=== PATIENT | female | born 1965 | race Hispanic/Latino ===

== ENCOUNTER 2019-04-15 14:32 | Emergency (ER) | payer MEDICARE ==
[~2019-04-15] VITALS: Ht 154.9 cm; Wt 59.4 kg
[2019-04-15] MEDS ORDERED: HYDROCODONE/APAP 10MG-325MG TAB PO NR (15:15)
--- NOTE | 2019-04-15 16:19 | Diagnostic Imaging Report ---
History: Headache Comparison studies: None Technique: Axial images were obtained from the skull base to the vertex. Coronal and sagittal reconstructions obtained from the axial data. Dose modulation, iterative reconstruction, and/or weight based adjustment of the mA/kV was utilized to reduce the radiation dose to as low as reasonably achievable. Intravenous contrast: None Findings: Scalp/skull: No abnormalities. No fractures, blastic or lytic lesions. Extra-axial spaces: No masses. No fluid collections. Brain sulci: Appropriate for age. Ventricles: Normal in size and configuration. No hydrocephalus. Parenchyma: No abnormal densities. No masses, hemorrhage, acute or chronic cortical vascular insults. Sellar/suprasellar region: No abnormalities Craniocervical junction: Patent foramen magnum. No Chiari one malformation. Incidental findings: None. IMPRESSION: No abnormalities. Signed by: Dr. Boy Meeks M.D. on 04/15/2019 4:16 PM
[2019-04-15 16:33] VITALS: BP 150/96
== END 2019-04-15 16:00 | disposition home or self-care (01) ==
LOC: ER 14:32
DX: I10 Essential (primary) hypertension (principal); R51 Headache; B19.20 Unspecified viral hepatitis C without hepatic coma; K74.60 Unspecified cirrhosis of liver; K21.9 Gastro-esophageal reflux disease without esophagitis; F41.9 Anxiety disorder, unspecified; E03.9 Hypothyroidism, unspecified
CPT/HCPCS: 70450; 99284

== ENCOUNTER 2019-09-22 16:00 | Inpatient (IN) | payer MEDICARE ==
[~2019-09-22] VITALS: Ht 154.9 cm; Wt 62.6 kg
--- OUTSIDE RECORDS SUMMARY | 2019-09-22 16:04 | XMS REPORT | Summary of Care ---
Author Author TOM N.PKayla, JAMILA Organization Unknown Address Unknown Phone Unavailable Care Team Providers Care Conveyor Installer Name Role Phone GERARDO D.Dion, BLAKE Unavailable Unavailable TOM N.P., JAMILA Unavailable Unavailable YEH DO UT, BLAKE Unavailable Unavailable MIKAYLA TODD, JIMMY Diamond Unavailable Unavailable [facility] UT, JAMILA N Unavailable Unavailable Unavailable Unavailable Functional Status Name Dates Details Functional status health issues are not documented Status: Name Dates Details Cognitive status health issues are not documented Status: Problems Name Dates Details 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 Quantity: 270 YEH D.O., ANDRIA-LLOYD * Start : 31-Oct-2018 Active Venlafaxine HCl ER 150 MG Oral Capsule Extended Release 24 Hour TAKE 1 CAPSULE ONCE DAILY WITH FOOD. * Refills: 0 * Start : 31-Oct-2018 Active Invega 6 MG Oral Tablet Extended Release 24 Hour TAKE 1 TABLET DAILY. * Refills: 0 * Start : 31-Oct-2018 Active traMADol HCl - 50 MG Oral Tablet TAKE 1 TABLET EVERY 8 HOURS NEEDED. * Quantity: 90 Refills: 0 YEH D.O., ANDRIA-LLOYD * Start : 31-Oct-2018 Active traZODone HCl - 50 MG Oral Tablet TAKE 1 TABLET AT BEDTIME. * Quantity: 30 Refills: 0 * Start : 31-Oct-2018 Active Levothyroxine Sodium 50 MCG Oral Tablet TAKE 1 TABLET DAILY. * Quantity: 90 Refills: 1 YEH D.O., BLAKE * Start : 31-Oct-2018 Active Propranolol HCl - 20 MG Oral Tablet TAKE 1 TABLET DAILY * Quantity: 90 Refills: 1 YEH D.O., BLAKE * Start : 31-Oct-2018 Active Vitamin A 56940 UNIT Oral Tablet TAKE 1 TABLET DAILY. * Refills: 0 * Start : 31-Oct-2018 Active raNITIdine HCl - 300 MG Oral Tablet TAKE 1 TABLET DAILY DIRECTED. * Quantity: 90 Refills: 1 * Start : 31-Oct-2018 Active Paliperidone ER 6 MG Oral Tablet Extended Release 24 Hour TAKE 1 TABLET DAILY. * Refills: 0 * Start : 31-Oct-2018 Active Myrbetriq 25 MG Oral Tablet Extended Release 24 Hour TAKE 1 TABLET DAILY * Quantity: 30 Refills: 5 YEH D.O., ANDRIA-LLOYD * Start : 31-Oct-2018 Active Amitriptyline HCl - 25 MG Oral Tablet TAKE 1 TABLET AT BEDTIME. * Quantity: 30 Refills: 5 YEH D.O., BLAKE * Start : 29-Jan-2019 Active H-E-B inControl BP Monitor MEASURE BLOOD PRESSURE DAILY DIRECTED. * Quantity: 1 Refills: 0 TOM Boss.JAMILA Schultz * Start : 17-Apr-2019 Active Allergies and Adverse Reactions Name Dates Details No Known Drug Allergies (Allergy) Status: Active Past Medical History Name Dates Details History of anxiety disorder (V11.8, Z86.59) Status: Resolved History of cirrhosis (V12.79, Z87.19) Status: Resolved History of depression (V11.8, Z86.59) Status: Resolved History of post traumatic stress disorder (V11.8, Z86.59) Status: Resolved History of thyroid disorder (V12.29, Z86.39) Status: Resolved Procedures Procedure Dates Details ECG-12 Lead Date: 17-Apr-2019 [[facility]] CBC (INCLUDES DIFF/PLT) Date: 17-Apr-2019 [[facility]] CMP W/EGFR Date: 17-Apr-2019 [[facility]] HEMOGLOBIN A1c Date: 17-Apr-2019 [[facility]] LIPID PANEL Date: 17-Apr-2019 [[facility]] TSH, 3RD GENERATION W/REFLEX TO FT4 Date: 17-Apr-2019 [[facility]] URINALYSIS, COMPLETE W/REFLEX TO CULTURE Date: 17-Apr-2019 [[facility]] HEPATITIS C ANTIBODY Date: 17-Apr-2019 History of Hysterectomy Completed History of Bladder surgery Completed History of Abdominoplasty Completed History of Mastopexy Completed Immunization Name Dates Details Fluzone Quadrivalent 0.5 ML Intramuscular Suspension Prefilled Syringe Lot #: [id number] on: 31-Oct-2018 Family History Name Dates Details Family history of depression (V17.0, Z81.8) Status: Active Name Dates Details Family history of malignant neoplasm (V16.9, Z80.9) Status: Active Name Dates Details Family history of diabetes mellitus (V18.0, Z83.3) Status: Active Family history of hypertension (V17.49, Z82.49) Status: Active Family history of chronic obstructive pulmonary disease (V17.6, Z82.5) Status: Active Family history of asthma (V17.5, Z82.5) Status: Active Name Dates Details Family history of hypertension (V17.49, Z82.49) Status: Active Family history of stroke (V17.1, Z82.3) Status: Active Family history of chronic obstructive pulmonary disease (V17.6, Z82.5) Status: Active Social History Name Dates Details - Status: Name Dates Details Current every day smoker Vital Signs Date Test Result Details :22 BP Systolic 142 mm[Hg] Status: Comments: Location: LUE; Position: Sitting BP Diastolic 95 mm[Hg] Status: Comments: Location: LUE; Position: Sitting :20 BP Systolic 154 mm[Hg] Status: Comments: Location: LUE; Position: Sitting BP Diastolic 97 mm[Hg] Status: Comments: Location: LUE; Position: Sitting :57 BP Systolic 130 mm[Hg] Status: Comments: Location: LUE; Position: Sitting BP Diastolic 85 mm[Hg] Status: Comments: Location: LUE; Position: Sitting :38 BP Systolic 152 mm[Hg] Status: Comments: Location: LUE; Position: Sitting BP Diastolic 89 mm[Hg] Status: Comments: Location: LUE; Position: Sitting Physical Findings 1 Status: Comments: PHQ-9 Adult Depression Screening Height 61 in Status: Weight 135.375 lb Status: Body Mass Index Calculated 25.58 kg/m2 Status: Body Surface Area Calculated 1.6 m2 Status: Temperature 97.7 f Status: Heart Rate 69 /min Status: Respiration Rate 16 /min Status: Results Date Description Value Details Results not documented Plan of Care Name Dates Details Planned Observations Planned Goals not documented Planned Encounters Appointment; JAMILA SANTOS NP On: 02-May-2019 9:30 Appointment; BLAKE CARRILLO D.O. On: 08-May-2019 13:00 Interventions Provided Medication Changes* H-E-B inControl BP Monitor - Start Labs/Procedures/Imaging* [[facility]] CBC (INCLUDES DIFF/PLT); To Be Done: 17 Apr 2019 * [[facility]] CMP W/EGFR; To Be Done: 17 Apr 2019 * [[facility]] HEMOGLOBIN A1c; To Be Done: 17 Apr 2019 * [[facility]] HEPATITIS C ANTIBODY; To Be Done: 17 Apr 2019 * [QL] LIPID PANEL; To Be Done: 17 Apr 2019 * [QL] TSH, 3RD GENERATION W/REFLEX TO FT4; To Be Done: 17 Apr 2019 * [[facility]] URINALYSIS, COMPLETE W/REFLEX TO CULTURE; To Be Done: 17 Apr 2019 * ECG-12 Lead; To Be Done: 17 Apr 2019 * Tobacco Use Screening; Done: 17 Apr 2019 Discussion/Summary* HTN: * - [O] POC EKG #1 & #2: "Sinus rhythm. Anterior T wave changes are nonspecific. Low QRS voltages in precordial leads." * - Labs ordered: (1) TSH, (2) CBC; (3) CMP; (4) HgbA1c; (5) Lipid panel; (6) Microalbumin, random; (7) U/A; (8) Vitamin D * - Prescription for H-E-B inControl BP Monitor printed and given to pt with H-E-B flyer to purchase at [facility]. * - Will not initiate pharmacologic at this time. Would like to see true home BP readings before starting on medication. * - Will initiate BP treatment with XXX and continue follow-up with patient until BP is at acceptable readings. * - Will refill medication, XXX and continue follow-up appointments with patient until BP is at acceptable readings. * - Daily home BP log given to pt to record measures at home and bring to next visit to evaluate for therapeutic efficacy. * DISCHARGE SUMMARY: * - Medication benefits, risks, and side effects discussed with patient. * - Strict ER precautions given. * - F/U PRN. * - F/U in 2 weeks for reevaluation of medication efficacy. * * Patient expresses understanding and agrees with plan and management. Instructions Name Dates Details Instructions not documented Encounters Appointment; BLAKE CARRILLO D.O. Encounter Diagnosis: Problem not documented On: 31-Oct-2018 10:30 Appointment; BLAKE CARRILLO D.O. Encounter Diagnosis: Problem not documented On: 29-Jan-2019 10:00 Appointment; JAMILA SANTOS NP Encounter Diagnosis: Problem not documented On: 17-Apr-2019 15:00
--- OUTSIDE RECORDS SUMMARY | 2019-09-22 16:04 | XMS REPORT ---
Author Author [facility] Address Unknown Phone Unavailable Care Team Providers Care Regional Retail Sales Manager Name Role Phone Eric DURANT GENIAEULALIO Unavailable Unavailable Problems This patient has no known problems. Allergies, Adverse Reactions, Alerts This patient has no known allergies or adverse reactions. Medications This patient has no known medications. Encounters Start Date/Time End Date/Time Encounter Type Admission Type Attending [facility] Care Facility Care Department Encounter ID 2019-11-19 00:00:00 2019-11-19 00:00:00 Outpatient [facility] [id number] 2019-09-17 09:47:13 2019-09-17 09:47:13 Outpatient [facility] [id number] 2019-06-25 09:15:42 2019-06-25 09:15:42 Outpatient [facility] [id number] 2019-05-22 15:13:14 2019-05-22 15:13:14 Emergency [facility] [id number] 2017-03-21 00:00:00 2017-03-21 00:00:00 Outpatient [facility] [id number] Results Test Description Test Time Test Comments Text Results Atomic Results Result Comments CT BRAIN WO 2019-04-15 16:15:00 [place] [address] Patient Name: SHAUN HAM MR #: [id number] : 1965 Age/Sex: 53/F Req #: [id number] Adm Physician: Ordered by: YULIA MCNALLY TOOL AND DIE MAKER APPRENTICE Report #: [id number] Location: ER Room/Bed: Procedure: [id number] CT/CT BRAIN WO Exam Date: 04/15/19 Exam Time: 1545 REPORT STATUS: Signed History: Headache Comparison studies: None Techni que: Axial images were obtained from the skull base to the vertex. Coronal and sagittal reconstructions obtained from the axial data. Dose modulation, iterative reconstruction, and/or weight based adjustment of the mA/kV was utilized to reduce the radiation dose to as low as reasonably achievable. Intravenous contrast: None Findings: Scalp/skull: No abnormalities. No fractures, blastic or lytic lesions. Extra-axial spaces: No masses. No fluid collections. Brain sulci: Appropriate for age. Ventricles: Normal in size and configuration. No hydrocephalus. Parenchyma: No abnormal densities. No masses, hemorrhage, acute or chronic cortical vascular insults. Sellar/suprasellar region: No abnormalities Craniocervical junction: Patent foramen magnum. No Chiari one malformation. Incidental findings: None. IMPRESSION: No abnormalities. Signed by: Dr. Boy Meeks M.D. on 04/15/2019 4:16 PM Dictated By: BOY MEEKS MD, MD [id number] Transcribed By: RITA on 04/15/19 1616 COPY TO: YULIA MCNALLY NP
--- NOTE | 2019-09-22 16:30 | NUR ---
PATIENT TO ROOM 8
[2019-09-22 16:59] LABS: BILIRUBIN,URINE NEGATIVE (NEGATIVE); CLARITY,URINE CLEAR (CLEAR); COLOR,URINE YELLOW (YELLOW); KETONES,URINE NEGATIVE (NEGATIVE); LEUKOCYTE ESTERASE ,URINE NEGATIVE (NEGATIVE); NITRITE,URINE NEGATIVE (NEGATIVE); PROTEIN,URINE DIPSTICK NEGATIVE (NEGATIVE); URINE UROBILINOGEN 0.2 mg/dL (0.2 - 1)
[2019-09-22] MEDS ORDERED: PANTOPRAZOLE 40 MG 10ML VIAL IV ONE (17:00)
[2019-09-22] MEDS ORDERED: ONDANSETRON HCL INJ 2MG/ML 2ML 2 MG/ML VIAL IV ONE (17:00)
--- NOTE | 2019-09-22 17:00 | NUR ---
YULIA Mcleod AT BEDSIDE EVALUATING PATIENT
[2019-09-22 17:06] LABS: BACTERIA,URINE FEW /HPF; EPITHELIAL CELLS,URINE FEW /LPF; RBC,URINE 0-5 /HPF (0-5); WBC,URINE (MAN) 0-5 /HPF (0-5)
--- NOTE | 2019-09-22 17:23 | Diagnostic Imaging Report ---
EXAMINATION: CHEST SINGLE (PORTABLE) INDICATION: Abdominal pain. COMPARISON: None FINDINGS: TUBES and LINES: None. LUNGS: Low lung volumes. There is no evidence of pneumonia or pulmonary edema. PLEURA: No pleural effusion or pneumothorax. HEART AND MEDIASTINUM: The cardiomediastinal silhouette is unremarkable. BONES AND SOFT TISSUES: No acute osseous lesion. Soft tissues are unremarkable. UPPER ABDOMEN: No free air under the diaphragm. IMPRESSION: No acute radiographic abnormality. Signed by: Dr. Junito Toth MD on 09/22/2019 5:20 PM
[2019-09-22 17:24] LABS: BASOPHILS % 0.2 % (0.0-1.0); EOSINOPHILS # (AUTO) 0.2 (0.0-0.4); EOSINOPHILS % 2.8 % (0.0-6.0); HEMATOCRIT 39.6 % (34.2-44.1); HEMOGLOBIN 13.7 g/dL (12.0-16.0); LYMPHOCYTES # (AUTO) 1.6 (1.0-3.2); LYMPHOCYTES % 18.7 % (18.0-39.1); MEAN CORPUSCULAR HEMOGLOBIN 31.1 pg (28-32); MEAN CORPUSCULAR HGB CONC 34.6 g/dL (31-35); MEAN CORPUSCULAR VOLUME 89.8 fL (81-99); MONOCYTES # (AUTO) 0.4 (0.2-0.8); MONOCYTES % 4.5 % (4.4-11.3); NEUTROPHILS # (AUTO) 6.1 (2.1-6.9); NEUTROPHILS % 73.6 % (38.7-80.0); PLATELET COUNT 147 x10e3/uL (140-360); RED BLOOD COUNT 4.41 x10e6/uL (3.6-5.1); RED CELL DISTRIBUTION WIDTH 12.7 % (11.7-14.4)
[2019-09-22 17:37] LABS: INR 0.99; PROTHROMBIN TIME 13.6 seconds (11.9-14.5)
[2019-09-22 17:38] LABS: PARTIAL THROMBOPLASTIN TIME 36.5 seconds (23.8-35.5)
[2019-09-22 17:47] LABS: ALANINE AMINOTRANSFERASE 23 IU/L (0-55); ALBUMIN 4.1 g/dL (3.5-5.0); ALBUMIN/GLOBULIN RATIO 1.1 (0.8-2.0); ALKALINE PHOSPHATASE 91 IU/L (40-150); AMYLASE 64 U/L (25-125); ANION GAP 14.3 mmol/L (8-16); BLOOD UREA NITROGEN < 5 mg/dL (7-26); BUN/CREATININE RATIO 6 (6-25); CALCIUM 9.7 mg/dL (8.4-10.2); CARBON DIOXIDE 26 mmol/L (22-29); CHLORIDE 91 mmol/L (98-107); CREATINE KINASE 43 IU/L (29-168); EST GLOMERULAR FILTRATION RATE > 60 ML/MIN (60-); GLUCOSE 117 mg/dL (74-118); LIPASE 21 U/L (8-78); POTASSIUM 3.3 mmol/L (3.5-5.1); SODIUM 128 mmol/L (136-145)
[2019-09-22] MEDS ORDERED: MORPHINE SULFATE INJ 4 MG/ML INJ 1ML IV ONE (18:00)
[2019-09-22] MEDS ORDERED: IOPAMIDOL 370 MG/ML 200 ML INFUS..BTL INJ ONE (18:33)
[2019-09-22] MEDS ORDERED: SODIUM CHLORIDE 0.9% 50ML 50 ML ONE (18:33)
[2019-09-22] MEDS ORDERED: SODIUM CHLORIDE 0.9% 500ML 500 ML IV ONE (19:30)
--- NOTE | 2019-09-22 19:37 | Diagnostic Imaging Report ---
EXAM: CT Abdomen and Pelvis WITH contrast INDICATION: ^abd pain ^[id number] ^1810 COMPARISON: None. TECHNIQUE: Abdomen and pelvis were scanned utilizing a multidetector helical scanner from the lung base to the pubic symphysis after administration of IV contrast. Coronal and sagittal reformations were obtained. Dose modulation, iterative reconstruction, and/or weight based adjustment of the mA/kV was utilized to reduce the radiation dose to as low as reasonably achievable. Routine protocol was performed. Scan was performed when during portal venous phase. IV CONTRAST: 100 mL of Isovue-370 ORAL CONTRAST: None COMPLICATIONS: None RADIATION DOSE: Total DLP: 245.64 mGy*cm Estimated effective dose: (DLP x 0.015 x size factor) mSv CTDIvol has been reviewed. It is below the limits set by the Radiation Protocol Committee (RPC). FINDINGS: LINES and TUBES: None. LOWER THORAX: Mild right basilar subsegmental atelectasis. HEPATOBILIARY: Nodular contour. No focal hepatic lesions. No biliary ductal dilation. GALLBLADDER: Distended gallbladder. No radio-opaque stones or sludge. No wall thickening. SPLEEN: No splenomegaly. PANCREAS: No focal masses or ductal dilatation. ADRENALS: No adrenal nodules KIDNEYS/URETERS: Kidneys enhance symmetrically. No hydronephrosis. No renal mass. Few bilateral subcentimeter hypodensities are too small to characterize. No stones. GI TRACT: Few dilated small bowel loops in left upper quadrant along with more distal collapsed loops and transition point in right abdomen (series 2, image 44). Appendix is absent. PELVIC ORGANS/BLADDER: Unremarkable. LYMPH NODES: No lymphadenopathy. VESSELS: There is mild atherosclerotic disease in the aorta and major arterial branches. PERITONEUM / RETROPERITONEUM: No free air or fluid. BONES: Lateral L5 pars defects with grade 1 L5-S1 spondylolisthesis. SOFT TISSUES: Unremarkable. IMPRESSION: 1. Few dilated small bowel loops along with more distal collapsed loops, concerning for early/partial small bowel obstruction in the appropriate clinical context. 2. Hydropic gallbladder without radiopaque gallstone or wall thickening. Signed by: Dr. Valerio Alonso MD on 09/22/2019 7:34 PM
[2019-09-22] MEDS ORDERED: ONDANSETRON HCL INJ 2MG/ML 2ML 2 MG/ML VIAL IV PRN (20:00)
[2019-09-22] MEDS ORDERED: MORPHINE SULFATE 2 MG/ML SYR 1ML IV PRN (20:00)
[2019-09-22 22:04] VITALS: BP 133/78
[2019-09-22] MEDS: SODIUM CHLORIDE 0.9% 1000ML 1,000 ML IV SCH (22:15)
[2019-09-22 22:40] VITALS: BP 133/78
[2019-09-22 22:46] VITALS: BP 133/78
[2019-09-22] MEDS ORDERED: GABAPENTIN300 MG PO (23:01)
[2019-09-22] MEDS ORDERED: OXYBUTYNIN CHLOR5 M1 PO (23:01)
[2019-09-22] MEDS ORDERED: VITAMIN A10000 UNIT PO (23:01)
[2019-09-22] MEDS ORDERED: HYDROCHLOROTH12.5 MG PO (23:01)
[2019-09-22] MEDS ORDERED: PROMETHAZINE VC PO (23:01)
[2019-09-22] MEDS ORDERED: VENLAFAXINE HCL75 M2 PO (23:01)
[2019-09-22] MEDS ORDERED: ULTRAM 50MG50 MG PO (23:01)
[2019-09-22] MEDS ORDERED: TRAZODONE HCL50 MG PO (23:01)
[2019-09-22] MEDS ORDERED: RISPERIDONE1 MG PO (23:01)
[2019-09-22] MEDS ORDERED: LEVOTHYROXINE50 MCG PO (23:01)
[2019-09-22] MEDS ORDERED: AMITRIPTYLINE H25 MG PO (23:01)
[2019-09-22] MEDS ORDERED: FLUTICASONE P15.8 ML (23:01)
[2019-09-22] MEDS ORDERED: PROPRANOLOL HCL10 MG PO (23:01)
[2019-09-23] VITALS (7 sets, daily range): BP systolic 118–135; BP diastolic 74–79
[2019-09-23] MEDS: SODIUM CHLORIDE 0.9% 1000ML 1,000 ML IV SCH ×3 (05:58→19:30)
[2019-09-23 06:24] LABS: BASOPHILS % 0.4 % (0.0-1.0); EOSINOPHILS # (AUTO) 0.3 (0.0-0.4); EOSINOPHILS % 4.9 % (0.0-6.0); HEMATOCRIT 37.3 % (34.2-44.1); HEMOGLOBIN 12.6 g/dL (12.0-16.0); LYMPHOCYTES # (AUTO) 1.7 (1.0-3.2); LYMPHOCYTES % 32.7 % (18.0-39.1); MEAN CORPUSCULAR HEMOGLOBIN 30.7 pg (28-32); MEAN CORPUSCULAR HGB CONC 33.8 g/dL (31-35); MEAN CORPUSCULAR VOLUME 90.8 fL (81-99); MONOCYTES # (AUTO) 0.4 (0.2-0.8); MONOCYTES % 7.8 % (4.4-11.3); NEUTROPHILS # (AUTO) 2.8 (2.1-6.9); PLATELET COUNT 124 x10e3/uL (140-360); RED BLOOD COUNT 4.11 x10e6/uL (3.6-5.1)
[2019-09-23 06:47] LABS: ANION GAP 12.8 mmol/L (8-16); BLOOD UREA NITROGEN 5 mg/dL (7-26); BUN/CREATININE RATIO 7 (6-25); CALCIUM 8.9 mg/dL (8.4-10.2); CARBON DIOXIDE 25 mmol/L (22-29); CHLORIDE 101 mmol/L (98-107); CREATININE, SERUM 0.72 mg/dL (0.57-1.11); EST GLOMERULAR FILTRATION RATE > 60 ML/MIN (60-); GLUCOSE 92 mg/dL (74-118); POTASSIUM 3.8 mmol/L (3.5-5.1); SODIUM 135 mmol/L (136-145)
--- NOTE | 2019-09-23 07:40 | Diagnostic Imaging Report ---
Abdomen/KUB INDICATION: ^SBO ^[id number] ^0633 COMPARISON: CT abdomen/pelvis 09/22/2019. FINDINGS: Portable, supine image obtained at 0702 hours. Medical Devices: Normal. Bowel: Unremarkable bowel gas pattern. No dilated bowel loops. Moderate burden of stool throughout the colon Free air: None Abdominal calcifications: None Organomegaly: None. There is excreted contrast in a well distended urinary bladder. The contours are smooth Bones: Unremarkable IMPRESSION: Unremarkable bowel gas pattern. Moderate burden of stool throughout the colon. Signed by: Dr. Kirsten Mcdonnell MD on 09/23/2019 7:37 AM
[2019-09-23] MEDS: FAMOTIDINE 20 MG/2 ML VIAL IV SCH (17:35)
--- NOTE | 2019-09-23 20:10 | NUR ---
SPOKE TO TRACEY LOZANO REGARDING PT REQUEST OF NICOTINE PATCH. NEW ORDER RECEIVED.
[2019-09-23] MEDS: GABAPENTIN 300 MG CAP PO SCH (21:32)
[2019-09-23] MEDS: NICOTINE 14 MG/EA PATCH TOP PRN (21:32)
[2019-09-23] MEDS: RISPERIDONE 1 MG TAB PO SCH (21:32)
[2019-09-23] MEDS: TRAZODONE HCL 50 MG TAB PO SCH (21:32)
[2019-09-23] MEDS: AMITRIPTYLINE HCL 25 MG TAB PO SCH (21:32)
[2019-09-24] VITALS (8 sets, daily range): BP systolic 103–160; BP diastolic 68–90
--- NOTE | 2019-09-24 00:09 | NUR ---
DR. Mary Ellen GREEN DOING ROUNDS. NEW ORDER RECEIVED FOR DULCOLAX SUPP ONCE
[2019-09-24] MEDS ORDERED: BISACODYL 10 MG SUPP PR ONE (00:15)
--- NOTE | 2019-09-24 00:25 | NUR ---
DR. Mary Ellen GREEN SAID OK TO GIVE DULCOLAX SUPP AT 0500
[2019-09-24] MEDS: LEVOTHYROXINE SODIUM 50 MCG TAB PO SCH (05:32)
[2019-09-24 06:11] LABS: BASOPHILS % 0.3 % (0.0-1.0); EOSINOPHILS # (AUTO) 0.3 (0.0-0.4); EOSINOPHILS % 6.5 % (0.0-6.0); HEMATOCRIT 37.8 % (34.2-44.1); HEMOGLOBIN 12.5 g/dL (12.0-16.0); LYMPHOCYTES # (AUTO) 1.3 (1.0-3.2); LYMPHOCYTES % 33.2 % (18.0-39.1); MEAN CORPUSCULAR HEMOGLOBIN 30.3 pg (28-32); MEAN CORPUSCULAR HGB CONC 33.1 g/dL (31-35); MEAN CORPUSCULAR VOLUME 91.7 fL (81-99); MONOCYTES # (AUTO) 0.3 (0.2-0.8); MONOCYTES % 7.5 % (4.4-11.3); NEUTROPHILS % 52.2 % (38.7-80.0); PLATELET COUNT 104 x10e3/uL (140-360); RED BLOOD COUNT 4.12 x10e6/uL (3.6-5.1)
[2019-09-24 06:41] LABS: ANION GAP 10.9 mmol/L (8-16); BLOOD UREA NITROGEN 5 mg/dL (7-26); BUN/CREATININE RATIO 6 (6-25); CALCIUM 8.8 mg/dL (8.4-10.2); CARBON DIOXIDE 25 mmol/L (22-29); CHLORIDE 105 mmol/L (98-107); CREATININE, SERUM 0.79 mg/dL (0.57-1.11); EST GLOMERULAR FILTRATION RATE > 60 ML/MIN (60-); GLUCOSE 88 mg/dL (74-118); PHOSPHORUS 3.2 MG/DL (2.3-4.7); POTASSIUM 3.9 mmol/L (3.5-5.1); SODIUM 137 mmol/L (136-145)
--- NOTE | 2019-09-24 07:00 | NUR ---
RECEIVED PATIENT RESTING IN BED NO S/S OF DISTRESS. BED LOW, WHEELS LOCKED, SIDE RAILS X2. CALL LIGHT IN REACH WILL CONTINUE TO MONITOR PATIENT.
--- NOTE | 2019-09-24 07:35 | NUR ---
PATIENT HAD BOWEL MOVEMENT AT THIS TIME. MODERATE FORMED BROWN STOOL.
[2019-09-24] MEDS: GABAPENTIN 300 MG CAP PO SCH ×3 (08:18→22:10)
[2019-09-24] MEDS: FAMOTIDINE 20 MG/2 ML VIAL IV SCH ×2 (08:30→17:03)
[2019-09-24] MEDS: SODIUM CHLORIDE 0.9% 1000ML 1,000 ML IV SCH ×2 (09:00→22:10)
--- NOTE | 2019-09-24 09:26 | NUR ---
PATIENT LEFT AT THIS TIME TO NUCLEAR MEDICINE.
--- NOTE | 2019-09-24 10:59 | NUR ---
PATIENT BACK FROM NUCLEAR MEDICINE AT THIS TIME.
[2019-09-24] MEDS: OXYBUTYNIN CHLORIDE XL 5 MG TAB PO SCH (12:06)
[2019-09-24] MEDS: VENLAFAXINE HCL 75 MG CAPCR PO SCH (12:06)
[2019-09-24] MEDS: PROPRANOLOL HCL 10 MG TAB PO SCH (12:07)
[2019-09-24] MEDS ORDERED: VITAMIN A 10000 UNIT PO SCH (15:00)
--- NOTE | 2019-09-24 15:36 | Diagnostic Imaging Report ---
Hepatobiliary Scan with Gallbladder Ejection Fraction Clinical information: Small bowel obstruction; gallbladder hydrops Technique: Following intravenous administration of 6.6.6 millicuries of Tc-99m mebrofenin, dynamic images of the abdomen in the anterior projection were obtained through 40 minutes. Sincalide (CCK analog) 1.2 micrograms was administered intravenously over 30 minutes with additional imaging for determination of gallbladder ejection fraction. Discussion: Perfusion of the liver is normal. Extraction of tracer by the liver parenchyma is normal. Tracer appears promptly within the biliary tract. The gallbladder begins to fill at 24 minutes post injection of tracer and fills adequately. Tracer is seen in the small bowel by during the sincalide infusion. There is no contractile response by the gallbladder to the pharmacologic dose of sincalide. No emptying of the gallbladder occurs during the 30 minute infusion. Impression: 1. Filling of the gallbladder excludes acute cystic duct obstruction/acute cholecystitis. 2. The gallbladder ejection fraction is undefined as there is no emptying of the gallbladder during the infusion of sincalide. This absence of a contractile response to sincalide supports the clinical diagnosis of chronic cholecystitis/gallbladder dyskinesia. Signed by: Dr. Nazia Weiss M.D. on 09/24/2019 3:32 PM
--- NOTE | 2019-09-24 16:54 | NUR ---
Spoke to Timothy about if patient meets inpatient status, he is unsure for this particular patient. Clinicals copied from chart and sent to third green party physician review group.
[2019-09-24] MEDS: GUAIFENESIN 600MG/DEXTROMETHORPHAN 30MG TABSR PO SCH (17:03)
[2019-09-24] MEDS: VITAMIN A 10000 UNIT PO SCH (17:03)
--- NOTE | 2019-09-24 17:25 | NUR ---
HIDA SHOWS CHRONIC CHOLECYSTITIS NOLA CEMENT TESTER ASSISTANT AWARE AND IS CALLING RESULTS TO DISCUSS PLAN WITH DR Mary Ellen GREEN
[2019-09-24] MEDS: ALBUTEROL/IPRATROPIUM 3 ML NEB NEB SCH (19:40)
[2019-09-24] MEDS: RISPERIDONE 1 MG TAB PO SCH (21:30)
[2019-09-24] MEDS: TRAZODONE HCL 50 MG TAB PO SCH (21:30)
[2019-09-24] MEDS: AMITRIPTYLINE HCL 25 MG TAB PO SCH (21:30)
[2019-09-25] VITALS (8 sets, daily range): BP systolic 116–184; BP diastolic 68–88
[2019-09-25] MEDS: ALBUTEROL/IPRATROPIUM 3 ML NEB NEB SCH ×4 (00:20→19:20)
--- NOTE | 2019-09-25 00:56 | NUR ---
is doing rounds.no new orders. is aware of the consults.bed locked and in lowest position.phone and call light within reach.instructed to call for assistance as needed.
[2019-09-25 03:41] LABS: BASOPHILS % 0.4 % (0.0-1.0); EOSINOPHILS # (AUTO) 0.4 (0.0-0.4); EOSINOPHILS % 6.9 % (0.0-6.0); HEMATOCRIT 36.9 % (34.2-44.1); HEMOGLOBIN 12.6 g/dL (12.0-16.0); LYMPHOCYTES # (AUTO) 1.6 (1.0-3.2); LYMPHOCYTES % 30.4 % (18.0-39.1); MEAN CORPUSCULAR HEMOGLOBIN 30.8 pg (28-32); MEAN CORPUSCULAR HGB CONC 34.1 g/dL (31-35); MEAN CORPUSCULAR VOLUME 90.2 fL (81-99); MONOCYTES # (AUTO) 0.3 (0.2-0.8); MONOCYTES % 6.2 % (4.4-11.3); NEUTROPHILS # (AUTO) 2.9 (2.1-6.9); NEUTROPHILS % 55.9 % (38.7-80.0); PLATELET COUNT 117 x10e3/uL (140-360); RED BLOOD COUNT 4.09 x10e6/uL (3.6-5.1); RED CELL DISTRIBUTION WIDTH 12.8 % (11.7-14.4)
[2019-09-25 04:13] LABS: ANION GAP 10.8 mmol/L (8-16); BLOOD UREA NITROGEN 5 mg/dL (7-26); BUN/CREATININE RATIO 7 (6-25); CALCIUM 8.9 mg/dL (8.4-10.2); CARBON DIOXIDE 23 mmol/L (22-29); CHLORIDE 108 mmol/L (98-107); CREATININE, SERUM 0.75 mg/dL (0.57-1.11); EST GLOMERULAR FILTRATION RATE > 60 ML/MIN (60-); GLUCOSE 86 mg/dL (74-118); MAGNESIUM 2.1 MG/DL (1.3-2.1); PHOSPHORUS 3.5 MG/DL (2.3-4.7); POTASSIUM 3.8 mmol/L (3.5-5.1); SODIUM 138 mmol/L (136-145)
[2019-09-25] MEDS ORDERED: BISACODYL 10 MG SUPP PR ONE (04:45)
[2019-09-25] MEDS: LEVOTHYROXINE SODIUM 50 MCG TAB PO SCH (05:51)
--- NOTE | 2019-09-25 06:50 | NUR ---
BED SIDE SHIFT REPORT GIVEN TO THE ONCOMING RN.STABLE CONDITION.
--- NOTE | 2019-09-25 07:00 | NUR ---
RECEIVED PATIENT RESTING IN BED NO S/S OF DISTRESS. BED LOW, WHEELS LOCKED, SIDE RAILS X2. CALL LIGHT IN REACH WILL CONTINUE TO MONITOR PATIENT.
[2019-09-25] MEDS: VENLAFAXINE HCL 75 MG CAPCR PO SCH (08:00)
[2019-09-25] MEDS: VITAMIN A 10000 UNIT PO SCH (08:00)
[2019-09-25] MEDS: GABAPENTIN 300 MG CAP PO SCH ×3 (08:00→21:10)
[2019-09-25] MEDS: OXYBUTYNIN CHLORIDE XL 5 MG TAB PO SCH (08:00)
[2019-09-25] MEDS: FAMOTIDINE 20 MG/2 ML VIAL IV SCH ×2 (08:00→16:15)
[2019-09-25] MEDS: PROPRANOLOL HCL 10 MG TAB PO SCH (08:00)
[2019-09-25] MEDS: DOCUSATE SODIUM 100 MG CAP PO SCH ×2 (08:00→16:15)
[2019-09-25] MEDS: GUAIFENESIN 600MG/DEXTROMETHORPHAN 30MG TABSR PO SCH ×2 (08:00→21:10)
--- NOTE | 2019-09-25 09:48 | NUR ---
PATIENT A/O X3, EVEN RESPIRATIONS ON RA. LUNG SOUNDS CLEAR TO AUSCULTATION. PATIENT AMBULATES INDEPENDENTLY. LEFT AC 20 GAUGE IV SL. NO PAIN AT THIS TIME. SKIN INTACT. LAST BOWEL MOVEMENT 09/24. BOWEL SOUNDS PRESENT. CALL LIGHT IN REACH WILL CONTINUE TO MONITOR PATIENT.
[2019-09-25] MEDS: TRAMADOL HCL 50 MG TAB PO PRN (10:14)
[2019-09-25] MEDS: HYDRALAZINE HCL 20 MG/ML VIAL IV PRN (12:29)
[2019-09-25] MEDS: NICOTINE 14 MG/EA PATCH TOP PRN (14:08)
[2019-09-25] MEDS: MORPHINE SULFATE INJ 4 MG/ML INJ 1ML IV PRN (14:08)
--- NOTE | 2019-09-25 15:00 | NUR ---
message to Dr. Mujica regarding observation/LOS/consult
[2019-09-25] MEDS: AMLODIPINE BESYLATE 10 MG TAB PO SCH (16:15)
[2019-09-25] MEDS: RISPERIDONE 1 MG TAB PO SCH (21:10)
[2019-09-25] MEDS: AMITRIPTYLINE HCL 25 MG TAB PO SCH (21:10)
[2019-09-25] MEDS: TRAZODONE HCL 50 MG TAB PO SCH (21:10)
--- NOTE | 2019-09-25 22:00 | NUR ---
was doing rounds.received new orders.npo after midnight.no pain voiced.no nausea.iv Left ac is patent.bed locked and in lowest position.phone and call light within reach.instructed to call for assistance as needed.
[2019-09-26] VITALS (9 sets, daily range): BP systolic 114–152; BP diastolic 67–93
--- NOTE | 2019-09-26 03:22 | Consultation ---
DATE OF CONSULTATION: 09/25/2019 CHIEF COMPLAINT: Abdominal pain. HISTORY OF PRESENT ILLNESS: The patient is a 53-year-old female admitted through the emergency room three days ago with epigastric upper abdominal pain with vomiting x 3. The patient admits to some constipation, but denies fever or chills. She has no prior episode. No fatty food intolerance. PAST MEDICAL HISTORY: Positive for hypertension, hepatitis C with cirrhotic liver, history of endometriosis, hypothyroidism. PAST SURGICAL HISTORY: Positive for tubal ligation, hysterectomy, ovarian cyst removal, abdominoplasty and breast lift. ALLERGIES: SHE HAS NO DRUG ALLERGIES. SOCIAL HABITS: She denies smoking or alcohol abuse. REVIEW OF SYSTEMS: No chest pain or shortness of breath. PHYSICAL EXAMINATION: VITAL SIGNS: Stable. Afebrile. She is awake, alert, in mild discomfort HEENT: Sclera nonicteric. NECK: Supple. LUNGS: Clear. HEART: Regular rate and rhythm. ABDOMEN: Soft with mild guarding in the epigastrium without any rebound tenderness. EXTREMITIES: Without cyanosis, edema. LABORATORY DATA: White cell count is 5.9, hemoglobin of 12, platelet count is 117, creatinine of 0.7. Liver function tests within normal limits. Lipase 21. CT of the abdomen show a few dilated small bowel loops suggestive of early small-bowel obstruction. Hydropic gallbladder without stone. HIDA scan show filling of the gallbladder, but no emptying with CCK. This suggests gallbladder dyskinesia. ASSESSMENT: Abdominal pain, vomiting, likely secondary to biliary dyskinesia. PLAN: Laparoscopic cholecystectomy. All attendant risks have been discussed with the patient. Michael Torres MD DNMichelet/MODL /[id number]
[2019-09-26 03:39] LABS: BASOPHILS % 0.3 % (0.0-1.0); EOSINOPHILS # (AUTO) 0.4 (0.0-0.4); EOSINOPHILS % 6.3 % (0.0-6.0); HEMATOCRIT 40.9 % (34.2-44.1); HEMOGLOBIN 14.1 g/dL (12.0-16.0); LYMPHOCYTES # (AUTO) 1.9 (1.0-3.2); LYMPHOCYTES % 29.1 % (18.0-39.1); MEAN CORPUSCULAR HEMOGLOBIN 30.9 pg (28-32); MEAN CORPUSCULAR HGB CONC 34.5 g/dL (31-35); MEAN CORPUSCULAR VOLUME 89.5 fL (81-99); MONOCYTES # (AUTO) 0.4 (0.2-0.8); MONOCYTES % 6.3 % (4.4-11.3); NEUTROPHILS # (AUTO) 3.8 (2.1-6.9); NEUTROPHILS % 57.7 % (38.7-80.0); PLATELET COUNT 127 x10e3/uL (140-360); RED BLOOD COUNT 4.57 x10e6/uL (3.6-5.1); RED CELL DISTRIBUTION WIDTH 12.8 % (11.7-14.4)
[2019-09-26 03:56] LABS: ANION GAP 14.8 mmol/L (8-16); CALCIUM 9.9 mg/dL (8.4-10.2); CHOL/HDL RATIO 3.7 (3.0-3.6); CREATININE, SERUM 1.03 mg/dL (0.57-1.11); POTASSIUM 3.8 mmol/L (3.5-5.1)
[2019-09-26 04:16] LABS: THYROID STIMULATING HORMONE 5.583 uIU/mL (0.350-4.940)
--- NOTE | 2019-09-26 05:04 | NUR ---
CONSENT SIGNED.ON NPO.BLOOD CAMDEN AND SENT TO THE LAB .STABLE CONDITION.
[2019-09-26] MEDS ORDERED: SODIUM CHLORIDE 0.9% 1000ML 1,000 ML IV SCH (05:15)
[2019-09-26] MEDS: LEVOTHYROXINE SODIUM 75 MCG TAB PO SCH (05:19)
--- NOTE | 2019-09-26 07:00 | NUR ---
Bed side shift report given to the on coming Rn.stable condition.
[2019-09-26] MEDS: AMLODIPINE BESYLATE 10 MG TAB PO SCH (09:00)
[2019-09-26] MEDS: DOCUSATE SODIUM 100 MG CAP PO SCH ×2 (09:00→17:53)
[2019-09-26] MEDS: VENLAFAXINE HCL 75 MG CAPCR PO SCH (09:00)
[2019-09-26] MEDS: GABAPENTIN 300 MG CAP PO SCH ×3 (09:00→20:46)
[2019-09-26] MEDS: VITAMIN A 10000 UNIT PO SCH (09:00)
[2019-09-26] MEDS: OXYBUTYNIN CHLORIDE XL 5 MG TAB PO SCH (09:00)
[2019-09-26] MEDS: PROPRANOLOL HCL 10 MG TAB PO SCH (09:00)
[2019-09-26] MEDS: GUAIFENESIN 600MG/DEXTROMETHORPHAN 30MG TABSR PO SCH ×2 (09:00→20:46)
[2019-09-26] MEDS: FAMOTIDINE 20 MG/2 ML VIAL IV SCH ×2 (09:34→17:53)
[2019-09-26] MEDS: ALBUTEROL/IPRATROPIUM 3 ML NEB NEB SCH ×2 (13:45→19:43)
[2019-09-26] MEDS ORDERED: BUPIVACAINE 0.25% 30ML SDV INJ ONE (15:29)
[2019-09-26] MEDS: HYDRALAZINE HCL 20 MG/ML VIAL IV PRN (17:22)
--- NOTE | 2019-09-26 17:45 | NUR ---
Pt came back from [facility] at this time. Pt has four trocher sites to abdomen with dermabond and bandages. Dressings are dry and intact. Pt is aox4 and able to verbalize. She is now on clear liquid liquid diet and advance as tolerated.
[2019-09-26] MEDS: MORPHINE SULFATE INJ 4 MG/ML INJ 1ML IV PRN ×2 (17:53→23:19)
[2019-09-26] MEDS ORDERED: MIDAZOLAM HCL 2 MG/2 ML VIAL ONE (19:58)
[2019-09-26] MEDS ORDERED: FENTANYL CITRATE/PF 100MCG/2 ML INJ ONE (19:58)
[2019-09-26] MEDS: TRAZODONE HCL 50 MG TAB PO SCH (20:46)
[2019-09-26] MEDS: AMITRIPTYLINE HCL 25 MG TAB PO SCH (20:46)
[2019-09-26] MEDS: RISPERIDONE 1 MG TAB PO SCH (20:46)
[2019-09-26] MEDS: TRAMADOL HCL 50 MG TAB PO PRN (20:46)
[2019-09-27] VITALS: BP 118/68
--- NOTE | 2019-09-27 00:05 | Operative Report ---
DATE OF PROCEDURE: 09/26/2019 SURGEON: Michael Torres MD PREOPERATIVE DIAGNOSIS: Cholecystitis. POSTOPERATIVE DIAGNOSIS: Cholecystitis. OPERATIVE PROCEDURE: Laparoscopic cholecystectomy. ANESTHESIA: General. INDICATION: The patient is a 53-year-old female with a 5-day history of epigastric pain, vomiting with ultrasound showing distention in gallbladder and HIDA scan showed poor ejection fraction of the gallbladder suggestive of chronic cholecystitis and biliary dyskinesia. The patient consented for laparoscopic cholecystectomy. Attendant risks discussed. PROCEDURE FINDING: Liver cirrhosis. DESCRIPTION OF PROCEDURE: The patient was brought to the OR, intubated. The abdomen was prepped and draped in a sterile fashion. An infraumbilical incision was made and a 10 mm port inserted. Insufflation begun under direct vision. Another port site placed in the midepigastric and right upper quadrant. Gallbladder was noted to be chronically inflamed and distended. Fundus retracted in cephalad direction. Next, the gallbladder retracted laterally. With blunt and sharp dissection, we isolated cystic artery, triple clipped and divided. The cystic duct was also isolated, triple clipped and divided between clips. The gallbladder detached from the liver and taken out through the umbilical incision. Operative field was then irrigated. Hemostasis achieved. All ports were removed under direct vision. Fascia closure with 0 Vicryl. Skin was then closed with subcuticular stitch. The patient was extubated and transported to recovery room. BLOOD LOSS: 10 mL. Michael Torres MD DNL/MODL /[id number]
[2019-09-27] MEDS: ALBUTEROL/IPRATROPIUM 3 ML NEB NEB SCH ×2 (01:19→06:50)
[2019-09-27 03:18] LABS: HEMOGLOBIN 12.8 g/dL (12.0-16.0); LYMPHOCYTES # (AUTO) 0.7 (1.0-3.2); LYMPHOCYTES % 11.2 % (18.0-39.1); MEAN CORPUSCULAR HEMOGLOBIN 30.8 pg (28-32); MEAN CORPUSCULAR HGB CONC 34.6 g/dL (31-35); MEAN CORPUSCULAR VOLUME 89.2 fL (81-99); MONOCYTES # (AUTO) 0.2 (0.2-0.8); MONOCYTES % 3.3 % (4.4-11.3); NEUTROPHILS # (AUTO) 5.4 (2.1-6.9); PLATELET COUNT 120 x10e3/uL (140-360); RED BLOOD COUNT 4.15 x10e6/uL (3.6-5.1); RED CELL DISTRIBUTION WIDTH 12.9 % (11.7-14.4)
[2019-09-27 03:34] LABS: ANION GAP 14.8 mmol/L (8-16); BLOOD UREA NITROGEN 6 mg/dL (7-26); BUN/CREATININE RATIO 8 (6-25); CARBON DIOXIDE 20 mmol/L (22-29); CHLORIDE 100 mmol/L (98-107); CREATININE, SERUM 0.76 mg/dL (0.57-1.11); EST GLOMERULAR FILTRATION RATE > 60 ML/MIN (60-); GLUCOSE 152 mg/dL (74-118); MAGNESIUM 1.9 MG/DL (1.3-2.1); POTASSIUM 3.8 mmol/L (3.5-5.1); SODIUM 131 mmol/L (136-145)
[2019-09-27 04:00] VITALS: BP 108/66
[2019-09-27] MEDS ORDERED: ZOFRAN4 MG PO (05:08)
[2019-09-27] MEDS ORDERED: SYNTHROID75 MCG PO (05:08)
[2019-09-27] MEDS ORDERED: TYLENOL WITH C1 EACH PO (05:08)
[2019-09-27] MEDS: LEVOTHYROXINE SODIUM 75 MCG TAB PO SCH (06:32)
[2019-09-27 07:54] VITALS: BP 170/89
[2019-09-27 08:00] VITALS: BP 170/89
[2019-09-27] MEDS: AMLODIPINE BESYLATE 10 MG TAB PO SCH (09:00)
[2019-09-27] MEDS: GUAIFENESIN 600MG/DEXTROMETHORPHAN 30MG TABSR PO SCH (09:00)
[2019-09-27] MEDS: DOCUSATE SODIUM 100 MG CAP PO SCH (09:00)
[2019-09-27] MEDS: VENLAFAXINE HCL 75 MG CAPCR PO SCH (09:00)
[2019-09-27] MEDS: PROPRANOLOL HCL 10 MG TAB PO SCH (09:00)
[2019-09-27] MEDS: FAMOTIDINE 20 MG/2 ML VIAL IV SCH (09:00)
[2019-09-27] MEDS: OXYBUTYNIN CHLORIDE XL 5 MG TAB PO SCH (09:00)
[2019-09-27] MEDS: VITAMIN A 10000 UNIT PO SCH (09:00)
[2019-09-27] MEDS: GABAPENTIN 300 MG CAP PO SCH (09:00)
[2019-09-27] MEDS ORDERED: CEFOXITIN SOD 1 GM VIAL ONE (09:50)
[2019-09-27] MEDS ORDERED: PROPOFOL IV EMULSION 10 MG/ML 20 ML VIAL ONE (09:50)
[2019-09-27] MEDS ORDERED: LIDOCAINE HCL 2% LOCAL INJ 5 ML SDV VIAL INJ ONE (09:50)
[2019-09-27] MEDS ORDERED: PHENYLEPHRINE HCL 1% 10 MG/ML VIAL ONE (09:50)
[2019-09-27] MEDS ORDERED: ROCURONIUM BROMIDE 10 MG/ML 5ML VIAL ONE (09:50)
[2019-09-27] MEDS ORDERED: NEOSTIGMINE 1 MG/ML 10ML VIAL ONE (09:50)
[2019-09-27] MEDS ORDERED: GLYCOPYRROLATE INJ 0.2 MG/ML VIAL ONE (09:50)
[2019-09-27] MEDS ORDERED: ONDANSETRON HCL INJ 2MG/ML 2ML 2 MG/ML VIAL ONE (09:50)
[2019-09-27] MEDS ORDERED: DEXAMETHASONE SOD PHOS INJ 4 MG/ML VIAL ONE (09:50)
[2019-09-27] MEDS ORDERED: SEVOFLURANE INHAL SOLN 250 ML PEN BTL ONE (09:50)
[2019-09-27] MEDS ORDERED: KETOROLAC TROMETHAMINE 30 MG/ML VIAL ONE (09:50)
[2019-09-27 11:27] VITALS: BP 122/85
--- NOTE | 2019-09-27 12:45 | NUR ---
Pt was able to tolerated lunch without difficulties. She was discharged home at this time. 0 s/s of acute distress noted at time of discharge. Pt is verbalized understanding of all discharge instructions and all follow up appointments.
--- NOTE | 2019-09-30 04:58 | Discharge Summary ---
ADMISSION DIAGNOSES: Partial small bowel obstruction associated with gallstone ileus, cirrhosis with history of hepatitis, hypertension, acute thrombocytopenia, hypothyroidism. DISCHARGE DIAGNOSES: Partial small bowel obstruction associated with gallstone ileus, cirrhosis with history of hepatitis, hypertension, acute thrombocytopenia, hypothyroidism, gallbladder dyskinesia. HISTORY: Hypertension, anemia, cirrhosis, GERD, hepatitis, anxiety. SURGICAL HISTORY: Appendectomy, tummy tuck, hysterectomy, bilateral tubal ligation, breast lift, and ovarian cyst. FAMILY HISTORY: The patient's father had a CABG. SOCIAL HISTORY: The patient admits to tobacco use. HOSPITAL COURSE: A 53-year-old female admitted with complaints of sharp stabbing left upper quadrant abdominal pain, radiating to her upper back. She also had nausea and vomiting x3. On admission, chest x-ray was negative. CT of the abdomen and pelvis showed dilated small bowel loops along with more distal collapsed loops concerning for early or partial small bowel obstruction. The patient then had a HIDA scan, which showed signs of gallbladder dyskinesia. After the SBO was resolved and the abdominal pain continued, the patient was taken to the OR for a laparoscopic cholecystectomy. The patient tolerated the procedure well and is tolerating diet. The patient's TSH was elevated, so her levothyroxine was increased. She will discharge home with prescription for Zofran, Tylenol No. 3, and increased dose of levothyroxine. She will follow up with primary care in 1 to 2 weeks and surgery as discussed. The patient understands discharge instructions and agrees to plan. Dictated by Rachel Christian NP MD KATHERINE Tirado/ISAACL /[id number]
== END 2019-09-27 12:45 | disposition home or self-care (01) | DRG 418 ==
LOC: ER 16:00 → ERHOLD 20:23 → MED/SURG 21:52 → OBSVTOIN 09-25 17:28
PROVIDERS: ADMIT Internal Medicine; ATTEND Internal Medicine
PROC: 0FT44ZZ Resection of Gallbladder, Percutaneous Endoscopic Approach (ICD-10-PCS; principal; 2019-09-26 15:30)
DX: K81.9 Cholecystitis, unspecified (principal); K56.600 Partial intestinal obstruction, unspecified as to cause; E87.1 Hypo-osmolality and hyponatremia; K82.1 Hydrops of gallbladder; K56.3 Gallstone ileus; K74.60 Unspecified cirrhosis of liver; K75.9 Inflammatory liver disease, unspecified; K82.8 Other specified diseases of gallbladder; E03.9 Hypothyroidism, unspecified; D69.6 Thrombocytopenia, unspecified; B18.2 Chronic viral hepatitis C; K21.9 Gastro-esophageal reflux disease without esophagitis; F41.9 Anxiety disorder, unspecified; J20.9 Acute bronchitis, unspecified; I10 Essential (primary) hypertension; Z79.52 Long term (current) use of systemic steroids; E87.6 Hypokalemia
CPT/HCPCS: 36415; 71045; 74018; 74177; 78227; 80048; 80053; 80061; 81001; 82150; 82550; 82553; 83036; 83690; 83735; 84100; 84443; 84484; 85025; 85610; 85730; 87086; 87521; 88304; 93005; 94640; 96361; 99284; A9537; G0378; J0360; J0694; J1100; J1885; J2001; J2250; J2270; J2370; J2405; J2710; J3010; J7030; J7040; Q9967

== ENCOUNTER 2020-05-18 13:34 | Emergency (ER) | payer MEDICARE ==
[~2020-05-18] VITALS: Ht 154.9 cm; Wt 62.6 kg
[~2020-05-18 13:34] MED LIST: AMITRIPTYLINE H25 MG PO; FLUTICASONE P15.8 ML; GABAPENTIN300 MG PO; HYDROCHLOROTH12.5 MG PO; LEVOTHYROXINE50 MCG PO; OXYBUTYNIN CHLOR5 M1 PO; PROMETHAZINE VC PO; PROPRANOLOL HCL10 MG PO; RISPERIDONE1 MG PO; SYNTHROID75 MCG PO; TRAZODONE HCL50 MG PO; TYLENOL WITH C1 EACH PO; ULTRAM 50MG50 MG PO; VENLAFAXINE HCL75 M2 PO; VITAMIN A10000 UNIT PO; ZOFRAN4 MG PO
[2020-05-18] MEDS ORDERED: SODIUM CHLORIDE 0.9% 1000ML 1,000 ML IV STA (13:55)
[2020-05-18] MEDS ORDERED: PANTOPRAZOLE 40 MG 10ML VIAL IV STA (13:55)
[2020-05-18] MEDS ORDERED: FISH OIL 1,0001 EAC2 PO (14:00)
[2020-05-18] MEDS ORDERED: CLONIDINE HCL0.1 MG PO (14:00)
[2020-05-18] MEDS ORDERED: CELEBREX100 MG PO (14:00)
[2020-05-18] MEDS ORDERED: DIAZEPAM5 MG PO (14:00)
[2020-05-18] MEDS ORDERED: SENNA LAXATIVE8.6 MG PO (14:00)
[2020-05-18] MEDS ORDERED: BENICAR20 MG PO (14:00)
[2020-05-18 14:13] LABS: BASOPHILS % 0.4 % (0.0-1.0); EOSINOPHILS # (AUTO) 0.4 (0.0-0.4); EOSINOPHILS % 5.6 % (0.0-6.0); HEMATOCRIT 37.5 % (34.2-44.1); HEMOGLOBIN 13.3 g/dL (12.0-16.0); LYMPHOCYTES # (AUTO) 2.1 (1.0-3.2); LYMPHOCYTES % 27.4 % (18.0-39.1); MEAN CORPUSCULAR HEMOGLOBIN 30.7 pg (28-32); MEAN CORPUSCULAR HGB CONC 35.5 g/dL (31-35); MEAN CORPUSCULAR VOLUME 86.6 fL (81-99); MONOCYTES # (AUTO) 0.6 (0.2-0.8); MONOCYTES % 7.6 % (4.4-11.3); NEUTROPHILS # (AUTO) 4.4 (2.1-6.9); NEUTROPHILS % 58.6 % (38.7-80.0); PLATELET COUNT 149 x10e3/uL (140-360); RED BLOOD COUNT 4.33 x10e6/uL (3.6-5.1)
[2020-05-18 14:24] LABS: INR 0.97; PROTHROMBIN TIME 13.4 seconds (11.9-14.5)
[2020-05-18 14:25] LABS: PARTIAL THROMBOPLASTIN TIME 35.1 seconds (23.8-35.5)
[2020-05-18 14:34] LABS: ALANINE AMINOTRANSFERASE 27 IU/L (0-55); ALBUMIN 4.3 g/dL (3.5-5.0); ALBUMIN/GLOBULIN RATIO 1.1 (0.8-2.0); ALKALINE PHOSPHATASE 73 IU/L (40-150); ANION GAP 16.3 mmol/L (8-16); BLOOD UREA NITROGEN < 5 mg/dL (7-26); CALCIUM 10.1 mg/dL (8.4-10.2); CARBON DIOXIDE 19 mmol/L (22-29); CHLORIDE 100 mmol/L (98-107); CREATINE KINASE 136 IU/L (29-168); CREATININE, SERUM 0.82 mg/dL (0.57-1.11); EST GLOMERULAR FILTRATION RATE > 60 ML/MIN (60-); GLUCOSE 88 mg/dL (74-118); MAGNESIUM 1.9 MG/DL (1.3-2.1); POTASSIUM 3.3 mmol/L (3.5-5.1); SODIUM 132 mmol/L (136-145)
[2020-05-18 14:48] LABS: BUN/CREATININE RATIO 6 (6-25)
--- OUTSIDE RECORDS SUMMARY | 2020-05-18 14:49 | XMS REPORT | Clinical Summary ---
Author Author [facility] ict Organization [facility] ict Address Unknown Phone Unavailable Care Team Providers Care Supervisor Lead Burning Name Role Phone PCP Unavailable Allergies No Known Allergies Medications End Date Status Medication Sig Dispensed Refills Start Date Active hydroquinone (LUSTRA) 4 % Apply to 28.35 g 3 topical creamIndications: affected area 0 Melasma 2 times daily. May cause dryness and irritation. Wear sunscreen SPF 30 or more daily. Active ibuprofen (MOTRIN) 800 mg Take 1 Tab by 90 Tab 2 tabletIndications: Back mouth every 8 1 pain hours as needed for Pain. Active ALBUTEROL 90 Administer 0 mcg/Actuation Aero by inhalation. Active nitrofurantoin Take by 15 capsule 0 (MACRODANTIN) 100 mg mouth. Take 2 capsuleIndications: UTI one tab by (urinary tract infection) mouth three times a day for 5 days Active levothyroxine (SYNTHROID) Take 1 tablet 90 tablet 3 50 mcg tabletIndications: by mouth 2 Neuropathic pain syndrome daily. (non-herpetic) Active oxybutynin (DITROPAN) 5 Take 1 tablet 270 tablet 3 mg tabletIndications: by mouth 3 2 Unspecified urinary times daily. incontinence Active traMADol (ULTRAM) 50 mg Take 1 tablet 90 tablet 1 tabletIndications: Joint by mouth 3 pain every 8 hours as needed (q 8 hours prn). Active risperiDONE (RISPERDAL) 1 Take 1 tablet 90 tablet 0 mg tabletIndications: by mouth at 0 PTSD (post-traumatic bedtime stress disorder), Major nightly. depressive disorder, recurrent episode, mild Active traZODone (DESYREL) 100 Take 1 tablet 90 tablet 0 mg tabletIndications: by mouth at 0 PTSD (post-traumatic bedtime stress disorder), Major nightly. depressive disorder, recurrent episode, mild Active venlafaxine (EFFEXOR XR) Take 1 90 capsule 0 0 150 mg extended release capsule by 0 capsuleIndications: PTSD mouth daily. (post-traumatic stress disorder), Major depressive disorder, recurrent episode, mild 06/25/2019 Discontinued (Alternate ther apy) paliperidone (INVEGA) 6 Take 1 tablet 90 tablet 0 mg extended release by mouth 9 tabletIndications: every Schizoaffective disorder, morning. unspecified type 06/25/2019 Discontinued (Alternate ther apy) paliperidone (INVEGA) 6 Take 1 tablet 90 tablet 0 mg extended release by mouth 9 tabletIndications: PTSD every (post-traumatic stress morning. disorder), Major depressive disorder, recurrent episode, mild 05/22/2019 Discontinued traZODone (DESYREL) 50 mg Take 1 tablet 90 tablet 0 tabletIndications: PTSD by mouth at 9 (post-traumatic stress bedtime disorder), Major nightly. depressive disorder, recurrent episode, mild 05/22/2019 Discontinued venlafaxine (EFFEXOR XR) Take 1 90 capsule 0 0 150 mg extended release capsule by 9 capsuleIndications: PTSD mouth daily. (post-traumatic stress disorder), Major depressive disorder, recurrent episode, mild 06/25/2019 Discontinued (Reorder) traZODone (DESYREL) 100 Take 1 tablet 30 tablet 1 mg tabletIndications: by mouth 9 PTSD (post-traumatic nightly at stress disorder), Major bedtime as depressive disorder, needed for recurrent episode, mild Sleep. 06/25/2019 Discontinued (Reorder) venlafaxine (EFFEXOR XR) Take 1 30 capsule 1 0 150 mg extended release capsule by 9 capsuleIndications: PTSD mouth daily. (post-traumatic stress disorder), Major depressive disorder, recurrent episode, mild 07/17/2019 Discontinued (Reorder) traZODone (DESYREL) 100 Take 1 tablet 90 tablet 0 mg tabletIndications: by mouth 9 PTSD (post-traumatic nightly at stress disorder), Major bedtime as depressive disorder, needed for recurrent episode, mild Sleep. 09/17/2019 Discontinued (Reorder) venlafaxine (EFFEXOR XR) Take 1 90 capsule 0 0 150 mg extended release capsule by 9 capsuleIndications: PTSD mouth daily. (post-traumatic stress disorder), Major depressive disorder, recurrent episode, mild 09/17/2019 Discontinued (Reorder) risperiDONE (RISPERDAL) 1 Take 1 tablet 90 tablet 0 mg tabletIndications: by mouth at 9 PTSD (post-traumatic bedtime stress disorder), Major nightly. depressive disorder, recurrent episode, mild 09/17/2019 Discontinued (Reorder) traZODone (DESYREL) 100 TAKE 1 TABLET 30 tablet 0 mg tabletIndications: BY MOUTH 9 PTSD (post-traumatic EVERY NIGHT stress disorder), Major AT BEDTIME depressive disorder, NEEDED recurrent episode, mild 11/19/2019 Discontinued (Reorder) risperiDONE (RISPERDAL) 1 Take 1 tablet 90 tablet 0 mg tabletIndications: by mouth at 9 PTSD (post-traumatic bedtime stress disorder), Major nightly. depressive disorder, recurrent episode, mild 11/19/2019 Discontinued (Reorder) traZODone (DESYREL) 100 Take 1 tablet 30 tablet 0 mg tabletIndications: by mouth at 9 PTSD (post-traumatic bedtime stress disorder), Major nightly. depressive disorder, recurrent episode, mild 11/19/2019 Discontinued (Reorder) venlafaxine (EFFEXOR XR) Take 1 90 capsule 0 1 150 mg extended release capsule by 9 capsuleIndications: PTSD mouth daily. (post-traumatic stress disorder), Major depressive disorder, recurrent episode, mild 11/19/2019 Discontinued (Alternate ther apy) traZODone (DESYREL) 100 Take 1 tablet 90 tablet 0 mg tabletIndications: by mouth at 0 Major depressive bedtime disorder, recurrent nightly. episode, mild 02/18/2020 Discontinued (Reorder) risperiDONE (RISPERDAL) 1 Take 1 tablet 90 tablet 0 mg tabletIndications: by mouth at 0 PTSD (post-traumatic bedtime stress disorder), Major nightly. depressive disorder, recurrent episode, mild 02/18/2020 Discontinued (Reorder) traZODone (DESYREL) 100 Take 1 tablet 30 tablet 0 mg tabletIndications: by mouth at 0 PTSD (post-traumatic bedtime stress disorder), Major nightly. depressive disorder, recurrent episode, mild 02/18/2020 Discontinued (Reorder) venlafaxine (EFFEXOR XR) Take 1 90 capsule 0 0 150 mg extended release capsule by 0 capsuleIndications: PTSD mouth daily. 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 Wrist pain 05/15/2009 Major depressive disorder, single episode, severe, wi thout mention of 03/13/2009 psychotic behavior Carpal tunnel syndrome 07/25/2008 Unspecified hypothyroidism 07/25/2008 Chronic pain due to trauma 07/25/2008 Post-traumatic stress disorder 07/25/2008 Current episode of major depressive dis order without prior episode Encounters Care Team Description Date Type Specialty Neha Tucker MD Shah, Asim A, MD Major depressive disorder, recurrent epi sode, mild (Primary Dx); PTSD (post-traumatic stress disorder) 02/18/2020 Telephonic Psychiatry Encounter Silvano Trammell MD Major depressive disorder, recurrent epi sode, mild (Primary Dx); PTSD (post-traumatic stress disorder) 11/19/2019 Office Visit Psychiatry Silvano Trammell MD Major depressive disorder, recurrent epi sode, mild (Primary Dx); PTSD (post-traumatic stress disorder) 09/17/2019 Office Visit Psychiatry Luis Guzman MD PTSD (post-traumatic stress disorder); Major depressive disorder, recurrent episode, mild 07/17/2019 Refill Psychiatry Silvano Trammell MD Major depressive disorder, recurrent epi sode, mild (Primary Dx); PTSD (post-traumatic stress disorder) 06/25/2019 Office Visit Psychiatry Luis Guzman MD PTSD (post-traumatic stress disorder); Major depressive disorder, recurrent episode, mild 05/23/2019 Refill Psychiatry Luis Guzman MD PTSD (post-traumatic stress disorder); Major depressive disorder, recurrent episode, mild; Post-traumatic stress disorder; Current episode of major depressive disorder without prior episode, unspecified depression episode severity 05/22/2019 Emergency Emergency Medicine after 05/18/2019 Immunizations Name Administration Dates Next Due Influenza Vaccine 09/19/2008 Tdap Tetanus, diphtheria, 01/19/2010 acellular pertussis Vaccine Family History Medical History Relation Name Comments Cancer Maternal unknown CA Grandfather Heart Maternal Grandfather Cancer Paternal Aunt Pelvic CA, Relation Name Status Comments Maternal Grandfather Paternal Aunt Social History Date Tobacco Use Types Packs/Day Years Used Current Every Day Smoker Cigarettes 0.25 20 Smokeless Tobacco: Never Used Tobacco Cessation: Ready to Quit: No; Co unseling Given: Yes Comments: 5 cigarettes a day Drinks/Week oz/Week Comments Alcohol Use socially-dranked New Years Yes Sex Assigned at Date Recorded Not on file Industry Job Start Date Occupation Not on file Not on file Not on file Travel End Travel History Travel Start No recent travel history available. Last Filed Vital Signs Reading Time Taken Comments Vital Sign 135/95 11/19/2019 10:55 AM [facility] Blood Pressure 67 11/19/2019 10:55 AM [facility] Pulse 36.8 C (98.2 F) 11/19/2019 10:55 AM [facility] Temperature 18 11/19/2019 10:55 AM [facility] Respiratory Rate 100% 11/19/2019 10:55 AM [facility] Oxygen Saturation - - Inhaled Oxygen Concentration 63.5 kg (140 lb) 11/19/2019 10:55 AM [facility] Weight 154.9 cm (5' 1") 11/19/2019 10:55 AM [facility] Height 26.45 11/19/2019 10:55 AM [facility] Body Mass Index Plan of Treatment Health Maintenance Due Date Last Done Comments Cervical Cancer Scrn (3 1984 Yrs) Breast Cancer Scrn 05/31/2012 05/31/2011, (Yearly) 01/20/2010, 11/22/2008 Colorectal Cancer Scrn 2013 04/08/2010, Annual (FIT/FOBT) Age 48 07/29/2009 to 73 IMM Influenza Seasonal 07/17/2020 10/19/2012, Oct to December (>/= 19 yrs) 09/19/2008 Procedures Comments Procedure Name Priority Date/Time Associated Diag nosis URINALYSIS STAT 05/22/2019 6:25 PM CDT URINE DRUG SCREEN STAT 05/22/2019 6:25 PM CDT URINALYSIS STAT 05/22/2019 6:25 PM CDT after 05/18/2019 Results * Urinalysis (05/22/2019 6:25 PM CDT) Color Straw Colorless, Straw, [facility] Clarity Clear Clear [facility] Spec [place], 1.004 1.001 - 1.035 [facility] pH, Ur 7.0 5.0 - 8.0 [facility] Protein, Ur Negative Negative mg/dL [facility] Glucose, Ur Negative Negative mg/dL [facility] Ketone, Ur Negative Negative mg/dL [facility] Bilirubin, Ur Negative Negative mg/dL [facility] Nitrite, Ur Negative Negative [facility] Leukocyte Negative Negative mg/dL [facility] Blood, Ur Negative Negative mg/dL [facility] Urobilinogen, <1.0 <1.0 EU/dL [facility] Specimen Urine Performing Organization Address City/State/[facility] [place] Ph one Number [facility] [address] [place] [address] [phone] * Urine Drug Screen (05/22/2019 6:25 PM CDT) Opiate, Ur Negative Negative [facility] Comment: LABORATORY Calibrated Standard: Morphine Positive if urine level > or = 300 ng/dL Amphetamine Negative Negative [facility] Comment: LAB[facility] Calibrated Standard: D-Methamphetamine Positive if urine level > or = 1000 ng/mL Barbiturate Negative Negative [facility] Comment: LAB[facility] Calibrated Standard: Secobarbital Positive if urine level is > or = 200 ng/mL Benzodiazepine Negative Negative [facility] Comment: LABORATORY Calibrated Standard: Lormethazepam Positive if urine level is > or = 200 ng/mL Cocaine Negative Negative [facility] Comment: LAB[facility] Calibrated Standard: Benzoylecgonine Positive if urine level > or = 300 ng/dL PCP Negative Negative [facility] Comment: LAB[facility] Calibrated Standard: Phencyclidine Positive if urine level > or = 25 ng/dL Cannabinoid Negative Negative [facility] Comment: LAB[facility]ORY Calibrated Standard: 11 nor-delta(9)-THC carboxylic acid Positive if urine level > or = 50 ng/mL Specimen Urine - Voided, urine Performing Organization Address City/State/Zipcode Ph one Number [facility] [address] [place] [address] after 05/18/2019 Insurance Type Payer Benefit Subscriber ID Effective Phone Address Plan / Dates Group AETNA MEDICARE AETNA xxxxxxxxxxxx 2019-P [phone] [address] [facility] [address] [id number] [place] [address]
--- OUTSIDE RECORDS SUMMARY | 2020-05-18 14:49 | XMS REPORT | Clinical Summary ---
Author Author [facility] Address Unknown Phone Unavailable Care Team Providers Care Central Supply Supervisor Name Role Phone Leandro Castro MD PCP Allergies Comments Active Allergy Reactions Severity Noted Date Causes Hallucination Hydrocodone-Acetaminophen 10/01/2016 Medications End Date Status Medication Sig Dispensed Refills Start Date Active venlafaxine XR TAKE 1 C PO D 0 (EFFEXOR-XR) 150 MG 24 hr 6 capsule Active traZODone (DESYREL) 50 MG TAKE 1 T PO 0 tablet HS 6 Active traMADol (ULTRAM) 50 mg TK 1 T PO BID 3 tablet PRN 6 Active spironolactone TK 1 T PO QD 6 (ALDACTONE) 50 MG tablet 6 Active propranolol (INDERAL) 20 TK 1 T PO BID 2 09/16 MG tablet 6 Active oxybutynin (DITROPAN) 5 TAKE 1 TABLET 2 MG tablet BY MOUTH 6 TWICE DAILY NEEDED FOR URINARY DISCOMFORT Active methylPREDNISolone TK UTD 0 (MEDROL DOSEPACK) 4 mg 6 tablet Active gabapentin (NEURONTIN) TK 2 CS PO 0 01 300 mg capsule TID 6 Active levothyroxine (SYNTHROID, TAKE 1 TABLET 2 08/17 LEVOXYL) 50 mcg tablet PO DAILY 6 Active furosemide (LASIX) 20 mg TK 1 T PO QD 4 09/16 tablet 6 Active diclofenac (VOLTAREN) 1 % Apply 1 Tube 0 gelIndications: topically 4 6 Sacroiliac joint (four) times dysfunction of left side a day. Active paliperidone (INVEGA) 6 Take 6 mg by 0 MG 24 hr tablet mouth every morning. Active Problems Problem Noted Date Sacroiliac joint dysfunction of left side 10/12/2016 Trochanteric bursitis, left hip 10/12/2016 Family History Medical History Relation Name Comments No Known Problems Father No Known Problems Mother Relation Name Status Comments Father Mother Social History Date Tobacco Use Types Packs/Day Years Used Current Every Day Smoker Cigarettes 0.25 4 Drinks/Week oz/Week Comments Alcohol Use No Sex Assigned at Date Recorded Not on file Industry Job Start Date Occupation Not on file Not on file Not on file Travel End Travel History Travel Start No recent travel history available. Last Filed Vital Signs Not on file Plan of Treatment Health Maintenance Due Date Last Done Comments CERVICAL CANCER SCREENING 1984 BREAST CANCER SCREENING 2013 COLONOSCOPY SCREENING 2013 SHINGLES VACCINES (#1) 2013 INFLUENZA VACCINE 05/17/2020 Results Not on fileafter 05/18/2019 Insurance Type Payer Benefit Subscriber ID Effective Phone Address Plan / Dates Group PPO AETNA AETNA PPO xxxxxxxx 2016-P OPEN resent CHOICE Medicare MEDICARE MEDICARE [id number] 2017- [place], PART A AND Present [place] B Indemnity AETNA AETNA [id number] 2017- [facility]DE[facility] Advance Directives For more information, please contact: [phone] Patient Public Health Dietitian Explanation Type Date Recorded Advance Directives, Living Will and Medical Power of Bilingual Operator
--- NOTE | 2020-05-18 14:50 | Diagnostic Imaging Report ---
EXAMINATION: CHEST SINGLE (PORTABLE) INDICATION: Fatigue, weakness and dizziness. COMPARISON: None FINDINGS: TUBES and LINES: None. LUNGS: Normal lung volumes. Lungs are clear. No consolidations. PLEURA: No pleural effusion or pneumothorax. HEART AND MEDIASTINUM: The cardiomediastinal silhouette is unremarkable. BONES AND SOFT TISSUES: No acute osseous lesion. Soft tissues are unremarkable. UPPER ABDOMEN: No free air under the diaphragm. IMPRESSION: No acute thoracic radiographic abnormality. Signed by: Octavio Jaeger MD on 05/18/2020 2:46 PM
--- OUTSIDE RECORDS SUMMARY | 2020-05-18 14:50 | XMS REPORT | Summary of Care ---
Author Author [facility] Address [address] [place] [address] Phone Unavailable Care Team Providers Care Type Copy Examiner Name Role Phone JONES P.A., ANGELIQUE Unavailable Unavailable ALISHA P.A., FIORELLA Unavailable Unavailable FARIBA Caballero, JOHN Unavailable Unavailable GERARDO D.O., ANDRIA-LLOYD Unavailable Unavailable TOM N.P., JAMILA Unavailable Unavailable GERARDO DO [place], BLAKE Unavailable Unavailable KANNAN TODD [place], JERRY PATTERSON Unavailable Unavailable MIKAYLA TODD, JIMMY Diamond Unavailable Unavailable TOM BROOKS [facility] RNBC CPN, JAMILA Unavailable Unav ailable Fariba TODD, John Unavailable Unavailable Unavailable Unavailable Functional Status Name Dates Details Functional status health issues are not documented Status: Name Dates Details Cognitive status health issues are not d ocumented Status: Problems Name Dates Details Screening for breast cancer (V76.10, Z12 .39) Status: Active Need for influenza vaccination (V04.81, Z23) Status: Active Need for hepatitis C screening test (V73 .89, Z11.59) Status: Active Need for shingles vaccine (V04.89, Z23) Status: Active Need for Tdap vaccination (V06.1, Z23) Status: Active Patient requests second opinion Status: Active Hepatitis C antibody test positive (795. 79, R76.8) Status: Active Cervical muscle strain (847.0, S16.1XXA) Status: Active Bruising, spontaneous (782.7, R23.3) Status: Active Platelets decreased (287.5, D69.6) Status: Active Acute bronchitis (466.0, J20.9) Status: Active BMI 26.0-26.9,adult (V85.22, Z68.26) Status: Active Acute bacterial bronchitis (466.0, J20.8 ) Status: Active Sympathotonic orthostatic hypotension (4 58.0, I95.1) Status: Active Hypokalemia (276.8, E87.6) Status: Active Acute upper respiratory infection (465.9 , J06.9) Status: Active Mixed hyperlipidemia (272.2, E78.2) Status: Active Chronic constipation (564.00, K59.09) Status: Active S/P cholecystectomy (V45.79, Z90.49) Status: Active Essential (primary) hypertension (401.9, I10) Status: Active 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 * Quantity: 90 Refills: 1 ALISHA P.A., FIORELLA * Start : 31-Oct-2018 Active Propranolol HCl - 20 MG Oral Tablet TAKE 1 TABLET BY MOUTH DAILY * Quantity: 90 Refills: 1 TOM N.P., JAMILA * Start : 31-Oct-2018 Active Vitamin A 90813 UNIT Oral Tablet TAKE 1 TABLET DAILY. * Refills: 0 * Start : 31-Oct-2018 Active Amitriptyline HCl - 50 MG Oral Tablet TAKE 1 TABLET AT BEDTIME. * Quantity: 90 Refills: 2 YEH D.O., ANDRI[place]-LLOYD * Start : 29-Jan-2019 Active H-E-B inControl BP Monitor MEASURE BLOOD PRESSURE DAILY DIRECTED. * Quantity: 1 Refills: 0 TOM N.P., JAMILA * Start : 17-Apr-2019 Active Shingrix 50 MCG/0.5ML Intramuscular Suspension Reconstituted ADMINISTER 0.5 ML INTRAMUSCULARLY ONCE NOW, THEN SECOND DOSE AT 2-6 MONTHS. * Quantity: 1 Refills: 1 JAMILA SANTOS N.P. * Start : 02-May-2019 Active Fish Oil CAPS TAKE 1 CAPSULE DAILY * Refills: 0 Active hydroCHLOROthiazide 12.5 MG Oral Tablet TAKE 1 TABLET DAILY. * Quantity: 90 Refills: 3 JOHN ANDREWS M.D. * Start : 30-May-2019 Active Oxybutynin Chloride ER 5 MG Oral Tablet Extended Release 24 Hour TAKE ONE TABLET BY MOUTH EVERY DAY * Quantity: 30 Refills: 5 YEH D.O., BLAKE * Start : 22-Jun-2019 Active Proventil HFA 108 (90 Base) MCG/ACT Inhalation Aerosol Solution INHALE 1 TO 2 PUFFS EVERY 4 TO 6 HOURS NEEDED. * Quantity: 1 Refills: 0 JONES P.A., ANGELIQUE * Start : 01-Sep-2019 Active 6.7 GM Inhaler predniSONE 10 MG Oral Tablet take 3 po x 3 days then 2 po x3 days then 1 po x 3 days * Quantity: 18 Refills: 0 JONES P.A., ANGELIQUE * Start : 01-Sep-2019 Active Albuterol AERS INHALE 1 TO 2 PUFFS EVERY 4 TO 6 HOURS NEEDED. * Refills: 0 Active predniSONE 10 MG Oral Tablet TAKE 3 TABLET DAILY * Refills: 0 Active ProAir HFA 108 (90 Base) MCG/ACT Inhalation Aerosol Solution USE 2 PUFFS EVERY 6 HOURS DIRECTED. * Quantity: 1 Refills: 1 ALISHA P.A.FIORELLA * Start : 05-Sep-2019 Active 8.5 GM Inhaler Promethazine-Phenylephrine 6.25-5 MG/5ML Oral Syrup TAKE 5 ML EVERY 4 TO 6 HOURS NEEDED. * Quantity: 240 Refills: 0 YEH D.O., BLAKE * Start : 18-Sep-2019 Active Fluticasone Propionate 50 MCG/ACT Nasal Suspension USE 2 SPRAYS IN EACH NOSTRIL ONCE DAILY * Quantity: 1 Refills: 2 YEH D.O., BLAKE * Start : 18-Sep-2019 Active 15.8 ML Bottle Diclofenac Potassium 50 MG Oral Tablet TAKE 1 TABLET 2 TO 3 TIMES DAILY AFTER MEALS. * Quantity: 60 Refills: 1 YEH D.O., [place]RI[place]-LLOYD * Start : 08-Nov-2019 Active Baclofen 10 MG Oral Tablet TAKE 1 to 2 TABLET BY MOUTH AT BEDTIME * Quantity: 30 Refills: 0 YEH D.O., [place]-LLOYD * Start : 08-Nov-2019 Active Allergies and Adverse Reactions Name Dates Details No Known Drug Allergies (Allergy) Status : Active Past Medical History Name Dates Details History of anxiety disorder (V11.8, Z86. 59) Status: Resolved History of cirrhosis (V12.79, Z87.19) Status: Resolved History of depression (V11.8, Z86.59) Status: Resolved History of post traumatic stress disorde r (V11.8, Z86.59) Status: Resolved History of thyroid disorder (V12.29, Z86 .39) Status: Resolved Procedures Procedure Dates Details [QLH] TSH, 3RD GENERATION W/REFLEX TO FT4 Date: 12-Oct-2019 History of Hysterectomy Completed History of Bladder surgery Completed History of Abdominoplasty Completed History of Mastopexy Completed History of Cholecystectomy Completed Immunization Name Dates Details Fluzone Quadrivalent 0.5 ML Intramuscula r Suspension Prefilled Syringe Lot #: [id number] on: 31-Oct-2018 Tdap (Adacel) Lot #: [id number] on: 02-May-2019 Fluzone Quadrivalent 0.5 ML Intramuscula r Suspension Prefilled Syringe Lot #: [id number] on: 17-Jul-2019 Family History Name Dates Details Family history of depression (V17.0, Z81 .8) Status: Active Name Dates Details Family history of malignant neoplasm (V1 6.9, Z80.9) Status: Active Name Dates Details Family history of diabetes mellitus (V18 .0, Z83.3) Status: Active Family history of hypertension (V17.49, Z82.49) Status: Active Family history of chronic obstructive pu lmonary disease (V17.6, Z82.5) Status: Active Family history of asthma (V17.5, Z82.5) Status: Active Family history of cardiac pacemaker (V17 .49, Z82.49) Status: Active Name Dates Details Family history of hypertension (V17.49, Z82.49) Status: Active Family history of stroke (V17.1, Z82.3) Status: Active Family history of chronic obstructive pu lmonary disease (V17.6, Z82.5) Status: Active FH: CABG (coronary artery bypass surgery ) (V17.3, Z82.49) Status: Active Family history of myocardial infarction (V17.3, Z82.49) Status: Active Name Dates Details Family history of Aneurysm (442.9, I72.9 ) Status: Active Social History Name Dates Details - Status: Name Dates Details Current every day smoker Vital Signs Date Test Result Details [id number]:01 BP Systolic 148 mm[Hg] Status: Comments: Lo cation: LUE; Position: Sitting BP Diastolic 88 mm[Hg] Status: Comments: Lo cation: LUE; Position: Sitting Weight 140 lb Status: Body Mass Index Calculated 26.45 kg/m2 Status: Body Surface Area Calculated 1.62 m2 Status: Height 61 in Status: Temperature 97.4 f Status: Comments: Me thod: Temporal Respiration Rate 16 /min Status: Heart Rate 61 /min Status: Results Date Description Value Details Results not documented Plan of Care Name Dates Details Planned Observations Planned Goals not documented Planned Encounters Appointment; JOSH SIMEON M.D. On: 06-Dec-2019 10:30 Instructions Name Dates Details Instructions not documented Encounters Appointment; BLAKE CARRILLO D.O. Encounter Diagnosis: Problem not documented On: 31-Oct-2018 10:30 Appointment; BLAKE CARRILLO D.O. Encounter Diagnosis: Problem not documented On: 29-Jan-2019 10:00 Appointment; JAMILA SANTOS NP Encounter Diagnosis: Problem not documented On: 17-Apr-2019 15:00 Appointment; JAMILA SANTOS NP Encounter Diagnosis: Problem not documented On: 02-May-2019 9:30 Appointment; BLAKE CARRILLO D.O. Encounter Diagnosis: Problem not documented On: 10-May-2019 14:30 Appointment; JOHN ANDREWS M.D. Encounter Diagnosis: Problem not documented On: 30-May-2019 11:20 Appointment; BLAKE CARRILLO D.O. Encounter Diagnosis: Problem not documented On: 17-Jul-2019 10:30 Appointment; MELISSA MCKENZIE NP Encounter Diagnosis: Problem not documented On: 28-Jul-2019 10:30 Appointment; CINTHYA BLOOD NP Encounter Diagnosis: Problem not documented On: 09-Aug-2019 10:30 Appointment; MELISSA MCKENZIE NP Encounter Diagnosis: Problem not documented On: 18-Aug-2019 10:15 Appointment; ANGELIQUE JONES P.A. Encounter Diagnosis: Problem not documented On: 01-Sep-2019 10:15 Appointment; IWONA ESCOBEDO Encounter Diagnosis: Problem not documented On: 03-Sep-2019 13:00 Appointment; JOHN ANDREWS M.D. Encounter Diagnosis: Problem not documented On: 03-Sep-2019 14:20 Appointment; FIORELLA BRITO P.A. Encounter Diagnosis: Problem not documented On: 05-Sep-2019 16:00 Appointment; JOHN ANDREWS M.D. Encounter Diagnosis: Problem not documented On: 10-Sep-2019 13:20 Appointment; JOHN ANDREWS M.D. Encounter Diagnosis: Problem not documented On: 12-Sep-2019 10:00 Appointment; BLAKE CARRILLO D.O. Encounter Diagnosis: Problem not documented On: 18-Sep-2019 10:45 Appointment; BLAKE CARRILLO D.O. Encounter Diagnosis: Problem not documented On: 12-Oct-2019 9:30 Appointment; BLAKE CARRILLO D.O. Encounter Diagnosis: Problem not documented On: 08-Nov-2019 10:30
--- OUTSIDE RECORDS SUMMARY | 2020-05-18 14:50 | XMS REPORT | Summary of Care ---
Author Author [place] [facility] [place] [facility] Address [address] [place] [address] Phone Unavailable Care Team Providers Care Engagement Quality Consultant Name Role Phone JONES P.A., ANGELIQUE Unavailable Unavailable ALISHA P.A., FIORELLA Unavailable Unavailable YEH D.O., [place]D Unavailable Unavailable TOM N.P., JAMILA Unavailable Unavailable YEH DO [place], [place] Unavailable Unavailable KANNAN TODD [place], JERRY PATTERSON Unavailable Unavailable MIKAYLA TODD, JIMMY Diamond Unavailable Unavailable TOM TODD [facility] RNBC CPN, JAMILA Unavailable Unav ailable Fariba [...] respiratory infection (465.9 , J06.9) Status: Active Chronic constipation (564.00, K59.09) Status: Active S/P cholecystectomy (V45.79, Z90.49) Status: Active Sensory urge incontinence (788.31, N39.4 1) Status: Active 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 * Refills: 0 * Start : 31-Oct-2018 Active traMADol HCl - 50 MG Oral Tablet TAKE 1 TABLET EVERY 8 HOURS NEEDED. * Quantity: 90 Refills: 0 YEH D.O.BLAKE * Start : 31-Oct-2018 Active traZODone HCl [...] DAILY * Quantity: 90 Refills: 1 TOM N.PJAMILA Garza * Start : 31-Oct-2018 Active Vitamin A 72248 UNIT Oral Tablet TAKE 1 TABLET DAILY. * Refills: 0 * Start : 31-Oct-2018 Active H-E-B inControl BP Monitor MEASURE BLOOD PRESSURE DAILY DIRECTED. * Quantity: 1 Refills: 0 TOM N.P.JAMILA * Start : 17-Apr-2019 Active Shingrix 50 MCG/0.5ML Intramuscular Suspension Reconstituted ADMINISTER 0.5 ML INTRAMUSCULARLY ONCE NOW, THEN SECOND DOSE AT 2-6 MONTHS. * Quantity: 1 Refills: 1 TOM N.P.JAMILA * Start : 02-May-2019 Active Fish Oil CAPS TAKE 1 CAPSULE DAILY * Refills: 0 Active Oxybutynin Chloride ER 5 MG Oral [...] DIRECTED. * Quantity: 1 Refills: 1 ALISHA P.A., FIORELLA * Start : 05-Sep-2019 Active 8.5 GM Inhaler Fluticasone Propionate 50 MCG/ACT Nasal Suspension USE 2 SPRAYS IN EACH NOSTRIL ONCE DAILY * Quantity: 1 Refills: 2 YEH D.O., BLAKE * Start : 18-Sep-2019 Active 15.8 ML Bottle Valsartan-hydroCHLOROthiazide 160-12.5 MG Oral Tablet TAKE 1 TABLET DAILY. * Quantity: 30 Refills: 5 YEH D.O., BLAKE * Start : 27-Nov-2019 Active Metaxalone 800 MG Oral Tablet TAKE 1 TABLET 3 TIMES DAILY NEEDED FOR MUSCLE SPASM. * Quantity: 60 Refills: 0 YEH D.O., BLAKE * Start : 27-Nov-2019 Active diazePAM 5 MG Oral Tablet TAKE 1 TABLET AT BEDTIME * Quantity: 7 Refills: 3 YEH D.O., BLAKE * Start : 27-Nov-2019 Active PARoxetine HCl ER 12.5 MG Oral Tablet Extended Release 24 Hour TAKE 1 TABLET DAILY. * Quantity: 30 Refills: 5 YEH D.O., ANDRIAMARC * Start : 27-Nov-2019 Active Allergies and Adverse Reactions Name Dates [...] Intramuscula r Suspension Prefilled Syringe Lot #: [id number] on: 31-Oct-2018 Tdap (Adacel) Lot #: [id number] on: 02-May-2019 Fluzone Quadrivalent 0.5 ML Intramuscula r Suspension Prefilled Syringe Lot #: [id number] on: 17-Jul-2019 Family History Name Dates Details [...] smoker Vital Signs Date Test Result Details 03-Htq-10976:09 BP Systolic 152 mm[Hg] Status: Comments: Lo cation: LUE; Position: Sitting BP Diastolic 92 mm[Hg] Status: Comments: Lo cation: LUE; Position: Sitting Weight 144 lb Status: Body Mass Index Calculated 27.21 kg/m2 Status: Body Surface Area Calculated 1.64 m2 Status: Height 61 in Status: Temperature 97.6 f Status: Comments: Me thod: Temporal Heart Rate 62 /min Status: Respiration Rate 16 /min Status: 75-Xnc-145490:01 BP Systolic 148 mm[Hg] Status: Comments: Lo cation: LUE; Position: Sitting BP Diastolic 88 mm[Hg] Status: Comments: Lo cation: LUE; Position: Sitting Weight 140 lb Status: Body Mass Index Calculated 26.45 kg/m2 Status: Body Surface Area Calculated 1.62 m2 Status: Height 61 in Status: Temperature 97.4 f Status: Comments: Me thod: Temporal Heart Rate 61 /min Status: Respiration Rate 16 /min Status: [...] documented On: 18-Aug-2019 10:15 Appointment; ANGELIQUE JONES P.AKayla Encounter Diagnosis: Problem not documented On: 01-Sep-2019 10:15 Appointment; [facility], ECHO Encounter Diagnosis: Problem not documented On: 03-Sep-2019 [...] Diagnosis: Problem not documented On: 08-Nov-2019 10:30 Appointment; BLAKE CARRILLO D.O. Encounter Diagnosis: Problem not documented On: 27-Nov-2019 8:30
--- OUTSIDE RECORDS SUMMARY | 2020-05-18 14:50 | XMS REPORT | Summary of Care ---
Author SHAUN Wilson Michelet Organization Unknown Address Unknown Phone Unavailable Care Team Providers Care Sports Editor Name Role Phone JONES P.A., ANGELIQUE Unavailable Unavailable ALISHA P.A., FIORELLA Unavailable Unavailable Zeynep Wilson Unavailable Unavailable FARIBA Caballero, JOHN Unavailable Unavailable GERARDO D.O., [place] Unavailable Unavailable TOM N.P., JAMILA Unavailable Unavailable GERARDO DO [place], BLAKE Unavailable Unavailable KANNAN TODD [place], JERRY PATTERSON Unavailable Unavailable MIKAYLA TODD, JIMMY Diamond Unavailable Unavailable TOM LEATHER SHAVER [place], JAMILA N Unavailable Unavailable Fariba TODD, John Unavailable Unavailable Unavailable Unavailable [...] * Quantity: 90 Refills: 0 YEH D.O., BLAKE * Start : 31-Oct-2018 Active traZODone HCl [...] * Start : 31-Oct-2018 Active Vitamin A 96532 UNIT Oral Tablet TAKE 1 TABLET DAILY. [...] * Quantity: 30 Refills: 5 YEH D.O., RAZIAN * Start : 22-Jun-2019 Active Proventil HFA [...] * Quantity: 1 Refills: 2 YEH D.O., [place]-LL[place]D * Start : 18-Sep-2019 Active 15.8 ML [...] Intramuscula r Suspension Prefilled Syringe Lot #: [id number] on: 31-Oct-2018 Tdap (Adacel) Lot #: [id number] on: 02-May-2019 Fluzone Quadrivalent 0.5 ML Intramuscula r Suspension Prefilled Syringe Lot #: [id number] on: 17-Jul-2019 Family History Name Dates Details [...] smoker Vital Signs Date Test Result Details [id number]-[id number] BP Systolic 148 mm[Hg] Status: Comments: Lo [...] Observations Planned Goals not documented Planned Encounters ENT Referral Appointment; JOSH SIMEON M.D. On: 06-Dec-2019 10:30 [...] Problem not documented On: 01-Sep-2019 10:15 Appointment; [facility] [place], ECHO Encounter Diagnosis: Problem not documented On: [...]
--- OUTSIDE RECORDS SUMMARY | 2020-05-18 14:50 | XMS REPORT | Summary of Care ---
Author Author GERARDO Guidry, SHAUN Tafoya Organization Unknown Address Unknown Phone Unavailable Care Team Providers Care Cleaner Touch Up Worker Name Role Phone JONES P.A., ANGELIQUE Unavailable Unavailable ALISHA P.A., FIORELLA Unavailable Unavailable GERARDO D.O., [place] Unavailable Unavailable TOM N.P., JAMILA Unavailable Unavailable GERARDO DO [place], [place] Unavailable Unavailable KANNAN TODD MD, JERRY PATTERSON Unavailable Unavailable MIKAYLA TODD, JIMMY Diamond Unavailable Unavailable TOM TODD [facility] RNBC CPN, JAMILA Unavailable Unav ailable Fariba [...] DAILY * Quantity: 90 Refills: 1 TOM N.P.JAMILA * Start : 31-Oct-2018 Active Vitamin A 12971 UNIT Oral Tablet TAKE 1 TABLET DAILY. [...] DAILY. * Quantity: 30 Refills: 5 YEH D.O.BLAKE * Start : 27-Nov-2019 Active Metaxalone 800 [...] 5 YEH D.O., RAZIAN * Start : 27-Nov-2019 Active Allergies and [...] Intramuscula r Suspension Prefilled Syringe Lot #: [id number] on: 31-Oct-2018 Tdap (Adacel) Lot #: [id number] on: 02-May-2019 Fluzone Quadrivalent 0.5 ML Intramuscula r Suspension Prefilled Syringe Lot #: [id number] on: 17-Jul-2019 Family History Name Dates Details [...] smoker Vital Signs Date Test Result Details 57-Zkf-20175:09 BP Systolic 152 mm[Hg] Status: Comments: Lo cation: LUE; Position: Sitting BP Diastolic 92 mm[Hg] Status: Comments: Lo cation: LUE; Position: Sitting Weight 144 lb Status: Body Mass Index Calculated 27.21 kg/m2 Status: Body Surface Area Calculated 1.64 m2 Status: Height 61 in Status: Temperature 97.6 f Status: Comments: Me thod: Temporal Heart Rate 62 /min Status: Respiration Rate 16 /min Status: 14-Lbb-351895:01 BP Systolic 148 mm[Hg] Status: Comments: Lo [...] Appointment; JOSH SIMEON M.D. On: 06-Dec-2019 10:30 Interventions Provided Medication Changes* diazePAM 5 MG Oral Tablet - Start * Metaxalone 800 MG Oral Tablet - Start * PARoxetine HCl ER 12.5 MG Oral Tablet Extended Release 24 Hour - Start * Valsartan-hydroCHLOROthiazide 160-12.5 MG Oral Tablet - Start Plan* TMJ - unchanged. Start Baclofen QHS. Instructed Pt not to operate heavy machinery while on medication. STart Referred Pt to ENT. COntinue to wear mouth guard. asked * Hypothyroidism - stable. Continue current dosage of Levothyroxine. Check TSH in 6 weeks * HTN - stable. Continue Propranolol, HCTZ. * PEREZ - stable. Continue Gabapentin and Tramadol PRN. Continue AMitriptyline * Hypothyroidism - stable. Continue Levothyroxine. * Urge Incontinence - stable. Continue Oxybutynin. * Follow-up in 1 months, sooner if needed Instructions Name Dates Details Instructions not documented Encounters Appointment; BLKAE CARRILLO D.O. Encounter Diagnosis: Problem not documented [...] Problem not documented On: 01-Sep-2019 10:15 Appointment; FANNY ECHO Encounter Diagnosis: Problem not documented On: [...]
--- OUTSIDE RECORDS SUMMARY | 2020-05-18 14:50 | XMS REPORT | Summary of Care ---
Author SHAUN Roldan M.A. Organization Unknown Address [facility] Phone Unavailable Care Team Providers Care Butadiene Converter Utility Operator Name Role Phone JONES P.A., ANGELIQUE Unavailable Unavailable ALISHA P.A., FIORELLA Unavailable Unavailable FARIBA Caballero, JOHN Unavailable Unavailable YEJose Miguel D.O., [place] Unavailable Unavailable TOM N.P., JAMILA Unavailable Unavailable YEJose Miguel DO [place], BLAKE Unavailable Unavailable KANNAN TODD [place], JERRY PATTERSON Unavailable Unavailable MIKAYLA TODD, JIMMY Diamond Unavailable Unavailable TOM BROOKS [facility] RNBC CPN, JAMILA Unavailable Unav ailable Fariba [...] * Start : 31-Oct-2018 Active Vitamin A 84395 UNIT Oral Tablet TAKE 1 TABLET DAILY. [...] DIRECTED. * Quantity: 1 Refills: 1 ALISHA P.AFIORELLA Garza * Start : 05-Sep-2019 Active 8.5 GM [...] Intramuscula r Suspension Prefilled Syringe Lot #: [id number] on: 31-Oct-2018 Tdap (Adacel) Lot #: [id number] on: 02-May-2019 Fluzone Quadrivalent 0.5 ML Intramuscula r Suspension Prefilled Syringe Lot #: [id number] on: 17-Jul-2019 Family History Name Dates Details [...] smoker Vital Signs Date Test Result Details 40-Orm-46925:09 BP Systolic 152 mm[Hg] Status: Comments: Lo cation: LUE; Position: Sitting BP Diastolic 92 mm[Hg] Status: Comments: Lo cation: LUE; Position: Sitting Weight 144 lb Status: Body Mass Index Calculated 27.21 kg/m2 Status: Body Surface Area Calculated 1.64 m2 Status: Height 61 in Status: Temperature 97.6 f Status: Comments: Me thod: Temporal Heart Rate 62 /min Status: Respiration Rate 16 /min Status: 31-Sdi-047565:01 BP Systolic 148 mm[Hg] Status: Comments: Lo [...] Problem not documented On: 01-Sep-2019 10:15 Appointment; FANNY, ECHO Encounter Diagnosis: Problem not documented On: [...]
--- OUTSIDE RECORDS SUMMARY | 2020-05-18 14:50 | XMS REPORT | Summary of Care ---
Author Author [place] [facility] Address [address] [place] [address] Phone Unavailable Care Team Providers Care Metal Numerical Control Programmer Name Role Phone JONES P.A., ANGELIQUE Unavailable Unavailable ALISHA P.A., FIORELLA Unavailable Unavailable FARIBA Caballero, JOHN Unavailable Unavailable GERARDO D.O., BLAKE Unavailable Unavailable TOM N.P., JAMILA Unavailable Unavailable YEJose Miguel DO [place], BLAKE Unavailable Unavailable KANNAN TODD [place], JERRY PATTERSON Unavailable Unavailable MIKAYLA TODD, JIMMY Diamond Unavailable Unavailable TOM RAILROAD ACCOUNTANT [place], JAMILA N Unavailable Unavailable Fariba TODD, John [...] * Start : 31-Oct-2018 Active Vitamin A 53001 UNIT Oral Tablet TAKE 1 TABLET DAILY. [...] * Quantity: 30 Refills: 5 YEH D.O., ANDRIANICKON * Start : 22-Jun-2019 Active Proventil HFA [...] Intramuscula r Suspension Prefilled Syringe Lot #: [id number] on: 31-Oct-2018 Tdap (Adacel) Lot #: [id number] on: 02-May-2019 Fluzone Quadrivalent 0.5 ML Intramuscula r Suspension Prefilled Syringe Lot #: [id number] on: 17-Jul-2019 Family History Name Dates Details [...] smoker Vital Signs Date Test Result Details 91-Yyd-505282:01 BP Systolic 148 mm[Hg] Status: Comments: Lo cation: LUE; Position: Sitting BP Diastolic 88 mm[Hg] Status: Comments: Lo cation: LUE; Position: Sitting Weight 140 lb Status: Body Mass Index Calculated 26.45 kg/m2 Status: Body Surface Area Calculated 1.62 m2 Status: Height 61 in Status: Temperature 97.4 f Status: Comments: Me thod: Temporal Respiration Rate 16 /min Status: Heart Rate 61 /min Status: 41-Pgt-46135:41 BP Systolic 141 mm[Hg] Status: Comments: Lo cation: LUE; Position: Sitting BP Diastolic 95 mm[Hg] Status: Comments: Lo cation: LUE; Position: Sitting Weight 133 lb Status: Body Mass Index Calculated 25.13 kg/m2 Status: Body Surface Area Calculated 1.59 m2 Status: Height 61 in Status: Temperature 97 f Status: Comments: Me thod: Temporal Respiration Rate 16 /min Status: Heart Rate 68 /min Status: Results Date Description Value Details [...] not documented On: 17-Jul-2019 10:30 Appointment; MELISSA MCKENZIE, GRADES 9 THR[employer] 12 TEACHER Encounter Diagnosis: Problem not documented On: 28-Jul-2019 10:30 Appointment; CINTHYA BLOOD, GRAD[facility] 9 THROUGH 12 TEACHER Encounter Diagnosis: Problem not documented On: 09-Aug-2019 10:30 Appointment; MELISSA MCKENZIE [employer] 9 THROUGH 12 TEACHER Encounter Diagnosis: Problem not documented On: 18-Aug-2019 [...]
--- OUTSIDE RECORDS SUMMARY | 2020-05-18 14:50 | XMS REPORT | Summary of Care ---
Author Author Fidel Stubbs SHAUN Michelet Organization Unknown Address [facility] Phone Unavailable Care Team Providers Care Support Director Name Role Phone CAILIN Caballero, JOSH Unavailable Unavailable ALISHA Nguyen, FIORELLA Unavailable Unavailable YEH D.O., [place]RI[place]OYD Unavailable Unavailable TOM AMUSEMENT PARK ENTERTAINER, JAMILA Unavailable Unavailable YEH DO [place], [place] Unavailable Unavailable KANNAN TODD [place], JERRY PATTERSON Unavailable Unavailable MIKAYLA TODD, JIMMY Diamond Unavailable Unavailable [facility] RNBC CPN, JAMILA Unavailable Unav archanaable Fariba TODD, John Unavailable Unavailable Unavailable Unavailable [...] MOUTH THREE TIMES DAILY Quantity: 270 YEH D.O.BLAKE * Start : 31-Oct-2018 Active Venlafaxine HCl [...] MOUTH DAILY * Quantity: 90 Refills: 1 JAMILA SANTOS APRN * Start : 31-Oct-2018 Active Vitamin A 68446 UNIT Oral Tablet TAKE 1 TABLET DAILY. * Refills: 0 * Start : 31-Oct-2018 Active H-E-B inControl BP Monitor MEASURE BLOOD PRESSURE DAILY DIRECTED. * Quantity: 1 Refills: 0 JAMILA SANTOS APRN * Start : 17-Apr-2019 Active Shingrix 50 MCG/0.5ML Intramuscular Suspension Reconstituted ADMINISTER 0.5 ML INTRAMUSCULARLY ONCE NOW, THEN SECOND DOSE AT 2-6 MONTHS. * Quantity: 1 Refills: 1 JAMILA SANTOS APRN * Start : 02-May-2019 Active Fish Oil CAPS TAKE 1 CAPSULE DAILY * Refills: 0 Active Oxybutynin Chloride ER 5 MG Oral Tablet Extended Release 24 Hour TAKE ONE TABLET BY MOUTH EVERY DAY * Quantity: 30 Refills: 5 YEH D.O., BLAKE * Start : 22-Jun-2019 Active Valsartan-hydroCHLOROthiazide 160-12.5 MG Oral Tablet TAKE 1 [...] D.O., BLAKE * Start : 27-Nov-2019 Active risperiDONE 1 MG Oral Tablet TAKE 1 TABLET AT BEDTIME. * Refills: 0 Active Amitriptyline HCl - 50 MG Oral Tablet TAKE 1 TABLET AT BEDTIME. * Quantity: 90 Refills: 0 Active Allergies and Adverse Reactions Name Dates [...] Intramuscula r Suspension Prefilled Syringe Lot #: [id number] on: 31-Oct-2018 Tdap (Adacel) Lot #: [id number] on: 02-May-2019 Fluzone Quadrivalent 0.5 ML Intramuscula r Suspension Prefilled Syringe Lot #: [id number] on: 17-Jul-2019 Family History Name Dates Details [...] smoker Vital Signs Date Test Result Details :29 BP Systolic 109 mm[Hg] Status: Comments: Lo cation: LUE; Position: Sitting BP Diastolic 73 mm[Hg] Status: Comments: Lo cation: LUE; Position: Sitting Height 61 in Status: Weight 144.125 lb Status: Body Mass Index Calculated 27.23 kg/m2 Status: Body Surface Area Calculated 1.64 m2 Status: Temperature 97.9 f Status: Comments: Me thod: Oral Heart Rate 59 /min Status: Comments: Lo cation: L Radial; Quality: Normal :09 BP Systolic 152 mm[Hg] Status: Comments: Lo cation: LUE; Position: Sitting BP Diastolic 92 mm[Hg] Status: Comments: Lo cation: LUE; Position: Sitting Height 61 in Status: Weight 144 lb Status: Body Mass Index Calculated 27.21 kg/m2 Status: Body Surface Area Calculated 1.64 m2 Status: Temperature 97.6 f Status: Comments: Me thod: Temporal Heart Rate 62 /min Status: Respiration Rate 16 /min Status: [id number]-[id number]:01 BP Systolic 148 mm[Hg] Status: Comments: Lo cation: LUE; Position: Sitting BP Diastolic 88 mm[Hg] Status: Comments: Lo cation: LUE; Position: Sitting Height 61 in Status: Weight 140 lb Status: Body Mass Index Calculated 26.45 kg/m2 Status: Body Surface Area Calculated 1.62 m2 Status: Temperature 97.4 f Status: Comments: Me thod: Temporal Heart Rate 61 /min Status: Respiration Rate 16 /min Status: Results Date Description Value Details Results not documented Plan of Care Name Dates Details Planned Observations Planned Goals not documented Interventions Provided Follow-ups/Referrals* ENT Referral; Done: 06 Dec 2019 Instructions Name Dates Details Instructions not documented Encounters Appointment; BLAKE CARRILLO D.O. Encounter Diagnosis: Problem not documented On: 31-Oct-2018 10:30 Appointment; BLAKE CARRILLO D.O. Encounter Diagnosis: Problem not documented On: 29-Jan-2019 10:00 Appointment; JAMILA SANTOS APRN Encounter Diagnosis: Problem not documented On: 17-Apr-2019 15:00 Appointment; JAMILA SANTOS APRN Encounter Diagnosis: Problem not documented On: 02-May-2019 9:30 Appointment; BLAKE CARRILLO D.O. Encounter Diagnosis: Problem not documented On: 10-May-2019 14:30 Appointment; JOHN ANDREWS M.D. Encounter Diagnosis: Problem not documented On: 30-May-2019 11:20 Appointment; BLAKE CARRILLO D.O. Encounter Diagnosis: Problem not documented On: 17-Jul-2019 10:30 Appointment; MELISSA MCKENZIE APRN Encounter Diagnosis: Problem not documented On: 28-Jul-2019 10:30 Appointment; CINTHYA BLOOD APRN Encounter Diagnosis: Problem not documented On: 09-Aug-2019 10:30 Appointment; MELISSA MCKENZIE APRN Encounter Diagnosis: Problem not documented On: 18-Aug-2019 10:15 Appointment; ANGELIQUE JONES P.A. Encounter Diagnosis: Problem not documented On: 01-Sep-2019 10:15 Appointment; [facility] Encounter Diagnosis: Problem not documented On: [...] Diagnosis: Problem not documented On: 27-Nov-2019 8:30 Appointment; JOSH SIMEON M.D. Encounter Diagnosis: Problem not documented On: 06-Dec-2019 10:30
--- OUTSIDE RECORDS SUMMARY | 2020-05-18 14:50 | XMS REPORT | Summary of Care ---
Author Author [facility] Address [address] [place] [address] Phone Unavailable Care Team Providers Care Therapeutic Riding Instructor Name Role Phone JONES P.A., ANGELIQUE Unavailable Unavailable ALISHA P.A., FIORELLA Unavailable Unavailable FARIBA Caballero, JOHN Unavailable Unavailable GERARDO D.O., BLKAE Unavailable Unavailable TOM N.P., JAMILA Unavailable Unavailable YEJose Miguel DO [place], BLAKE Unavailable Unavailable KANNAN TODD [place], JERRY PATTERSON Unavailable Unavailable MIKAYLA TODD, JIMMY Diamond Unavailable Unavailable TOM COMBINATION SAW OPERATOR [place], JAMILA N Unavailable Unavailable Fariba TODD, John [...] * Start : 31-Oct-2018 Active Vitamin A 58740 UNIT Oral Tablet TAKE 1 TABLET DAILY. [...] Intramuscula r Suspension Prefilled Syringe Lot #: [id number] on: 31-Oct-2018 Tdap (Adacel) Lot #: [id number] on: 02-May-2019 Fluzone Quadrivalent 0.5 ML Intramuscula r Suspension Prefilled Syringe Lot #: [id number] on: 17-Jul-2019 Family History Name Dates Details [...] smoker Vital Signs Date Test Result Details [id number] BP Systolic 148 mm[Hg] Status: Comments: Lo [...] Problem not documented On: 01-Sep-2019 10:15 [facility] Encounter Diagnosis: Problem not documented On: [...]
--- OUTSIDE RECORDS SUMMARY | 2020-05-18 14:50 | XMS REPORT | Summary of Care ---
Author Author [facility] Address [address] [place] [address] Phone Unavailable Care Team Providers Care Coding Tech Name Role Phone JONES P.A., ANGELIQUE Unavailable Unavailable ALISHA P.A., FIORELLA Unavailable Unavailable FARIBA Caballero, JOHN Unavailable Unavailable GERARDO D.O., [place] Unavailable Unavailable TOM N.P., JAMILA Unavailable Unavailable GERARDO DO [place], BLAKE Unavailable Unavailable KANNAN TODD [place], JERRY PATTERSON Unavailable Unavailable MIKAYLA TODD, JIMMY Diamond Unavailable Unavailable [facility] RNBC CPN, JAMILA Unavailable Unav ailable Fariba [...] * Start : 31-Oct-2018 Active Vitamin A 84581 UNIT Oral Tablet TAKE 1 TABLET DAILY. [...] Intramuscula r Suspension Prefilled Syringe Lot #: [id number] on: 31-Oct-2018 Tdap (Adacel) Lot #: [id number] on: 02-May-2019 Fluzone Quadrivalent 0.5 ML Intramuscula r Suspension Prefilled Syringe Lot #: [id number] on: 17-Jul-2019 Family History Name Dates Details [...] smoker Vital Signs Date Test Result Details [id number] BP Systolic 148 mm[Hg] Status: Comments: Lo [...] Planned Goals not documented Planned Encounters Appointment; BLAKE CARRILLO D.O. On: 27-Nov-2019 8:30 Appointment; JOSH SIMEON M.D. On: 06-Dec-2019 10:30 [...] documented On: 28-Jul-2019 10:30 Appointment; CINTHYA BLOOD, MARTA Encounter Diagnosis: Problem not documented On: 09-Aug-2019 [...]
--- OUTSIDE RECORDS SUMMARY | 2020-05-18 14:50 | XMS REPORT | Continuity of Care Document ---
Author Author [facility] t Organization [facility] Address [address] [place] [address] Phone Unavailable Care Team Providers Care English Faculty Member Name Role Phone Chao CARRILLO PCP BLAKE CARRILLO D.O. Attphys Unavailable FIORELLA BRITO, P.A. Attphys Unavailable Garrett TODD, Sondra Solomon Attphys Eric Trammell MD Attphys JOSH SIMEON M.D. Attphys Unavailable DIEGO WATSON Attphys Unavailable LAURENCE ANDREWS M.D. Attphys Unavailable [facility] Attphys Unavailable ANGELIQUE JONES, P.A. Attphys Unavailable MELISSA MCKENZIE APRN Attphys Unavailable LAW KEENAN NP Attphys Unavailable CINTHYA BLOOD APRN Attphys Unavailable Sondra Guzman MD Attphys JAMILA SANTOS APRN Attphys Unavailable Eric DURANT Attphys Unavailable AV OLIVEIRA Attphys Unavailable DIEGO WATSON Admphys Unavailable Payers Payer Name Policy Type Policy Number Effective Date Expiration Date S ourellen AETNA MEDICAREAETNA GOVERNMENT [id number].[id number], [place] [address] xxxxxxxxxxxx 2019 00:00:00 Arden keith [employer] Medicare Replacement [id number] 2018 00:00:00 [facility] Problems Condition Name Condition Details Condition Category Status Onset Date Resolution Date Last Treatment Date Treating Clinician Comments Source Sacroiliac joint dysfunction of left side Sacroiliac j oint dysfunction of left side Disease Active 2016-10-12 00:00:00 Ruy john Zoroastrian Trochanteric bursitis, left hip Trochanteric bursitis, left hip Dis ease Active 2016-10-12 00:00:00 José Zoroastrian Unspecified urinary incontinence Unspecified urinary incontinenc e Disease Active 2012-02-22 00:00:00 [facility] Tobacco abuse Tobacco abuse Disease Active 2012-02-22 00:00:00 [facility] Acute hepatitis C without mention of hepatic coma(070. 51) Acute hepatitis C without mention of hepatic coma(070.51) Disease Active 2011 00:00:0 0 [facility] LBP (low back pain) LBP (low back pain) Disease Active 2010-02-25 00:00 :00 [facility] Amnestic disorder Amnestic disorder Disease Active 2009-07-14 00:00:00 [facility] Wrist pain Wrist pain Disease Active 2009-05-15 00:00:00 [facility] Major depressive disorder, single episod e, severe, without mention of psychotic behavior Major depressive disorder, single episod e, severe, without mention of psychotic behavior Disease Active 2009-03-13 00:00:00 [facility] Carpal tunnel syndrome Carpal tunnel syndrome Disease Active 2008-07-25 00:00:00 [facility] Unspecified hypothyroidism Unspecified hypothyroidism Disease Active 2008-07-25 00:00:00 [facility] Chronic pain due to trauma Chronic pain due to trauma Disease Active 2008-07-25 00:00:00 [facility] Post-traumatic stress disorder Post-traumatic stress disorder Disea se Active 2008-07-25 00:00:00 Arden keith Patient requests second opinion Patient requests second opinion Pro blem Active [facility] History of post traumatic stress disorder History of p ost traumatic stress disorder Problem Resolved [facility] History of cirrhosis History of cirrhosis Problem Resolved [facility] History of thyroid disorder History of thyroid disorder Problem Resolved [facility] Screening for breast cancer Screening for breast cancer Problem Active [facility] Need for Tdap vaccination Need for Tdap vaccination Problem Active [facility] Need for hepatitis C screening test Need for hepatitis C screeni ng test Problem Active [facility] Hepatitis C antibody test positive Hepatitis C antibody test pos itive Problem Active [facility] Cervical muscle strain Cervical muscle strain Problem Active [facility] Bruising, spontaneous Bruising, spontaneous Problem Active [facility] Platelets decreased Platelets decreased Problem Active [facility] Acute bronchitis Acute bronchitis Problem Active [facility] BMI 26.0-26.9,adult BMI 26.0-26.9,adult Problem Active [facility] Acute bacterial bronchitis Acute bacterial bronchitis Problem Active [facility] Sympathotonic orthostatic hypotension Sympathotonic orthosta tic hypotension Problem Active [facility] Hypokalemia Hypokalemia Problem Active [facility] Acute upper respiratory infection Acute upper respiratory infect ion Problem Active [facility] Chronic constipation Chronic constipation Problem Active [facility] S/P cholecystectomy S/P cholecystectomy Problem Active [facility] Sensory urge incontinence Sensory urge incontinence Problem Active [facility] TMJ (temporomandibular joint disorder) TMJ (temporomandibula r joint disorder) Problem Active [facility] Headache Headache Problem Active [facility] Bruxism Bruxism Problem Active [facility] Essential (primary) hypertension Essential (primary) hypertensio n Problem Active [facility] Hypothyroidism Hypothyroidism Problem Active [facility] Mixed hyperlipidemia Mixed hyperlipidemia Problem Active [facility] Hyponatremia Hyponatremia Problem Active [facility] Current episode of major depressive disorder without p rior episode Current episode of major depressive disorder without prior episode Disease Active [facility] Allergies, Adverse Reactions, Alerts Allergy Name Allergy Type Status Severity Reaction(s) Onset Date Inacti ve Date Treating Clinician Comments Source Hydrocodone-Acetaminophen Propensity to adverse reactions to drug Act kervin 2016-10-01 00:00:00 Causes Hallucination José Rodarte Family History Family Member Diagnosis Comments Start Date Stop Date Source Grandmother Family history of depression [facility] Grandfather Family history of malignant neoplasm [facility] Grandfather Family history of Aneurysm [facility] Mother Family history of diabetes mellitus [facility] Mother Family history of hypertension [facility] Mother Family history of chronic obstructive pulmonary disease [facility] Mother Family history of asthma [facility] Mother Family history of cardiac pacemaker [facility] Father Family history of hypertension [facility] Father Family history of stroke [facility] Father Family history of chronic obstructive pulmonary disease [facility] Father FH: CABG (coronary artery bypass surgery) [facility] Father Family history of myocardial infarction [facility] Natural father No Known Problems Elaine Rodarte Natural mother No Known Problems Elaine Rodarte Maternal grandfather [facility] Maternal grandfather [facility] Paternal aunt Cancer [facility] Social History Social Habit Start Date Stop Date Quantity Comments Source History of tobacco use Cigarette Smoker [facility] Sex Assigned At [facility] Cigarettes smoked current (pack per day) - Reported 00:00:00 2019-05-22 00:00:00 [facility] Cigarette pack-years 2019-05-22 00:00:00 2019-05-22 00:00:00 [facility] Alcohol intake 2019-05-22 00:00:00 2019-05-22 00:00:00 Current drinker of alcohol (finding) [facility] Alcohol Comment 2012-10-19 00:00:00 2012-10-19 00:00:00 socially -dranked New Years [facility] Tobacco Comment 2008-07-25 00:00:00 2008-07-25 00:00:00 5 cigarettes a day [facility] Smoking Status Start Date Stop Date Source Current every day smoker 2019-05-22 00:00:00 [facility] Medications Ordered Medication Name Filled Medication Name Start Date Stop Da te Current Medication? Ordering Clinician Indication Dosage Frequency Signature (SIG) Comments Components Source Olmesartan Medoxomil 20 MG Oral Tablet Olmesartan Medoxomil 20 MG Oral Tablet 2020-03-08 00:00:00 Yes BLAKE CARRILLO DKaylaOKayla 1 Q D TAKE 1 TABLET DAILY for high blood pressure [facility] cloNIDine HCl - 0.1 MG Oral Tablet cloNIDine HCl - 0.1 MG Or al Tablet 2020-03-08 00:00:00 Yes FIORELLA BRITO P.A. 1 tab po tid if BP > 170/100 [facility] risperiDONE (RISPERDAL) 1 mg tablet 2020-02-18 00:00:00 Yes Major depressive disorder, recurrent episode, mild 1mg Take 1 tablet by mouth at bedtime nightly. [facility] traZODone (DESYREL) 100 mg tablet 2020-02-18 00:00:00 Yes Major depressive disorder, recurrent episode, mild 100mg Take 1 tablet by mouth at bedtime nightly. [facility] venlafaxine (EFFEXOR XR) 150 mg extended release capsule 2020-02-18 00:00:00 Yes Major depressive disorder, recurrent episode, m ild 150mg QD Take 1 capsule by mouth daily. [facility] diazePAM 5 MG Oral Tablet diazePAM 5 MG Oral Tablet 2019-11-27 00:00: 00 Yes BLAKE CARRILLO D.O. TAKE ONE TABLET BY MOUTH EVERY NIGHT AT BEDTIME [facility] risperiDONE (RISPERDAL) 1 mg tablet 2019-11-19 00:00:0 0 2020-02-18 00:00:00 No Major depressive disorder, recurrent episode, mild 1mg Take 1 tablet by mouth at bedtime nightly. [facility] traZODone (DESYREL) 100 mg tablet 2019-11-19 00:00:00 2019 00:00:00 No Major depressive disorder, recurrent episode, mild 100mg Take 1 tablet by mouth at bedtime nightly. [facility] venlafaxine (EFFEXOR XR) 150 mg extended release capsule 2019-11-19 00:00:00 2020-02-18 00:00:00 No Major depressive disorder, r ecurrent episode, mild 150mg QD Take 1 capsule by mouth daily. [facility] traZODone (DESYREL) 100 mg tablet 2019-10-26 00:00:00 2019 00:00:00 No Major depressive disorder, recurrent episode, mild 100mg Take 1 tablet by mouth at bedtime nightly. [facility] Celecoxib 200 MG Oral Capsule Celecoxib 200 MG Oral Capsule 2018 00:00:00 Yes BLAKE CARRILLO D.O. Q0.5D TAKE 1 CAPS ULE BY MOUTH TWICE DAILY WITH FOOD [facility] Acetaminophen With Codeine (Tylenol With Codeine #3 Ta blet) 1 Each Tablet Acetaminophen With Codeine (Tylenol With Codeine #3 Tablet) 1 Each Tablet 2019-09-27 00:00:00 Yes Rachel Christian Polysilicon Preparation Worker 300 Every 8 Hours as needed for Abdominal Pain [facility] Levothyroxine Sodium (Synthroid) 75 Mcg Tab Levothyrox ine Sodium (Synthroid) 75 Mcg Tab 2019-09-27 00:00:00 Yes Rachel Christian Polysil[employer] Preparation Worker 75 Chary y@06 [facility] Ondansetron Hcl (Zofran*) 4 Mg Tablet Ondansetron Hcl (Zofra n*) 4 Mg Tablet 2019-09-27 00:00:00 Yes Rachel Christian Polysil[employer] Preparation Worker 4 Every 8 Hours as needed for Nausea And Vomiting [facility] risperiDONE (RISPERDAL) 1 mg tablet 2019-09-17 00:00:0 0 2019-11-19 00:00:00 No Major depressive disorder, recurrent episode, mild 1mg Take 1 tablet by mouth at bedtime nightly. [facility] traZODone (DESYREL) 100 mg tablet 2019-09-17 00:00:00 2019 00:00:00 No Major depressive disorder, recurrent episode, mild 100mg Take 1 tablet by mouth at bedtime nightly. [facility] venlafaxine (EFFEXOR XR) 150 mg extended release capsule 2019-09-17 00:00:00 2019-11-19 00:00:00 No Major depressive disorder, r ecurrent episode, mild 150mg QD Take 1 capsule by mouth daily. [facility] traZODone (DESYREL) 100 mg tablet 2019-07-17 00:00:00 2018 00:00:00 No Major depressive disorder, recurrent episode, mild TAKE 1 TABLET BY MOUTH EVERY NIGHT AT BEDTIME NEEDED [facility] venlafaxine (EFFEXOR XR) 150 mg extended release capsule 2019-06-25 00:00:00 2019-09-17 00:00:00 No Major depressive disorder, r ecurrent episode, mild 150mg QD Take 1 capsule by mouth daily. [facility] risperiDONE (RISPERDAL) 1 mg tablet 2019-06-25 00:00:0 0 2019-09-17 00:00:00 No Major depressive disorder, recurrent episode, mild 1mg Take 1 tablet by mouth at bedtime nightly. [facility] traZODone (DESYREL) 100 mg tablet 2019-06-25 00:00:00 2018 00:00:00 No Major depressive disorder, recurrent episode, mild 100mg Take 1 tablet by mouth nightly at bedtime as needed for Sleep. [facility] Oxybutynin Chloride ER 5 MG Oral Tablet Extended Relea se 24 Hour Oxybutynin Chloride ER 5 MG Oral Tablet Extended Release 24 Hour 2019-06-22 00:00:00 Yes BLAKE CARRILLO D.O. TAKE 1 TABLET BY MOUTH EVERY DA Y [facility] hydroCHLOROthiazide 12.5 MG Oral Tablet hydroCHLOROthiazide 12.5 MG Oral Tablet 2019-05-30 00:00:00 Yes LAURENCE ANDREWS M.D. QD TAKE 1 TABLET BY MOUTH DAILY [facility] traZODone (DESYREL) 100 mg tablet 2019-05-22 00:00:00 2018 00:00:00 No Major depressive disorder, recurrent episode, mild 100mg Take 1 tablet by mouth nightly at bedtime as needed for Sleep. [facility] venlafaxine (EFFEXOR XR) 150 mg extended release capsule 2019-05-22 00:00:00 2019-06-25 00:00:00 No Major depressive disorder, r ecurrent episode, mild 150mg QD Take 1 capsule by mouth daily. [facility] Shingrix 50 MCG/0.5ML Intramuscular Suspension Reconst ituted Shingrix 50 MCG/0.5ML Intramuscular Suspension Reconstituted 2019-05-02 00:00:00 Yes JAMILA SANTOS APRN ADMINISTER 0.5 M L INTRAMUSCULARLY ONCE NOW, THEN SECOND DOSE AT 2-6 MONTHS. [facility] H-E-B inControl BP Monitor H-E-B inControl BP Monitor 2019-04-17 00:0 0:00 Yes JAMILA SANTOS APRN MEASURE BLOOD PRESSURE DAILY D IRECTED. [facility] paliperidone (INVEGA) 6 mg extended release tablet 2019-03-19 00:00:00 2019-06-25 00:00:00 No Major depressive disorder, recurre nt episode, mild 6mg Take 1 tablet by mouth every morning. [facility] traZODone (DESYREL) 50 mg tablet 2019-03-19 00:00:00 2019-05 00:00:00 No Major depressive disorder, recurrent episode, mild 50mg Take 1 tablet by mouth at bedtime nightly. [facility] venlafaxine (EFFEXOR XR) 150 mg extended release capsule 2019-03-19 00:00:00 2019-05-22 00:00:00 No Major depressive disorder, r ecurrent episode, mild 150mg QD Take 1 capsule by mouth daily. [facility] paliperidone (INVEGA) 6 mg extended release tablet 2018-11-20 00:00:00 2019-06-25 00:00:00 No Schizoaffective disorder, unspecified type 6mg Take 1 tablet by mouth every morning. [facility] Gabapentin 600 MG Oral Tablet Gabapentin 600 MG Oral Tablet 2018 00:00:00 Yes BLAKE CARRILLO D.O. Q0.3333D TAKE 1 TABLET BY GORDON TH THREE TIMES DAILY [facility] Venlafaxine HCl ER 150 MG Oral Capsule Extended Releas e 24 Hour Venlafaxine HCl ER 150 MG Oral Capsule Extended Release 24 Hour 2018-10-31 00:00:00 Ye s QD TAKE 1 CAPSULE ONCE DAILY WITH FOOD. [facility] traMADol HCl - 50 MG Oral Tablet traMADol HCl - 50 MG Oral T ablet 2018-10-31 00:00:00 Yes BLAKE CARRILLO D.O. Q8H T MIKEL 1 TABLET EVERY 8 HOURS NEEDED. [facility] Vitamin A 20692 UNIT TABS Vitamin A 00084 UNIT TABS 2018-10-31 00:00:0 0 Yes QD TAKE 1 TABLET DAILY. [facility] traZODone HCl - 100 MG Oral Tablet traZODone HCl - 100 MG Or al Tablet 2018-10-31 00:00:00 Yes 1 QD TAKE 1 TABLET DAILY [facility] Levothyroxine Sodium 75 MCG Oral Tablet Levothyroxine Sodium 75 MCG Oral Tablet 2018-10-31 00:00:00 Yes BLAKE CARRILLO D.O. 1 Q D TAKE 1 TABLET BY MOUTH ONCE DAILY [facility] paliperidone (INVEGA) 6 MG 24 hr tablet 2017-08-22 11:18:14 Yes 6mg QD Take 6 mg by mouth every morning. Ilda Rodarte diclofenac (VOLTAREN) 1 % gel 2016-10-01 00:00:00 Yes Sacroiliac joint dysfunction of left side Q.25D Apply topically 4 (four) times a day. José Rodarte spironolactone (ALDACTONE) 50 MG tablet 2016-09-28 00:00:00 Yes TK 1 T PO QD José Rodarte propranolol (INDERAL) 20 MG tablet 2016-09-16 00:00:00 Yes TK 1 T PO BID José Rodarte furosemide (LASIX) 20 mg tablet 2016-09-16 00:00:00 Yes TK 1 T PO QD José Rodarte oxybutynin (DITROPAN) 5 MG tablet 2016-09-04 00:00:00 Yes TAKE 1 TABLET BY MOUTH TWICE DAILY NEEDED FOR URINARY DISCOMFORT José Rodarte levothyroxine (SYNTHROID, LEVOXYL) 50 mcg tablet 2016-09-04 00:00:00 Yes TAKE 1 TABLET PO DAILY Ashish john Zoroastrian gabapentin (NEURONTIN) 300 mg capsule 2016-08-27 00:00:00 Y es TK 2 CS PO TID José Rodarte venlafaxine XR (EFFEXOR-XR) 150 MG 24 hr capsule 2016-08-23 00:00:00 Yes TAKE 1 C PO D José richey traZODone (DESYREL) 50 MG tablet 2016-08-23 00:00:00 Yes TAKE 1 T PO HS José Rodarte traMADol (ULTRAM) 50 mg tablet 2016-08-17 00:00:00 Yes TK 1 T PO BID PRN José Rodarte methylPREDNISolone (MEDROL DOSEPACK) 4 mg tablet 2016-07-31 00:00:00 Yes TK UTD José bhardwaj traMADol (ULTRAM) 50 mg tablet 2012-11-24 00:00:00 Yes Joint pain 50mg Take 1 tablet by mouth every 8 hours as needed (q 8 hours prn). [facility] ALBUTEROL 90 mcg/Actuation Aero 2012-10-19 08:37:52 Yes Administer by inhalation. [facility] oxybutynin (DITROPAN) 5 mg tablet 2012-09-20 00:00:00 Yes Unspecified urinary incontinence 5mg Take 1 tablet by mouth 3 times daily. [facility] levothyroxine (SYNTHROID) 50 mcg tablet 2012-06-06 00:00:00 Yes Neuropathic pain syndrome (non-herpetic) 50ug QD Take 1 tablet by mouth daily. [facility] nitrofurantoin (MACRODANTIN) 100 mg capsule 2012-02-22 00:00 :00 Yes UTI (urinary tract infection) Take by mouth . Take one tab by mouth three times a day for 5 days [facility] ibuprofen (MOTRIN) 800 mg tablet 2011-05-17 00:00:00 Yes Back pain 800mg Take 1 Tab by mouth every 8 hours as needed for Pain. [facility] hydroquinone (LUSTRA) 4 % topical cream 2010-07-31 00:00:00 Yes Melasma Q.5D Apply to affected area 2 times daily. M ay cause dryness and irritation. Wear sunscreen SPF 30 or more daily. [facility] Amitriptyline Hcl 25 Mg Tablet Amitriptyline Hcl 25 Mg Tablet Yes 50 Bedtime [facility] Fluticasone Propionate 15.8 Ml [place].susp Fluticasone Propionate 15.8 Ml [place].susp Yes 1 Daily [facility] Gabapentin 300 Mg Capsule Gabapentin 300 Mg Capsule Yes 600 Three Times A Day [facility] Hydrochlorothiazide 12.5 Mg Tablet Hydrochlorothiazide 12.5 Mg Tablet Yes 12.5 Daily [facility] Oxybutynin Chloride (Oxybutynin Chloride Er) 5 Mg Tab. er.24 Oxybutynin Chloride (Oxybutynin Chloride Er) 5 Mg Tab.er.24 Yes 5 Daily [facility] Promethazine Vc Promethazine Vc Yes 5 Every 4 Hours as needed for Cough [facility] Propranolol Hcl 10 Mg Tablet Propranolol Hcl 10 Mg Tablet Y es 20 Daily [facility] Risperidone 1 Mg Tablet Risperidone 1 Mg Tablet Yes 1 Bedtime [facility] Tramadol Hcl (Ultram 50MG*) 50 Mg Tab Tramadol Hcl (Ultram 50MG*) 5 0 Mg Tab Yes 50 Every 8 Hours as needed for Pain [facility] Trazodone Hcl 50 Mg Tablet Trazodone Hcl 50 Mg Tablet Yes 100 Bedtime [facility] Venlafaxine Hcl (Venlafaxine Hcl Er) 75 Mg Tab.er.24 V enlafaxine Hcl (Venlafaxine Hcl Er) 75 Mg Tab.er.24 Yes 150 D aily [facility] Vitamin A 10,000 Unit Cap Vitamin A 10,000 Unit Cap Yes Daily [facility] Fish Oil CAPS Fish Oil CAPS Yes 1 QD TAKE 1 CAPSU LE DAILY [facility] risperiDONE 1 MG Oral Tablet risperiDONE 1 MG Oral Tablet Y es 1 TAKE 1 TABLET AT BEDTIME. [facility] Amitriptyline HCl - 50 MG Oral Tablet Amitriptyline HCl - 50 MG Ora l Tablet Yes 1 TAKE 1 TABLET AT BEDTIME. [facility] Levothyroxine Sodium 50 Mcg Tablet, 50 Mcg Oral Levoth yroxine Sodium 50 Mcg Tablet, 50 Mcg Oral 2019-09-27 00:00:00 No 50 Chary amato [facility] Immunizations Ordered Immunization Name Filled Immunization Name Date Status Comments Source Fluzone Quadrivalent 0.5 ML Intramuscular Suspension Prefill ed Syringe 2019-07-17 11:26:00 Completed [facility] Tdap (Adacel) 2019-05-02 10:17:00 Completed [facility] Fluzone Quadrivalent 0.5 ML Intramuscular Suspension Prefill ed Syringe 2018-10-31 11:03:00 Completed [facility] Tdap Tetanus, diphtheria, acellular pertussis Vaccine 2010-01-19 00:00:00 Completed [facility] Influenza Vaccine 2008-09-19 00:00:00 Completed [facility] Vital Signs Vital Name Observation Time Observation Value Comments Source Systolic blood pressure 2020-05-02 13:31:00 150 mm[Hg] Loca tion: LUE; Position: Sitting [facility] Diastolic blood pressure 2020-05-02 13:31:00 89 mm[Hg] Loc ation: LUE; Position: Sitting [facility] Body height 2020-05-02 13:31:00 61 [in_us] [facility] Weight 2020-05-02 13:31:00 143.0625 [lb_av] [facility] Body mass index (BMI) [Ratio] 2020-05-02 13:31:00 27.03 kg/m2 [facility] Body temperature 2020-05-02 13:31:00 97.9 [degF] Method: Temporal [facility] Heart Rate 2020-05-02 13:31:00 69 /min [facility] Respiratory rate 2020-05-02 13:31:00 12 /min [facility] Systolic blood pressure 2020-03-08 10:57:00 190 mm[Hg] Loca tion: LUE; Position: Sitting [facility] Diastolic blood pressure 2020-03-08 10:57:00 104 mm[Hg] Loc ation: LUE; Position: Sitting [facility] Heart Rate 2020-03-08 10:57:00 64 /min [facility] Body height 2020-03-08 10:57:00 61 [in_us] [facility] Weight 2020-03-08 10:57:00 142.1875 [lb_av] [facility] Body mass index (BMI) [Ratio] 2020-03-08 10:57:00 26.87 kg/m2 [facility] Body temperature 2020-03-08 10:57:00 98.2 [degF] Method: Temporal [facility] Respiratory rate 2020-03-08 10:57:00 16 /min [facility] Systolic blood pressure 2020-01-28 09:57:00 115 mm[Hg] Loca tion: LUE; Position: Sitting [facility] Diastolic blood pressure 2020-01-28 09:57:00 79 mm[Hg] Loc ation: LUE; Position: Sitting [facility] Weight 2020-01-28 09:57:00 148 [lb_av] [facility] Body mass index (BMI) [Ratio] 2020-01-28 09:57:00 27.96 kg/m2 [facility] Body height 2020-01-28 09:57:00 61 [in_us] [facility] Body temperature 2020-01-28 09:57:00 97.9 [degF] Method: Temporal [facility] Respiratory rate 2020-01-28 09:57:00 16 /min [facility] Heart Rate 2020-01-28 09:57:00 68 /min [facility] Systolic blood pressure 2019-12-06 10:29:00 109 mm[Hg] Loca tion: LUE; Position: Sitting [facility] Diastolic blood pressure 2019-12-06 10:29:00 73 mm[Hg] Loc ation: LUE; Position: Sitting [facility] Body height 2019-12-06 10:29:00 61 [in_us] [facility] Weight 2019-12-06 10:29:00 144.125 [lb_av] [facility] Body mass index (BMI) [Ratio] 2019-12-06 10:29:00 27.23 kg/m2 [facility] Body temperature 2019-12-06 10:29:00 97.9 [degF] Method: Oral [facility] Heart Rate 2019-12-06 10:29:00 59 /min Location: L Radial; Q uality: Normal [facility] Systolic blood pressure 2019-11-27 08:09:00 152 mm[Hg] Loca tion: JACKIE; Position: Sitting [facility] Diastolic blood pressure 2019-11-27 08:09:00 92 mm[Hg] Loc ation: LUE; Position: Sitting [facility] Weight 2019-11-27 08:09:00 144 [lb_av] [facility] Body mass index (BMI) [Ratio] 2019-11-27 08:09:00 27.21 kg/m2 [facility] Body height 2019-11-27 08:09:00 61 [in_us] [facility] Body temperature 2019-11-27 08:09:00 97.6 [degF] Method: Temporal [facility] Heart Rate 2019-11-27 08:09:00 62 /min [facility] Respiratory rate 2019-11-27 08:09:00 16 /min [facility] Systolic blood pressure 2019-11-19 10:55:00 135 mm[Hg] [facility] Diastolic blood pressure 2019-11-19 10:55:00 95 mm[Hg] [facility] Heart rate 2019-11-19 10:55:00 67 /min [facility] Body temperature 2019-11-19 10:55:00 36.78 [facility] Respiratory rate 2019-11-19 10:55:00 18 /min [facility] Body height 2019-11-19 10:55:00 154.9 cm [facility] Body weight 2019-11-19 10:55:00 63.504 kg [facility] BMI 2019-11-19 10:55:00 26.45 kg/m2 [facility] Oxygen saturation in Arterial blood by Pulse oximetry 11-19 10:55:00 100 /min [facility] BP Systolic 2019-11-08 10:01:00 148 mm[Hg] Location: LUE; Positi on: Sitting [facility] BP Diastolic 2019-11-08 10:01:00 88 mm[Hg] Location: LUE; Positi on: Sitting [facility] Weight 2019-11-08 10:01:00 140 [lb_av] [facility] Body Mass Index Calculated 2019-11-08 10:01:00 26.45 kg/m2 [facility] Height 2019-11-08 10:01:00 61 [in_us] [facility]i ty [facility] Temperature 2019-11-08 10:01:00 97.4 [degF] Method: Temporal [facility] Respiration Rate 2019-11-08 10:01:00 16 /min [facility] Heart Rate 2019-11-08 10:01:00 61 /min [facility] BP Systolic 2019-10-12 08:41:00 141 mm[Hg] Location: ANURADHAE; Positi on: Sitting [facility] BP Diastolic 2019-10-12 08:41:00 95 mm[Hg] Location: ANURADHAE; Positi on: Sitting [facility] Height 2019-10-12 08:41:00 61 [in_us] [facility]i [facility] Weight 2019-10-12 08:41:00 133 [lb_av] [facility] Body Mass Index Calculated 2019-10-12 08:41:00 25.13 kg/m2 [facility] Temperature 2019-10-12 08:41:00 97 [degF] Method: Temporal [facility] Respiration Rate 2019-10-12 08:41:00 16 /min [facility] Heart Rate 2019-10-12 08:41:00 68 /min [facility] BP Systolic 2019-09-18 10:52:00 162 mm[Hg] Location: ANURADHAE; Positi on: Sitting [facility] BP Diastolic 2019-09-18 10:52:00 93 mm[Hg] Location: LUE; Positi on: Sitting [facility] Weight 2019-09-18 10:52:00 135 [lb_av] [facility]i [facility] Body Mass Index Calculated 2019-09-18 10:52:00 25.51 kg/m2 [facility] Height 2019-09-18 10:52:00 61 [in_us] Universi [facility] Temperature 2019-09-18 10:52:00 97.5 [degF] Method: Temporal [facility] Respiration Rate 2019-09-18 10:52:00 16 /min [facility] Heart Rate 2019-09-18 10:52:00 58 /min [facility] BP Systolic 2019-09-05 15:36:00 128 mm[Hg] Location: LUE; Positi on: Sitting [facility] BP Diastolic 2019-09-05 15:36:00 77 mm[Hg] Location: LUE; Positi on: Sitting [facility] Height 2019-09-05 15:36:00 61 [in_us] Universi ty [facility] Weight 2019-09-05 15:36:00 139.5 [lb_av] Univers [facility] Body Mass Index Calculated 2019-09-05 15:36:00 26.36 kg/m2 [facility] Temperature 2019-09-05 15:36:00 97.8 [degF] Method: Temporal [facility] Respiration Rate 2019-09-05 15:36:00 16 /min [facility] Heart Rate 2019-09-05 15:36:00 67 /min [facility] BP Systolic 2019-09-03 13:33:00 128 mm[Hg] Location: LUE; Positi on: Sitting [facility] BP Diastolic 2019-09-03 13:33:00 80 mm[Hg] Location: LUE; Positi on: Sitting [facility] Height 2019-09-03 13:33:00 61 [in_us] Universi ty [facility] Weight 2019-09-03 13:33:00 138 [lb_av] Universi ty [facility] Body Mass Index Calculated 2019-09-03 13:33:00 26.08 kg/m2 [facility] Respiration Rate 2019-09-03 13:33:00 16 /min [facility] Heart Rate 2019-09-03 13:33:00 76 /min [facility]i [facility] BP Systolic 2019-09-01 10:07:00 135 mm[Hg] Location: LUE; Positi on: Sitting [facility] BP Diastolic 2019-09-01 10:07:00 87 mm[Hg] Location: LUE; Positi on: Sitting [facility] Height 2019-09-01 10:07:00 61 [in_us] [facility] Weight 2019-09-01 10:07:00 135 [lb_av] [facility] Body Mass Index Calculated 2019-09-01 10:07:00 25.51 kg/m2 [facility] Temperature 2019-09-01 10:07:00 98.2 [degF] Method: Temporal [facility] Respiration Rate 2019-09-01 10:07:00 16 /min [facility] Heart Rate 2019-09-01 10:07:00 66 /min [facility] BP Systolic 2019-08-18 10:34:00 132 mm[Hg] Location: ANURADHAE; Positi on: Sitting [facility] BP Diastolic 2019-08-18 10:34:00 86 mm[Hg] Location: JACKIE; Positi on: Sitting [facility] Height 2019-08-18 10:34:00 61 [in_us] [facility] Weight 2019-08-18 10:34:00 139 [lb_av] [facility] Body Mass Index Calculated 2019-08-18 10:34:00 26.26 kg/m2 [facility] Temperature 2019-08-18 10:34:00 98.7 [degF] Method: Oral [facility] Heart Rate 2019-08-18 10:34:00 65 /min Location: L Radial; [facility] BP Systolic 2019-08-09 10:47:00 116 mm[Hg] Location: JACKIE; Positi on: Standing [facility] BP Diastolic 2019-08-09 10:47:00 79 mm[Hg] Location: LUE; Positi on: Standing [facility] Height 2019-08-09 10:47:00 61 [in_us] [facility] Weight 2019-08-09 10:47:00 137.2 [lb_av] [facility] Body Mass Index Calculated 2019-08-09 10:47:00 25.92 kg/m2 [facility] Temperature 2019-08-09 10:47:00 97.5 [degF] Method: Temporal [facility] Respiration Rate 2019-08-09 10:47:00 16 /min [facility] Heart Rate 2019-08-09 10:47:00 69 /min [facility] BP Systolic 2019-07-28 09:47:00 113 mm[Hg] Location: LUE; Positi on: Sitting [facility] BP Diastolic 2019-07-28 09:47:00 77 mm[Hg] Location: LUE; Positi on: Sitting [facility] Height 2019-07-28 09:47:00 61 [in_us] [facility] Weight 2019-07-28 09:47:00 139.375 [lb_av] [facility] Body Mass Index Calculated 2019-07-28 09:47:00 26.33 kg/m2 [facility] Temperature 2019-07-28 09:47:00 96.5 [degF] Method: Temporal [facility] Heart Rate 2019-07-28 09:47:00 64 /min [facility] Respiration Rate 2019-07-28 09:47:00 16 /min [facility] BP Systolic 2019-05-30 10:22:00 138 mm[Hg] Location: LUE; Positi on: Sitting [facility] BP Diastolic 2019-05-30 10:22:00 88 mm[Hg] Location: LUE; Positi on: Sitting [facility] Heart Rate 2019-05-30 10:22:00 62 /min [facility] BP Systolic 2019-05-30 10:20:00 153 mm[Hg] Location: LUE; Positi on: Sitting [facility] BP Diastolic 2019-05-30 10:20:00 93 mm[Hg] Location: LUE; Positi on: Sitting [facility] Heart Rate 2019-05-30 10:20:00 61 /min [facility] Height 2019-05-30 10:20:00 61 [in_us] [facility] Weight 2019-05-30 10:20:00 133.25 [lb_av] [facility] Body Mass Index Calculated 2019-05-30 10:20:00 25.18 kg/m2 [facility] Respiration Rate 2019-05-30 10:20:00 16 /min [facility] BP Systolic 2019-05-10 14:28:00 120 mm[Hg] Location: LUE; Positi on: Sitting [facility] BP Diastolic 2019-05-10 14:28:00 81 mm[Hg] Location: LUE; Positi on: Sitting [facility] Weight 2019-05-10 14:28:00 132 [lb_av] [facility] Body Mass Index Calculated 2019-05-10 14:28:00 24.94 kg/m2 [facility] Height 2019-05-10 14:28:00 61 [in_us] [facility] Temperature 2019-05-10 14:28:00 97.3 [degF] Method: Temporal [facility] Respiration Rate 2019-05-10 14:28:00 16 /min [facility] Heart Rate 2019-05-10 14:28:00 62 /min [facility] BP Systolic 2019-05-02 09:44:00 126 mm[Hg] Location: LUE; Positi on: Sitting [facility] BP Diastolic 2019-05-02 09:44:00 85 mm[Hg] Location: LUE; Positi on: Sitting [facility] Weight 2019-05-02 09:44:00 132 [lb_av] [facility] Body Mass Index Calculated 2019-05-02 09:44:00 24.94 kg/m2 [facility] Height 2019-05-02 09:44:00 61 [in_us] [facility] Temperature 2019-05-02 09:44:00 96.8 [degF] Method: Temporal [facility] Respiration Rate 2019-05-02 09:44:00 16 /min Quality: Normal [facility] Heart Rate 2019-05-02 09:44:00 64 /min Location: L Radial; [facility] BP Systolic 2019-04-17 15:22:00 142 mm[Hg] Location: LUE; Positi on: Sitting [facility] BP Diastolic 2019-04-17 15:22:00 95 mm[Hg] Location: LUE; Positi on: Sitting [facility] BP Systolic 2019-04-17 15:20:00 154 mm[Hg] Location: LUE; Positi on: Sitting [facility] BP Diastolic 2019-04-17 15:20:00 97 mm[Hg] Location: LUE; Positi on: Sitting [facility] BP Systolic 2019-04-17 14:57:00 130 mm[Hg] Location: LUE; Positi on: Sitting [facility] BP Diastolic 2019-04-17 14:57:00 85 mm[Hg] Location: LUE; Positi on: Sitting [facility] BP Systolic 2019-04-17 14:38:00 152 mm[Hg] Location: LUE; Positi on: Sitting [facility] BP Diastolic 2019-04-17 14:38:00 89 mm[Hg] Location: LUE; Positi on: Sitting [facility] Height 2019-04-17 14:38:00 61 [in_us] [facility] Weight 2019-04-17 14:38:00 135.375 [lb_av] [facility] Body Mass Index Calculated 2019-04-17 14:38:00 25.58 kg/m2 [facility] Temperature 2019-04-17 14:38:00 97.7 [degF] [facility] Heart Rate 2019-04-17 14:38:00 69 /min [facility] Respiration Rate 2019-04-17 14:38:00 16 /min [facility] BP Systolic 2019-01-29 09:56:00 131 mm[Hg] Location: LUE; Positi on: Sitting [facility] BP Diastolic 2019-01-29 09:56:00 79 mm[Hg] Location: ANURADHAE; Positi on: Sitting [facility] Weight 2019-01-29 09:56:00 133 [lb_av] [facility] Body Mass Index Calculated 2019-01-29 09:56:00 25.13 kg/m2 [facility] Height 2019-01-29 09:56:00 61 [in_us] [facility] Temperature 2019-01-29 09:56:00 97.6 [degF] Method: Temporal [facility] Respiration Rate 2019-01-29 09:56:00 16 /min [facility] Heart Rate 2019-01-29 09:56:00 56 /min [facility] BP Systolic 2018-10-31 10:24:00 144 mm[Hg] Location: MICAELA Positi on: Sitting [facility] BP Diastolic 2018-10-31 10:24:00 91 mm[Hg] Location: MICAELA Positi on: Sitting [facility] Weight 2018-10-31 10:24:00 145 [lb_av] [facility] Height 2018-10-31 10:24:00 61 [in_us] [facility] Body Mass Index Calculated 2018-10-31 10:24:00 27.4 kg/m2 [facility] Temperature 2018-10-31 10:24:00 97.2 [degF] Method: Temporal [facility] Respiration Rate 2018-10-31 10:24:00 16 /min [facility] Heart Rate 2018-10-31 10:24:00 57 /min [facility] Procedures Procedure Date / Time Performed Performing Clinician Sourc e [QL] BASIC METABOLIC PANEL W/EGFR 2020-04-03 00:00:00 [facility] [QL] BASIC METABOLIC PANEL W/EGFR 2020-03-24 00:00:00 [facility] [QL] BASIC METABOLIC PANEL W/EGFR 2020-03-13 00:00:00 [facility] [QL] BASIC METABOLIC PANEL W/EGFR 2020-02-19 00:00:00 [facility] [QL] BASIC METABOLIC PANEL W/EGFR 2020-02-12 00:00:00 [facility] [QL] BASIC METABOLIC PANEL W/EGFR 2020-02-05 00:00:00 [facility] [QL] BASIC METABOLIC PANEL W/EGFR 2020-01-29 00:00:00 [facility] [Q] LIPID PANEL WITH REFLEX TO DIRECT LDL 2020-01-28 00:00:00 [facility] [QL] CBC (INCLUDES DIFF/PLT) 2020-01-28 00:00:00 [facility] [QL] CMP W/EGFR 2020-01-28 00:00:00 [facility] [QL] TSH, 3RD GENERATION W/REFLEX TO FT4 2020-01-28 00:00:00 [facility] [QLH] TSH, 3RD GENERATION W/REFLEX TO FT4 2019-10-12 00:00:00 [facility] Laparoscopic cholecystectomy 2019-09-26 00:00:00 MADI REEVES [facility] Computed tomography of abdomen and pelvis with contrast 2018 00:00:00 ADELAIDA DURANT [facility] [[facility]] TSH, 3RD GENERATION W/REFLEX TO FT4 2019-09-07 00:00:00 [facility] [[facility]] BASIC METABOLIC PANEL W/EGFR 2019-09-07 00:00:00 [facility] [[facility]] CBC (INCLUDES DIFF/PLT) 2019-09-05 00:00:00 [facility] [QL] CMP W/EGFR 2019-09-05 00:00:00 [facility] [[facility]] TSH, 3RD GENERATION W/REFLEX TO FT4 2019-09-05 00:00:00 [facility] [N] 2D Echo complete, with Doppler [id number] 2019-05-30 00:00:00 [facility] URINALYSIS 2019-05-22 18:25:00 iNna Gill [facility] URINE DRUG SCREEN 2019-05-22 18:25:00 Nina Gill [facility] URINALYSIS 2019-05-22 18:25:00 Nina Gill [facility] ECG-12 Lead 2019-04-17 00:00:00 [facility] [[facility]] CBC (INCLUDES DIFF/PLT) 2019-04-17 00:00:00 [facility] [QL] CMP W/EGFR 2019-04-17 00:00:00 [facility] [[facility]] HEMOGLOBIN A1c 2019-04-17 00:00:00 [facility] LIPID PANEL 2019-04-17 00:00:00 [facility] [QL] TSH, 3RD GENERATION W/REFLEX TO FT4 2019-04-17 00:00:00 [facility] [[facility]] URINALYSIS, COMPLETE W/REFLEX TO CULTURE 2019-04-17 00:00: 00 [facility] [[facility]] HEPATITIS C ANTIBODY 2019-04-17 00:00[facility] of brain without radiopaque contrast 201 06-22-30 00:00:00 YULIA MCNALLY [facility] [place] Breast mammogram screen bilateral [id number] 2018-10-31 00:00:00 [facility] History of Hysterectomy [facility] History of Bladder surgery [facility] History of Abdominoplasty [facility] History of Mastopexy [facility] Planned Activity Planned Date Details Comments Source Future Scheduled Test 2020-07-17 00:00:00 IMM Influenza Seas onal Jul to December (>/= 19 yrs) [code = IMM Influenza Seasonal Jul to December (>/= 19 yrs)] [facility] Scheduled Test 2020-05-17 00:00:00 INFLUENZA VACCINE [code = INFLUENZA VACCINE] [facility] Diagnostic Test Pending 2019-08-17 00:00:00 [N] 2D Echo comp lete, with Doppler [id number] [code = [N] 2D Echo complete, with Doppler [id number]] [facility] Diagnostic Test Pending 2019-08-17 00:00:00 [N] 2D Echo comp lete, with Doppler [id number] [code = [N] 2D Echo complete, with Doppler [id number]] [facility] Future Scheduled Test 2013 00:00:00 BREAST CANCER SCRE ENING [code = BREAST CANCER SCREENING] [facility] Scheduled Test 2013 00:00:00 COLONOSCOPY SCREEN ING [code = COLONOSCOPY SCREENING] [facility] Scheduled Test 2013 00:00:00 SHINGLES VACCINES (#1) [code = SHINGLES VACCINES (#1)] [facility] Scheduled Test 2013 00:00:00 Screening for todd gnant neoplasm of colon (procedure) [code = 754793906] [facility] Scheduled Test 2012-05-31 00:00:00 Breast Cancer Scrn (Yearly) [code = Breast Cancer Scrn (Yearly)] [facility] Scheduled Test 1984 00:00:00 Screening for todd gnant neoplasm of cervix (procedure) [code = 128232552] [facility] Scheduled Test 1984 00:00:00 Screening for todd gnant neoplasm of cervix (procedure) [code = 518423828] [facility] Appointment 2020-09-02 10:00:00 Chao LOZANO, [facility] Encounters Start Date/Time End Date/Time Encounter Type Admission Type Attendi RUST Care Department Encounter ID Source 2020-05-02 13:30:00 2020-05-02 13:30:00 Appointment; BLAKE CARRILLO D.O. YEH, SHAO-CHUN, D[facility] [id number] [facility] 2020-04-28 10:00:00 2020-04-28 10:00:00 Appointment; BLAKE CARRILLO D.O. YEH, SHAO-CHUN, D.O. [facility] [id number] [facility] 2020-03-08 09:45:00 2020-03-08 09:45:00 Appointment; FIORELLA BRITO P.A. CRUZ, LETICIA, P.A. [facility] [address] [id number] [facility] 2020-02-18 09:08:52 2020-02-18 09:08:52 Outpatient [facility] [id number] [facility] 2020-01-28 10:00:00 2020-01-28 10:00:00 Appointment; BLAKE CARRILLO D.O. YEH, SHAO-CHUN, D.O[facility] [id number] [facility] 2019-12-06 10:30:00 2019-12-06 10:30:00 Appointment; JOSH SIMEON M.D. BYRD, MICHAEL, M.D. [facility], [address] [id number] [facility] 2019-11-27 08:30:00 2019-11-27 08:30:00 Appointment; BLAKE CARRILLO D.O. YEH, SHAO-CHUN, D[facility] [id number] [facility] 2019-11-19 10:55:45 2019-11-19 10:55:45 Outpatient [facility] [id number] [facility] 2019-11-08 10:30:00 2019-11-08 10:30:00 Appointment; BLAKE CARRILLO D.O. YEH, SHAO-CHUN, D[facility] [id number] [facility] 2019-10-12 09:30:00 2019-10-12 09:30:00 Appointment; BLAKE CARRILLO D.O. YEH, SHAO-CHUN, D.O[facility] [id number] [facility] 2019-09-25 17:28:00 2019-09-27 12:45:00 Discharged Inpatient 1 DIEGO WATSON [facility] [id number] [facility] 2019-09-18 10:45:00 2019-09-18 10:45:00 Appointment; BLAKE CARRILLO D.O. YEH, SHAO-CHUN, D[facility] [id number] [facility] 2019-09-17 09:47:13 2019-09-17 09:47:13 Outpatient [facility] [id number] [facility] 2019-09-12 10:00:00 2019-09-12 10:00:00 Appointment; DICK ANDREWS M.D. DHOBLE, ABHIJEET, M.D. [facility] [id number] [facility] 2019-09-10 13:20:00 2019-09-10 13:20:00 Appointment; DICK ANDREWS M.D. DHOBLE, ABHIJEET, M.D. [facility] [id number] [facility] 2019-09-05 16:00:00 2019-09-05 16:00:00 Appointment; FIORELLA BRITO P.A. CRUZ, LETICIA, P.A. [facility] [address] [id number] [facility] [facility] 2019-09-03 14:20:00 2019-09-03 14:20:00 Appointment; DICK ANDREWS M.D. DHOBLE, ABHIJEET, M.D. [facility], [address] [id number] [facility] 2019-09-03 13:00:00 2019-09-03 13:00:00 Appointment; Kerwin ESCOBEDO ECHO [facility] [id number] [facility] 2019-09-01 10:15:00 2019-09-01 10:15:00 Appointment; ANGELIQUE JONES P.A. CAMPOS, BERTHA, P.A. [facility] [address] [id number] [facility] 2019-08-18 10:15:00 2019-08-18 10:15:00 Appointment; MELSISA MCKENZIE A PRN SAXE, KAILA, APRN [facility] [id number] [facility] 2019-08-18 10:15:00 2019-08-18 10:15:00 Appointment; LAW KEENAN N P BECK, SHERI, NP [facility] [id number] [facility] 2019-08-09 10:30:00 2019-08-09 10:30:00 Appointment; CINTHYA BLOOD AP RN TRAN, THUY, APRN [facility] [address] [id number] [facility] 2019-07-28 10:30:00 2019-07-28 10:30:00 Appointment; MELISSA MCKENZIE A PRN SAXE, KAILA, APRN [facility] [id number] [facility] 2019-07-17 10:30:00 2019-07-17 10:30:00 Appointment; BLAKE CARRILLO D.O. YEH, SHAO-CHUN, D.O. [facility] [id number] [facility] 2019-06-25 09:15:42 2019-06-25 09:15:42 Outpatient [facility] [id number] [facility] 2019-05-30 11:20:00 2019-05-30 11:20:00 Appointment; DICK ANDREWS M.D. DHOBLE, ABHIJEET, M.D. [facility] [place] [facility] [id number] [facility] 2019-05-22 15:13:14 2019-05-22 15:13:14 Emergency [facility] [id number] [facility] 2019-05-10 14:30:00 2019-05-10 14:30:00 Appointment; BLAKE CARRILLO D.O. YEH, SHAO-LLOYD, D.O. [facility] [id number] [facility] 2019-05-02 09:30:00 2019-05-02 09:30:00 Appointment; JAMILA SANTOS APRN DUGAS, NANCY, APRN [facility] [address] [id number] [facility] 2019-04-17 15:00:00 2019-04-17 15:00:00 Appointment; JAMILA SANTOS APRN DUGAS, NANCY, APRN [facility] [address] [id number] [facility] 2019-04-15 14:32:00 2019-04-15 16:00:00 Departed Emergency Room 1 ADELAIDA [facility] [id number] [facility] 2019-01-29 10:00:00 2019-01-29 10:00:00 Appointment; BLAKE CARRILLO D.O. YEH, SHAO-CHUN, D.O. [facility] [id number] [facility] 2018-10-31 10:30:00 2018-10-31 10:30:00 Appointment; BLAKE CARRILLO D.O. YEH, SHAO-CHUN, D.O. [facility] [id number] [facility] 2017-08-22 00:00:00 2017-08-22 00:00:00 Outpatient AV OLIVEIRA [facility] [id number] [facility] 2017-03-21 00:00:00 2017-03-21 00:00:00 Outpatient [facility] [id number] [facility] Results Test Description Test Time Test Comments Results Result Comments Source [QL] BASIC METABOLIC PANEL W/EGFR 2020-04-22 14:34:00 Test Item GLUCOSE; Normal (test code = 1547-9) 74 mg/dl 65-139 N Non-fasting reference interval UREA NITROGEN (BUN) (test code = UREA NITROGEN (BUN)) 5 mg/dl 7-25 CREATININE (test code = CREATININE) 0.74 mg/dl 0.50-1.05 N For patients >49 years of age, the reference limitfor Creatinine is approximately 13% higher for peopleidentified as -Maltese. eGFR NON-AFR. HAITIAN (test code = eGFR NON-AFR. HAITIAN) 91 {ML/MIN/1.7} > OR = 60 N eGFR (test code = eGFR ) 10 5 {ML/MIN/1.7} > OR = 60 N BUN/CREATININE RATIO (test code = BUN/CREATININE RATIO) 7 {CALC} 6-22 N SODIUM (test code = SODIUM) 130 mmol/L 135-146 POTASSIUM (test code = POTASSIUM) 3.7 mmol/L 3.5-5.3 N CHLORIDE (test code = CHLORIDE) 98 mmol/L 98-110 N CARBON DIOXIDE (test code = CARBON DIOXIDE) 27 mmol/L 20-32 N CALCIUM (test code = CALCIUM) 9.3 mg/dl 8.6-10.4 N [facility][QL] BASIC METABOLIC PANEL [id number] 08:51:00* Test Item Value Reference Range Interpretation Comments GLUCOSE; Above High Threshold (test code = 1547-9) 162 mg/dl 65- 139 Non- fasting reference interval UREA NITROGEN (BUN) (test code = UREA NITROGEN (BUN)) 4 mg/dl 7-25 CREATININE (test code = CREATININE) 0.80 mg/dl 0.50-1.05 N For patients >49 years of age, the reference limitfor Creatinine is approximately 13% higher for peopleidentified as -Maltese. eGFR NON-AFR. HAITIAN (test code = eGFR NON-AFR. HAITIAN) 82 {ML/MIN/1.7} > OR = 60 N eGFR (test code = eGFR ) 96 {ML/MIN/1.7} > OR = 60 N BUN/CREATININE RATIO (test code = BUN/CREATININE RATIO) 5 {CALC} 6-22 SODIUM (test code = SODIUM) 134 mmol/L 135-146 POTASSIUM (test code = POTASSIUM) 4.3 mmol/L 3.5-5.3 N CHLORIDE (test code = CHLORIDE) 101 mmol/L 98-110 N CARBON DIOXIDE (test code = CARBON DIOXIDE) 27 mmol/L 20-32 N CALCIUM (test code = CALCIUM) 9.1 mg/dl 8.6-10.4 N [facility][QL] BASIC METABOLIC PANEL W/[id number] 11:21:00* Test Item Value Reference Range Interpretation Comments GLUCOSE; Normal (test code = 1547-9) 99 mg/dl 65-139 N Non-fasting reference interval UREA NITROGEN (BUN) (test code = UREA NITROGEN (BUN)) 4 mg/dl 7-25 CREATININE (test code = CREATININE) 0.75 mg/dl 0.50-1.05 N For patients >49 years of age, the reference limitfor Creatinine is approximately 13% higher for peopleidentified as -Maltese. eGFR NON- (test code = eGFR NON-KAYLYNN N HAITIAN) 89 {ML/MIN/1.7} > OR = 60 N eGFR (test code = eGFR ) 10 3 {ML/MIN/1.7} > OR = 60 N BUN/CREATININE RATIO (test code = BUN/CREATININE RATIO) 5 {CALC} 6-22 SODIUM (test code = SODIUM) 130 mmol/L 135-146 POTASSIUM (test code = POTASSIUM) 4.3 mmol/L 3.5-5.3 N CHLORIDE (test code = CHLORIDE) 94 mmol/L 98-110 CARBON DIOXIDE (test code = CARBON DIOXIDE) 28 mmol/L 20-32 N CALCIUM (test code = CALCIUM) 9.6 mg/dl 8.6-10.4 N eGFR NON-AFR. HAITIAN (test code = eGFR NON-AFR. HAITIAN) 89 {ML/MIN/1.7} > OR = 60 N [facility][] BASIC METABOLIC PANEL W/[id number] 09:14:00* Test Item Value Reference Range Interpretation Comments GLUCOSE; Above High Threshold (test code = 1547-9) 100 mg/dl 65- 99 Fasting reference interval For someone without known diabetes, a glucose valuebetween 100 and 125 mg/dL is consistent withprediabetes and should be confirmed with afollow-up test. UREA NITROGEN (BUN) (test code = UREA NITROGEN (BUN)) 5 mg/dl 7-25 CREATININE (test code = CREATININE) 0.85 mg/dl 0.50-1.05 N For patients >49 years of age, the reference limitfor Creatinine is approximately 13% higher for peopleidentified as -Maltese. eGFR NON- (test code = eGFR NON-KAYLYNN N HAITIAN) 77 {ML/MIN/1.7} > OR = 60 N eGFR (test code = eGFR ) 89 {ML/MIN/1.7} > OR = 60 N BUN/CREATININE RATIO (test code = BUN/CREATININE RATIO) 6 {CALC} 6-22 N SODIUM (test code = SODIUM) 133 mmol/L 135-146 POTASSIUM (test code = POTASSIUM) 5.2 mmol/L 3.5-5.3 N CHLORIDE (test code = CHLORIDE) 100 mmol/L 98-110 N CARBON DIOXIDE (test code = CARBON DIOXIDE) 29 mmol/L 20-32 N CALCIUM (test code = CALCIUM) 9.3 mg/dl 8.6-10.4 N [facility][QL] BASIC METABOLIC PANEL [id number] 08:36:00* Test Item Value Reference Range Interpretation Comments GLUCOSE; Normal (test code = 1547-9) 133 mg/dl 65-139 N Non-fasting reference interval UREA NITROGEN (BUN) (test code = UREA NITROGEN (BUN)) 5 mg/dl 7-25 CREATININE (test code = CREATININE) 0.76 mg/dl 0.50-1.05 N For patients >49 years of age, the reference limitfor Creatinine is approximately 13% higher for peopleidentified as -Maltese. eGFR NON- (test code = eGFR NON-KAYLYNN N HAITIAN) 88 {ML/MIN/1.7} > OR = 60 N eGFR (test code = eGFR ) 10 2 {ML/MIN/1.7} > OR = 60 N BUN/CREATININE RATIO (test code = BUN/CREATININE RATIO) 7 {CALC} 6-22 N SODIUM (test code = SODIUM) 127 mmol/L 135-146 POTASSIUM (test code = POTASSIUM) 4.7 mmol/L 3.5-5.3 N CHLORIDE (test code = CHLORIDE) 93 mmol/L 98-110 CARBON DIOXIDE (test code = CARBON DIOXIDE) 26 mmol/L 20-32 N CALCIUM (test code = CALCIUM) 9.5 mg/dl 8.6-10.4 N [facility][QL] BASIC METABOLIC PANEL [id number] 08:28:00* Test Item Value Reference Range Interpretation Comments GLUCOSE; Normal (test code = 1547-9) 99 mg/dl 65-99 N Fasting reference interval UREA NITROGEN (BUN) (test code = UREA NITROGEN (BUN)) 7 mg/dl 7-25 N CREATININE (test code = CREATININE) 1.00 mg/dl 0.50-1.05 N For patients >49 years of age, the reference limitfor Creatinine is approximately 13% higher for peopleidentified as -Maltese. eGFR NON- (test code = eGFR NON-KAYLYNN N HAITIAN) 63 {ML/MIN/1.7} > OR = 60 N eGFR (test code = eGFR ) 73 {ML/MIN/1.7} > OR = 60 N BUN/CREATININE RATIO (test code = BUN/CREATININE RATIO) NOT APPLICA BLE 6-22 SODIUM (test code = SODIUM) 126 mmol/L 135-146 POTASSIUM (test code = POTASSIUM) 4.1 mmol/L 3.5-5.3 N CHLORIDE (test code = CHLORIDE) 92 mmol/L 98-110 CARBON DIOXIDE (test code = CARBON DIOXIDE) 28 mmol/L 20-32 N CALCIUM (test code = CALCIUM) 9.4 mg/dl 8.6-10.4 N [facility][Q] LIPID PANEL WITH REFLEX TO DIRECT LDL 2020-01-28 10:23:00* Test Item Value Reference Range Interpretation Comments CHOLESTEROL, TOTAL; Normal (test code = 2093-3) 166 mg/dl <200 N HDL CHOLESTEROL; Normal (test code = 2085-9) 52 mg/dl > OR = 50 N TRIGLYCERIDES; Normal (test code = 2571-8) 125 mg/dl <150 N LDL-CHOLESTEROL; Normal (test code = 71740-7) 91 {MG/DL ANA} N Reference range: <100 Desirable range <100 mg/dL for primary prevention; <70 mg/dL for patients with CHD or diabetic patients with > or = 2 CHD risk factors. LDL-C is now calculated using the Venancio-Erick calculation, which is a validated novel method providing better accuracy than the Friedewald equation in the estimation of LDL-C. Venancio SS et al. NAZ. 2013;310(19): 4285-3404 (http ://education.jaeyos.RENTISH/faq/ZIK041) CHOL/HDLC RATIO (test code = CHOL/HDLC RATIO) 3.2 {CALC} <5.0 N NON HDL CHOLESTEROL (test code = NON HDL CHOLESTEROL) 114 {MG/DL C AL} <130 N For patients with diabetes plus 1 major ASCVD risk factor, treating to a non-HDL-C goal of <100 mg/dL (LDL-C of <70 mg/dL) is considered a therapeutic option. [facility][QL] CMP [id number] 10:23:00* Test Item Value Reference Range Interpretation Comments GLUCOSE; Normal (test code = 1547-9) 104 mg/dl 65-139 N Non-fasting reference interval UREA NITROGEN (BUN) (test code = UREA NITROGEN (BUN)) 10 mg/dl 7-25 N CREATININE (test code = CREATININE) 1.03 mg/dl 0.50-1.05 N For patients >49 years of age, the reference limitfor Creatinine is approximately 13% higher for peopleidentified as -Maltese. eGFR NON- (test code = eGFR NON-KAYLYNN N HAITIAN) 61 {ML/MIN/1.7} > OR = 60 N eGFR (test code = eGFR ) 70 {ML/MIN/1.7} > OR = 60 N BUN/CREATININE RATIO (test code = BUN/CREATININE RATIO) NOT APPLICA BLE 6-22 SODIUM (test code = SODIUM) 126 mmol/L 135-146 POTASSIUM (test code = POTASSIUM) 4.2 mmol/L 3.5-5.3 N CHLORIDE (test code = CHLORIDE) 92 mmol/L 98-110 CARBON DIOXIDE (test code = CARBON DIOXIDE) 28 mmol/L 20-32 N CALCIUM (test code = CALCIUM) 9.6 mg/dl 8.6-10.4 N PROTEIN, TOTAL (test code = PROTEIN, TOTAL) 7.4 g/dl 6.1-8.1 N ALBUMIN (test code = ALBUMIN) 4.2 g/dl 3.6-5.1 N GLOBULIN (test code = GLOBULIN) 3.2 {G/DL CALC} 1.9-3.7 N ALBUMIN/GLOBULIN RATIO (test code = ALBUMIN/GLOBULIN RATIO) 1.3 {CALC} 1.0-2.5 N BILIRUBIN, TOTAL; Normal (test code = 65992-9) 0.3 mg/dl 0.2-1.2 N ALKALINE PHSPHATASE (test code = ALKALINE PHSPHATASE) 64 u/l 37-153 N AST; Normal (test code = 1916-6) 22 u/l 10-35 N ALT; Normal (test code = 1742-6) 16 u/l 6-29 N [facility][QL] CBC (INCLUDES DIFF/PLT)2020-01-28 10:23:00* Test Item Value Reference Range Interpretation Comments WHITE BLOOD CELL COUNT (test code = WHITE BLOOD CELL COUNT) 7.1 {Thousand/u} 3.8-10.8 N RED BLOOD CELL COUNT (test code = RED BLOOD CELL COUNT) 4.18 {Million/uL} 3.80-5.10 N HEMAGLOBIN; Normal (test code = 35098-5) 12.8 g/dl 11.7-15.5 N HEMATOCRIT; Normal (test code = 4544-3) 37.9 % 35.0-45.0 N MCV; Normal (test code = 787-2) 90.7 fL 80.0-100.0 N MCHC; Normal (test code = 18048-8) 33.8 g/dl 32.0-36.0 N RDW; Normal (test code = 788-0) 13.1 % 11.0-15.0 N PLATELET COUNT; Normal (test code = 777-3) 166 {Thousand/u} 140-400 N MPV; Normal (test code = 13248-8) 9.6 fL 7.5-12.5 N ABSOLUTE NEUTROPHILS (test code = ABSOLUTE NEUTROPHILS) 4963 {cells/uL} 2805-5518 N ABSOLUTE LYMPHOCYTES (test code = ABSOLUTE LYMPHOCYTES) 1399 {cells/uL} 850-3900 N ABSOLUTE MONOCYTES (test code = ABSOLUTE MONOCYTES) 426 {cells/uL} 200-950 N ABSOLUTE EOSINOPHILS (test code = ABSOLUTE EOSINOPHILS) 291 {cells/ uL} 15-500 N ABSOLUTE BASOPHILS (test code = ABSOLUTE BASOPHILS) 21 {cells/uL} 0 -200 N NEUTROPHILS (test code = NEUTROPHILS) 69.9 % N LYMPHOCYTES (test code = LYMPHOCYTES) 19.7 % N MONOCYTES; Normal (test code = 79961-1) 6.0 % N EOSINOPHILS; Normal (test code = 77349-0) 4.1 % N BASOPHILS; Normal (test code = 62756-3) 0.3 % N [facility][QL] TSH, 3RD GENERATION W/REFLEX TO [id number] 10:23:00* Test Item Value Reference Range Interpretation Comments TSH, 3RD GENERATION W/REFLEX TO FT4 (isa t code = TSH, 3RD GENERATION W/REFLEX TO FT4) 1.11 {MIU/L} 0.40-4.50 N [facility]] TSH, 3RD GENERATION W/REFLEX TO FT4 2019-12-08 09:12:00* Test Item Value Reference Range Interpretation Comments TSH, 3RD GENERATION W/REFLEX TO FT4 (isa t code = TSH, 3RD GENERATION W/REFLEX TO FT4) 0.85 {MIU/L} 0.40-4.50 N [facility]] BASIC METABOLIC PANEL [id number] 09:56:00* Test Item Value Reference Range Interpretation Comments GLUCOSE; Above High Threshold (test code = 1547-9) 132 mg/dl 65- 99 Fasting reference interval For someone without known diabetes, a glucosevalue >125 mg/dL indicates that they may havediabetes and this should be confirmed with afollow- up test. UREA NITROGEN (BUN) (test code = UREA NITROGEN (BUN)) 9 mg/dl 7-25 N CREATININE (test code = CREATININE) 0.87 mg/dl 0.50-1.05 N For patients >49 years of age, the reference limitfor Creatinine is approximately 13% higher for peopleidentified as -Maltese. eGFR NON- (test code = eGFR NON-KAYLYNN N HAITIAN) 75 {ML/MIN/1.7} > OR = 60 N eGFR (test code = eGFR ) 87 {ML/MIN/1.7} > OR = 60 N BUN/CREATININE RATIO (test code = BUN/CREATININE RATIO) NOT APPLICA BLE 6-22 SODIUM (test code = SODIUM) 133 mmol/L 135-146 POTASSIUM (test code = POTASSIUM) 4.1 mmol/L 3.5-5.3 N CHLORIDE (test code = CHLORIDE) 96 mmol/L 98-110 CARBON DIOXIDE (test code = CARBON DIOXIDE) 27 mmol/L 20-32 N CALCIUM (test code = CALCIUM) 9.4 mg/dl 8.6-10.4 N [facility] [id number] 03:35:00* Test Item Value Reference Range Interpretation Comments Sodium Level (test code = 2951-2) 131 136-145 L [facility] Npddk1285-88-48 03:35:00* Test Item Value Reference Range Interpretation Comments Potassium Level (test code = 2823-3) 3.8 3.5-5.1 [facility] [id number] 03:35:00* Test Item Value Reference Range Interpretation Comments Chloride Level (test code = 2075-0) 100 98-107 [facility] HospitalCarbon Dioxide [id number] 03:35:00* Test Item Value Reference Range Interpretation Comments Carbon Dioxide Level (test code = 2028-9) 20 22-29 L [facility] HospitalAnion [id number] 03:35:00* Test Item Value Reference Range Interpretation Comments Anion Gap (test code = 20281-4) 14.8 8-16 [facility] HospitalBlood Urea [id number] 03:35:00* Test Item Value Reference Range Interpretation Comments Blood Urea Nitrogen (test code = 3094-0) 6 7-26 L [facility] HospitalCreatinine2019-12-12 03:35:00* Test Item Value Reference Range Interpretation Comments Creatinine (test code = 2160-0) 0.76 0.57-1.11 [facility] HospitalBUN/Creatinine [id number] 03:35:00* Test Item Value Reference Range Interpretation Comments BUN/Creatinine Ratio (test code = 3097-3) 8 6-25 [facility] HospitalEstimat Glomerular Filtration Rate 2019-09-27 03:35:00* Test Item Value Reference Range Interpretation Comments Estimat Glomerular Filtration Rate (test code = 638882754) > 60 >60 Ranges were taken from the National Kidney Disease Education Program and the [facility] Foundation literature.Reference ranges:60 or greater: Sjhols39-98 ( for 3 consecutive months): Chronic kidney disease 15 or less: Kidney failureMethodist Specialty and Transplant HospitalGlucose Xtzzh5963-86-57 03:35:00* Test Item Value Reference Range Interpretation Comments Glucose Level (test code = FKS8949) 152 74-118 H [facility] HospitalCalcium Gzdkq7171-92-94 03:35:00* Test Item Value Reference Range Interpretation Comments Calcium Level (test code = 39163-5) 9.0 8.4-10.2 [facility] HospitalMagnesium Hsrng3940-26-84 03:35:00* Test Item Value Reference Range Interpretation Comments Magnesium Level (test code = 87332-2) 1.9 1.3-2.1 [facility] HospitalWhite Blood Elbze2456-01-45 03:24:00* Test Item Value Reference Range Interpretation Comments White Blood Count (test code = 6690-2) 6.35 4.8-10.8 [facility] HospitalRed Blood Uiqve6140-73-27 03:24:00* Test Item Value Reference Range Interpretation Comments Red Blood Count (test code = 789-8) 4.15 3.6-5.1 [facility] HospitalHemoglobin2019-12-12 03:24:00* Test Item Value Reference Range Interpretation Comments Hemoglobin (test code = 80234-0) 12.8 12.0-16.0 [facility] HospitalHematocrit2019-12-12 03:24:00* Test Item Value Reference Range Interpretation Comments Hematocrit (test code = 4544-3) 37.0 34.2-44.1 [facility] HospitalMean Corpuscular Rusvuv2481-74-54 03:24:00* Test Item Value Reference Range Interpretation Comments Mean Corpuscular Volume (test code = 787-2) 89.2 81-99 [facility] HospitalMean Corpuscular Gbqrhoftgp5454-65-41 03:24:00* Test Item Value Reference Range Interpretation Comments Mean Corpuscular Hemoglobin (test code = 785-6) 30.8 28-32 [facility] HospitalMean Corpuscular Hemoglobin Concent 2019-09-27 03:24:00* Test Item Value Reference Range Interpretation Comments Mean Corpuscular Hemoglobin Concent (test code = 786-4) 34.6 31-35 [facility] HospitalRed Cell Distribution [id number] 03:24:00* Test Item Value Reference Range Interpretation Comments Red Cell Distribution Width (test code = 57380-6) 12.9 11.7 -14.4 [facility] HospitalPlatelet Vrcel0700-97-18 03:24:00* Test Item Value Reference Range Interpretation Comments Platelet Count (test code = 777-3) 120 140-360 L [facility] HospitalNeutrophils (%) (Auto)2019-09-27 03:24:00 * Test Item Value Reference Range Interpretation Comments Neutrophils (%) (Auto) (test code = 80978-4) 85.0 38.7-80.0 H [facility] HospitalLymphocytes (%) (Auto)2019-09-27 03:24:00 * Test Item Value Reference Range Interpretation Comments Lymphocytes (%) (Auto) (test code = 736-9) 11.2 18.0-39.1 L [facility] HospitalMonocytes (%) (Auto)2019-09-27 03:24:00* Test Item Value Reference Range Interpretation Comments Monocytes (%) (Auto) (test code = 5905-5) 3.3 4.4-11.3 L [facility] HospitalEosinophils (%) (Auto)2019-09-27 03:24:00 * Test Item Value Reference Range Interpretation Comments Eosinophils (%) (Auto) (test code = 713-8) 0.0 0.0-6.0 [facility] HospitalBasophils (%) (Auto)2019-09-27 03:24:00* Test Item Value Reference Range Interpretation Comments Basophils (%) (Auto) (test code = 706-2) 0.0 0.0-1.0 [facility] HospitalIM GRANULOCYTES %2019-09-27 03:24:00* Test Item Value Reference Range Interpretation Comments IM GRANULOCYTES % (test code = IM GRANULOCYTES %) 0.5 0.0- 1.0 [facility] HospitalNeutrophils # (Auto)2019-09-27 03:24:00* Test Item Value Reference Range Interpretation Comments Neutrophils # (Auto) (test code = 751-8) 5.4 2.1-6.9 [facility] HospitalLymphocytes # (Auto)2019-09-27 03:24:00* Test Item Value Reference Range Interpretation Comments Lymphocytes # (Auto) (test code = 41931-5) 0.7 1.0-3.2 L [facility] HospitalMonocytes # (Auto)2019-09-27 03:24:00* Test Item Value Reference Range Interpretation Comments Monocytes # (Auto) (test code = 742-7) 0.2 0.2-0.8 [facility] HospitalEosinophils # (Auto)2019-09-27 03:24:00* Test Item Value Reference Range Interpretation Comments Eosinophils # (Auto) (test code = 711-2) 0.0 0.0-0.4 [facility] HospitalBasophils # (Auto)2019-09-27 03:24:00* Test Item Value Reference Range Interpretation Comments Basophils # (Auto) (test code = 704-7) 0.0 0.0-0.1 [facility] HospitalAbsolute Immature Granulocyte (auto 2019-09-27 03:24:00* Test Item Value Reference Range Interpretation Comments Absolute Immature Granulocyte (auto (isa t code = Absolute Immature Granulocyte (auto) 0.03 0-0.1 [facility] HospitalThyroid Stimulating Hormone (TSH) 2019-09-26 04:20:00* Test Item Value Reference Range Interpretation Comments Thyroid Stimulating Hormone (TSH) (test code = 12531-0) 5.583 0.350-4.940 H [facility] HospitalHemoglobin A1c Fiafitj1332-89-57 03:56:00 * Test Item Value Reference Range Interpretation Comments Hemoglobin A1c Percent (test code = Hemoglobin A1c Percent) 5.4 4.0-7.0 [facility] HospitalTriglycerides Syist1636-59-85 03:56:00* Test Item Value Reference Range Interpretation Comments Triglycerides Level (test code = 2571-8) 121 0-149 [facility] HospitalCholesterol Nkczq3259-97-33 03:56:00* Test Item Value Reference Range Interpretation Comments Cholesterol Level (test code = 2093-3) 168 0-199 Less than 200 mg/dL Low Apvt761 - 239 mg/dL Borderline Iheq406 m g/dl and greater High Risk [facility] Transplant HospitalLDL Xzlamjszezk4534-45-07 03:56:00* Test Item Value Reference Range Interpretation Comments LDL Cholesterol (test code = 2089-1) 99 60-130 [facility] HospitalHDL Dhpzdfutxvb2729-99-70 03:56:00* Test Item Value Reference Range Interpretation Comments HDL Cholesterol (test code = 2085-9) 45 40-60 [facility] HospitalCholesterol/HDL Nqftr6380-47-78 03:56:00 * Test Item Value Reference Range Interpretation Comments Cholesterol/HDL Ratio (test code = 9830-1) 3.7 3.0-3.6 H [facility] HospitalPhosphorus Urtla8909-03-99 04:21:00* Test Item Value Reference Range Interpretation Comments Phosphorus Level (test code = IJW5299) 3.5 2.3-4.7 [facility] HospitalHEPTOBILIARY W RNVVQ5925-30-08 15:30:00 [facility] [address] [place] [address] Patient Name: SHAUN MICHAEL MR #: [id number] : [birth year] 62 Age/Sex: 53/F Req #: [id number] Adm Physician: DIEGO WATSON MD Ordered by: BETSY GREEN MD Report #: [id number] Location: MED/SURG Room/Bed: [facility] Procedure: [id number] N M/HEPTOBILIARY W PHARM Exam Date: Exam Time: REPORT STATUS: Signed Hepatobiliary S can with Gallbladder Ejection Fraction Clinical information: Small bowel ob struction; gallbladder hydrops Technique: Following intravenous administrat ion of 6.6.6 millicuries of Tc-99m mebrofenin, dynamic images of the abdomen i n the anterior projection were obtained through 40 minutes. Sincalide (CCK an alog) 1.2 micrograms was administered intravenously over 30 minutes with addit ional imaging for determination of gallbladder ejection fraction. Discuss ion: Perfusion of the liver is normal. Extraction of tracer by the liver pare nchyma is normal. Tracer appears promptly within the biliary tract. The gall bladder begins to fill at 24 minutes post injection of tracer and fills adequa tely. Tracer is seen in the small bowel by during the sincalide infusion. Th ere is no contractile response by the gallbladder to the pharmacologic dose of sincalide. No emptying of the gallbladder occurs during the 30 minute infusi on. Impression: 1. Filling of the gallbladder excludes acute cysti c duct obstruction/acute cholecystitis. 2. The gallbladder ejection fractio n is undefined as there is no emptying of the gallbladder during the infusion of sincalide. This absence of a contractile response to sincalide supports th e clinical diagnosis of chronic cholecystitis/gallbladder dyskinesia. Sig lashawn by: Dr. Jimmy Weiss M.D. on 09/24/2019 3:32 PM Dictated By: JIMMY DAVILA MD 153 Transcribed By : RITA on 09/24/19 153 COPY TO: BETSY GREEN MD ABDOMEN- [facility] (KUB)2019-09-23 07:36:00 [place] [address] Patient Name: SHAUN MICHAEL MR #: [id number] : 1965 Age/Sex: 53/F Req #: [id number] Adm Physician: DIEGO WATSON MD Ordered by: YULIA MCNALLY NP Report #: [id number] Location: MED/SURG Room/Bed: [facility] Procedure: [id number] DX/ABDOMEN-1VIEW (KUB) Exam Date: 09/23/19 Exam Time : 0633 REPORT STATUS: Signed Abd omen/KUB INDICATION: SBO [id number] COMPARISON: CT abdom en/pelvis 09/22/2019. FINDINGS: Portable, supine image obtained at 0702 h ours. Medical Devices: Normal. Bowel: Unremarkable bowel gas pattern. No dilated bowel loops. Moderate burden of stool throughout the colon Jax e air: None Abdominal calcifications: None Organomegaly: None. There is excreted contrast in a well distended urinary bladder. The contours are smo oth Bones: Unremarkable IMPRESSION: Unremarkable bowel gas patter n. Moderate burden of stool throughout the colon. Signed by: Dr. Mani Edwards MD on 09/23/2019 7:37 AM Dictated By: MANI EDWARDS MD [facility] Signed By: MANI EDWARDS MD on 09/23/19736 Transcribed By: PETER SHARIF on 09/23/19736 COPY TO: YULIA MCNALLY DRAWER IN CT ABDOMEN/PELVIS [id number] 19:23:00 [place] [address] Patient Name: SHAUN MICHAEL MR #: [id number] : 1965 Age/Sex: 53/F Req #: [id number] Adm Physician: Ordered by: ADELAIDA DURANT MD Report #: [id number] Location: ER Room/Bed: Procedure: [id number] CT/ CT ABDOMEN/PELVIS W Exam Date: 09/22/19 Exam Time: 1 810 REPORT STATUS: Signed EXAM: CT Abdomen and Pelvis WITH contrast INDICATION: abd pain [id number] COMPARISON: None. TECHNIQUE: Abdomen and pelvis were scanned util izing a multidetector helical scanner from the lung base to the pubic symphysi s after administration of IV contrast. Coronal and sagittal reformations were obtained. Dose modulation, iterative reconstruction, and/or weight based adjus tment of the mA/kV was utilized to reduce the radiation dose to as low as reas onably achievable. Routine protocol was performed. Scan was performed when dur ing portal venous phase. IV CONTRAST: 100 mL of Isovue-370 O RAL CONTRAST: None COMPLICATIONS: None RADIATION DOSE: Total DLP: 245.64 mGy*cm Estimated effective dose: (DLP x 0.015 x siz e factor) mSv CTDIvol has been reviewed. It is below the limits set by e Radiation Protocol Committee (RPC). FINDINGS: LINES and TUBES: Non e. LOWER THORAX: Mild right basilar subsegmental atelectasis. HEPATOB ILIARY: Nodular contour. No focal hepatic lesions. No biliary ductal dilation . GALLBLADDER: Distended gallbladder. No radio-opaque stones or sludge. N o wall thickening. SPLEEN: No splenomegaly. PANCREAS: No focal mass es or ductal dilatation. ADRENALS: No adrenal nodules KIDNEYS/UR ETERS: Kidneys enhance symmetrically. No hydronephrosis. No renal mass. Fe w bilateral subcentimeter hypodensities are too small to characterize. No ston es. GI TRACT: Few dilated small bowel loops in left upper quadrant along wi th more distal collapsed loops and transition point in right abdomen (series 2 , image 44). Appendix is absent. PELVIC ORGANS/BLADDER: Unremarkabl e. LYMPH NODES: No lymphadenopathy. VESSELS: There is mild atheroscleroti c disease in the aorta and major arterial branches. PERITONEUM / RETROPER ITONEUM: No free air or fluid. BONES: Lateral L5 pars defects with grade 1 L5-S1 spondylolisthesis. SOFT TISSUES: Unremarkable. IMPRE SSION: 1. Few dilated small bowel loops along with more distal collapsed loo ps, concerning for early/partial small bowel obstruction in the appropriate clinical context. 2. Hydropic gallbladder without radiopaque gallstone or wal l thickening. Signed by: Dr. Valerio Pereira MD on 09/22/2019 7:34 PM Dictated By: VALERIO PEREIRA MD 33 COPY TO: CHLOÉ DURANT MD Creatine Kinase [id number] 18:04:00* Test Item Value Reference Range Interpretation Comments Creatine Kinase MB (test code = 98817-6) 0.90 0-5.0 [facility] [id number] 18:04:00* Test Item Value Reference Range Interpretation Comments Troponin I (test code = JPY9113) 0.006 0-0.300 [facility] Iumirsksu1646-02-37 17:47:00* Test Item Value Reference Range Interpretation Comments Total Bilirubin (test code = 1975-2) 0.5 0.2-1.2 [facility] HospitalAspartate Amino Transf (AST/SGOT) 2019-09-22 17:47:00* Test Item Value Reference Range Interpretation Comments Aspartate Amino Transf (AST/SGOT) (test code = Aspartate Amino Transf (AST/SGOT)) 23 5-34 [facility] HospitalAlanine Aminotransferase (ALT/SGPT) 2019-09-22 17:47:00* Test Item Value Reference Range Interpretation Comments Alanine Aminotransferase (ALT/SGPT) (test code = 1742-6) 23 0-55 [facility] HospitalTotal [id number] 17:47:00* Test Item Value Reference Range Interpretation Comments Total Protein (test code = 2885-2) 7.9 6.5-8.1 [facility] HospitalAlbumin2019-12-07 17:47:00* Test Item Value Reference Range Interpretation Comments Albumin (test code = 1751-7) 4.1 3.5-5.0 [facility] HospitalGlobulin2019-12-07 17:47:00* Test Item Value Reference Range Interpretation Comments Globulin (test code = 58872-1) 3.8 2.3-3.5 H [facility] HospitalAlbumin/Globulin [id number] 17:47:00 * Test Item Value Reference Range Interpretation Comments Albumin/Globulin Ratio (test code = 1759-0) 1.1 0.8-2.0 [facility] HospitalAlkaline Wfycmccfbwd3416-49-05 17:47:00* Test Item Value Reference Range Interpretation Comments Alkaline Phosphatase (test code = 6768-6) 91 40-150 [facility] HospitalCreatine Shuuoa4841-02-79 17:47:00* Test Item Value Reference Range Interpretation Comments Creatine Kinase (test code = 2157-6) 43 29-168 [facility] HospitalAmylase [id number] 17:47:00* Test Item Value Reference Range Interpretation Comments Amylase Level (test code = 1798-8) 64 25-125 [facility] HospitalLipase2019-12-07 17:47:00* Test Item Value Reference Range Interpretation Comments Lipase (test code = 3040-3) 21 8-78 [facility] HospitalProthrombin Gbvn4211-87-67 17:39:00* Test Item Value Reference Range Interpretation Comments Prothrombin Time (test code = 5902-2) 13.6 11.9-14.5 [facility] HospitalProthromb Time International Ratio 2019-09-22 17:39:00* Test Item Value Reference Range Interpretation Comments Prothromb Time International Ratio (test code = 6301-6) 0.99 Oral Anticoagulant Therapy INR Values:1. Low Intensity Therapy 1.5 - 2.02 . Moderate Intensity Therapy 2.0 - 3.03. High Intensity Therapy(1) 2.5 - 3. 54. High Intensity Therapy(2) 3.0 - 4.05. Panic Value INR > 5.0 [facility] HospitalActivated Partial Thromboplast Time 2019-09-22 17:39:00* Test Item Value Reference Range Interpretation Comments Activated Partial Thromboplast Time (test code = 25116-8) 36.5 23.8-35.5 H [facility] HospitalCHEST SINGLE (PORTABLE)2019-09-22 17:19:00 [facility] [address] [place] [address] Patient Name: SHAUN MICHAEL MR #: [id number] : 1965 Age/Sex: 53/F Req #: [id number] Adm Physician: Ordered by: ADELAIDA DURANT MD Report #: [id number] Location: ER Room/Bed: Procedure: [id number] DX/ CHEST SINGLE (PORTABLE) Exam Date: 09/22/19 Exam Lambert e: 1700 REPORT STATUS: Signed EX AMINATION: CHEST SINGLE (PORTABLE) INDICATION: Abdominal pain. C OMPARISON: None FINDINGS: TUBES and LINES: None. LUNGS: Low lung volumes. There is no evidence of pneumonia or pulmonary edema. PLEU RA: No pleural effusion or pneumothorax. HEART AND MEDIASTINUM: The card iomediastinal silhouette is unremarkable. BONES AND SOFT TISSUES: No a cute osseous lesion. Soft tissues are unremarkable. UPPER ABDOMEN: No fr ee air under the diaphragm. IMPRESSION: No acute radiographic abnorm ality. Signed by: Dr. Mick Jeffery MD on 09/22/2019 5:20 PM Dictated B y: MICK JEFFERY MD 19 Blood scribed By: RITA on 09/22/191719 COPY TO: ADELAIDA DURANT MD Urine [id number] 17:06:00* Test Item Value Reference Range Interpretation Comments Urine WBC (test code = 5821-4) 0-5 0-5 [facility] Hospital[facility] [id number] 17:06:00* Test Item Value Reference Range Interpretation Comments Urine RBC (test code = 41151-9) 0-5 0-5 [facility] HospitalU[facility] Dknmfufh9543-11-14 17:06:00* Test Item Value Reference Range Interpretation Comments Urine Bacteria (test code = 02969-8) FEW NONE [facility] Hospital[facility] Epithelial Npgmy1596-88-66 17:06:00 * Test Item Value Reference Range Interpretation Comments Urine Epithelial Cells (test code = 14332-0) FEW NONE [facility] HospitalUrine Djzyb7658-08-42 17:00:00* Test Item Value Reference Range Interpretation Comments Urine Color (test code = 5778-6) YELLOW YELLOW [facility] Yurxqhv7434-60-27 17:00:00* Test Item Value Reference Range Interpretation Comments Urine Clarity (test code = 55956-6) CLEAR CLEAR [facility] HospitalU[facility] Specific Uspnjmi6129-71-11 17:00:00 * Test Item Value Reference Range Interpretation Comments Urine Specific [place] (test code = 5811-5) 1.010 1.010-1.02 5 [facility] HospitalU[facility] [id number] 17:00:00* Test Item Value Reference Range Interpretation Comments Urine pH (test code = 03728-9) 7 5-7 [facility] Leukocyte Soeqaatw8238-43-23 17:00:00* Test Item Value Reference Range Interpretation Comments Urine Leukocyte Esterase (test code = 5799-2) NEGATIVE NEGATIVE [facility] Hospital[facility] Kprwyzg4417-37-53 17:00:00* Test Item Value Reference Range Interpretation Comments Urine Nitrite (test code = 79377-7) NEGATIVE NEGATIVE [facility] HospitalU[facility] Jnnlnfy6652-65-91 17:00:00* Test Item Value Reference Range Interpretation Comments Urine Protein (test code = 5804-0) NEGATIVE NEGATIVE [facility] HospitalUrine Glucose (UA)2019-09-22 17:00:00* Test Item Value Reference Range Interpretation Comments Urine Glucose (UA) (test code = 2349-9) NEGATIVE NEGATIVE [facility] HospitalU[facility] Ljdutha0134-12-31 17:00:00* Test Item Value Reference Range Interpretation Comments Urine Ketones (test code = 77726-0) NEGATIVE NEGATIVE [facility] Hospital[facility] Tzggxjbjzgnt0900-56-80 17:00:00* Test Item Value Reference Range Interpretation Comments Urine Urobilinogen (test code = 02827-4) 0.2 0.2-1 [facility] Hospital[facility] Pdtbgbias4380-81-56 17:00:00* Test Item Value Reference Range Interpretation Comments Urine Bilirubin (test code = 1978-6) NEGATIVE NEGATIVE [facility] HospitalU[facility] Oqedn6976-15-97 17:00:00* Test Item Value Reference Range Interpretation Comments Urine Blood (test code = 92569-1) NEGATIVE NEGATIVE [facility][QL] CMP W/LFJO0384-46-11 16:43:00* Test Item Value Reference Range Interpretation Comments GLUCOSE; Normal (test code = 1547-9) 112 mg/dl 65-139 N Non-fasting reference interval UREA NITROGEN (BUN) (test code = UREA NITROGEN (BUN)) 10 mg/dl 7-25 N CREATININE (test code = CREATININE) 0.81 mg/dl 0.50-1.05 N For patients >49 years of age, the reference limitfor Creatinine is approximately 13% higher for peopleidentified as -Maltese. eGFR NON- (test code = eGFR NON-KAYLYNN N HAITIAN) 82 {ML/MIN/1.7} > OR = 60 N eGFR (test code = eGFR ) 95 {ML/MIN/1.7} > OR = 60 N BUN/CREATININE RATIO (test code = BUN/CREATININE RATIO) NOT APPLICA BLE 6-22 SODIUM (test code = SODIUM) 133 mmol/L 135-146 POTASSIUM (test code = POTASSIUM) 4.4 mmol/L 3.5-5.3 N CHLORIDE (test code = CHLORIDE) 97 mmol/L 98-110 CARBON DIOXIDE (test code = CARBON DIOXIDE) 28 mmol/L 20-32 N CALCIUM (test code = CALCIUM) 9.9 mg/dl 8.6-10.4 N PROTEIN, TOTAL (test code = PROTEIN, TOTAL) 7.8 g/dl 6.1-8.1 N ALBUMIN (test code = ALBUMIN) 4.3 g/dl 3.6-5.1 N GLOBULIN (test code = GLOBULIN) 3.5 {G/DL CALC} 1.9-3.7 N ALBUMIN/GLOBULIN RATIO (test code = ALBUMIN/GLOBULIN RATIO) 1.2 {CALC} 1.0-2.5 N BILIRUBIN, TOTAL; Normal (test code = 00383-5) 0.2 mg/dl 0.2-1.2 N ALKALINE PHSPHATASE (test code = ALKALINE PHSPHATASE) 81 u/l 33-130 N AST; Normal (test code = 1916-6) 19 u/l 10-35 N ALT; Normal (test code = 1742-6) 16 u/l 6-29 N [facility]] CBC (INCLUDES DIFF/PLT)2019-09-05 16:43:00* Test Item Value Reference Range Interpretation Comments WHITE BLOOD CELL COUNT (test code = WHITE BLOOD CELL COUNT) 10.8 {Thousand/u} 3.8-10.8 N RED BLOOD CELL COUNT (test code = RED BLOOD CELL COUNT) 4.01 {Million/uL} 3.80-5.10 N HEMAGLOBIN; Normal (test code = 40872-0) 12.3 g/dl 11.7-15.5 N HEMATOCRIT; Normal (test code = 4544-3) 35.5 % 35.0-45.0 N MCV; Normal (test code = 787-2) 88.5 fL 80.0-100.0 N MCHC; Normal (test code = 34763-7) 34.6 g/dl 32.0-36.0 N RDW; Normal (test code = 788-0) 12.6 % 11.0-15.0 N PLATELET COUNT; Normal (test code = 777-3) 242 {Thousand/u} 140-400 N MPV; Normal (test code = 59960-1) 9.3 fL 7.5-12.5 N ABSOLUTE NEUTROPHILS (test code = ABSOLUTE NEUTROPHILS) 9104 {cells/uL} 5068-4060 ABSOLUTE LYMPHOCYTES (test code = ABSOLUTE LYMPHOCYTES) 1199 {cells/uL} 850-3900 N ABSOLUTE MONOCYTES (test code = ABSOLUTE MONOCYTES) 464 {cells/uL} 200-950 N ABSOLUTE EOSINOPHILS (test code = ABSOLUTE EOSINOPHILS) 11 {cells/u L} 15-500 ABSOLUTE BASOPHILS (test code = ABSOLUTE BASOPHILS) 22 {cells/uL} 0 -200 N NEUTROPHILS (test code = NEUTROPHILS) 84.3 % N LYMPHOCYTES (test code = LYMPHOCYTES) 11.1 % N MONOCYTES; Normal (test code = 13183-1) 4.3 % N EOSINOPHILS; Normal (test code = 12986-7) 0.1 % N BASOPHILS; Normal (test code = 34091-7) 0.2 % N [facility]] TSH, 3RD GENERATION W/REFLEX TO FT4 2019-09-05 16:43:00* Test Item Value Reference Range Interpretation Comments TSH, 3RD GENERATION W/REFLEX TO FT4 (isa t code = TSH, 3RD GENERATION W/REFLEX TO FT4) 0.29 {MIU/L} Reference Range > or = 20 Years 0.40-4.50 Ranges First trimester 0.26-2.66 Second trimester 0.55-2.73 Third trimester 0.43-2.91 [facility]] T4, [id number] 16:43:00* Test Item Value Reference Range Interpretation Comments T4, FREE (test code = T4, FREE) 1.3 ng/dl 0.8-1.8 N [facility]] PROTHROMBIN W/INR + PARTIAL THROMBOPLASTIN [id number] 11:24:00* Test Item Value Reference Range Interpretation Comments PARTIAL THROMBOPLASTIN TIME, ACTIVATED ( test code = PARTIAL THROMBOPLASTIN TIME, ACTIVATED) 31 {sec} 22-34 N This test has no t been validated for monitoringunfractionated heparin therapy. For testing thatis validated for this type of therapy, please referto the Heparin Anti-Xa assay (test code 24376). For additional information, please refer tohttp://education.jaeyos.RENTISH/faq/DTN688(This link is being provided for informational/educational purposes only.) INR (test code = INR) 1.0 N Refere nce Range 0.9-1.1Moderate-intensity Warfarin Therapy 2.0-3.0Higher-intensity Warfarin Therapy 3.0-4.0 PT (test code = PT) 10.3 {sec} 9.0-11.5 N [facility]] CBC (INCLUDES DIFF/PLT)2019-08-09 11:24:00* Test Item Value Reference Range Interpretation Comments WHITE BLOOD CELL COUNT (test code = WHITE BLOOD CELL COUNT) 5.5 {Thousand/u} 3.8-10.8 N RED BLOOD CELL COUNT (test code = RED BLOOD CELL COUNT) 4.49 {Million/uL} 3.80-5.10 N HEMAGLOBIN; Normal (test code = 03216-2) 14.0 g/dl 11.7-15.5 N HEMATOCRIT; Normal (test code = 4544-3) 40.0 % 35.0-45.0 N MCV; Normal (test code = 787-2) 89.1 fL 80.0-100.0 N MCHC; Normal (test code = 16395-5) 35.0 g/dl 32.0-36.0 N RDW; Normal (test code = 788-0) 12.8 % 11.0-15.0 N PLATELET COUNT; Below Low Threshold (test code = 777-3) 128 {Thousand/u} 140-400 MPV; Normal (test code = 22890-9) 10.6 fL 7.5-12.5 N ABSOLUTE NEUTROPHILS (test code = ABSOLUTE NEUTROPHILS) 3157 {cells/uL} 8697-7405 N ABSOLUTE LYMPHOCYTES (test code = ABSOLUTE LYMPHOCYTES) 1606 {cells/uL} 850-3900 N ABSOLUTE MONOCYTES (test code = ABSOLUTE MONOCYTES) 402 {cells/uL} 200-950 N ABSOLUTE EOSINOPHILS (test code = ABSOLUTE EOSINOPHILS) 314 {cells/ uL} 15-500 N ABSOLUTE BASOPHILS (test code = ABSOLUTE BASOPHILS) 22 {cells/uL} 0 -200 N NEUTROPHILS (test code = NEUTROPHILS) 57.4 % N LYMPHOCYTES (test code = LYMPHOCYTES) 29.2 % N MONOCYTES; Normal (test code = 22419-6) 7.3 % N EOSINOPHILS; Normal (test code = 94135-8) 5.7 % N BASOPHILS; Normal (test code = 67319-5) 0.4 % N COMMENT(S) (test code = COMMENT(S)) See Comment Review of peripheral smear confirmsautomated results. [facility] [id number] 19:25:00* Test Item Value Reference Range Interpretation Comments Opiate, Ur (test code = 39343-6) Negative Negative Calibrated Standard: Morphine Positive if urine level > or = 300 ng/dL Amphetamine (test code = 78181-1) Negative Negative Calibrated Standard: D- Methamphetamine Positive if urine level > or = 1000 ng/mL Barbiturate (test code = 58777-6) Negative Negative Calibrated Standard: Secobarbital Positive if urine level is > or = 200 ng/mL Benzodiazepine (test code = 48534-3) Negative Negative Calibrated Standard: Lormethazepam Positive if urine level is > or = 200 ng/mL Cocaine (test code = 00004-2) Negative Negative Calibrated Standard: Benzoylecgonine Positive if urine level > or = 300 ng/dL PCP (test code = 81379-3) Negative Negative C alibrated Standard: Phencyclidine Positive if urine level > or = 25 ng/dL Cannabinoid (test code = 13371-2) Negative Negative Calibrated Standard: 11 nor-delta(9)-THC carboxylic acid Positive if urine level > or = 50 ng/mL Lab Interpretation (test code = 24776-8) [facility]rhsn[facility]384[facility]-84 18:47:00* Test Item Value Reference Range Interpretation Comments Color (test code = 03630951) Straw Colorless, Straw, Yellow Clarity (test code = 85988589) Clear Clear Spec [place], Ur (test code = 07271474) 1.004 1.001-1.035 pH, Ur (test code = 24119099) 7.0 5.0-8.0 Protein, Ur (test code = 07388094) Negative Negative mg/dL Glucose, Ur (test code = 10826979) Negative Negative mg/dL Ketone, Ur (test code = 07825535) Negative Negative mg/dL Bilirubin, Ur (test code = 64102240) Negative Negative mg/dL Nitrite, Ur (test code = 68226103) Negative Negative Leukocyte (test code = 45021455) Negative Negative mg/dL Blood, Ur (test code = 36478756) Negative Negative mg/dL Urobilinogen, Ur (test code = 13517750) <1.0 <1.0 EU/dL Lab Interpretation (test code = 95923-7) Normal [facility]] LIPID [id number] 08:31:00* Test Item Value Reference Range Interpretation Comments CHOLESTEROL, TOTAL; Normal (test code = 2093-3) 180 mg/dl <200 N HDL CHOLESTEROL; Below Low Threshold (test code = 2085-9) 40 mg/dl >50 TRIGLYCERIDES; Above High Threshold (test code = 2571-8) 213 mg/dl <150 LDL-CHOLESTEROL; Above High Threshold (test code = 40587-9) 107 {MG/DL ANA} Reference range: <100 Desirable range <1 00 mg/dL for primary prevention; <70 mg/dL for patients with CHD or diabetic patients with > or = 2 CHD risk factors. LDL-C is now calculated using the Noelle calculation, which is a validated novel method providing better accuracy than the Friedewald equation in the estimation of LDL-C. Venancio SS et al. NAZ. 2013;310(19): 4707-1649 (http ://[employer]/faq/OEE832) CHOL/HDLC RATIO (test code = CHOL/HDLC RATIO) 4.5 {CALC} <5.0 N NON HDL CHOLESTEROL (test code = NON HDL CHOLESTEROL) 140 {MG/DL C AL} <130 For patients with diabetes plus 1 major ASCVD risk factor, treating to a non-HDL-C goal of <100 mg/dL (LDL-C of <70 mg/dL) is considered a therapeutic option. [facility]] CMP W/[id number] 08:31:00* Test Item Value Reference Range Interpretation Comments GLUCOSE; Normal (test code = 1547-9) 99 mg/dl 65-99 N Fasting reference interval UREA NITROGEN (BUN) (test code = UREA NITROGEN (BUN)) 6 mg/dl 7-25 CREATININE (test code = CREATININE) 0.72 mg/dl 0.50-1.05 N For patients >49 years of age, the reference limitfor Creatinine is approximately 13% higher for peopleidentified as -Maltese. eGFR NON- (test code = eGFR NON-KAYLYNN N HAITIAN) 94 {ML/MIN/1.7} > OR = 60 N eGFR (test code = eGFR ) 10 9 {ML/MIN/1.7} > OR = 60 N BUN/CREATININE RATIO (test code = BUN/CREATININE RATIO) 8 {CALC} 6-22 N SODIUM (test code = SODIUM) 139 mmol/L 135-146 N POTASSIUM (test code = POTASSIUM) 4.7 mmol/L 3.5-5.3 N CHLORIDE (test code = CHLORIDE) 102 mmol/L 98-110 N CARBON DIOXIDE (test code = CARBON DIOXIDE) 29 mmol/L 20-32 N CALCIUM (test code = CALCIUM) 9.6 mg/dl 8.6-10.4 N PROTEIN, TOTAL (test code = PROTEIN, TOTAL) 7.6 g/dl 6.1-8.1 N ALBUMIN (test code = ALBUMIN) 4.4 g/dl 3.6-5.1 N GLOBULIN (test code = GLOBULIN) 3.2 {G/DL CALC} 1.9-3.7 N ALBUMIN/GLOBULIN RATIO (test code = ALBUMIN/GLOBULIN RATIO) 1.4 {CALC} 1.0-2.5 N BILIRUBIN, TOTAL; Normal (test code = 25914-7) 0.4 mg/dl 0.2-1.2 N ALKALINE PHSPHATASE (test code = ALKALINE PHSPHATASE) 92 u/l 33-130 N AST; Normal (test code = 1916-6) 23 u/l 10-35 N ALT; Normal (test code = 1742-6) 14 u/l 6-29 N [facility][H] URINALYSIS, COMPLETE W/REFLEX TO CULTURE 2019-04-18 08:31:00* Test Item Value Reference Range Interpretation Comments COLOR; Normal (test code = 5778-6) YELLOW YELLOW N APPEARANCE (test code = APPEARANCE) CLEAR CLEAR N SPECIFIC GRAVITY; Normal (test code = 2965-2) 1.013 1.001-1. 035 N PH; Normal (test code = 2756-5) 6.5 5.0-8.0 N GLUCOSE; Normal (test code = 1547-9) NEGATIVE NEGATIVE N BILIRUBIN; Normal (test code = 79667-7) NEGATIVE NEGATIVE N KETONES; Normal (test code = 78655-1) NEGATIVE NEGATIVE N OCCULT BLOOD; Normal (test code = 70467-1) NEGATIVE NEGATIVE N PROTEIN; Normal (test code = 15342-8) NEGATIVE NEGATIVE N NITRITE (test code = NITRITE) NEGATIVE NEGATIVE N LEUKOCYTE ESTERASE (test code = LEUKOCYTE ESTERASE) NEGATIVE NE GATIVE N WBC; Normal (test code = 6690-2) NONE SEEN < OR = 5 N RBC; Normal (test code = 789-8) NONE SEEN < OR = 2 N SQUAMOUS EPITHELIAL CELLS (test code = 46110-8) 0-5 < OR = 5 BACTERIA; Normal (test code = 630-4) NONE SEEN NONE SEEN N HYALINE CAST; Normal (test code = 05996-3) NONE SEEN NONE SEEN N [facility][Q] REFLEXIVE URINE [id number] 08:31:00* Test Item Value Reference Range Interpretation Comments REFLEXIVE URINE CULTURE (test code = REFLEXIVE URINE C ULTURE) NO CULTURE INDICATED [facility]] CBC (INCLUDES DIFF/PLT)2019-04-18 08:31:00* Test Item Value Reference Range Interpretation Comments WHITE BLOOD CELL COUNT (test code = WHITE BLOOD CELL COUNT) 6.3 {Thousand/u} 3.8-10.8 N RED BLOOD CELL COUNT (test code = RED BLOOD CELL COUNT) 4.72 {Million/uL} 3.80-5.10 N HEMAGLOBIN; Normal (test code = 06991-7) 14.3 g/dl 11.7-15.5 N HEMATOCRIT; Normal (test code = 4544-3) 41.6 % 35.0-45.0 N MCV; Normal (test code = 787-2) 88.1 fL 80.0-100.0 N MCHC; Normal (test code = 04228-2) 34.4 g/dl 32.0-36.0 N RDW; Normal (test code = 788-0) 13.3 % 11.0-15.0 N PLATELET COUNT; Below Low Threshold (test code = 777-3) 126 {Thousand/u} 140-400 MPV; Normal (test code = 76334-5) 11.2 fL 7.5-12.5 N ABSOLUTE NEUTROPHILS (test code = ABSOLUTE NEUTROPHILS) 4498 {cells/uL} 8460-2819 N ABSOLUTE LYMPHOCYTES (test code = ABSOLUTE LYMPHOCYTES) 1197 {cells/uL} 850-3900 N ABSOLUTE MONOCYTES (test code = ABSOLUTE MONOCYTES) 347 {cells/uL} 200-950 N ABSOLUTE EOSINOPHILS (test code = ABSOLUTE EOSINOPHILS) 239 {cells/ uL} 15-500 N ABSOLUTE BASOPHILS (test code = ABSOLUTE BASOPHILS) 19 {cells/uL} 0 -200 N NEUTROPHILS (test code = NEUTROPHILS) 71.4 % N LYMPHOCYTES (test code = LYMPHOCYTES) 19.0 % N MONOCYTES; Normal (test code = 38390-0) 5.5 % N EOSINOPHILS; Normal (test code = 59676-6) 3.8 % N BASOPHILS; Normal (test code = 52217-7) 0.3 % N [facility][Q] Platelet [id number] 08:31:00* Test Item Value Reference Range Interpretation Comments PLATELET ESTIMATION (test code = PLATELET ESTIMATION) DECREASED ADEQUATE A [facility]] HEPATITIS C [id number] 08:31:00* Test Item Value Reference Range Interpretation Comments HEPATITIS C ANTIBODY; Abnormal (test code = 62758-1) REACTIVE N ON-REACTIVE A SIGNAL TO CUT-OFF (test code = SIGNAL TO CUT-OFF) 33.20 <1.0 0 HCV antibody was reactive. The sample will be testedfor HCV RNA by a Nucleic Acid Amplification Test (NAAT)to determine if the patient has a current activeinfection. [facility]] TSH, 3RD GENERATION W/REFLEX TO FT4 2019-04-18 08:31:00* Test Item Value Reference Range Interpretation Comments TSH, 3RD GENERATION W/REFLEX TO FT4 (isa t code = TSH, 3RD GENERATION W/REFLEX TO FT4) 2.62 {MIU/L} N Reference Range > or = 20 Years 0.40-4.50 Ranges First trimester 0.26-2.66 Second trimester 0.55-2.73 Third trimester 0.43-2.91 [facility][] HCV RNA, QUANTITATIVE REAL TIME [id number] 08:31:00* Test Item Value Reference Range Interpretation Comments HCV RNA, QUANTITATIVE REAL TIME PCR (isa t code = HCV RNA, QUANTITATIVE REAL TIME PCR) <1.18 NOT DETECTED NOT DETECTED N This test was performed using Real-Time Polymerase ChainReaction. Reportable Range: 15 IU/mL to 100,000,000 IU/mL(1.18 Log IU/mL to 8.00 Log IU/mL). The analytical performance characteristics of thi sassay have been determined by [employer]. The modifications have not been cleared or approved bythe FDA. This assay has been validated pursuant to the CLIA regulations and is used for clinical purposes. For more information on this test, go to:http://education.Academize.RENTISH/faq/[email or web address](This link is being provided for informational/educational purposes only.) [facility]] HEMOGLOBIN [id number] 08:31:00* Test Item Value Reference Range Interpretation Comments HEMOGLOBIN A1c; Normal (test code = 4548-4) 5.5 {% of total} <5.7 N For the purpose of screening for the presence ofdiabetes: <5.7% Consistent with the absence of diabetes5.7-6.4% Consistent with increased risk for diabetes (prediabetes)> or =6.5% Consistent with diabetes This assay result is consistent with a decreased riskof diabetes. Currently, no consensus exists regarding use ofhemoglobin A1c for diagnosis of diabetes in children. According to [place] Diabetes Association (ADA)guidelines, hemoglobin A1c <7.0% represents optimalcontrol in non- diabetic patients. Differentmetrics may apply to specific patient populations. Standards of Medical Care in Diabetes(ADA). [facility] BRAIN [id number] 16:15:00 [place] [address] Patient Name: SHAUN MICHAEL MR #: [id number] : 1965 Age/Sex: 53/F Req #: [id number] Adm Physician: Ordered by: YULIA MCNALLY DRAWER IN Report #: [id number] Location: ER Room/Bed: Procedure: [id number] CT/ CT BRAIN WO Exam Date: 04/15/19 Exam Time: 1545 REPORT STATUS: Signed History: Heada abraham Comparison studies: None Technique: Axial images were obtain ed from the skull base to the vertex. Coronal and sagittal reconstructions o btained from the axial data. Dose modulation, iterative reconstruction, and/or weight based adjustment of the mA/kV was utilized to reduce the radiation do se to as low as reasonably achievable. Intravenous contrast: None F indings: Scalp/skull: No abnormalities. No fractures, blastic or lytic l esions. Extra-axial spaces: No masses. No fluid collections. Brain sulci: Appropriate for age. Ventricles: Normal in size and configuration. No hydrocephalus. Parenchyma: No abnormal densities. No masses, hemorrha ge, acute or chronic cortical vascular insults. Sellar/suprasellar region: No abnormalities Craniocervical junction: Patent foramen magnum. No Chiari on e malformation. Incidental findings: None. IMPRESSION: No abnor malities. Signed by: Dr. Boy Martinez M.D. on 04/15/2019 4:16 PM Dictated By: BOY MARTINEZ MD, MD 1616 Transcribed By: RITA on 04/15/19 1616 COPY TO: YULIA MCNALLY NP
--- OUTSIDE RECORDS SUMMARY | 2020-05-18 14:50 | XMS REPORT | Summary of Care ---
Author Author [facility] Address [address] [place] [address] Phone Unavailable Care Team Providers Care Mover Name Role Phone JONES P.A., ANGELIQUE Unavailable Unavailable ALISHA P.A., FIORELLA Unavailable Unavailable YEH D.O., ANDRIA-LLOYD Unavailable Unavailable TOM MANAGER OF HUMAN RESOURCES, JAMILA Unavailable Unavailable YEH DO [place], [place] Unavailable Unavailable KANNAN TODD [place], JERRY PATTERSON Unavailable Unavailable MIKAYLA TODD, JIMMY Diamond Unavailable Unavailable [facility] RN[facility] CPN, JAMILA Unavailable Unav archanaable Fariba [...] * Start : 31-Oct-2018 Active Vitamin A 57216 UNIT Oral Tablet TAKE 1 TABLET DAILY. [...] D.O., BLAKE * Start : 27-Nov-2019 Active Allergies and [...] Intramuscula r Suspension Prefilled Syringe Lot #: [id number] on: 31-Oct-2018 Tdap (Adacel) Lot #: [id number] on: 02-May-2019 Fluzone Quadrivalent 0.5 ML Intramuscula r Suspension Prefilled Syringe Lot #: [id number] on: 17-Jul-2019 Family History Name Dates Details [...] smoker Vital Signs Date Test Result Details 03-Htj-21144:09 BP Systolic 152 mm[Hg] Status: Comments: Lo cation: LUE; Position: Sitting BP Diastolic 92 mm[Hg] Status: Comments: Lo cation: LUE; Position: Sitting Weight 144 lb Status: Body Mass Index Calculated 27.21 kg/m2 Status: Body Surface Area Calculated 1.64 m2 Status: Height 61 in Status: Temperature 97.6 f Status: Comments: Me thod: Temporal Heart Rate 62 /min Status: Respiration Rate 16 /min Status: 35-Nwj-607816:01 BP Systolic 148 mm[Hg] Status: Comments: Lo [...] documented On: 17-Jul-2019 10:30 Appointment; MELISSA MCKENZIE, TOSHIA Encounter Diagnosis: Problem not documented On: 28-Jul-2019 10:30 Appointment; CINTHYA BLOOD, MANAGER OF HUMAN RESOURCES Encounter Diagnosis: Problem not documented On: 09-Aug-2019 10:30 Appointment; MELISSA MCKENZIE, MANAGER OF HUMAN RESOURCES Encounter Diagnosis: Problem not documented On: 18-Aug-2019 10:15 Appointment; ANGELIQUE JONES P.AKayla Encounter Diagnosis: Problem not documented On: 01-Sep-2019 10:15 Appointment; [facility], ECHO Encounter Diagnosis: Problem not [...]
--- OUTSIDE RECORDS SUMMARY | 2020-05-18 14:50 | XMS REPORT | Summary of Care ---
Author Author [facility] Address [address] [place] [address] Phone Unavailable Care Team Providers Care Solid Waste Management Engineer Name Role Phone JONES P.A., ANGELIQUE Unavailable Unavailable ALISHA P.A., FIORELLA Unavailable Unavailable FARIBA Caballero, JOHN Unavailable Unavailable GERARDO D.O., BLAKE Unavailable Unavailable TOM N.P., JAMILA Unavailable Unavailable YEJose Miguel DO [place], BLAKE Unavailable Unavailable KANNAN TODD [place], JERRY PATTERSON Unavailable Unavailable MIKAYLA TODD, JIMMY Diamond Unavailable Unavailable TOM IRON PLASTIC BULLET MAKER [place], JAMILA N Unavailable Unavailable Fariba TODD, John [...] * Start : 31-Oct-2018 Active Vitamin A 49264 UNIT Oral Tablet TAKE 1 TABLET DAILY. [...] Intramuscula r Suspension Prefilled Syringe Lot #: [id number] on: 31-Oct-2018 Tdap (Adacel) Lot #: [id number] on: 02-May-2019 Fluzone Quadrivalent 0.5 ML Intramuscula r Suspension Prefilled Syringe Lot #: [id number] on: 17-Jul-2019 Family History Name Dates Details [...] smoker Vital Signs Date Test Result Details 17-Iwj-487293:01 BP Systolic 148 mm[Hg] Status: Comments: Lo [...] Problem not documented On: 01-Sep-2019 10:15 Appointment; [facility] [place] [place] Encounter Diagnosis: Problem [...]
--- OUTSIDE RECORDS SUMMARY | 2020-05-18 14:50 | XMS REPORT | Summary of Care ---
Author Author GERARDO Guidry, SHAUN Tafoya Organization Unknown Address Unknown Phone Unavailable Care Team Providers Care Senior Product Development Manager Name Role Phone JONES P.A., ANGELIQUE Unavailable Unavailable ALISHA P.A., FIORELLA Unavailable Unavailable GERARDO D.O., [place]D Unavailable Unavailable TOM N.P., JAMILA Unavailable Unavailable GERARDO DO [place], [place] Unavailable Unavailable AKNNAN TODD [place], JERRY PATTERSON Unavailable Unavailable MIKAYLA TODD, JIMMY Diamond Unavailable Unavailable TOM TODD [facility] RNBC CPN, JAMILA Unavailable Unav ailable Fariba [...] * Start : 31-Oct-2018 Active Vitamin A 40276 UNIT Oral Tablet TAKE 1 TABLET DAILY. [...] Intramuscula r Suspension Prefilled Syringe Lot #: [id number] on: 31-Oct-2018 Tdap (Adacel) Lot #: [id number] on: 02-May-2019 Fluzone Quadrivalent 0.5 ML Intramuscula r Suspension Prefilled Syringe Lot #: [id number] on: 17-Jul-2019 Family History Name Dates Details [...] smoker Vital Signs Date Test Result Details 05-Pvj-60852:09 BP Systolic 152 mm[Hg] Status: Comments: Lo cation: LUE; Position: Sitting BP Diastolic 92 mm[Hg] Status: Comments: Lo cation: LUE; Position: Sitting Weight 144 lb Status: Body Mass Index Calculated 27.21 kg/m2 Status: Body Surface Area Calculated 1.64 m2 Status: Height 61 in Status: Temperature 97.6 f Status: Comments: Me thod: Temporal Heart Rate 62 /min Status: Respiration Rate 16 /min Status: 75-Ncn-850803:01 BP Systolic 148 mm[Hg] Status: Comments: Lo [...] Oral Tablet - Start Plan* TMJ - Worse. Start Skelaxin TID as tolerated. Instructed Pt not to operate heavy machinery while on medication. Start Diazepam x 1 week. Referred Pt to ENT. COntinue to wear mouth guard. * PEREZ - New. Likely as a result of worsening TMJ * Menopausal Symptoms - New. Start Paxil QDaily. Pt is already on Venlafaxine. Asked Pt to speak with psychiatrist prior to starting * Hypothyroidism - stable. Continue current dosage of Levothyroxine. * HTN - stable. Continue Propranolol. Change HCTZ to Valsartan-HCTZ * PEREZ - stable. Continue Gabapentin and Tramadol PRN. D/C AMitriptyline 2/2 ineffective * Urge Incontinence - stable. Continue Oxybutynin. [...] not documented On: 09-Aug-2019 10:30 Appointment; MELISSA MCKNEZIE NP Encounter Diagnosis: Problem not documented On: [...]
--- OUTSIDE RECORDS SUMMARY | 2020-05-18 14:51 | XMS REPORT | Summary of Care ---
Author Author SHAUN SPENCE Organization Unknown Address Unknown Phone Unavailable Care Team Providers Care Senior Environmental Consultant Name Role Phone FIORELLA SPENCE Unavailable Unavailable YEH D.O., ANDRIA-LLOYD Unavailable Unavailable TOMJOSE CARLOS POPE, JAMILA Unavailable Unavailable YEJose Miguel DO [place], [place] Unavailable Unavailable KANNAN TODD [place], JERRY PATTERSON Unavailable Unavailable MIKAYLA TODD, JIMMY Diamond Unavailable Unavailable TOM BROOKS [facility] RNBC CPN, JAMILA Unavailable Unav ailable [...] Active Mixed hyperlipidemia (272.2, E78.2) Status: Active Bruxism (306.8, F45.8) Status: Active TMJ (temporomandibular joint disorder) ( 524.60, M26.609) Status: Active Medications Name Dates Details Gabapentin 600 MG Oral Tablet TAKE 1 TABLET BY MOUTH THREE TIMES DAILY Quantity: 270 YEH D.O., BLAKE * Start : 31-Oct-2018 Active Venlafaxine HCl ER 150 MG Oral Capsule Extended Release 24 Hour TAKE 1 CAPSULE ONCE DAILY WITH FOOD. * Refills: 0 M.A. * Start : 31-Oct-2018 Active traMADol HCl - 50 MG Oral Tablet TAKE 1 TABLET EVERY 8 HOURS NEEDED. * Quantity: 90 Refills: 0 YEH D.O.BLAKE * Start : 31-Oct-2018 Active traZODone HCl - 100 MG Oral Tablet TAKE 1 TABLET DAILY * Refills: 0 M.A. * Start : 31-Oct-2018 Active Levothyroxine Sodium 75 MCG Oral Tablet TAKE 1 TABLET BY MOUTH ONCE DAILY * Quantity: 90 Refills: 1 ALISHA P.A.FERDINANDA * Start : 31-Oct-2018 Active Propranolol HCl - 20 MG Oral Tablet TAKE 1 TABLET BY MOUTH DAILY * Quantity: 90 Refills: 1 JAMILA SANTOS APRN * Start : 31-Oct-2018 Active Vitamin A 08830 UNIT Oral Tablet TAKE 1 TABLET DAILY. * Refills: 0 M.A. * Start : 31-Oct-2018 Active H-E-B inControl [...] TAKE 1 CAPSULE DAILY * Refills: 0 M.A. Active Oxybutynin Chloride ER 5 MG Oral [...] * Quantity: 60 Refills: 0 YEH D.O., ANDRIA-LLOYD * Start : 27-Nov-2019 Active diazePAM 5 [...] 1 TABLET AT BEDTIME. * Refills: 0 M.A. Active Amitriptyline HCl - 50 MG Oral Tablet TAKE 1 TABLET AT BEDTIME. * Quantity: 90 Refills: 0 M.A. Active Allergies and Adverse Reactions Name Dates [...] Intramuscula r Suspension Prefilled Syringe Lot #: [id number] on: 31-Oct-2018 Tdap (Adacel) Lot #: [id number] on: 02-May-2019 Fluzone Quadrivalent 0.5 ML Intramuscula r Suspension Prefilled Syringe Lot #: [id number] on: 17-Jul-2019 Family History Name Dates Details [...] Dates Details - Status: Name Dates Details Smokes tobacco daily (finding) Vital Signs Date Test Result Details 81-Lfa-224530:29 Systolic blood pressure 109 mm[Hg] Status: Comments : Location: LUE; Position: Sitting Diastolic blood pressure 73 mm[Hg] Status: Comment s: Location: LUE; Position: Sitting Body height 61 in Status: Weight 144.125 lb Status: Body mass index (BMI) [Ratio] 27.23 kg/m2 Status: Body surface area Derived from formula 1.64 m2 S tatus: Body temperature 97.9 f Status: Comments: Me thod: Oral Heart Rate 59 /min Status: Comments: Lo cation: L Radial; Quality: Normal 09-Qyj-62558:09 Systolic blood pressure 152 mm[Hg] Status: Comments : Location: LUE; Position: Sitting Diastolic blood pressure 92 mm[Hg] Status: Comment s: Location: LUE; Position: Sitting Body height 61 in Status: Weight 144 lb Status: Body mass index (BMI) [Ratio] 27.21 kg/m2 Status: Body surface area Derived from formula 1.64 m2 S tatus: Body temperature 97.6 f Status: Comments: Me thod: Temporal Heart Rate 62 /min Status: Respiratory rate 16 /min Status: Results Date Description Value Details :12 [[facility]] TSH, 3RD GENERATION W/REFLEX TO FT 4 Comments: REPORT COMMENT:FASTING:NO TSH, 3RD GENERATION W/REFLEX TO FT4 0.85 {MIU/L } (Normal) Range: 0.40-4.50 Plan of Care Name Dates Details Planned Observations Planned Goals not documented Interventions Provided Medication Changes* Levothyroxine Sodium 75 MCG Oral Tablet - Renew Discussion/Summary* thyroid is good. continue current meds. Instructions Name Dates Details Instructions not documented [...] Problem not documented On: 10-May-2019 14:30 Appointment; OJHN ANDREWS M.D. Encounter Diagnosis: Problem not documented [...] Problem not documented On: 01-Sep-2019 10:15 [facility] Encounter Diagnosis: Problem not documented On: [...]
--- OUTSIDE RECORDS SUMMARY | 2020-05-18 14:51 | XMS REPORT | Summary of Care ---
Author SHAUN Romero Michelet Organization Unknown Address Unknown Phone Unavailable Care Team Providers Care Tender Labor Name Role Phone ALISHA SchultzAKayla, FIORELLA Unavailable Unavailable YEH D.O., BLAKE Unavailable Unavailable Erika Romero Unavailable Unavailable JAMILA SANTOS APRN Unavailable Unavailable YEJose Miguel DO [place], BLAKE Unavailable Unavailable KANNAN TODD [place], JERRY PATTERSON Unavailable Unavailable MIKAYLA TODD, JIMMY Diamond Unavailable Unavailable TOM BROOKS [facility] RNBC CPN, JAMILA Unavailable Unav archanaable Fariba [...] 75 MCG Oral Tablet TAKE 1 TABLET Daily NEEDS TO DO REPEAT LABS * Quantity: 15 Refills: 0 ALISHA P.A., FIORELLA * Start : 31-Oct-2018 Active Propranolol HCl - 20 MG Oral Tablet TAKE 1 TABLET BY MOUTH DAILY * Quantity: 90 Refills: 1 JAMILA SANTOS APRN * Start : 31-Oct-2018 Active Vitamin A 42904 UNIT Oral Tablet TAKE 1 TABLET DAILY. [...] Intramuscula r Suspension Prefilled Syringe Lot #: [id number] on: 31-Oct-2018 Tdap (Adacel) Lot #: [id number] on: 02-May-2019 Fluzone Quadrivalent 0.5 ML Intramuscula r Suspension Prefilled Syringe Lot #: [id number] on: 17-Jul-2019 Family History Name Dates Details [...] Comments: Lo cation: L Radial; Quality: Normal 79-Fpm-94318:09 BP Systolic 152 mm[Hg] Status: Comments: Lo cation: LUE; Position: Sitting BP Diastolic 92 mm[Hg] Status: Comments: Lo cation: LUE; Position: Sitting Height 61 in Status: Weight 144 lb Status: Body Mass Index Calculated 27.21 kg/m2 Status: Body Surface Area Calculated 1.64 m2 Status: Temperature 97.6 f Status: Comments: Me thod: Temporal Heart Rate 62 /min Status: Respiration Rate 16 /min Status: 90-Sbf-988445:01 BP Systolic 148 mm[Hg] Status: Comments: Lo [...] Observations Planned Goals not documented Planned Encounters Oral Surgeon Referral Instructions Name Dates Details Instructions not documented [...]
--- OUTSIDE RECORDS SUMMARY | 2020-05-18 14:51 | XMS REPORT | Summary of Care ---
Author Author SHAUN Jacome M.A. Organization Unknown Address Unknown Phone Unavailable Care Team Providers Care Electrical Assembly Technician Name Role Phone Jacquelyn Jacome M.A. Unavailable Unavailable ALISHA Rich.FIORELLA Mondragon Unavailable Unavailable YEH D.O., [place]RI[place]-LLOYD Unavailable Unavailable TOM SUPERVISOR LEAF SPRING REPAIR, JAMILA Unavailable Unavailable YEH DO [place], [place] Unavailable Unavailable KANNAN TODD [place], JERRY PATTERSON Unavailable Unavailable MIKAYLA TODD, JIMMY Diamond Unavailable Unavailable TOM BROOKS [facility] RNBC CPN, JAMILA Unavailable Unav archanaable Fariba [...] DAILY * Quantity: 90 Refills: 1 ALISHA P.A.FIORELLA * Start : 31-Oct-2018 Active Propranolol HCl - 20 MG Oral Tablet TAKE 1 TABLET BY MOUTH DAILY * Quantity: 90 Refills: 1 JAMILA SANTOS APRN * Start : 31-Oct-2018 Active Vitamin A 01172 UNIT Oral Tablet TAKE 1 TABLET DAILY. [...] Extended Release 24 Hour TAKE 1 TABLET BY MOUTH EVERY DAY * Quantity: 90 Refills: 0 YEH D.O., BLAKE * Start : 22-Jun-2019 [...] Active diazePAM 5 MG Oral Tablet TAKE ONE TABLET BY MOUTH EVERY NIGHT AT BEDTIME * Quantity: 30 Refills: 0 YEH D.O., BLAKE * Start [...] .39) Status: Resolved Procedures Procedure Dates Details History of Hysterectomy Completed History of Bladder surgery Completed History of Abdominoplasty Completed History of Mastopexy Completed History of Cholecystectomy Completed Immunization Name Dates Details Fluzone Quadrivalent 0.5 ML Intramuscula r Suspension Prefilled Syringe Lot #: [id number] on: 31-Oct-2018 Tdap (Adacel) Lot #: [id number] on: 02-May-2019 Fluzone Quadrivalent 0.5 ML Intramuscula r Suspension Prefilled Syringe Lot #: [id number] on: 17-Jul-2019 Family History Name Dates Details [...] (finding) Vital Signs Date Test Result Details No Known Vitals to report Results Date Description Value Details 99-Jiz-26297:12 [[facility]] TSH, 3RD GENERATION W/REFLEX TO FT 4 Comments: REPORT COMMENT:FASTING:NO TSH, 3RD GENERATION W/REFLEX TO FT4 0.85 {MIU/L } (Normal) Range: 0.40-4.50 Plan of Care Name Dates Details Planned Observations Planned Goals not documented Planned Encounters Appointment; IRAM ANDREA DDS|M.D. On: 01-Feb-2020 10:30 Interventions Provided Medication Changes* Metaxalone 800 MG Oral Tablet - Renew Instructions Name Dates Details Instructions not documented Encounters Appointment; BLAKE CARRILLO D.O. Encounter Diagnosis: Problem not documented On: 31-Oct-2018 10:30 Appointment; BLAKE CARRILLO D.O. Encounter Diagnosis: Problem not documented On: 29-Jan-2019 10:00 Appointment; JAMILA SANTOS, SUPERVISOR LEAF SPRING REPAIR Encounter Diagnosis: Problem not documented On: 17-Apr-2019 15:00 Appointment; JAMILA SANTOS SUPERVISOR LEAF SPRING REPAIR Encounter Diagnosis: Problem not documented On: 02-May-2019 9:30 Appointment; BLAKE CARRILLO D.O. Encounter Diagnosis: Problem not documented On: 10-May-2019 14:30 Appointment; JOHN ANDREWS M.D. Encounter Diagnosis: Problem not documented On: 30-May-2019 11:20 Appointment; BLAKE CARRILLO D.O. Encounter Diagnosis: Problem not documented On: 17-Jul-2019 10:30 Appointment; MELISSA MCKENZIE SUPERVISOR LEAF SPRING REPAIR Encounter Diagnosis: Problem not documented On: 28-Jul-2019 10:30 Appointment; CINTHYA BLOOD APRN Encounter Diagnosis: Problem not documented On: 09-Aug-2019 10:30 Appointment; MELISSA MCKENZIE, SUPERVISOR LEAF SPRING REPAIR Encounter Diagnosis: Problem not documented On: 18-Aug-2019 [...] Encounter Diagnosis: Problem not documented On: 06-Dec-2019 10:30"
--- OUTSIDE RECORDS SUMMARY | 2020-05-18 14:51 | XMS REPORT | Summary of Care ---
Author Author [facility] Address [address] [place] [address] Phone Unavailable Care Team Providers Care Cardiology Clinical Consultant Name Role Phone ALISHA Rich.A., FIORELLA Unavailable Unavailable YEH D.O., [place]D Unavailable Unavailable TOMJOSE CARLOS POPE, JAMILA Unavailable Unavailable YEJose Miguel DO [place], [place] Unavailable Unavailable KANNAN TODD [place], JERRY PATTERSON Unavailable Unavailable MIKAYLA TODD, JIMMY Diamond Unavailable Unavailable TOM [facility] RNBC CPN, JAMILA Unavailable Unav ailable [...] DAILY * Quantity: 90 Refills: 1 ALISHA P.AFIORELLA Garza * Start : 31-Oct-2018 Active Propranolol HCl - 20 MG Oral Tablet TAKE 1 TABLET BY MOUTH DAILY * Quantity: 90 Refills: 1 JAMILA SANTOS APRN * Start : 31-Oct-2018 Active Vitamin A 62297 UNIT Oral Tablet TAKE 1 TABLET DAILY. [...] Intramuscula r Suspension Prefilled Syringe Lot #: [id number] on: 31-Oct-2018 Tdap (Adacel) Lot #: [id number] on: 02-May-2019 Fluzone Quadrivalent 0.5 ML Intramuscula r Suspension Prefilled Syringe Lot #: [id number] on: 17-Jul-2019 Family History Name Dates Details [...] (finding) Vital Signs Date Test Result Details 08-Uin-478427:29 Systolic blood pressure 109 mm[Hg] Status: Comments [...] Comments: Lo cation: L Radial; Quality: Normal 38-Juc-08313:09 Systolic blood pressure 152 mm[Hg] Status: Comments [...] Details Planned Observations Planned Goals not documented Instructions Name Dates Details Instructions not documented [...] Problem not documented On: 01-Sep-2019 10:15 Appointment; [facility] Encounter Diagnosis: Problem not documented [...]
--- OUTSIDE RECORDS SUMMARY | 2020-05-18 14:51 | XMS REPORT | Summary of Care ---
Author SHAUN García M.A. Organization Unknown Address [facility] Phone Unavailable Care Team Providers Care Sorting And Folding Supervisor Name Role Phone ALISHA Nguyen, FIORELLA Unavailable Unavailable Zaina Ashraf M.A. Unavailable Unavailable YEH D.O., [place] Unavailable Unavailable TOM RELOCATION DIRECTOR, JAMILA Unavailable Unavailable YEH DO [place], [place] Unavailable Unavailable KANNAN TODD [place], JERRY PATTERSON Unavailable Unavailable MIKAYLA TODD, JIMMY Diamond Unavailable Unavailable TOM BROOKS [facility] RNBC CPN, JAMILA Unavailable Unav archanaable [...] NEEDED. * Quantity: 90 Refills: 0 YEH D.O.BLAEK * Start : 31-Oct-2018 Active traZODone HCl [...] * Start : 31-Oct-2018 Active Vitamin A 96610 UNIT Oral Tablet TAKE 1 TABLET DAILY. * Refills: 0 * Start : 31-Oct-2018 Active H-E-B inControl BP Monitor MEASURE BLOOD PRESSURE DAILY DIRECTED. * Quantity: 1 Refills: 0 JAMILA SANTOS APRN * Start : 17-Apr-2019 Active Shingrix 50 MCG/0.5ML Intramuscular Suspension Reconstituted ADMINISTER 0.5 ML INTRAMUSCULARLY ONCE NOW, THEN SECOND DOSE AT 2-6 MONTHS. * Quantity: 1 Refills: 1 JAMILA SANOTS APRN * Start : 02-May-2019 Active Fish [...] Intramuscula r Suspension Prefilled Syringe Lot #: [id number] on: 31-Oct-2018 Tdap (Adacel) Lot #: [id number] on: 02-May-2019 Fluzone Quadrivalent 0.5 ML Intramuscula r Suspension Prefilled Syringe Lot #: [id number] on: 17-Jul-2019 Family History Name Dates Details [...] (finding) Vital Signs Date Test Result Details [id number]-[id number] Systolic blood pressure 109 mm[Hg] Status: Comments [...] Comments: Lo cation: L Radial; Quality: Normal 45-Otr-21970:09 Systolic blood pressure 152 mm[Hg] Status: Comments [...] not documented On: 31-Oct-2018 10:30 Appointment; BLAKE CARIRLLO D.O. Encounter Diagnosis: Problem not documented On: [...] not documented On: 01-Sep-2019 10:15 Appointment; FANNY, IWONA Encounter Diagnosis: Problem not documented On: 03-Sep-2019 [...] Problem not documented On: 12-Oct-2019 9:30 Appointment; BLAEK CARRILLO D.O. Encounter Diagnosis: Problem not documented On: 08-Nov-2019 10:30 Appointment; BLAKE CARRILLO D.O. Encounter Diagnosis: Problem not documented On: 27-Nov-2019 8:30 Appointment; JOSH SIMEON M.D. Encounter Diagnosis: Problem not documented On: 06-Dec-2019 10:30
--- OUTSIDE RECORDS SUMMARY | 2020-05-18 14:51 | XMS REPORT | Summary of Care ---
Author SHAUN Wilson Michelet Organization Unknown Address Unknown Phone Unavailable Care Team Providers Care Data Control Assistant Name Role Phone ALISHA P.A., FIORLELA Unavailable Unavailable Zeynep Wilson Unavailable Unavailable YEH D.O., [place] Unavailable Unavailable TOMJOSE CARLOS MOTAN, JAMILA Unavailable Unavailable YEH DO [place], [place] Unavailable Unavailable KANNAN TODD [place], JERRY PATTERSON Unavailable Unavailable MIKAYLA TODD, JIMMY Diamond Unavailable Unavailable TOM BROOKS [facility] RNBC CPN, JAMILA Unavailable Unav [...] * Start : 31-Oct-2018 Active Vitamin A 48953 UNIT Oral Tablet TAKE 1 TABLET DAILY. [...] 5 YEH D.O., [place] * Start : 27-Nov-2019 Active Metaxalone 800 [...] Intramuscula r Suspension Prefilled Syringe Lot #: [id number] on: 31-Oct-2018 Tdap (Adacel) Lot #: [id number] on: 02-May-2019 Fluzone Quadrivalent 0.5 ML Intramuscula r Suspension Prefilled Syringe Lot #: [id number] on: 17-Jul-2019 Family History Name Dates Details [...] (finding) Vital Signs Date Test Result Details :29 Systolic blood pressure 109 mm[Hg] Status: Comments [...] Lo cation: L Radial; Quality: Normal :09 Systolic blood pressure 152 mm[Hg] Status: Comments [...] /min Status: Results Date Description Value Details 34-Lnr-92891:12 [QLH] TSH, 3RD GENERATION W/REFLEX TO FT 4 Comments: REPORT COMMENT:FASTING:NO TSH, 3RD GENERATION W/REFLEX TO FT4 0.85 {MIU/L } (Normal) Range: 0.40-4.50 Plan of Care Name Dates Details Planned Observations Planned Goals not documented Planned Encounters Oral Surgeon Referral Appointment; IRAM ANDREA DDS|M.D. On: 01-Feb-2020 10:30 Instructions Name Dates Details Instructions not [...]
--- OUTSIDE RECORDS SUMMARY | 2020-05-18 14:51 | XMS REPORT | Summary of Care ---
Author Author SHAUN Jacome M.A. Organization Unknown Address Unknown Phone Unavailable Care Team Providers Care Instructional Media Services Technician Name Role Phone Jacquelyn Jacome M.A. Unavailable Unavailable ALISHA Rich.FIORELLA Mondragon Unavailable Unavailable YEH D.O., [place] Unavailable Unavailable TOM SHOTBLAST OPERATOR, JAMILA Unavailable Unavailable YEH DO [place], [place] Unavailable Unavailable KANNAN TODD [place], JERRY PATTERSON Unavailable Unavailable MIKAYLA TODD, JIMMY Diamond Unavailable Unavailable TOM BROOKS [facility] RNBC CPN, JAMILA Unavailable Unav archanaable Fariba [...] * Start : 31-Oct-2018 Active Vitamin A 86741 UNIT Oral Tablet TAKE 1 TABLET DAILY. [...] Intramuscula r Suspension Prefilled Syringe Lot #: [id number] on: 31-Oct-2018 Tdap (Adacel) Lot #: [id number] on: 02-May-2019 Fluzone Quadrivalent 0.5 ML Intramuscula r Suspension Prefilled Syringe Lot #: [id number] on: 17-Jul-2019 Family History Name Dates Details [...] (finding) Vital Signs Date Test Result Details 98-Wjs-139375:29 Systolic blood pressure 109 mm[Hg] Status: Comments [...] Comments: Lo cation: L Radial; Quality: Normal 04-Gaw-78172:09 Systolic blood pressure 152 mm[Hg] Status: Comments [...] Problem not documented On: 31-Oct-2018 10:30 Appointment; BLKAE CARRILLO D.O. Encounter Diagnosis: Problem [...]
--- OUTSIDE RECORDS SUMMARY | 2020-05-18 14:51 | XMS REPORT | Summary of Care ---
Author Author GERARDO Guidry, SHAUN Tafoya Organization Unknown Address Unknown Phone Unavailable Care Team Providers Care Utility Operator Yarn Name Role Phone FIORELLA SPENCE Unavailable Unavailable GERARDO Guidry, BLAKE Unavailable Unavailable JAMILA SANTOS APRN Unavailable Unavailable GERARDO SANCHEZ [place], BLAKE Unavailable Unavailable KANNAN TODD [place], JERRY PATTERSON Unavailable Unavailable MIKAYLA TODD, JIMMY Diamond Unavailable Unavailable TOM BROOKS [facility] RNBC CPN, JAMILA Unavailable Unav ailable Fariba TODD, John Unavailable Unavailable Unavailable Unavailable Functional Status Name Dates Details Functional status health issues are not documented Status: Name Dates Details Cognitive status health issues are not d ocumented Status: Problems Name Dates Details Hypokalemia (276.8, E87.6) Status: Active Acute bronchitis (466.0, J20.9) Status: Active BMI 26.0-26.9,adult (V85.22, Z68.26) Status: Active Acute bacterial bronchitis (466.0, J20.8 ) Status: Active Sympathotonic orthostatic hypotension (4 58.0, I95.1) Status: Active Need for influenza vaccination (V04.81, Z23) Status: Active Headache (784.0, R51) Status: Active Hypothyroidism (244.9, E03.9) Status: Active Mixed hyperlipidemia (272.2, E78.2) Status: Active Acute upper respiratory infection (465.9 , J06.9) Status: Active Chronic constipation (564.00, K59.09) Status: Active 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 79, R76.8) Status: Active Platelets decreased (287.5, D69.6) Status: Active Bruising, spontaneous (782.7, R23.3) Status: Active Need for shingles vaccine (V04.89, Z23) Status: Active Need for Tdap vaccination (V06.1, Z23) Status: Active Need for hepatitis C screening test (V73 .89, Z11.59) Status: Active Cervical muscle strain (847.0, S16.1XXA) Status: Active Bruxism (306.8, F45.8) Status: Active [...] * Start : 31-Oct-2018 Active Vitamin A 32561 UNIT Oral Tablet TAKE 1 TABLET DAILY. [...] BEDTIME * Quantity: 30 Refills: 0 YEH D.O.BLAKE * Start : 27-Nov-2019 Active PARoxetine HCl [...] Resolved Procedures Procedure Dates Details History of Cholecystectomy Completed History of Hysterectomy Completed History of Abdominoplasty Completed History of Mastopexy Completed History of Bladder surgery Completed Immunization Name Dates Details Fluzone Quadrivalent 0.5 ML Intramuscula r Suspension Prefilled Syringe Lot #: [id number] on: 31-Oct-2018 Tdap (Adacel) Lot #: [id number] on: 02-May-2019 Fluzone Quadrivalent 0.5 ML Intramuscula r Suspension Prefilled Syringe Lot #: [id number] on: 17-Jul-2019 Family History Name Dates Details Family history of depression (V17.0, Z81 .8) Status: Active Name Dates Details Family history of malignant neoplasm (V1 6.9, Z80.9) Status: Active Name Dates Details Family history of cardiac pacemaker (V17 .49, Z82.49) Status: Active Family history of hypertension (V17.49, Z82.49) Status: Active Family history of chronic obstructive pu lmonary disease (V17.6, Z82.5) Status: Active Family history of asthma (V17.5, Z82.5) Status: Active Family history of diabetes mellitus (V18 .0, Z83.3) Status: Active Name Dates Details Family history of myocardial infarction (V17.3, Z82.49) Status: Active FH: CABG (coronary artery bypass surgery ) (V17.3, Z82.49) Status: Active Family history of hypertension (V17.49, Z82.49) Status: Active Family history of chronic obstructive pu lmonary disease (V17.6, Z82.5) Status: Active Family history of stroke (V17.1, Z82.3) Status: Active Name Dates Details Family history [...] Comments: Lo cation: L Radial; Quality: Normal Results Date Description Value Details :12 [QLH] TSH, 3RD GENERATION W/REFLEX TO FT 4 Comments: REPORT COMMENT:FASTING:NO TSH, 3RD GENERATION W/REFLEX TO FT4 0.85 {MIU/L } (Normal) Range: 0.40-4.50 Plan of Care Name Dates Details Planned Observations Planned Goals not documented Planned Encounters Appointment; IRAM ANDREA DDS|M.D. On: 01-Feb-2020 10:30 Interventions Provided Medication Changes* diazePAM 5 MG Oral Tablet - Renew Instructions Name [...] documented On: 18-Aug-2019 10:15 Appointment; ANGELIQUE JONES PLandry Encounter Diagnosis: Problem not documented On: 01-Sep-2019 10:15 Appointment; IWONA ESCOBEDO Encounter Diagnosis: Problem not documented On: 03-Sep-2019 13:00 Appointment; JOHN ANDREWS M.D. Encounter Diagnosis: Problem not documented On: 03-Sep-2019 14:20 Appointment; FIORELLA BRITO PLandry Encounter Diagnosis: Problem not documented On: 05-Sep-2019 [...]
--- OUTSIDE RECORDS SUMMARY | 2020-05-18 14:51 | XMS REPORT | Summary of Care ---
Author Author Fidel Stubbs SHAUN Michelet Organization Unknown Address [facility] Phone Unavailable Care Team Providers Care Linux System Engineer Name Role Phone FIORELLA SPENCE Unavailable Unavailable YEH D.O., [place] Unavailable Unavailable TOMJOSE CARLOS POPE, JAMILA Unavailable Unavailable YEJose Miguel DO [place], [place] Unavailable Unavailable KANNAN TODD [place], JERRY PATTERSON Unavailable Unavailable MIKAYLA TODD, JIMMY Diamond Unavailable Unavailable TOM BROOKS [facility] RNBC CPN, JAMILA Unavailable Unav archanaable [...] * Start : 31-Oct-2018 Active Vitamin A 69830 UNIT Oral Tablet TAKE 1 TABLET DAILY. [...] Intramuscula r Suspension Prefilled Syringe Lot #: [id number] on: 31-Oct-2018 Tdap (Adacel) Lot #: [id number] on: 02-May-2019 Fluzone Quadrivalent 0.5 ML Intramuscula r Suspension Prefilled Syringe Lot #: [id number] on: 17-Jul-2019 Family History Name Dates Details [...] /min Status: Respiration Rate 16 /min Status: 21-Gpw-538537:01 BP Systolic 148 mm[Hg] Status: Comments: Lo [...] Sodium 75 MCG Oral Tablet - Renew Instructions Name Dates [...]
--- OUTSIDE RECORDS SUMMARY | 2020-05-18 14:51 | XMS REPORT | Summary of Care ---
Author Author SHAUN SPENCE Organization Unknown Address Unknown Phone Unavailable Care Team Providers Care Human Resources Generalist Name Role Phone FIORELLA SPENCE Unavailable Unavailable YEH D.O., [place] Unavailable Unavailable TOMJOSE CARLOS POPE, JAMILA Unavailable Unavailable YEJose Miguel DO [place], [place] Unavailable Unavailable KANNAN TODD [place], JERRY PATTERSON Unavailable Unavailable MIKAYLA TODD, JIMMY Diamond Unavailable Unavailable TOM BROOKS [facility] RNBC CPN, JAMILA Unavailable Unav ailable [...] * Start : 31-Oct-2018 Active Vitamin A 43582 UNIT Oral Tablet TAKE 1 TABLET DAILY. [...] Intramuscula r Suspension Prefilled Syringe Lot #: [id number] on: 31-Oct-2018 Tdap (Adacel) Lot #: [id number] on: 02-May-2019 Fluzone Quadrivalent 0.5 ML Intramuscula r Suspension Prefilled Syringe Lot #: [id number] on: 17-Jul-2019 Family History Name Dates Details [...] /min Status: Respiration Rate 16 /min Status: 97-Mnc-610078:01 BP Systolic 148 mm[Hg] Status: Comments: Lo [...]
--- OUTSIDE RECORDS SUMMARY | 2020-05-18 14:51 | XMS REPORT | Summary of Care ---
Author SHAUN Lerma M.A. Organization Unknown Address Unknown Phone Unavailable Care Team Providers Care Social Secretary Name Role Phone FIORELLA SPENCE Unavailable Unavailable YEH D.O., [place] Unavailable Unavailable TOMJOSE CARLOS POPE, JAMILA Unavailable Unavailable YEJose Miguel DO [place], [place] Unavailable Unavailable KANNAN TODD [place], JERRY PATTERSON Unavailable Unavailable MIKAYLA TODD, JIMMY Diamond Unavailable Unavailable TOM BROOKS [facility] RNBC CPN, JAMILA Unavailable Unav [...] DAILY * Quantity: 90 Refills: 1 ALISHA P.A., FIORELLA * Start : 31-Oct-2018 Active Propranolol HCl - 20 MG Oral Tablet TAKE 1 TABLET BY MOUTH DAILY * Quantity: 90 Refills: 1 JAMILA SANTOS APRN * Start : 31-Oct-2018 Active Vitamin A 71134 UNIT Oral Tablet TAKE 1 TABLET DAILY. * Refills: 0 * Start : 31-Oct-2018 Active H-E-B inControl BP Monitor MEASURE BLOOD PRESSURE DAILY DIRECTED. * Quantity: 1 Refills: 0 JAMILA SANTOS APRN * Start : 17-Apr-2019 Active Shingrix 50 MCG/0.5ML Intramuscular Suspension Reconstituted ADMINISTER 0.5 ML INTRAMUSCULARLY ONCE NOW, THEN SECOND DOSE AT 2-6 MONTHS. * Quantity: 1 Refills: 1 TOM PROCESS MOLD TECHNICIAN, JAMILA * Start : 02-May-2019 Active Fish Oil [...] Intramuscula r Suspension Prefilled Syringe Lot #: [id number] on: 31-Oct-2018 Tdap (Adacel) Lot #: [id number] on: 02-May-2019 Fluzone Quadrivalent 0.5 ML Intramuscula r Suspension Prefilled Syringe Lot #: [id number] on: 17-Jul-2019 Family History Name Dates Details [...] Status: Results Date Description Value Details :12 [[facility]] TSH, 3RD GENERATION W/REFLEX TO FT 4 Comments: REPORT COMMENT:FASTING:NO TSH, 3RD GENERATION W/REFLEX TO FT4 0.85 {MIU/L } (Normal) Range: 0.40-4.50 Plan of Care Name Dates Details Planned Observations Planned Goals not documented Interventions Provided Medication Changes* Oxybutynin Chloride ER 5 MG Oral Tablet Extended Release 24 Hour - Renew Instructions Name Dates Details Instructions [...]
--- OUTSIDE RECORDS SUMMARY | 2020-05-18 14:51 | XMS REPORT | Summary of Care ---
Author SHAUN García M.A. Organization Unknown Address [facility] Phone Unavailable Care Team Providers Care Hand Mixer Name Role Phone ALISHA Nguyen, FIORELLA Unavailable Unavailable Zaina Ashraf M.A. Unavailable Unavailable YEH D.O., [place] Unavailable Unavailable TOM DRY PAN FEEDER, JAMILA Unavailable Unavailable YEH DO [place], [place] Unavailable Unavailable KANNAN TODD [place], JERRY PATTERSON Unavailable Unavailable MIKAYLA TODD, JIMMY Diamond Unavailable Unavailable TOM BROOKS [facility] RNBC CPN, JAMILA Unavailable Unav archanaable [...] for Tdap vaccination (V06.1, Z23) Status: Active Hepatitis C antibody test positive (795. 79, R76.8) Status: Active Patient requests second opinion Status: Active Cervical muscle strain (847.0, S16.1XXA) Status: Active Platelets decreased (287.5, D69.6) Status: Active Bruising, spontaneous (782.7, R23.3) Status: Active Acute bronchitis (466.0, J20.9) Status: [...] * Start : 31-Oct-2018 Active Vitamin A 67054 UNIT Oral Tablet TAKE 1 TABLET DAILY. [...] Intramuscula r Suspension Prefilled Syringe Lot #: [id number] on: 31-Oct-2018 Tdap (Adacel) Lot #: [id number] on: 02-May-2019 Fluzone Quadrivalent 0.5 ML Intramuscula r Suspension Prefilled Syringe Lot #: [id number] on: 17-Jul-2019 Family History Name Dates Details [...] (finding) Vital Signs Date Test Result Details 36-Rpy-560244:29 Systolic blood pressure 109 mm[Hg] Status: Comments [...] Comments: Lo cation: L Radial; Quality: Normal 13-Eiq-08885:09 Systolic blood pressure 152 mm[Hg] Status: Comments [...] not documented On: 10-May-2019 14:30 Appointment; JOHN ANDRWES M.D. Encounter Diagnosis: Problem not documented On: [...]
--- OUTSIDE RECORDS SUMMARY | 2020-05-18 14:51 | XMS REPORT | Summary of Care ---
Author Author GERARDO Guidry, SHAUN Tafoya Organization Unknown Address Unknown Phone Unavailable Care Team Providers Care Vp Of Global Marketing Name Role Phone FIORELLA SPENCE Unavailable Unavailable GERARDO Guidry, BLAKE Unavailable Unavailable JAMILA SANTOS APRN Unavailable Unavailable GERARDO SANCHEZ [place], [place] Unavailable Unavailable KANNAN TODD [place], JERRY PATTERSON Unavailable Unavailable MIKAYLA TODD, JIMMY Diamond Unavailable Unavailable TOM BROOKS [facility] RNBC CPN, JAMILA Unavailable Unav ailable [...] * Start : 31-Oct-2018 Active Vitamin A 19319 UNIT Oral Tablet TAKE 1 TABLET DAILY. [...] Intramuscula r Suspension Prefilled Syringe Lot #: [id number] on: 31-Oct-2018 Tdap (Adacel) Lot #: [id number] on: 02-May-2019 Fluzone Quadrivalent 0.5 ML Intramuscula r Suspension Prefilled Syringe Lot #: [id number] on: 17-Jul-2019 Family History Name Dates Details [...] Status: Results Date Description Value Details :12 [[facility]] TSH, 3RD GENERATION W/REFLEX TO FT 4 [...] Problem not documented On: 17-Apr-2019 15:00 Appointment; AJMILA SANTOS APRN Encounter Diagnosis: Problem not documented [...]
--- OUTSIDE RECORDS SUMMARY | 2020-05-18 14:52 | XMS REPORT | Summary of Care ---
Author Author [facility] Address [address] [place] [address] Phone Unavailable Care Team Providers Care Subway Conductor Name Role Phone ALISHA Rich.A., FIORELLA Unavailable Unavailable YEH D.O., [place] Unavailable Unavailable TOMJOSE CARLOS POPE, JAMILA Unavailable Unavailable YEJose Miguel DO [place], [place] Unavailable Unavailable KANNAN TODD [place], JERRY PATTERSON Unavailable Unavailable MIKAYLA TODD, JIMMY Diamond Unavailable Unavailable TOM BROOKS [facility] RNBC CPN, JAMILA Unavailable Unav ailable [...] BY MOUTH DAILY * Quantity: 90 Refills: 0 JAMILA SANTOS APRN * Start : 31-Oct-2018 Active Vitamin A 62264 UNIT TABS TAKE 1 TABLET DAILY. * Refills: 0 [...] D.O., BLAKE * Start : 22-Jun-2019 Active Celecoxib 200 MG Oral Capsule TAKE 1 CAPSULE BY MOUTH TWICE DAILY WITH FOOD * Quantity: 60 Refills: 0 YEH D.O., [place] * Start : 12-Oct-2019 Active Valsartan-hydroCHLOROthiazide 160-12.5 MG Oral Tablet TAKE [...] D.O., [place] * Start : 27-Nov-2019 Active PARoxetine HCl [...] Intramuscula r Suspension Prefilled Syringe Lot #: [id number] on: 31-Oct-2018 Tdap (Adacel) Lot #: [id number] on: 02-May-2019 Fluzone Quadrivalent 0.5 ML Intramuscula r Suspension Prefilled Syringe Lot #: [id number] on: 17-Jul-2019 Family History Name Dates Details [...] (finding) Vital Signs Date Test Result Details :57 Systolic blood pressure 115 mm[Hg] Status: Comments : Location: LUE; Position: Sitting Diastolic blood pressure 79 mm[Hg] Status: Comment s: Location: LUE; Position: Sitting Weight 148 lb Status: Body mass index (BMI) [Ratio] 27.96 kg/m2 Status: Body surface area Derived from formula 1.66 m2 S tatus: Body height 61 in Status: Body temperature 97.9 f Status: Comments: Me thod: Temporal Respiratory rate 16 /min Status: Heart Rate 68 /min [...] not documented On: 03-Sep-2019 13:00 Appointment; JOHN ANDRESW M.D. Encounter Diagnosis: Problem not documented On: [...] Diagnosis: Problem not documented On: 06-Dec-2019 10:30 Appointment; BLAKE CARRILLO D.O. Encounter Diagnosis: Problem not documented On: 28-Jan-2020 10:00
--- OUTSIDE RECORDS SUMMARY | 2020-05-18 14:52 | XMS REPORT | Summary of Care ---
Author Author GERARDO Guidry, SHAUN Michelet Organization Unknown Address Unknown Phone Unavailable Care Team Providers Care Welcome Wagon Hostess Name Role Phone GERARDO Guidry, BLAKE Unavailable Unavailable TOM POPE, JAMILA Unavailable Unavailable GERARDO SANCHEZ UT, BLAKE Unavailable Unavailable KANNAN TODD [place], JERRY PATTERSON Unavailable Unavailable MIKAYLA TODD, JIMMY Diamond Unavailable Unavailable TOM [facility]KS [facility] RN[facility] CPN, JAMILA Unavailable Unav archanaable Fariba [...] Status: Active Headache (784.0, R51) Status: Active Bruxism (306.8, F45.8) Status: Active Essential (primary) hypertension (401.9, I10) Status: Active Hypothyroidism (244.9, E03.9) Status: Active Mixed hyperlipidemia (272.2, E78.2) Status: Active TMJ (temporomandibular joint disorder) ( [...] ONCE DAILY * Quantity: 90 Refills: 1 YEH D.O.BLAKE * Start : 31-Oct-2018 Active Propranolol HCl - 20 MG Oral Tablet TAKE 1 TABLET BY MOUTH DAILY * Quantity: 90 Refills: 0 JAMILA SANTOS APRN * Start : 31-Oct-2018 Active Vitamin A 17588 UNIT TABS TAKE 1 TABLET DAILY. * [...] DAY * Quantity: 90 Refills: 0 YEH D.O.BLAKE * Start : 22-Jun-2019 Active Celecoxib 200 MG Oral Capsule TAKE 1 CAPSULE BY MOUTH TWICE DAILY WITH FOOD * Quantity: 60 Refills: 0 YEH D.O.BLAKE * Start : 12-Oct-2019 Active Valsartan-hydroCHLOROthiazide 160-12.5 MG Oral Tablet TAKE 1 TABLET DAILY. * Quantity: 30 Refills: 5 YEH D.O.BLAKE * Start : 27-Nov-2019 Active diazePAM 5 MG Oral Tablet TAKE ONE TABLET BY MOUTH EVERY NIGHT AT BEDTIME * Quantity: 30 Refills: 3 YEH D.O.BLAKE * Start : 27-Nov-2019 Active PARoxetine HCl ER 12.5 MG Oral Tablet Extended Release 24 Hour TAKE 1 TABLET DAILY. * Quantity: 30 Refills: 5 YEH D.O.BLAKE * Start : 27-Nov-2019 Active risperiDONE 1 [...] .39) Status: Resolved Procedures Procedure Dates Details [Q] LIPID PANEL WITH REFLEX TO DIRECT LDL Date: 28-Jan-2020 [QL] CBC (INCLUDES DIFF/PLT) Date: 28-Jan-2020 [QL] CMP W/EGFR Date: 28-Jan-2020 [QL] TSH, 3RD GENERATION W/REFLEX TO FT4 Date: 28-Jan-2020 History of Hysterectomy Completed History of Bladder surgery Completed History of Abdominoplasty Completed History of Mastopexy Completed History of Cholecystectomy Completed Immunization Name Dates Details Fluzone Quadrivalent 0.5 ML Intramuscula r Suspension Prefilled Syringe Lot #: [id number] on: 31-Oct-2018 Tdap (Adacel) Lot #: [id number] on: 02-May-2019 Fluzone Quadrivalent 0.5 ML Intramuscula r Suspension Prefilled Syringe Lot #: [id number] on: 17-Jul-2019 Family History Name Dates Details [...] (finding) Vital Signs Date Test Result Details [id number] Systolic blood pressure 115 mm[Hg] Status: Comments [...] Goals not documented Interventions Provided Medication Changes* diazePAM 5 MG Oral Tablet - Renew * Levothyroxine Sodium 75 MCG Oral Tablet - Renew Labs/Procedures/Imaging* [Q] LIPID PANEL WITH REFLEX TO DIRECT LDL; To Be Done: 28 Jan 2020 * [QL] CBC (INCLUDES DIFF/PLT); To Be Done: 28 Jan 2020 * [QL] CMP W/EGFR; To Be Done: 28 Jan 2020 * [QL] TSH, 3RD GENERATION W/REFLEX TO FT4; To Be Done: 28 Jan 2020 Plan* Bruxism/TMJ - stable. Continue Diazepam. D/C Metaxalone 2/2 ineffectiveness. Follow-up with ENT when possible. Continue to wear mouth guard * PEREZ - Improved. Likely 2/2 TMJ continue to monitor. * Menopausal Symptoms - stable. Continue Paxil QDaily. Continue Venlafaxine * Hypothyroidism - stable. Continue current dosage of Levothyroxine. * HTN - stable. Continue Propranolol, Valsartan-HCTZ * PEREZ - stable. Continue Gabapentin and Tramadol PRN. D/C AMitriptyline 2/2 ineffective * Urge Incontinence - stable. Continue Oxybutynin. * Follow-up in 4 months, sooner if needed Instructions Name Dates [...] documented On: 17-Jul-2019 10:30 Appointment; MELISSA MCKENZIE, MANAGER WASTEWATER Encounter Diagnosis: Problem not documented On: 28-Jul-2019 10:30 Appointment; CINTHYA BLOOD, MANAGER WASTEWATER Encounter Diagnosis: Problem not documented On: 09-Aug-2019 10:30 Appointment; MELISSA MCKENZIE, MANAGER WASTEWATER Encounter Diagnosis: Problem not documented On: 18-Aug-2019 10:15 Appointment; ANGELIQUE JONES P.A. Encounter Diagnosis: Problem not documented On: 01-Sep-2019 10:15 [facility] [place] Encounter Diagnosis: Problem not documented On: [...]
--- OUTSIDE RECORDS SUMMARY | 2020-05-18 14:52 | XMS REPORT | Summary of Care ---
Author Author [facility] Address [address] [place] [address] Phone Unavailable Care Team Providers Care Patient Service Associate Name Role Phone ALISHA P.A., FIORELLA Unavailable Unavailable YEH D.O., [place] Unavailable Unavailable TOMJOSE CARLOS POPE, JAMILA Unavailable Unavailable YEJose Miguel DO [place], [place] Unavailable Unavailable KANNAN TODD [place], JERRY PATTERSON Unavailable Unavailable MIKAYLA TODD, JIMMY Diamond Unavailable Unavailable TOM BR[facility]KS [facility] RNBC CPN, JAMILA Unavailable Unav ailable Fariba TODD, John Unavailable Unavailable Unavailable Unavailable Functional Status Name Dates Details Functional status health issues are not documented Status: Name Dates Details Cognitive status health issues are not d ocumented Status: Problems Name Dates Details Screening for breast cancer (V76.10, Z12 .39) Status: Active Need for influenza vaccination (V04.81, Z23) Status: Active Need for shingles vaccine (V04.89, [...] Status: Active Hypokalemia (276.8, E87.6) Status: Active Chronic constipation (564.00, K59.09) Status: [...] joint disorder) ( 524.60, M26.609) Status: Active Need for hepatitis C screening test (V73 .89, Z11.59) Status: Active Acute upper respiratory infection (465.9 , J06.9) Status: Active Medications Name Dates Details Gabapentin [...] * Start : 31-Oct-2018 Active Vitamin A 66883 UNIT TABS TAKE 1 TABLET DAILY. * [...] Intramuscula r Suspension Prefilled Syringe Lot #: [id number] on: 31-Oct-2018 Tdap (Adacel) Lot #: [id number] on: 02-May-2019 Fluzone Quadrivalent 0.5 ML Intramuscula r Suspension Prefilled Syringe Lot #: [id number] on: 17-Jul-2019 Family History Name Dates Details [...] to report Results Date Description Value Details Results not documented Plan of Care Name Dates Details Planned Observations Planned Goals not documented Planned Encounters Appointment; BLAKE CARRILLO D.O. On: 28-Jan-2020 10:00 Instructions Name Dates Details Instructions not documented [...] documented On: 18-Aug-2019 10:15 Appointment; ANGELIQUE JONES PKaylaAKayla Encounter Diagnosis: Problem not documented On: 01-Sep-2019 10:15 [facility] Encounter Diagnosis: Problem not documented On: 03-Sep-2019 [...]
--- OUTSIDE RECORDS SUMMARY | 2020-05-18 14:52 | XMS REPORT | Summary of Care ---
Author Author GERARDO Guidry, SHAUN Tafoya Organization Unknown Address Unknown Phone Unavailable Care Team Providers Care Rfid Technician Name Role Phone FIORELLA SPENCE Unavailable Unavailable GERARDO Guidry, BLAKE Unavailable Unavailable JAMILA SANTOS APRN Unavailable Unavailable GERARDO SANCHEZ UT, BLAKE Unavailable Unavailable KANNAN TODD AL, JERRY PATTERSON Unavailable Unavailable MIKAYLA TODD, JIMMY Diamond Unavailable Unavailable TOM BROOKS [facility] RNBC CPN, JAMILA Unavailable Unav ailable [...] * Start : 31-Oct-2018 Active Vitamin A 47441 UNIT Oral Tablet TAKE 1 TABLET DAILY. * Refills: 0 * Start : 31-Oct-2018 Active H-E-B inControl BP Monitor MEASURE BLOOD PRESSURE DAILY DIRECTED. * Quantity: 1 Refills: 0 JAMILA SANTOS APRN * Start : 17-Apr-2019 Active Fish Oil CAPS TAKE 1 CAPSULE DAILY * Refills: 0 Active Shingrix 50 MCG/0.5ML Intramuscular Suspension Reconstituted ADMINISTER 0.5 ML INTRAMUSCULARLY ONCE NOW, THEN SECOND DOSE AT 2-6 MONTHS. * Quantity: 1 Refills: 1 JAMILA SANTOS APRN * Start : 02-May-2019 Active Valsartan-hydroCHLOROthiazide 160-12.5 MG Oral Tablet TAKE 1 TABLET DAILY. * Quantity: 30 Refills: 5 YEH D.O.BLAKE * Start : 27-Nov-2019 Active Oxybutynin Chloride ER 5 MG Oral Tablet Extended Release 24 Hour TAKE 1 TABLET BY MOUTH EVERY DAY * Quantity: 90 Refills: 0 YEH D.O., BLAKE * Start : 22-Jun-2019 Active Metaxalone 800 MG Oral Tablet TAKE [...] BEDTIME. * Quantity: 90 Refills: 0 Active diazePAM 5 MG Oral Tablet TAKE [...] Intramuscula r Suspension Prefilled Syringe Lot #: [id number] on: 31-Oct-2018 Tdap (Adacel) Lot #: [id number] on: 02-May-2019 Fluzone Quadrivalent 0.5 ML Intramuscula r Suspension Prefilled Syringe Lot #: [id number] on: 17-Jul-2019 Family History Name Dates Details [...] On: 01-Feb-2020 10:30 Interventions Provided Medication Changes* traMADol HCl - 50 MG Oral Tablet - Renew Instructions Name Dates Details Instructions not documented Encounters Appointment; BLAKE CARRILLO D.O. Encounter Diagnosis: Problem not documented On: 31-Oct-2018 10:30 Appointment; BLAKE CARRILLO D.O. Encounter Diagnosis: Problem not documented On: 29-Jan-2019 10:00 Appointment; OTM, JAMILA, COMPLAINTS COORDINATOR Encounter Diagnosis: Problem not documented On: 17-Apr-2019 15:00 Appointment; JAMILA SANTOS, COMPLAINTS COORDINATOR Encounter Diagnosis: Problem not documented On: 02-May-2019 9:30 Appointment; BLAKE CARRILLO D.O. Encounter Diagnosis: Problem not documented On: 10-May-2019 14:30 Appointment; JOHN ANDREWS M.D. Encounter Diagnosis: Problem not documented On: 30-May-2019 11:20 Appointment; BLAKE CARRILLO D.O. Encounter Diagnosis: Problem not documented On: 17-Jul-2019 10:30 Appointment; MELISSA MCKENZIE, COMPLAINTS COORDINATOR Encounter Diagnosis: Problem not documented On: 28-Jul-2019 10:30 Appointment; CINTHYA BLOOD, COMPLAINTS COORDINATOR Encounter Diagnosis: Problem not documented On: 09-Aug-2019 10:30 Appointment; MELISSA MCKENZIE, COMPLAINTS COORDINATOR Encounter Diagnosis: Problem not documented On: 18-Aug-2019 [...]
--- OUTSIDE RECORDS SUMMARY | 2020-05-18 14:52 | XMS REPORT | Summary of Care ---
Author Author [facility] Address [address] [place] [address] Phone Unavailable Care Team Providers Care Block Mechanic Name Role Phone ALISHA P.A., FIORELLA Unavailable Unavailable YEH D.O., [place] Unavailable Unavailable TOMJOSE CARLOS POPE, JAMILA Unavailable Unavailable YEJose Miguel DO [place], [place] Unavailable Unavailable KANNAN TODD [place], JERRY PATTERSON Unavailable Unavailable MIKAYLA TODD, JIMMY Diamond Unavailable Unavailable TOM BR[facility]KS [facility] RNBC CPN, JAMILA Unavailable Unav ailable [...] D.O., BLAKE * Start : 31-Oct-2018 Active traMADol HCl [...] DAILY * Quantity: 90 Refills: 1 ALISHA P.A. FIORELLA * Start : 31-Oct-2018 Active Propranolol HCl - 20 MG Oral Tablet TAKE 1 TABLET BY MOUTH DAILY * Quantity: 90 Refills: 0 JAMILA SANTOS APRN * Start : 31-Oct-2018 Active Vitamin A 66818 UNIT TABS TAKE 1 TABLET DAILY. * Refills: 0 * Start : 31-Oct-2018 Active Fish Oil CAPS TAKE 1 CAPSULE [...] * Quantity: 30 Refills: 0 YEH D.O., RAZIAN * Start : 27-Nov-2019 Active risperiDONE 1 MG Oral Tablet TAKE 1 TABLET AT BEDTIME. * Refills: 0 Active Amitriptyline HCl - 50 MG Oral Tablet TAKE 1 TABLET AT BEDTIME. * Quantity: 90 Refills: 0 Active Shingrix 50 MCG/0.5ML Intramuscular Suspension Reconstituted ADMINISTER 0.5 ML INTRAMUSCULARLY ONCE NOW, THEN SECOND DOSE AT 2-6 MONTHS. * Quantity: 1 Refills: 1 JAMILA SANTOS APRN * Start : 02-May-2019 Active H-E-B inControl BP Monitor MEASURE BLOOD PRESSURE DAILY DIRECTED. * Quantity: 1 Refills: 0 JAMILA SANTOS APRN * Start : 17-Apr-2019 Active Venlafaxine HCl ER 150 MG Oral Capsule Extended Release 24 Hour TAKE 1 CAPSULE ONCE DAILY WITH FOOD. * Refills: 0 * Start : 31-Oct-2018 Active PARoxetine HCl ER 12.5 MG Oral [...] Intramuscula r Suspension Prefilled Syringe Lot #: [id number] on: 31-Oct-2018 Tdap (Adacel) Lot #: [id number] on: 02-May-2019 Fluzone Quadrivalent 0.5 ML Intramuscula r Suspension Prefilled Syringe Lot #: [id number] on: 17-Jul-2019 Family History Name Dates Details [...] 01-Sep-2019 10:15 [facility] Encounter Diagnosis: Problem not documented On: [...]
--- OUTSIDE RECORDS SUMMARY | 2020-05-18 14:52 | XMS REPORT | Summary of Care ---
Author SHAUN Amezquita M.A. Organization Unknown Address [facility] Phone Unavailable Care Team Providers Care Concrete Carpenter Name Role Phone FIORELLA SPENCE Unavailable Unavailable Migel-Carli Stubbs, Brionna Unavailable Unavailable YEH D.O., [place] Unavailable Unavailable TOM SAW GRINDER, BRIONNA Unavailable Unavailable YEH DO [place], [place] Unavailable Unavailable KANNAN TODD [place], JERRY PATTERSON Unavailable Unavailable MIKAYLA TODD, JIMMY Diamond Unavailable Unavailable TOM TODD [facility] RNBC CPN, BRIONNA Unavailable Unav ailable Fariba TODD, John Unavailable [...] MOUTH DAILY * Quantity: 90 Refills: 0 BRIONNA SANTOS APRN * Start : 31-Oct-2018 Active Vitamin A 14164 UNIT TABS TAKE 1 TABLET DAILY. * Refills: 0 * Start : 31-Oct-2018 Active H-E-B inControl BP Monitor MEASURE BLOOD PRESSURE DAILY DIRECTED. * Quantity: 1 Refills: 0 BRIONNA SANTOS APRN * Start : 17-Apr-2019 Active Shingrix 50 MCG/0.5ML Intramuscular Suspension Reconstituted ADMINISTER 0.5 ML INTRAMUSCULARLY ONCE NOW, THEN SECOND DOSE AT 2-6 MONTHS. * Quantity: 1 Refills: 1 BRIONNA SANTOS APRN * Start : 02-May-2019 Active [...] Intramuscula r Suspension Prefilled Syringe Lot #: [id number] on: 31-Oct-2018 Tdap (Adacel) Lot #: [id number] on: 02-May-2019 Fluzone Quadrivalent 0.5 ML Intramuscula r Suspension Prefilled Syringe Lot #: [id number] on: 17-Jul-2019 Family History Name Dates Details [...] Problem not documented On: 29-Jan-2019 10:00 Appointment; BRIONNA SANTOS, SAW GRINDER Encounter Diagnosis: Problem not documented On: 17-Apr-2019 15:00 Appointment; BRIONNA SANTOS APRN Encounter Diagnosis: Problem not documented [...]
--- OUTSIDE RECORDS SUMMARY | 2020-05-18 14:52 | XMS REPORT | Summary of Care ---
Author Author GERARDO Guidry, SHAUN Tafoya Organization Unknown Address Unknown Phone Unavailable Care Team Providers Care Submarine Advisory Team Watch Officer Name Role Phone ALISHA Nguyen, FIORELLA Unavailable Unavailable GERARDO Guidry, BLAKE Unavailable Unavailable JAMILA SANTOS APRN Unavailable Unavailable GERARDO SANCHEZ UT, BLAKE Unavailable Unavailable KANNAN TODD AL, JERRY PATTERSON Unavailable Unavailable MIKAYLA TODD, JIMMY Diamond Unavailable Unavailable TOM BROOKS [facility] RNBC CPN, JAMILA Unavailable Unav ailable [...] * Start : 31-Oct-2018 Active Vitamin A 44118 UNIT Oral Tablet TAKE 1 TABLET DAILY. [...] 0 YEH D.O., BLAKE * Start : 12-Oct-2019 Active Valsartan-hydroCHLOROthiazide 160-12.5 [...] Intramuscula r Suspension Prefilled Syringe Lot #: [id number] on: 31-Oct-2018 Tdap (Adacel) Lot #: [id number] on: 02-May-2019 Fluzone Quadrivalent 0.5 ML Intramuscula r Suspension Prefilled Syringe Lot #: [id number] on: 17-Jul-2019 Family History Name Dates Details [...] On: 01-Feb-2020 10:30 Interventions Provided Medication Changes* Celecoxib 200 MG Oral Capsule - Renew Instructions Name Dates Details Instructions [...]
--- OUTSIDE RECORDS SUMMARY | 2020-05-18 14:52 | XMS REPORT | Summary of Care ---
Author Author GERARDO Guidry, SHAUN Michelet Organization Unknown Address Unknown Phone Unavailable Care Team Providers Care Banquet Attendant Name Role Phone GERARDO Guidry, BLAKE Unavailable Unavailable TOM POPE, JAMILA Unavailable Unavailable GERARDO SANCHEZ UT, BLAKE Unavailable Unavailable KANNAN TODD UT, JERRY PATTERSON Unavailable Unavailable MIKAYLA TODD, JIMMY Diamond Unavailable Unavailable TOM BROOKS [facility] RNBC CPN, JAMILA Unavailable Unav archanaable Fariba [...] joint disorder) ( 524.60, M26.609) Status: Active Hyponatremia (276.1, E87.1) Status: Active Medications Name Dates Details Gabapentin [...] * Quantity: 90 Refills: 0 YEH D.O., BALKE * Start : 31-Oct-2018 Active traZODone HCl [...] MOUTH DAILY * Quantity: 90 Refills: 0 TOM JAMILA POPE * Start : 31-Oct-2018 Active Vitamin A 88111 UNIT TABS TAKE 1 TABLET DAILY. * [...] BEDTIME * Quantity: 30 Refills: 3 YEH D.O., BLAKE * Start [...] .39) Status: Resolved Procedures Procedure Dates Details [QL] BASIC METABOLIC PANEL W/EGFR Date: 29-Jan-2020 History of Hysterectomy Completed History of Bladder surgery Completed History of Abdominoplasty Completed History of Mastopexy Completed History of Cholecystectomy Completed Immunization Name Dates Details Fluzone Quadrivalent 0.5 ML Intramuscula r Suspension Prefilled Syringe Lot #: [id number] on: 31-Oct-2018 Tdap (Adacel) Lot #: [id number] on: 02-May-2019 Fluzone Quadrivalent 0.5 ML Intramuscula r Suspension Prefilled Syringe Lot #: [id number] on: 17-Jul-2019 Family History Name Dates Details [...] /min Status: Results Date Description Value Details :23 [Q] LIPID PANEL WITH REFLEX TO DIRECT LD L CHOLESTEROL, TOTAL 166 mg/dl (Normal) Range: <2 00 HDL CHOLESTEROL 52 mg/dl (Normal) Range: > OR = 50 TRIGLYCERIDES 125 mg/dl (Normal) Range: <150 LDL-CHOLESTEROL 91 {MG/DL__CAL} (Normal) Commen ts: Reference range: <100 Desirable range <100 mg/dL for primary prevention; <70 mg/dL for patients with CHD or diabetic patients with > or = 2 CHD risk factors. LDL-C is now calculated using the Noelle calculation, which is a validated novel method providing better accuracy than the Friedewald equation in the estimation of LDL- C. Venancio SS et al. NAZ. 2013;310(19): 3969-3423 (http ://education.[employer]/faq/MDS001) CHOL/HDLC RATIO 3.2 {CALC} (Normal) Range: <5.0 NON HDL CHOLESTEROL 114 {MG/DL__CAL} (Normal) R enmanuel: <130 Comments: For patients with diabetes plus 1 major ASCVD risk factor, treating to a non-HDL-C goal of <100 mg/dL (LDL-C of <70 mg/dL) is considered a therapeutic option. :23 [QL] CMP W/EGFR GLUCOSE 104 mg/dl (Normal) Range: 65-13 9 Comments: Non-fasting reference interval UREA NITROGEN (BUN) 10 mg/dl (Normal) Range: 7- 25 CREATININE 1.03 mg/dl (Normal) Range: 0.50 -1.05 Comments: For patients >49 years of age, the reference limitfor Creatinine is approximately 13% higher for peopleidentified as -Botswanan. eGFR NON- 61 {ML/MIN/1.7} (Norm al) Range: > OR = 60 eGFR 70 {ML/MIN/1.7} (Normal) Range: > OR = 60 BUN/CREATININE RATIO NOT APPLICABLE {CALC} Rang e: 6-22 SODIUM 126 mmol/L (Below low threshold ) Range: 135-146 POTASSIUM 4.2 mmol/L (Normal) Range: 3.5- 5.3 CHLORIDE 92 mmol/L (Below low threshold) Range: 98-110 CARBON DIOXIDE 28 mmol/L (Normal) Range: 20-32 CALCIUM 9.6 mg/dl (Normal) Range: 8.6-1 0.4 PROTEIN, TOTAL 7.4 g/dl (Normal) Range: 6.1-8. 1 ALBUMIN 4.2 g/dl (Normal) Range: 3.6-5. 1 GLOBULIN 3.2 {G/DL__CALC} (Normal) Range : 1.9-3.7 ALBUMIN/GLOBULIN RATIO 1.3 {CALC} (Normal) Rang e: 1.0-2.5 BILIRUBIN, TOTAL 0.3 mg/dl (Normal) Range: 0.2- 1.2 ALKALINE PHSPHATASE 64 u/l (Normal) Range: 37-1 53 AST 22 u/l (Normal) Range: 10-35 ALT 16 u/l (Normal) Range: 6-29 [id number] [QL] CBC (INCLUDES DIFF/PLT) WHITE BLOOD CELL COUNT 7.1 {Thousand/u} (Normal ) Range: 3.8-10.8 RED BLOOD CELL COUNT 4.18 {Million/uL} (Normal) Range: 3.80-5.10 HEMAGLOBIN 12.8 g/dl (Normal) Range: 11.7- 15.5 HEMATOCRIT 37.9 % (Normal) Range: 35.0-45. 0 MCV 90.7 fL (Normal) Range: 80.0-10 0.0 MCH 30.6 pg (Normal) Range: 27.0-33 .0 MCHC 33.8 g/dl (Normal) Range: 32.0- 36.0 RDW 13.1 % (Normal) Range: 11.0-15. 0 PLATELET COUNT 166 {Thousand/u} (Normal) Range : 140-400 MPV 9.6 fL (Normal) Range: 7.5-12.5 ABSOLUTE NEUTROPHILS 4963 {cells/uL} (Normal) R enmanuel: 9218-0625 ABSOLUTE LYMPHOCYTES 1399 {cells/uL} (Normal) R enmanuel: 850-3900 ABSOLUTE MONOCYTES 426 {cells/uL} (Normal) Rang e: 200-950 ABSOLUTE EOSINOPHILS 291 {cells/uL} (Normal) Ra nge: 15-500 ABSOLUTE BASOPHILS 21 {cells/uL} (Normal) Range : 0-200 NEUTROPHILS 69.9 % (Normal) LYMPHOCYTES 19.7 % (Normal) MONOCYTES 6.0 % (Normal) EOSINOPHILS 4.1 % (Normal) BASOPHILS 0.3 % (Normal) [id number] [QL] TSH, 3RD GENERATION W/REFLEX TO FT4 Comments: REPORT COMMENT:FASTING:NO TSH, 3RD GENERATION W/REFLEX TO FT4 1.11 {MIU/L } (Normal) Range: 0.40-4.50 Plan of Care Name Dates Details Planned Observations Planned Goals not documented Interventions Provided Labs/Procedures/Imaging* [QL] BASIC METABOLIC PANEL W/EGFR; To Be Done: 29 Jan 2020 Discussion/Summary* Attempted to call Pt. OM for Pt to call back. Pt's Sodium is low at 126. Would like to have Pt restrict water intake to 1.5 L per day and recheck in 1 week. If Pt become lightheaded/dizzy, shaky, or just not feeling well, then Pt likely needs to go to the hospital for electrolyte repletion. Instructions Name Dates Details Instructions not documented [...]
--- OUTSIDE RECORDS SUMMARY | 2020-05-18 14:52 | XMS REPORT | Summary of Care ---
Author Author TOM MOTAGera SHAUN Michelet Organization Unknown Address Unknown Phone Unavailable Care Team Providers Care Glass Blowing Instructor Name Role Phone ALISHA P.A., FIORELLA Unavailable Unavailable YEH D.O., BLAKE Unavailable Unavailable JAMILA SANTOS APRN Unavailable Unavailable GERARDO DO [place], BLAKE Unavailable Unavailable KANNAN TODD [place], JERRY PATTERSON Unavailable Unavailable MIKAYLA TODD, JIMMY Diamond Unavailable Unavailable TOM BROOKS [facility] RNBC CPN, JAMILA Unavailable Unav ailable [...] * Start : 31-Oct-2018 Active Vitamin A 49051 UNIT Oral Tablet TAKE 1 TABLET DAILY. * Refills: 0 * Start : 31-Oct-2018 Active H-E-B inControl BP Monitor MEASURE BLOOD PRESSURE DAILY DIRECTED. * Quantity: 1 Refills: 0 JAMILA SANTOS APRN * Start : 17-Apr-2019 Active Shingrix 50 MCG/0.5ML Intramuscular Suspension Reconstituted ADMINISTER 0.5 ML INTRAMUSCULARLY ONCE NOW, THEN SECOND DOSE AT 2-6 MONTHS. * Quantity: 1 Refills: 1 TOM NUT PROCESSING SUPERVISOR, JAMILA * Start : 02-May-2019 Active Fish [...] Intramuscula r Suspension Prefilled Syringe Lot #: [id number] on: 31-Oct-2018 Tdap (Adacel) Lot #: [id number] on: 02-May-2019 Fluzone Quadrivalent 0.5 ML Intramuscula r Suspension Prefilled Syringe Lot #: [id number] on: 17-Jul-2019 Family History Name Dates Details [...] Goals not documented Interventions Provided Medication Changes* Propranolol HCl - 20 MG Oral Tablet - Renew Instructions Name [...]
--- OUTSIDE RECORDS SUMMARY | 2020-05-18 14:52 | XMS REPORT | Summary of Care ---
Author Author SHAUN Jacome M.A. Organization Unknown Address Unknown Phone Unavailable Care Team Providers Care Roadway Designer Name Role Phone Jacquelyn Jacome M.A. Unavailable Unavailable YEH D.O., [place] Unavailable Unavailable TOMJOSE CARLOS POPE, JAMILA Unavailable Unavailable GERARDO DO [place], [place] Unavailable Unavailable KANNAN TODD [place], JERRY PATTERSON Unavailable Unavailable MIKAYLA TODD, JIMMY Diamond Unavailable Unavailable TOM BROOKS [facility] RNBC CPN, JAMILA Unavailable Unav [...] * Start : 31-Oct-2018 Active Vitamin A 43058 UNIT TABS TAKE 1 TABLET DAILY. * [...] Intramuscula r Suspension Prefilled Syringe Lot #: [id number] on: 31-Oct-2018 Tdap (Adacel) Lot #: [id number] on: 02-May-2019 Fluzone Quadrivalent 0.5 ML Intramuscula r Suspension Prefilled Syringe Lot #: [id number] on: 17-Jul-2019 Family History Name Dates Details [...] C. Venancio SS et al. NAZ. 2013;310(19): 4029-8723 (http ://[employer]/faq/AIU556) CHOL/HDLC RATIO 3.2 {CALC} (Normal) Range: <5.0 [...] is approximately 13% higher for peopleidentified as -[place]ozambican. eGFR NON- 61 {ML/MIN/1.7} (Norm al) Range: [...] 10-35 ALT 16 u/l (Normal) Range: 6-29 [id number] [QL] CBC (INCLUDES DIFF/PLT) WHITE BLOOD CELL [...] ABSOLUTE NEUTROPHILS 4963 {cells/uL} (Normal) R enmanuel: 3262-1066 ABSOLUTE LYMPHOCYTES 1399 {cells/uL} (Normal) R enmanuel: 850-3900 ABSOLUTE MONOCYTES 426 {cells/uL} (Normal) Rang e: 200-950 ABSOLUTE EOSINOPHILS 291 {cells/uL} (Normal) Ra nge: 15-500 ABSOLUTE BASOPHILS 21 {cells/uL} (Normal) Range : 0-200 NEUTROPHILS 69.9 % (Normal) LYMPHOCYTES 19.7 % (Normal) MONOCYTES 6.0 % (Normal) EOSINOPHILS 4.1 % (Normal) BASOPHILS 0.3 % (Normal) [id number]-Vda-[id number]:23 [QL] TSH, 3RD GENERATION W/REFLEX TO FT4 [...]
--- OUTSIDE RECORDS SUMMARY | 2020-05-18 14:52 | XMS REPORT | Summary of Care ---
Author SHAUN Lerma M.A. Organization Unknown Address Unknown Phone Unavailable Care Team Providers Care Cytology Supervisor Name Role Phone FIORELLA SPENCE Unavailable Unavailable YEH D.O., [place] Unavailable Unavailable TOMJOSE CARLOS POPE, JAMILA Unavailable Unavailable YEJose Miguel DO [place], [place] Unavailable Unavailable KANNAN TODD [place], JERRY PATTERSON Unavailable Unavailable MIKAYLA TODD, JIMMY [...] * Start : 31-Oct-2018 Active Vitamin A 29636 UNIT Oral Tablet TAKE 1 TABLET DAILY. * Refills: 0 * Start : 31-Oct-2018 Active H-E-B inControl BP Monitor MEASURE BLOOD PRESSURE DAILY DIRECTED. * Quantity: 1 Refills: 0 JAMILA SANTOS APRN * Start : 17-Apr-2019 Active Shingrix 50 MCG/0.5ML Intramuscular Suspension Reconstituted ADMINISTER 0.5 ML INTRAMUSCULARLY ONCE NOW, THEN SECOND DOSE AT 2-6 MONTHS. * Quantity: 1 Refills: 1 TOM COMMUNITY RESOURCE OFFICER, JAMILA * Start : 02-May-2019 Active Fish [...] Intramuscula r Suspension Prefilled Syringe Lot #: [id number] on: 31-Oct-2018 Tdap (Adacel) Lot #: [id number] on: 02-May-2019 Fluzone Quadrivalent 0.5 ML Intramuscula r Suspension Prefilled Syringe Lot #: [id number] on: 17-Jul-2019 Family History Name Dates Details [...] not documented On: 18-Sep-2019 10:45 Appointment; BLAKE CRARILLO D.O. Encounter Diagnosis: Problem not documented On: 12-Oct-2019 9:30 Appointment; BLAKE CARRILLO D.O. Encounter Diagnosis: Problem not documented On: 08-Nov-2019 10:30 Appointment; BLAKE CARRILLO D.O. Encounter Diagnosis: Problem not documented On: 27-Nov-2019 8:30 Appointment; JOSH SIMEON M.D. Encounter Diagnosis: Problem not documented On: 06-Dec-2019 10:30"
--- OUTSIDE RECORDS SUMMARY | 2020-05-18 14:52 | XMS REPORT | Summary of Care ---
Author Author GERARDO Guidry, SHAUN Michelet Organization Unknown Address Unknown Phone Unavailable Care Team Providers Care Zig Zag Stitcher Name Role Phone GERARDO Guidry, BLAKE Unavailable Unavailable TOM POPE, JAMILA Unavailable Unavailable GERARDO SANCHEZ [place], [place] Unavailable Unavailable KANNAN TODD [place], JERRY PATTERSON Unavailable Unavailable MIKAYLA TODD, JIMMY Diamond Unavailable Unavailable TOM BROOKS [facility] RNBC CPN, JAMILA Unavailable Unav archanaable Fariba [...] * Start : 31-Oct-2018 Active Vitamin A 36669 UNIT TABS TAKE 1 TABLET DAILY. * [...] Intramuscula r Suspension Prefilled Syringe Lot #: [id number] on: 31-Oct-2018 Tdap (Adacel) Lot #: [id number] on: 02-May-2019 Fluzone Quadrivalent 0.5 ML Intramuscula r Suspension Prefilled Syringe Lot #: [id number] on: 17-Jul-2019 Family History Name Dates Details [...] (finding) Vital Signs Date Test Result Details [id number]-[id number]:57 Systolic blood pressure 115 mm[Hg] Status: Comments [...] FT4; To Be Done: 28 Jan 2020 Instructions Name Dates Details Instructions not documented [...] Problem not documented On: 01-Sep-2019 10:15 [facility] Encounter Diagnosis: Problem not documented On: [...]
--- OUTSIDE RECORDS SUMMARY | 2020-05-18 14:52 | XMS REPORT | Summary of Care ---
Author Author [facility] Address [address] [place] [address] Phone Unavailable Care Team Providers Care Elementary Art Teacher Name Role Phone GERARDO Anthony.Dion, BLAKE Unavailable Unavailable TOM POPE, JAMILA Unavailable Unavailable GERARDO SANCHEZ [place], BLAKE Unavailable Unavailable KANNAN TODD [place], JERRY PATTERSON Unavailable Unavailable MIKAYLA TODD, JIMMY Diamond Unavailable Unavailable TOM BROOKS FNPBC RNBC CPN, JAMILA Unavailable Unav archanaable Fariba [...] * Start : 31-Oct-2018 Active Vitamin A 56581 UNIT TABS TAKE 1 TABLET DAILY. * [...] 0 YEH D.O., [place] * Start : 22-Jun-2019 Active Celecoxib 200 [...] Intramuscula r Suspension Prefilled Syringe Lot #: [id number] on: 31-Oct-2018 Tdap (Adacel) Lot #: [id number] on: 02-May-2019 Fluzone Quadrivalent 0.5 ML Intramuscula r Suspension Prefilled Syringe Lot #: [id number] on: 17-Jul-2019 Family History Name Dates Details [...] C. Venancio SS et al. NAZ. 2013;310(19): 1678-6427 (http ://[employer].Helixbind/faq/SOZ370) CHOL/HDLC RATIO 3.2 {CALC} (Normal) Range: <5.0 [...] is approximately 13% higher for peopleidentified as -Burkinan. eGFR NON- 61 {ML/MIN/1.7} (Norm al) Range: [...] Range: 10-35 ALT 16 u/l (Normal) Range: 6-28-Jan-202010:23 [QL] CBC (INCLUDES DIFF/PLT) WHITE BLOOD CELL [...] ABSOLUTE NEUTROPHILS 4963 {cells/uL} (Normal) R enmanuel: 2132-4549 ABSOLUTE LYMPHOCYTES 1399 {cells/uL} (Normal) R enmanuel: 850-3900 ABSOLUTE MONOCYTES 426 {cells/uL} (Normal) Rang e: 200-950 ABSOLUTE EOSINOPHILS 291 {cells/uL} (Normal) Ra nge: 15-500 ABSOLUTE BASOPHILS 21 {cells/uL} (Normal) Range : 0-200 NEUTROPHILS 69.9 % (Normal) LYMPHOCYTES 19.7 % (Normal) MONOCYTES 6.0 % (Normal) EOSINOPHILS 4.1 % (Normal) BASOPHILS 0.3 % (Normal) 25-Qsd-784221:23 [QL] TSH, 3RD GENERATION W/REFLEX TO FT4 [...] Problem not documented On: 29-Jan-2019 10:00 Appointment; JAMIAL SANTOS APRN Encounter Diagnosis: Problem not documented [...]
--- OUTSIDE RECORDS SUMMARY | 2020-05-18 14:52 | XMS REPORT | Summary of Care ---
Author Author GERARDO Guidry, SHAUN Tafoya Organization Unknown Address Unknown Phone Unavailable Care Team Providers Care Heavy Equipment Operator/Paver Name Role Phone Jacquelyn Jacome M.A. Unavailable Unavailable FIORELLA SPENCE Unavailable Unavailable GERARDO Guidry, BLAKE Unavailable Unavailable TOM HEALTH EDUCATION COORDINATOR, JAMILA Unavailable Unavailable GERARDO SANCHEZ [place], [place] Unavailable Unavailable KANNAN TODD [place], JERRY PATTERSON Unavailable Unavailable MIKAYLA TODD, JIMMY Diamond Unavailable Unavailable TOM BROOKS [facility] RNBC CPN, JAMILA Unavailable Unav ailable [...] * Start : 31-Oct-2018 Active Vitamin A 62905 UNIT Oral Tablet TAKE 1 TABLET DAILY. [...] D.O., BLAKE * Start : 27-Nov-2019 Active Oxybutynin Chloride [...] Intramuscula r Suspension Prefilled Syringe Lot #: [id number] on: 31-Oct-2018 Tdap (Adacel) Lot #: [id number] on: 02-May-2019 Fluzone Quadrivalent 0.5 ML Intramuscula r Suspension Prefilled Syringe Lot #: [id number] on: 17-Jul-2019 Family History Name Dates Details [...] documented On: 09-Aug-2019 10:30 Appointment; MELISSA MCKENZIE HEALTH EDUCATION COORDINATOR Encounter Diagnosis: Problem not documented On: [...]
--- OUTSIDE RECORDS SUMMARY | 2020-05-18 14:53 | XMS REPORT | Summary of Care ---
Author Author [facility] Address [address] [place] [address] Phone Unavailable Care Team Providers Care Pet Trainer Name Role Phone GERARDO D.Dion, BLAKE Unavailable Unavailable TOM POPE, JAMILA Unavailable Unavailable GERARDO SANCHEZ [place], [place]LA[place] Unavailable Unavailable KANNAN TODD [place], JERRY PATTERSON Unavailable Unavailable MIKAYLA TODD, JIMMY [...] test positive (795. 79, R76.8) Status: Active Bruising, spontaneous (782.7, R23.3) Status: [...] Status: Active Hyponatremia (276.1, E87.1) Status: Active Cervical muscle strain (847.0, S16.1XXA) Status: Active Medications Name Dates Details Gabapentin [...] YEH D.O.BLAKE * Start : 31-Oct-2018 Active Vitamin A 89403 UNIT TABS TAKE 1 TABLET DAILY. * [...] D.O., BLAKE * Start : 12-Oct-2019 Active diazePAM 5 MG Oral Tablet TAKE ONE TABLET BY MOUTH EVERY NIGHT AT BEDTIME * Quantity: 30 Refills: 3 YEH D.O., BLAKE * Start : 27-Nov-2019 Active PARoxetine HCl ER 12.5 MG Oral Tablet Extended Release 24 Hour TAKE 1 TABLET DAILY. * Quantity: 30 Refills: 5 YEH D.O., BLAKE * Start : 27-Nov-2019 Active Propranolol HCl - 20 MG Oral Tablet TAKE 1 TABLET BY MOUTH DAILY * Quantity: 90 Refills: 0 JAMILA SANTOS APRN * Start : 31-Oct-2018 Active risperiDONE 1 MG Oral Tablet TAKE [...] Details [QL] BASIC METABOLIC PANEL W/EGFR Date: 12-Feb-2020 History of Hysterectomy Completed History of Bladder surgery Completed History of Abdominoplasty Completed History of Mastopexy Completed History of Cholecystectomy Completed Immunization Name Dates Details Fluzone Quadrivalent 0.5 ML Intramuscula r Suspension Prefilled Syringe Lot #: [id number] on: 31-Oct-2018 Tdap (Adacel) Lot #: [id number] on: 02-May-2019 Fluzone Quadrivalent 0.5 ML Intramuscula r Suspension Prefilled Syringe Lot #: [id number] on: 17-Jul-2019 Family History Name Dates Details [...] in the estimation of LDL- C. Venancio MCCARTHY et al. NAZ. 2013;310(19): 8786-6546 (http ://[employer]/faq/HHA045) CHOL/HDLC RATIO 3.2 {CALC} (Normal) Range: <5.0 NON HDL CHOLESTEROL 114 {MG/DL__CAL} (Normal) R enmanuel: <130 Comments: For patients with diabetes plus 1 major ASCVD risk factor, treating to a non-HDL-C goal of <100 mg/dL (LDL-C of <70 mg/dL) is considered a therapeutic option. 29-Agc-504163:23 [QL] CMP W/EGFR GLUCOSE 104 mg/dl (Normal) Range: 65-13 9 Comments: Non-fasting reference interval UREA NITROGEN (BUN) 10 mg/dl (Normal) Range: 7- 25 CREATININE 1.03 mg/dl (Normal) Range: 0.50 -1.05 Comments: For patients >49 years of age, the reference limitfor Creatinine is approximately 13% higher for peopleidentified as -[place] Citizen. eGFR NON- 61 {ML/MIN/1.7} (Norm al) Range: [...] 10-35 ALT 16 u/l (Normal) Range: 6-29 :23 [QL] CBC (INCLUDES DIFF/PLT) WHITE BLOOD CELL [...] ABSOLUTE NEUTROPHILS 4963 {cells/uL} (Normal) R enmanuel: 2700-5976 ABSOLUTE LYMPHOCYTES 1399 {cells/uL} (Normal) R enmanuel: 850-3900 ABSOLUTE MONOCYTES 426 {cells/uL} (Normal) Rang e: 200-950 ABSOLUTE EOSINOPHILS 291 {cells/uL} (Normal) Ra nge: 15-500 ABSOLUTE BASOPHILS 21 {cells/uL} (Normal) Range : 0-200 NEUTROPHILS 69.9 % (Normal) LYMPHOCYTES 19.7 % (Normal) MONOCYTES 6.0 % (Normal) EOSINOPHILS 4.1 % (Normal) BASOPHILS 0.3 % (Normal) :23 [QL] TSH, 3RD GENERATION W/REFLEX TO FT4 Comments: REPORT COMMENT:FASTING:NO TSH, 3RD GENERATION W/REFLEX TO FT4 1.11 {MIU/L } (Normal) Range: 0.40-4.50 :28 [QL] BASIC METABOLIC PANEL W/EGFR Comme nts: REPORT COMMENT:FASTING:YES GLUCOSE 99 mg/dl (Normal) Range: 65-99 Comments: Fasting reference interval UREA NITROGEN (BUN) 7 mg/dl (Normal) Range: 7-2 5 CREATININE 1.00 mg/dl (Normal) Range: 0.50 -1.05 Comments: For patients >49 years of age, the reference limitfor Creatinine is approximately 13% higher for peopleidentified as -[place] Citizen. eGFR NON- 63 {ML/MIN/1.7} (Norm al) Range: > OR = 60 eGFR 73 {ML/MIN/1.7} (Normal) Range: > OR = 60 BUN/CREATININE RATIO NOT APPLICABLE {CALC} Rang e: 6-22 SODIUM 126 mmol/L (Below low threshold ) Range: 135-146 POTASSIUM 4.1 mmol/L (Normal) Range: 3.5- 5.3 CHLORIDE 92 mmol/L (Below low threshold) Range: 98-110 CARBON DIOXIDE 28 mmol/L (Normal) Range: 20-32 CALCIUM 9.4 mg/dl (Normal) Range: 8.6-1 0.4 :36 [QL] BASIC METABOLIC PANEL W/EGFR Comme nts: REPORT COMMENT:FASTING:NO GLUCOSE 133 mg/dl (Normal) Range: 65-13 9 Comments: Non-fasting reference interval UREA NITROGEN (BUN) 5 mg/dl (Below low threshol d) Range: 7-25 CREATININE 0.76 mg/dl (Normal) Range: 0.50 -1.05 Comments: For patients >49 years of age, the reference limitfor Creatinine is approximately 13% higher for peopleidentified as -[place] Citizen. eGFR NON- 88 {ML/MIN/1.7} (Norm al) Range: > OR = 60 eGFR 102 {ML/MIN/1.7} (Normal) Range: > OR = 60 BUN/CREATININE RATIO 7 {CALC} (Normal) Range: 6 -22 SODIUM 127 mmol/L (Below low threshold ) Range: 135-146 POTASSIUM 4.7 mmol/L (Normal) Range: 3.5- 5.3 CHLORIDE 93 mmol/L (Below low threshold) Range: 98-110 CARBON DIOXIDE 26 mmol/L (Normal) Range: 20-32 CALCIUM 9.5 mg/dl (Normal) Range: 8.6-1 0.4 Plan of Care Name Dates Details Planned Observations Planned Goals not documented Planned Encounters Appointment; BLAKE CARRILLO D.O. On: 28-Apr-2020 10:00 Instructions Name Dates Details Instructions not [...] not documented On: 18-Aug-2019 10:15 Appointment; ANGELIQUE JONES, P.AKayla Encounter Diagnosis: Problem not documented On: [...]
--- OUTSIDE RECORDS SUMMARY | 2020-05-18 14:53 | XMS REPORT | Summary of Care ---
Author Author [facility] Address [address] [place] [address] Phone Unavailable Care Team Providers Care Band Builder Name Role Phone GERARDO Anthony.Dion, BLAKE Unavailable Unavailable TOM POPE, JAMILA Unavailable Unavailable GERARDO SANCHEZ [place], BLAKE Unavailable Unavailable KANNAN TODD [place], JERRY [...] joint disorder) ( 524.60, M26.609) Status: Active Cervical muscle strain (847.0, S16.1XXA) Status: Active Need for hepatitis C screening test (V73 .89, Z11.59) Status: Active Hyponatremia (276.1, E87.1) Status: Active [...] * Start : 31-Oct-2018 Active Vitamin A 49329 UNIT TABS TAKE 1 TABLET DAILY. * [...] D.O., [place] * Start : 12-Oct-2019 Active diazePAM 5 MG Oral Tablet TAKE ONE TABLET BY MOUTH EVERY NIGHT AT BEDTIME * Quantity: 30 Refills: 3 YEH D.O., [place] * Start : 27-Nov-2019 [...] Intramuscula r Suspension Prefilled Syringe Lot #: [id number] on: 31-Oct-2018 Tdap (Adacel) Lot #: [id number] on: 02-May-2019 Fluzone Quadrivalent 0.5 ML Intramuscula r Suspension Prefilled Syringe Lot #: [id number] on: 17-Jul-2019 Family History Name Dates Details [...] C. Venancio MCCARTHY et al. NAZ. 2013;310(19): 1661-3265 (http ://[employer]kerwang/faq/[email or web address]) CHOL/HDLC RATIO 3.2 {CALC} (Normal) Range: <5.0 NON HDL CHOLESTEROL 114 {MG/DL__CAL} (Normal) R enmanuel: <130 Comments: For patients with diabetes plus 1 major ASCVD risk factor, treating to a non-HDL-C goal of <100 mg/dL (LDL-C of <70 mg/dL) is considered a therapeutic option. 31-Lfe-945317:23 [QL] CMP W/EGFR GLUCOSE 104 mg/dl (Normal) Range: 65-13 9 Comments: Non-fasting reference interval UREA NITROGEN (BUN) 10 mg/dl (Normal) Range: 7- 25 CREATININE 1.03 mg/dl (Normal) Range: 0.50 -1.05 Comments: For patients >49 years of age, the reference limitfor Creatinine is approximately 13% higher for peopleidentified as -Azerbaijani. eGFR NON- 61 {ML/MIN/1.7} (Norm al) Range: [...] ABSOLUTE NEUTROPHILS 4963 {cells/uL} (Normal) R enmanuel: 6902-8289 ABSOLUTE LYMPHOCYTES 1399 {cells/uL} (Normal) R enmanuel: [...] is approximately 13% higher for peopleidentified as -Azerbaijani. eGFR NON- 63 {ML/MIN/1.7} (Norm al) Range: [...] is approximately 13% higher for peopleidentified as -Azerbaijani. eGFR NON- 88 {ML/MIN/1.7} (Norm al) Range: [...] documented On: 18-Aug-2019 10:15 Appointment; ANGELIQUE JONES, PKaylaAKayla Encounter Diagnosis: Problem not documented On: 01-Sep-2019 10:15 [facility]; [facility] [place] Encounter Diagnosis: Problem not documented On: [...]
--- OUTSIDE RECORDS SUMMARY | 2020-05-18 14:53 | XMS REPORT | Summary of Care ---
Author Author SHAUN Jacome M.A. Organization Unknown Address Unknown Phone Unavailable Care Team Providers Care Apartment Community Manager Name Role Phone Jacquelyn Jacome M.A. Unavailable Unavailable YEH D.O., [place] Unavailable Unavailable TOMJOSE CARLOS POPE, JAMILA Unavailable Unavailable GERARDO DO [place], [place] Unavailable Unavailable KANNAN TODD [place], JERRY PATTERSON Unavailable Unavailable MIKAYLA TODD, JIMMY Diamond Unavailable Unavailable TOM BROOKS [facility] RNBC CPN, JAMILA Unavailable Unav [...] * Start : 31-Oct-2018 Active Vitamin A 94452 UNIT TABS TAKE 1 TABLET DAILY. * [...] Intramuscula r Suspension Prefilled Syringe Lot #: [id number] on: 31-Oct-2018 Tdap (Adacel) Lot #: [id number] on: 02-May-2019 Fluzone Quadrivalent 0.5 ML Intramuscula r Suspension Prefilled Syringe Lot #: [id number] on: 17-Jul-2019 Family History Name Dates Details [...] C. Venancio SS et al. NAZ. 2013;310(19): 0019-5205 (http ://[employer].me.[employer]/faq/VSX502) CHOL/HDLC RATIO 3.2 {CALC} (Normal) Range: <5.0 [...] is approximately 13% higher for peopleidentified as -Citizen Of [place]. eGFR NON- 61 {ML/MIN/1.7} (Norm al) Range: [...] 10-35 ALT 16 u/l (Normal) Range: 6-29 96-Bov-632064:23 [QL] CBC (INCLUDES DIFF/PLT) WHITE BLOOD CELL [...] ABSOLUTE NEUTROPHILS 4963 {cells/uL} (Normal) R enmanuel: 9374-3511 ABSOLUTE LYMPHOCYTES 1399 {cells/uL} (Normal) R enmanuel: 850-3900 ABSOLUTE MONOCYTES 426 {cells/uL} (Normal) Rang e: 200-950 ABSOLUTE EOSINOPHILS 291 {cells/uL} (Normal) Ra nge: 15-500 ABSOLUTE BASOPHILS 21 {cells/uL} (Normal) Range : 0-200 NEUTROPHILS 69.9 % (Normal) LYMPHOCYTES 19.7 % (Normal) MONOCYTES 6.0 % (Normal) EOSINOPHILS 4.1 % (Normal) BASOPHILS 0.3 % (Normal) 09-Ghj-096537:23 [QL] TSH, 3RD GENERATION W/REFLEX TO FT4 Comments: REPORT COMMENT:FASTING:NO TSH, 3RD GENERATION W/REFLEX TO FT4 1.11 {MIU/L } (Normal) Range: 0.40-4.50 Plan of Care Name Dates Details Planned Observations Planned Goals not documented Interventions Provided Medication Changes* Propranolol HCl - 20 MG Oral Tablet - Start Instructions Name Dates Details Instructions not documented [...]
--- OUTSIDE RECORDS SUMMARY | 2020-05-18 14:53 | XMS REPORT | Summary of Care ---
Author Author GERARDO Guidry, SHAUN Michelet Organization Unknown Address Unknown Phone Unavailable Care Team Providers Care Congressional Assistant Name Role Phone GERARDO Guidry, BLAKE Unavailable Unavailable TOM POPE, JAMILA Unavailable Unavailable GERARDO SANCHEZ [place], BLAKE Unavailable Unavailable KANNAN TODD [place], JERRY PATTERSON Unavailable Unavailable MIKAYLA TODD, JIMMY Diamond Unavailable Unavailable TOM BROOKS [facility] RNBC CPN, JAMILA Unavailable Unav [...] * Start : 31-Oct-2018 Active Vitamin A 90508 UNIT TABS TAKE 1 TABLET DAILY. * [...] Intramuscula r Suspension Prefilled Syringe Lot #: [id number] on: 31-Oct-2018 Tdap (Adacel) Lot #: [id number] on: 02-May-2019 Fluzone Quadrivalent 0.5 ML Intramuscula r Suspension Prefilled Syringe Lot #: [id number] on: 17-Jul-2019 Family History Name Dates Details [...] /min Status: Results Date Description Value Details 22-Add-758255:23 [Q] LIPID PANEL WITH REFLEX TO DIRECT [...] C. Venancio MCCARTHY et al. NAZ. 2013;310(19): 6349-2418 (http ://[employer]/faq/JHB303) CHOL/HDLC RATIO 3.2 {CALC} (Normal) Range: <5.0 NON HDL CHOLESTEROL 114 {MG/DL__CAL} (Normal) R enmanuel: <130 Comments: For patients with diabetes plus 1 major ASCVD risk factor, treating to a non-HDL-C goal of <100 mg/dL (LDL-C of <70 mg/dL) is considered a therapeutic option. 16-Fti-246451:23 [QL] CMP W/EGFR GLUCOSE 104 mg/dl (Normal) Range: 65-13 9 Comments: Non-fasting reference interval UREA NITROGEN (BUN) 10 mg/dl (Normal) Range: 7- 25 CREATININE 1.03 mg/dl (Normal) Range: 0.50 -1.05 Comments: For patients >49 years of age, the reference limitfor Creatinine is approximately 13% higher for peopleidentified as -Romanian. eGFR NON- 61 {ML/MIN/1.7} (Norm al) Range: [...] ABSOLUTE NEUTROPHILS 4963 {cells/uL} (Normal) R enmanuel: 1250-1055 ABSOLUTE LYMPHOCYTES 1399 {cells/uL} (Normal) R enmanuel: [...] is approximately 13% higher for peopleidentified as -Romanian. eGFR NON- 63 {ML/MIN/1.7} (Norm al) Range: [...] is approximately 13% higher for peopleidentified as -Romanian. eGFR NON- 88 {ML/MIN/1.7} (Norm al) Range: [...] BASIC METABOLIC PANEL W/EGFR; To Be Done: 12 Feb 2020 Discussion/Summary* Sodium is slightly improved at 127. Would like to hold Paxil in addition to holding the Valsartan-HCTZ as instructed last week. Repeat bloodwork next week. Instructions Name Dates Details Instructions not documented [...] Problem not documented On: 01-Sep-2019 10:15 [facility] Encounter Diagnosis: Problem not documented On: 03-Sep-2019 [...]
--- OUTSIDE RECORDS SUMMARY | 2020-05-18 14:53 | XMS REPORT | Summary of Care ---
Author Author GERARDO Guidry, SHAUN Michelet Organization Unknown Address Unknown Phone Unavailable Care Team Providers Care Tool Setter Name Role Phone GERARDO Guidry, BLAKE Unavailable Unavailable TOM POPE, JAMILA Unavailable Unavailable GERARDO SANCHEZ UT, BLAKE Unavailable Unavailable KANNAN TODD UT, JERRY PATTERSON Unavailable Unavailable MIKAYLA TODD, JIMMY Diamond Unavailable Unavailable [facility] RN[facility] CPN, JAMILA Unavailable Unav archanaable Fariba OTDD, John Unavailable Unavailable Unavailable Unavailable Functional Status [...] * Start : 31-Oct-2018 Active Vitamin A 14396 UNIT TABS TAKE 1 TABLET DAILY. * [...] Details [QL] BASIC METABOLIC PANEL W/EGFR Date: 05-Feb-2020 History of Hysterectomy Completed History of Bladder surgery Completed History of Abdominoplasty Completed History of Mastopexy Completed History of Cholecystectomy Completed Immunization Name Dates Details Fluzone Quadrivalent 0.5 ML Intramuscula r Suspension Prefilled Syringe Lot #: [id number] on: 31-Oct-2018 Tdap (Adacel) Lot #: [id number] on: 02-May-2019 Fluzone Quadrivalent 0.5 ML Intramuscula r Suspension Prefilled Syringe Lot #: [id number] on: 17-Jul-2019 Family History Name Dates Details [...] C. Venancio SS et al. NAZ. 2013;310(19): 1558-7295 (http ://[employer].C[employer]DB/faq/CUO703) CHOL/HDLC RATIO 3.2 {CALC} (Normal) Range: <5.0 NON HDL CHOLESTEROL 114 {MG/DL__CAL} (Normal) R enmanuel: <130 Comments: For patients with diabetes plus 1 major ASCVD risk factor, treating to a non-HDL-C goal of <100 mg/dL (LDL-C of <70 mg/dL) is considered a therapeutic option. 15-Aaw-031535:23 [QL] CMP W/EGFR GLUCOSE 104 mg/dl (Normal) Range: 65-13 9 Comments: Non-fasting reference interval UREA NITROGEN (BUN) 10 mg/dl (Normal) Range: 7- 25 CREATININE 1.03 mg/dl (Normal) Range: 0.50 -1.05 Comments: For patients >49 years of age, the reference limitfor Creatinine is approximately 13% higher for peopleidentified as -Bahamian. eGFR NON- 61 {ML/MIN/1.7} (Norm al) Range: [...] ABSOLUTE NEUTROPHILS 4963 {cells/uL} (Normal) R enmanuel: 5979-3338 ABSOLUTE LYMPHOCYTES 1399 {cells/uL} (Normal) R enmanuel: [...] FT4 1.11 {MIU/L } (Normal) Range: 0.40-4.50 98-Ixw-67514:28 [QL] BASIC METABOLIC PANEL W/EGFR Comme nts: REPORT COMMENT:FASTING:YES GLUCOSE 99 mg/dl (Normal) Range: 65-99 Comments: Fasting reference interval UREA NITROGEN (BUN) 7 mg/dl (Normal) Range: 7-2 5 CREATININE 1.00 mg/dl (Normal) Range: 0.50 -1.05 Comments: For patients >49 years of age, the reference limitfor Creatinine is approximately 13% higher for peopleidentified as -Bahamian. eGFR NON- 63 {ML/MIN/1.7} (Norm al) Range: [...] CALCIUM 9.4 mg/dl (Normal) Range: 8.6-1 0.4 Plan of Care Name Dates Details Planned Observations Planned Goals not documented Interventions Provided Labs/Procedures/Imaging* [QL] BASIC METABOLIC PANEL W/EGFR; To Be Done: 05 Feb 2020 Discussion/Summary* Spoke with Pt. Discussed that her sodium is still low. Pt is asymptomatic. D/C Valsartan-HCTZ. Asked Pt to monitor blood pressure, call if BP > 160/90. Recheck BMP in 1 week. Consider AMlodipine if BP is elevated. Instructions Name Dates Details Instructions not documented [...] documented On: 17-Jul-2019 10:30 Appointment; MELISSA MCKENZIE, BODYWORK THERAPIST Encounter Diagnosis: Problem not documented On: 28-Jul-2019 10:30 Appointment; BLOODCINTHYA, BODYWORK THERAPIST Encounter Diagnosis: Problem not documented On: 09-Aug-2019 10:30 Appointment; MELISSA MCKENZIE, BODYWORK THERAPIST Encounter Diagnosis: Problem not documented On: 18-Aug-2019 10:15 Appointment; ANGELIQUE JONES P.A. Encounter Diagnosis: Problem not documented On: 01-Sep-2019 10:15 [facility] [place] [place] Encounter Diagnosis: Problem not documented On: [...]
--- OUTSIDE RECORDS SUMMARY | 2020-05-18 14:53 | XMS REPORT | Summary of Care ---
Author Author GERARDO Guidry, SHAUN HINOJOSAA Organization Unknown Address Unknown Phone Unavailable Care Team Providers Care Production Planner Scheduler Name Role Phone GERARDO Guidry, BLAKE Unavailable Unavailable TOM POPE, JAMILA Unavailable Unavailable GERARDO SANCHEZ UT, BLAKE Unavailable Unavailable KANNAN TODD UT, JERRY PATTERSON Unavailable Unavailable MIKAYLA TODD, JIMMY Diamond Unavailable Unavailable TOM BROOKS FNC RNBC CPN, JAMILA Unavailable Unav archanaable Fariba [...] * Start : 31-Oct-2018 Active Vitamin A 44569 UNIT TABS TAKE 1 TABLET DAILY. * [...] Details [QL] BASIC METABOLIC PANEL W/EGFR Date: 19-Feb-2020 History of Hysterectomy Completed History of Bladder surgery Completed History of Abdominoplasty Completed History of Mastopexy Completed History of Cholecystectomy Completed Immunization Name Dates Details Fluzone Quadrivalent 0.5 ML Intramuscula r Suspension Prefilled Syringe Lot #: [id number] on: 31-Oct-2018 Tdap (Adacel) Lot #: [id number] on: 02-May-2019 Fluzone Quadrivalent 0.5 ML Intramuscula r Suspension Prefilled Syringe Lot #: [id number] on: 17-Jul-2019 Family History Name Dates Details [...] /min Status: Results Date Description Value Details [id number] [Q] LIPID PANEL WITH REFLEX TO DIRECT [...] factors. LDL-C is now calculated using the Venancio-Suarez calculation, which is a validated novel method providing better accuracy than the Friedewald equation in the estimation of LDL- C. Venancio MCCARTHY et al. NAZ. 2013;310(19): 6957-7989 (http :[email or web address]) CHOL/HDLC RATIO 3.2 {CALC} (Normal) Range: <5.0 NON HDL CHOLESTEROL 114 {MG/DL__CAL} (Normal) R enmanuel: <130 Comments: For patients with diabetes plus 1 major ASCVD risk factor, treating to a non-HDL-C goal of <100 mg/dL (LDL-C of <70 mg/dL) is considered a therapeutic option. [id number] [QL] CMP W/EGFR GLUCOSE 104 mg/dl (Normal) Range: 65-13 9 Comments: Non-fasting reference interval UREA NITROGEN (BUN) 10 mg/dl (Normal) Range: 7- 25 CREATININE 1.03 mg/dl (Normal) Range: 0.50 -1.05 Comments: For patients >49 years of age, the reference limitfor Creatinine is approximately 13% higher for peopleidentified as -Afghan. eGFR NON- 61 {ML/MIN/1.7} (Norm al) Range: [...] ABSOLUTE NEUTROPHILS 4963 {cells/uL} (Normal) R enmanuel: 0813-4078 ABSOLUTE LYMPHOCYTES 1399 {cells/uL} (Normal) R enmanuel: [...] is approximately 13% higher for peopleidentified as -Afghan. eGFR NON- 63 {ML/MIN/1.7} (Norm al) Range: [...] is approximately 13% higher for peopleidentified as -Afghan. eGFR NON- 88 {ML/MIN/1.7} (Norm al) Range: [...] CALCIUM 9.5 mg/dl (Normal) Range: 8.6-1 0.4 18-Feb-20209:14 [QL] BASIC METABOLIC PANEL W/EGFR Comme nts: REPORT COMMENT:FASTING:YES GLUCOSE 100 mg/dl (Above high threshold ) Range: 65-99 Comments: Fasting reference interval For someone without known diabetes, a glucose valuebetween 100 and 125 mg/dL is consistent withprediabetes and should be confirmed with afollow-up test. UREA NITROGEN (BUN) 5 mg/dl (Below low threshol d) Range: 7-25 CREATININE 0.85 mg/dl (Normal) Range: 0.50 -1.05 Comments: For patients >49 years of age, the reference limitfor Creatinine is approximately 13% higher for peopleidentified as -Afghan. eGFR NON- 77 {ML/MIN/1.7} (Norm al) Range: > OR = 60 eGFR 89 {ML/MIN/1.7} (Normal) Range: > OR = 60 BUN/CREATININE RATIO 6 {CALC} (Normal) Range: 6 -22 SODIUM 133 mmol/L (Below low threshold ) Range: 135-146 POTASSIUM 5.2 mmol/L (Normal) Range: 3.5- 5.3 CHLORIDE 100 mmol/L (Normal) Range: 98-1 10 CARBON DIOXIDE 29 mmol/L (Normal) Range: 20-32 CALCIUM 9.3 mg/dl (Normal) Range: 8.6-1 0.4 Plan of Care Name Dates Details Planned Observations Planned Goals not documented Planned Encounters Appointment; BLAKE CARRILLO D.O. On: 28-Apr-2020 10:00 Interventions Provided Labs/Procedures/Imaging* [QL] BASIC METABOLIC PANEL W/EGFR; To Be Done: 19 Feb 2020 Discussion/Summary* Sodium Improved. Continue current regimen. Recheck again blood work in 2 weeks. Instructions Name Dates Details Instructions not documented [...] Problem not documented On: 01-Sep-2019 10:15 [facility] Diagnosis: Problem not documented On: 03-Sep-2019 [...] not documented On: 12-Oct-2019 9:30 Appointment; BLAKE CARRILOL D.O. Encounter Diagnosis: Problem not documented On: 08-Nov-2019 10:30 Appointment; BLAKE CARRILLO D.O. Encounter Diagnosis: Problem not documented On: 27-Nov-2019 8:30 Appointment; JOSH SIMEON M.D. Encounter Diagnosis: Problem not documented On: 06-Dec-2019 10:30 Appointment; BLAKE CARRILLO D.O. Encounter Diagnosis: Problem not documented On: 28-Jan-2020 10:00
--- OUTSIDE RECORDS SUMMARY | 2020-05-18 14:53 | XMS REPORT | Summary of Care ---
Author Author Naa Stubbs SHAUN STANFORD Organization Unknown Address Unknown Phone Unavailable Care Team Providers Care Straddle Truck Operator Name Role Phone GERARDO Guidry, BLAKE Unavailable Unavailable TOM POPE, JAMILA Unavailable Unavailable GERARDO SANCHEZ UT, BLAKE Unavailable Unavailable KANNAN TODD UT, JERRY PATTERSON Unavailable Unavailable MIKAYLA TODD, JIMMY Diamond Unavailable Unavailable [facility]OM [facility] RNBC CPN, JAMILA Unavailable Unav archanaable [...] * Start : 31-Oct-2018 Active Vitamin A 84308 UNIT TABS TAKE 1 TABLET DAILY. * [...] Intramuscula r Suspension Prefilled Syringe Lot #: [id number] on: 31-Oct-2018 Tdap (Adacel) Lot #: [id number] on: 02-May-2019 Fluzone Quadrivalent 0.5 ML Intramuscula r Suspension Prefilled Syringe Lot #: [id number] on: 17-Jul-2019 Family History Name Dates Details [...] to report Results Date Description Value Details [id number]:28 [QL] BASIC METABOLIC PANEL W/EGFR Comme nts: REPORT COMMENT:FASTING:YES GLUCOSE 99 mg/dl (Normal) Range: 65-99 Comments: Fasting reference interval UREA NITROGEN (BUN) 7 mg/dl (Normal) Range: 7-2 5 CREATININE 1.00 mg/dl (Normal) Range: 0.50 -1.05 Comments: For patients >49 years of age, the reference limitfor Creatinine is approximately 13% higher for peopleidentified as -Jamaican. eGFR NON- 63 {ML/MIN/1.7} (Norm al) Range: [...] is approximately 13% higher for peopleidentified as -Jamaican. eGFR NON- 88 {ML/MIN/1.7} (Norm al) Range: [...] CALCIUM 9.5 mg/dl (Normal) Range: 8.6-1 0.4 :14 [QL] BASIC METABOLIC PANEL W/EGFR Comme nts: [...] is approximately 13% higher for peopleidentified as -Jamaican. eGFR NON- 77 {ML/MIN/1.7} (Norm al) Range: [...] Planned Encounters Appointment; BLAKE CARRILLO D.O. On: 29-Apr-2020 10:30 Interventions Provided Medication Changes* Oxybutynin Chloride ER [...] Problem not documented On: 01-Sep-2019 10:15 [facility]; [facility] [place] Encounter Diagnosis: Problem not documented On: [...]
--- OUTSIDE RECORDS SUMMARY | 2020-05-18 14:53 | XMS REPORT | Summary of Care ---
Author Author GERARDO Guidry, SHAUN HINOJOSAA Organization Unknown Address Unknown Phone Unavailable Care Team Providers Care Twisting Operator Name Role Phone GERARDO Guidry, BLAKE [...] * Start : 31-Oct-2018 Active Vitamin A 84442 UNIT TABS TAKE 1 TABLET DAILY. * [...] D.O., BLAKE * Start : 22-Jun-2019 Active risperiDONE 1 MG Oral Tablet TAKE 1 TABLET AT BEDTIME. * Refills: 0 M.A. Active Amitriptyline HCl - 50 MG Oral Tablet TAKE 1 TABLET AT BEDTIME. * Quantity: 90 Refills: 0 M.A. Active Celecoxib 200 MG Oral Capsule TAKE [...] Intramuscula r Suspension Prefilled Syringe Lot #: [id number] on: 31-Oct-2018 Tdap (Adacel) Lot #: [id number] on: 02-May-2019 Fluzone Quadrivalent 0.5 ML Intramuscula r Suspension Prefilled Syringe Lot #: [id number] on: 17-Jul-2019 Family History Name Dates Details [...] to report Results Date Description Value Details :36 [QL] BASIC METABOLIC PANEL W/EGFR Comme nts: REPORT COMMENT:FASTING:NO GLUCOSE 133 mg/dl (Normal) Range: 65-13 9 Comments: Non-fasting reference interval UREA NITROGEN (BUN) 5 mg/dl (Below low threshol d) Range: 7-25 CREATININE 0.76 mg/dl (Normal) Range: 0.50 -1.05 Comments: For patients >49 years of age, the reference limitfor Creatinine is approximately 13% higher for peopleidentified as -Somali. eGFR NON- 88 {ML/MIN/1.7} (Norm al) Range: [...] is approximately 13% higher for peopleidentified as -Somali. eGFR NON- 77 {ML/MIN/1.7} (Norm al) Range: [...] CALCIUM 9.3 mg/dl (Normal) Range: 8.6-1 0.4 :21 [QL] BASIC METABOLIC PANEL W/EGFR Comme nts: REPORT COMMENT:FASTING:NO GLUCOSE 99 mg/dl (Normal) Range: 65-139 Comments: Non-fasting reference interval UREA NITROGEN (BUN) 4 mg/dl (Below low threshol d) Range: 7-25 CREATININE 0.75 mg/dl (Normal) Range: 0.50 -1.05 Comments: For patients >49 years of age, the reference limitfor Creatinine is approximately 13% higher for peopleidentified as -Somali. eGFR NON- 89 {ML/MIN/1.7} (Norm al) Range: > OR = 60 eGFR 103 {ML/MIN/1.7} (Normal) Range: > OR = 60 BUN/CREATININE RATIO 5 {CALC} (Below low thresh old) Range: 6-22 SODIUM 130 mmol/L (Below low threshold ) Range: 135-146 POTASSIUM 4.3 mmol/L (Normal) Range: 3.5- 5.3 CHLORIDE 94 mmol/L (Below low threshold) Range: 98-110 CARBON DIOXIDE 28 mmol/L (Normal) Range: 20-32 CALCIUM 9.6 mg/dl (Normal) Range: 8.6-1 0.4 Plan of Care Name Dates Details Planned Observations Planned Goals not documented Planned Encounters Appointment; BLAKE CARRILLO D.O. On: 29-Apr-2020 10:30 Interventions Provided Discussion/Summary* Sodium is at 130, which is still low. Discontinue Paroxetine. Recheck bloodwork again in 2 weeks. Instructions Name Dates Details [...] not documented On: 17-Jul-2019 10:30 Appointment; MELISSA MCKEZNIE APRN Encounter Diagnosis: Problem not documented On: 28-Jul-2019 10:30 Appointment; CINTHYA BLOOD APRN Encounter Diagnosis: Problem not documented On: 09-Aug-2019 10:30 Appointment; MELISSA MCKENZIE APRN Encounter Diagnosis: Problem not documented On: 18-Aug-2019 10:15 Appointment; ANGELIQUE JONES P.A. Encounter Diagnosis: Problem not documented On: 01-Sep-2019 10:15 Appointment; [facility] [place] Encounter Diagnosis: Problem not documented On: [...]
--- OUTSIDE RECORDS SUMMARY | 2020-05-18 14:53 | XMS REPORT | Summary of Care ---
Author Author Hilario TINAJERO, SHAUN STANFORD Organization Unknown Address Unknown Phone Unavailable Care Team Providers Care Turret Lathe Machinist Name Role Phone GERARDO D.O., BLAKE Unavailable Unavailable TOM POPE, JAMILA Unavailable Unavailable Hilario TINAJERO, John Unavailable Unavailable GERARDO SANCHEZ UT, BLAKE Unavailable Unavailable KANNAN TODD UT, JERRY PATTERSON Unavailable Unavailable MIKAYLA OTDD, JIMMY Diamond Unavailable Unavailable TOM BROOKS FNC [...] * Start : 31-Oct-2018 Active Vitamin A 98538 UNIT TABS TAKE 1 TABLET DAILY. * [...] Intramuscula r Suspension Prefilled Syringe Lot #: [id number] on: 31-Oct-2018 Tdap (Adacel) Lot #: [id number] on: 02-May-2019 Fluzone Quadrivalent 0.5 ML Intramuscula r Suspension Prefilled Syringe Lot #: [id number] on: 17-Jul-2019 Family History Name Dates Details [...] /min Status: Results Date Description Value Details [id number] [Q] LIPID PANEL WITH REFLEX TO DIRECT [...] C. Venancio MCCARTHY et al. NAZ. 2013;310(19): 5475-4449 (http :[email or web address]/[email or web address]) CHOL/HDLC RATIO 3.2 {CALC} (Normal) Range: <5.0 NON HDL CHOLESTEROL 114 {MG/DL__CAL} (Normal) R enmanuel: <130 Comments: For patients with diabetes plus 1 major ASCVD risk factor, treating to a non-HDL-C goal of <100 mg/dL (LDL-C of <70 mg/dL) is considered a therapeutic option. [id number] [QL] CMP W/EGFR GLUCOSE 104 mg/dl (Normal) Range: 65-13 9 Comments: Non-fasting reference interval UREA NITROGEN (BUN) 10 mg/dl (Normal) Range: 7- 25 CREATININE 1.03 mg/dl (Normal) Range: 0.50 -1.05 Comments: For patients >49 years of age, the reference limitfor Creatinine is approximately 13% higher for peopleidentified as -Spanish. eGFR NON- 61 {ML/MIN/1.7} (Norm al) Range: [...] ABSOLUTE NEUTROPHILS 4963 {cells/uL} (Normal) R enmanuel: 5750-5928 ABSOLUTE LYMPHOCYTES 1399 {cells/uL} (Normal) R enmanuel: [...] is approximately 13% higher for peopleidentified as -Spanish. eGFR NON- 63 {ML/MIN/1.7} (Norm al) Range: [...] is approximately 13% higher for peopleidentified as -Spanish. eGFR NON- 88 {ML/MIN/1.7} (Norm al) Range: [...] is approximately 13% higher for peopleidentified as -Spanish. eGFR NON- 77 {ML/MIN/1.7} (Norm al) Range: [...] documented On: 17-Jul-2019 10:30 Appointment; MELISSA MCKENZIE, DEPUTY SHERIFF CHIEF Encounter Diagnosis: Problem not documented On: 28-Jul-2019 10:30 Appointment; BLOODCINTHYA, DEPUTY SHERIFF CHIEF Encounter Diagnosis: Problem not documented On: 09-Aug-2019 10:30 Appointment; MELISSA MCKENZIE, DEPUTY SHERIFF CHIEF Encounter Diagnosis: Problem not documented On: 18-Aug-2019 10:15 Appointment; ANGELIQUE JONES P.A. Encounter Diagnosis: Problem not documented On: 01-Sep-2019 10:15 Appointment; [facility] [place] Encounter Diagnosis: Problem not documented On: [...]
--- OUTSIDE RECORDS SUMMARY | 2020-05-18 14:53 | XMS REPORT | Summary of Care ---
Author Author GERARDO Guidry, SHAUN HINOJOSAA Organization Unknown Address Unknown Phone Unavailable Care Team Providers Care Manager Biostatistics Name Role Phone GERARDO Guidry, BLAKE Unavailable [...] * Start : 31-Oct-2018 Active Vitamin A 49487 UNIT TABS TAKE 1 TABLET DAILY. * [...] Intramuscula r Suspension Prefilled Syringe Lot #: [id number] on: 31-Oct-2018 Tdap (Adacel) Lot #: [id number] on: 02-May-2019 Fluzone Quadrivalent 0.5 ML Intramuscula r Suspension Prefilled Syringe Lot #: [id number] on: 17-Jul-2019 Family History Name Dates Details [...] to report Results Date Description Value Details 43-[id number]:28 [QL] BASIC METABOLIC PANEL W/EGFR Comme nts: REPORT COMMENT:FASTING:YES GLUCOSE 99 mg/dl (Normal) Range: 65-99 Comments: Fasting reference interval UREA NITROGEN (BUN) 7 mg/dl (Normal) Range: 7-2 5 CREATININE 1.00 mg/dl (Normal) Range: 0.50 -1.05 Comments: For patients >49 years of age, the reference limitfor Creatinine is approximately 13% higher for peopleidentified as -Iranian. eGFR NON- 63 {ML/MIN/1.7} (Norm al) Range: [...] is approximately 13% higher for peopleidentified as -Iranian. eGFR NON- 88 {ML/MIN/1.7} (Norm al) Range: [...] is approximately 13% higher for peopleidentified as -Iranian. eGFR NON- 77 {ML/MIN/1.7} (Norm al) Range: [...] Problem not documented On: 01-Sep-2019 10:15 [facility] [place] Encounter Diagnosis: Problem not documented On: [...]
--- OUTSIDE RECORDS SUMMARY | 2020-05-18 14:53 | XMS REPORT | Summary of Care ---
Author Author GERARDO Guidry, SHAUN Michelet Organization Unknown Address Unknown Phone Unavailable Care Team Providers Care Driller And Reamer Name Role Phone GERARDO Guidry, BLAKE Unavailable Unavailable TOM POPE, JAMILA Unavailable Unavailable GERARDO SANCHEZ UT, BLAKE Unavailable Unavailable KANNAN TODD UT, JERRY PATTERSON Unavailable Unavailable MIKAYLA TODD, JIMMY Diamond Unavailable Unavailable TOM BROOKS [facility] RNBC CPN, JAMILA Unavailable Unav [...] * Start : 31-Oct-2018 Active Vitamin A 57667 UNIT TABS TAKE 1 TABLET DAILY. * [...] Intramuscula r Suspension Prefilled Syringe Lot #: [id number] on: 31-Oct-2018 Tdap (Adacel) Lot #: [id number] on: 02-May-2019 Fluzone Quadrivalent 0.5 ML Intramuscula r Suspension Prefilled Syringe Lot #: [id number] on: 17-Jul-2019 Family History Name Dates Details [...] /min Status: Results Date Description Value Details [id number] [Q] LIPID PANEL WITH REFLEX TO DIRECT [...] C. Venancio MCCARTHY et al. NAZ. 2013;310(19): 6086-9940 (http :[email or web address]) CHOL/HDLC RATIO 3.2 {CALC} (Normal) Range: <5.0 NON HDL CHOLESTEROL 114 {MG/DL__CAL} (Normal) R enmanuel: <130 Comments: For patients with diabetes plus 1 major ASCVD risk factor, treating to a non-HDL-C goal of <100 mg/dL (LDL-C of <70 mg/dL) is considered a therapeutic option. [id number] [QL] CMP W/EGFR GLUCOSE 104 mg/dl (Normal) Range: 65-13 9 Comments: Non-fasting reference interval UREA NITROGEN (BUN) 10 mg/dl (Normal) Range: 7- 25 CREATININE 1.03 mg/dl (Normal) Range: 0.50 -1.05 Comments: For patients >49 years of age, the reference limitfor Creatinine is approximately 13% higher for peopleidentified as -Sammarinese. eGFR NON- 61 {ML/MIN/1.7} (Norm al) Range: [...] ABSOLUTE NEUTROPHILS 4963 {cells/uL} (Normal) R enmanuel: 8995-4528 ABSOLUTE LYMPHOCYTES 1399 {cells/uL} (Normal) R enmanuel: [...] is approximately 13% higher for peopleidentified as -Sammarinese. eGFR NON- 63 {ML/MIN/1.7} (Norm al) Range: [...] is approximately 13% higher for peopleidentified as -Sammarinese. eGFR NON- 88 {ML/MIN/1.7} (Norm al) Range: [...] Observations Planned Goals not documented Interventions Provided Discussion/Summary* Sodium is slightly improved at 127. [...]
[2020-05-18 14:54] LABS: THYROID STIMULATING HORMONE 0.453 uIU/mL (0.350-4.940)
--- OUTSIDE RECORDS SUMMARY | 2020-05-18 14:54 | XMS REPORT | Summary of Care ---
Author Author [facility] Address [address] [place] [address] Phone Unavailable Care Team Providers Care Systems Security Analyst Name Role Phone ALISHA Rich.A., FIORELLA Unavailable Unavailable YEH D.O., [place] Unavailable Unavailable TOMJOSE CARLOS POPE, JAMILA Unavailable Unavailable YEJose Miguel DO [place], [place] Unavailable Unavailable KANNAN TODD [place], JERRY PATTERSON Unavailable Unavailable MIKAYLA TODD, JIMMY Diamond Unavailable Unavailable TOM BROOKS [facility] RNBC CPN, JAMILA Unavailable Unav ailable [...] Status: Active Bruxism (306.8, F45.8) Status: Active Hypothyroidism (244.9, E03.9) Status: Active Mixed hyperlipidemia (272.2, E78.2) Status: Active TMJ (temporomandibular joint disorder) ( 524.60, M26.609) Status: Active Hyponatremia (276.1, E87.1) Status: Active Essential (primary) hypertension (401.9, I10) [...] * Start : 31-Oct-2018 Active Vitamin A 63277 UNIT TABS TAKE 1 TABLET DAILY. * Refills: 0 * Start : 31-Oct-2018 Active H-E-B inControl BP Monitor MEASURE BLOOD PRESSURE DAILY DIRECTED. * Quantity: 1 Refills: 0 JAMILA SANTOS APRN * Start : 17-Apr-2019 Active Shingrix 50 MCG/0.5ML Intramuscular Suspension Reconstituted ADMINISTER 0.5 ML INTRAMUSCULARLY ONCE NOW, THEN SECOND DOSE AT 2-6 MONTHS. * Quantity: 1 Refills: 1 JAMILA ASNTOS APRN * Start : 02-May-2019 Active Fish [...] YEH D.O.BLAKE * Start : 12-Oct-2019 Active diazePAM 5 [...] BEDTIME. * Quantity: 90 Refills: 0 Active Olmesartan Medoxomil 20 MG Oral Tablet TAKE 1 TABLET DAILY. * Quantity: 30 Refills: 1 ALISHA P.A.RENEEFIORELLA * Start : 08-Mar-2020 Active cloNIDine HCl - 0.1 MG Oral Tablet 1 tab po tid if BP > 170/100 * Quantity: 60 Refills: 1 ALISHA P.A., FIORELLA * Start : 08-Mar-2020 Active Allergies and Adverse Reactions Name Dates [...] Intramuscula r Suspension Prefilled Syringe Lot #: [id number] on: 31-Oct-2018 Tdap (Adacel) Lot #: [id number] on: 02-May-2019 Fluzone Quadrivalent 0.5 ML Intramuscula r Suspension Prefilled Syringe Lot #: [id number] on: 17-Jul-2019 Family History Name Dates Details [...] Test Result Details :57 Systolic blood pressure 190 mm[Hg] Status: Comments : Location: LUE; Position: Sitting Diastolic blood pressure 104 mm[Hg] Status: Comment s: Location: LUE; Position: Sitting Heart Rate 64 /min Status: Body height 61 in Status: Weight 142.1875 lb Status: Body mass index (BMI) [Ratio] 26.87 kg/m2 Status: Body surface area Derived from formula 1.63 m2 S tatus: Body temperature 98.2 f Status: Comments: Me thod: Temporal Respiratory rate 16 /min Status: Results Date Description Value Details :36 [QL] BASIC METABOLIC PANEL W/EGFR Comme nts: REPORT COMMENT:FASTING:NO GLUCOSE 133 mg/dl (Normal) Range: 65-13 9 Comments: Non-fasting reference interval UREA NITROGEN (BUN) 5 mg/dl (Below low threshol d) Range: 7-25 CREATININE 0.76 mg/dl (Normal) Range: 0.50 -1.05 Comments: For patients >49 years of age, the reference limitfor Creatinine is approximately 13% higher for peopleidentified as -Moldovan. eGFR NON- 88 {ML/MIN/1.7} (Norm al) Range: [...] is approximately 13% higher for peopleidentified as -Moldovan. eGFR NON- 77 {ML/MIN/1.7} (Norm al) Range: [...] CALCIUM 9.3 mg/dl (Normal) Range: 8.6-1 0.4 [id number] [QL] BASIC METABOLIC PANEL W/EGFR Comme nts: REPORT COMMENT:FASTING:NO GLUCOSE 99 mg/dl (Normal) Range: 65-139 Comments: Non-fasting reference interval UREA NITROGEN (BUN) 4 mg/dl (Below low threshol d) Range: 7-25 CREATININE 0.75 mg/dl (Normal) Range: 0.50 -1.05 Comments: For patients >49 years of age, the reference limitfor Creatinine is approximately 13% higher for peopleidentified as -Moldovan. eGFR NON- 89 {ML/MIN/1.7} (Norm al) Range: [...] Appointment; BLAKE CARRILLO D.O. On: 29-Apr-2020 10:30 Instructions Name Dates Details Instructions not [...] documented On: 17-Jul-2019 10:30 Appointment; MELISSA MCKENZIE, BRICK EXTRUDER OPERATOR Encounter Diagnosis: Problem not documented On: 28-Jul-2019 10:30 Appointment; CINTHYA BOLOD, BRICK EXTRUDER OPERATOR Encounter Diagnosis: Problem not documented On: 09-Aug-2019 10:30 Appointment; MELISSA MCKENZIE, BRICK EXTRUDER OPERATOR Encounter Diagnosis: Problem not documented On: 18-Aug-2019 10:15 Appointment; ANGELIQUE JONES PLandry Encounter Diagnosis: Problem not documented On: 01-Sep-2019 10:15 Appointment; [facility] [place] Encounter Diagnosis: Problem not documented On: [...] Diagnosis: Problem not documented On: 28-Jan-2020 10:00 Appointment; FIORELLA BRITO PLandry Encounter Diagnosis: Problem not documented On: 08-Mar-2020 9:45
--- OUTSIDE RECORDS SUMMARY | 2020-05-18 14:54 | XMS REPORT | Summary of Care ---
Author Author GERARDO Guidry, SHAUN STANFORD Organization Unknown Address Unknown Phone Unavailable Care Team Providers Care Post Commander Name Role Phone Jacquelyn Jacome M.A. Unavailable Unavailable ALISHA Rich.FIORELLA Mondragon Unavailable Unavailable GERARDO Guidry, ANDRI[place]-LLOYD Unavailable Unavailable TOM PIPING ENGINEER, JAMILA Unavailable Unavailable GERARDO SANCHEZ [place], [place] Unavailable Unavailable KANNAN TODD [place], JERRY PATTERSON Unavailable Unavailable MIKAYLA TODD, JIMMY Diamond Unavailable Unavailable TOM BROOKS [facility] RNBC CPN, JAMILA Unavailable Unav ailable [...] D.O., BLAKE * Start : 31-Oct-2018 Active Levothyroxine Sodium 75 MCG Oral Tablet TAKE 1 TABLET BY MOUTH ONCE DAILY * Quantity: 90 Refills: 1 YEH D.O., BLAKE * Start : 31-Oct-2018 Active Vitamin A 17748 UNIT TABS TAKE 1 TABLET DAILY. * [...] AT BEDTIME * Quantity: 30 Refills: 3 GERARDO ChaoBLAKE * Start : 27-Nov-2019 Active risperiDONE 1 MG Oral Tablet TAKE 1 TABLET AT BEDTIME. * Refills: 0 Active Amitriptyline HCl - 50 MG Oral Tablet TAKE 1 TABLET AT BEDTIME. * Quantity: 90 Refills: 0 Active cloNIDine HCl - 0.1 MG Oral Tablet 1 tab po tid if BP > 170/100 * Quantity: 60 Refills: 1 ALISHA P.A., FIORELLA * Start : 08-Mar-2020 Active Olmesartan Medoxomil 20 MG Oral Tablet TAKE 1 TABLET DAILY. * Quantity: 30 Refills: 1 ALISHA P.A., FIORELLA * Start : 08-Mar-2020 Active Shingrix 50 MCG/0.5ML Intramuscular Suspension Reconstituted ADMINISTER 0.5 ML INTRAMUSCULARLY ONCE NOW, THEN SECOND DOSE AT 2-6 MONTHS. * Quantity: 1 Refills: 1 JAMILA SANTOS APRN * Start : 02-May-2019 Active H-E-B inControl BP Monitor MEASURE BLOOD PRESSURE DAILY DIRECTED. * Quantity: 1 Refills: 0 JAMILA SANTOS APRN * Start : 17-Apr-2019 Active traZODone HCl - 100 MG Oral Tablet TAKE 1 TABLET DAILY * Refills: 0 * Start : 31-Oct-2018 Active Allergies and Adverse Reactions Name Dates [...] Details [QL] BASIC METABOLIC PANEL W/EGFR Date: 24-Mar-2020 History of Hysterectomy Completed History of Bladder surgery Completed History of Abdominoplasty Completed History of Mastopexy Completed History of Cholecystectomy Completed Immunization Name Dates Details Fluzone Quadrivalent 0.5 ML Intramuscula r Suspension Prefilled Syringe Lot #: [id number] on: 31-Oct-2018 Tdap (Adacel) Lot #: [id number] on: 02-May-2019 Fluzone Quadrivalent 0.5 ML Intramuscula r Suspension Prefilled Syringe Lot #: [id number] on: 17-Jul-2019 Family History Name Dates Details [...] /min Status: Results Date Description Value Details :21 [QL] BASIC METABOLIC PANEL W/EGFR Comme nts: REPORT COMMENT:FASTING:NO GLUCOSE 99 mg/dl (Normal) Range: 65-139 Comments: Non-fasting reference interval UREA NITROGEN (BUN) 4 mg/dl (Below low threshol d) Range: 7-25 CREATININE 0.75 mg/dl (Normal) Range: 0.50 -1.05 Comments: For patients >49 years of age, the reference limitfor Creatinine is approximately 13% higher for peopleidentified as -French. eGFR NON- 89 {ML/MIN/1.7} (Norm al) Range: [...] CARRILLO D.O. On: 29-Apr-2020 10:30 Interventions Provided Labs/Procedures/Imaging* [QL] BASIC METABOLIC PANEL W/EGFR; To Be Done: 24 Mar 2020 Instructions Name Dates Details Instructions not [...] documented On: 17-Jul-2019 10:30 Appointment; MELISSA MCKENZIE, PIPING ENGINEER Encounter Diagnosis: Problem not documented On: 28-Jul-2019 10:30 Appointment; CINTHYA BLOOD, PIPING ENGINEER Encounter Diagnosis: Problem not documented On: 09-Aug-2019 10:30 Appointment; MELISSA MCKENZIE, PIPING ENGINEER Encounter Diagnosis: Problem not documented On: 18-Aug-2019 10:15 Appointment; ANGELIQUE JONES P.A. Encounter Diagnosis: Problem not documented On: 01-Sep-2019 10:15 Appointment; [facility], [place] Encounter Diagnosis: Problem not [...] documented On: 28-Jan-2020 10:00 Appointment; FIORELLA BRITO P.A. Encounter Diagnosis: Problem not documented On: 08-Mar-2020 9:45
--- OUTSIDE RECORDS SUMMARY | 2020-05-18 14:54 | XMS REPORT | Summary of Care ---
Author Author [facility] Address [address] [place] [address] Phone Unavailable Care Team Providers Care Pole Classifier Name Role Phone GERARDO Guidry, BLAKE Unavailable Unavailable TOM POPE, JAMILA Unavailable Unavailable GERARDO DO [place], BLAKE Unavailable Unavailable KANNAN TODD [place], JERRY PATTERSON Unavailable Unavailable MIKAYLA TODD, JIMMY [...] * Start : 31-Oct-2018 Active Vitamin A 15937 UNIT TABS TAKE 1 TABLET DAILY. * [...] D.O., [place]RI[place]-LLOYD * Start : 27-Nov-2019 Active risperiDONE 1 [...] Intramuscula r Suspension Prefilled Syringe Lot #: [id number] on: 31-Oct-2018 Tdap (Adacel) Lot #: [id number] on: 02-May-2019 Fluzone Quadrivalent 0.5 ML Intramuscula r Suspension Prefilled Syringe Lot #: [id number] on: 17-Jul-2019 Family History Name Dates Details [...] is approximately 13% higher for peopleidentified as -Salvadorean. eGFR NON- 88 {ML/MIN/1.7} (Norm al) Range: [...] is approximately 13% higher for peopleidentified as -Salvadorean. eGFR NON- 77 {ML/MIN/1.7} (Norm al) Range: [...] is approximately 13% higher for peopleidentified as -Salvadorean. eGFR NON- 89 {ML/MIN/1.7} (Norm al) Range: [...] Problem not documented On: 28-Jul-2019 10:30 Appointment; BLOOD, CINTHYA, SALESPERSON SHOES Encounter Diagnosis: Problem not documented On: 09-Aug-2019 10:30 Appointment; MELISSA MCKENZIE APRN Encounter Diagnosis: Problem not documented On: 18-Aug-2019 10:15 Appointment; ANGELIQUE JONES P.A. Encounter Diagnosis: Problem not documented On: 01-Sep-2019 10:15 [facility] [place] Encounter Diagnosis: Problem not documented On: 03-Sep-2019 13:00 Appointment; JHON ANDREWS M.D. Encounter Diagnosis: Problem not documented [...]
--- OUTSIDE RECORDS SUMMARY | 2020-05-18 14:54 | XMS REPORT | Summary of Care ---
Author Author Hilario TINAJERO, SHAUN STANFORD Organization Unknown Address Unknown Phone Unavailable Care Team Providers Care Retail Aide Name Role Phone ALISHA P.A., FIORELLA Unavailable Unavailable YEH D.O., [place] Unavailable Unavailable TOMJOSE CARLOS MOTAN, JAMILA Unavailable Unavailable Hilario TINAJERO, John Unavailable Unavailable GERARDO DO [place], [place] Unavailable Unavailable KANNAN TODD [place], JERRY PATTERSON Unavailable Unavailable MIKAYLA TODD, JIMMY Diamond Unavailable Unavailable TOM BROOKS [facility] RNBC CPN, JAMILA Unavailable Unav archanaable [...] * Start : 31-Oct-2018 Active Vitamin A 89164 UNIT TABS TAKE 1 TABLET DAILY. * [...] Details [QL] BASIC METABOLIC PANEL W/EGFR Date: 13-Mar-2020 History of Hysterectomy Completed History of Bladder surgery Completed History of Abdominoplasty Completed History of Mastopexy Completed History of Cholecystectomy Completed Immunization Name Dates Details Fluzone Quadrivalent 0.5 ML Intramuscula r Suspension Prefilled Syringe Lot #: [id number] on: 31-Oct-2018 Tdap (Adacel) Lot #: [id number] on: 02-May-2019 Fluzone Quadrivalent 0.5 ML Intramuscula r Suspension Prefilled Syringe Lot #: [id number] on: 17-Jul-2019 Family History Name Dates Details [...] (finding) Vital Signs Date Test Result Details [id number] Systolic blood pressure 190 mm[Hg] Status: Comments [...] /min Status: Results Date Description Value Details :14 [QL] BASIC METABOLIC PANEL W/EGFR Comme [...] is approximately 13% higher for peopleidentified as -Dutch. eGFR NON- 77 {ML/MIN/1.7} (Norm al) Range: [...] CALCIUM 9.3 mg/dl (Normal) Range: 8.6-1 0.4 [id number] [QL] BASIC METABOLIC PANEL W/EGFR Comme nts: REPORT COMMENT:FASTING:NO GLUCOSE 99 mg/dl (Normal) Range: 65-139 Comments: Non-fasting reference interval UREA NITROGEN (BUN) 4 mg/dl (Below low threshol d) Range: 7-25 CREATININE 0.75 mg/dl (Normal) Range: 0.50 -1.05 Comments: For patients >49 years of age, the reference limitfor Creatinine is approximately 13% higher for peopleidentified as -Dutch. eGFR NON- 89 {ML/MIN/1.7} (Norm al) Range: [...] BASIC METABOLIC PANEL W/EGFR; To Be Done: 13 Mar 2020 Instructions Name Dates Details Instructions [...]
--- OUTSIDE RECORDS SUMMARY | 2020-05-18 14:54 | XMS REPORT | Summary of Care ---
Author Author [facility] Address [address] [place] [address] Phone Unavailable Care Team Providers Care Geoscientist Name Role Phone ALISHA P.A., FIORELLA Unavailable Unavailable YEH D.O., [place] Unavailable Unavailable TOMJOSE CARLOS MOTAN, JAMILA Unavailable Unavailable YEJose Miguel DO [place], [place] Unavailable Unavailable KANNAN TODD [place], JERRY PATTERSON Unavailable Unavailable MIKAYLA TODD, JIMMY Diamond Unavailable Unavailable TOM BROOKS [facility] RNBC CPN, JAMILA Unavailable Unav ailable [...] bacterial bronchitis (466.0, J20.8 ) Status: Active Essential (primary) hypertension (401.9, I10) Status: Active Sympathotonic orthostatic hypotension (4 58.0, I95.1) Status: Active Need for influenza vaccination (V04.81, Z23) Status: Active Headache (784.0, R51) Status: Active Hyponatremia (276.1, E87.1) Status: Active Hypothyroidism (244.9, E03.9) Status: Active Mixed hyperlipidemia (272.2, E78.2) Status: Active Acute upper respiratory infection (465.9 , J06.9) Status: Active Chronic constipation (564.00, K59.09) Status: Active TMJ (temporomandibular joint disorder) ( 524.60, M26.609) Status: Active 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 * [...] * Quantity: 30 Refills: 3 YEH D.O., RAZIAN * Start : 27-Nov-2019 Active risperiDONE 1 MG Oral Tablet TAKE 1 TABLET AT BEDTIME. * Refills: 0 Active Amitriptyline HCl - 50 MG Oral Tablet TAKE 1 TABLET AT BEDTIME. * Quantity: 90 Refills: 0 Active Olmesartan Medoxomil 20 MG Oral Tablet TAKE 1 TABLET DAILY. * Quantity: 30 Refills: 1 ALISHA P.A., FIORELLA * Start : 08-Mar-2020 Active cloNIDine HCl - 0.1 MG Oral Tablet 1 tab po tid if BP > 170/100 * Quantity: 60 Refills: 1 ALISHA P.A., FIORELLA * Start : 08-Mar-2020 Active traZODone HCl - 100 MG Oral Tablet TAKE 1 TABLET DAILY * Refills: 0 * Start : 31-Oct-2018 Active traMADol HCl - 50 MG Oral Tablet TAKE 1 TABLET EVERY 8 HOURS NEEDED. * Quantity: 90 Refills: 0 YEH D.O., BLAKE * Start : 31-Oct-2018 Active Allergies and [...] Intramuscula r Suspension Prefilled Syringe Lot #: [id number] on: 31-Oct-2018 Tdap (Adacel) Lot #: [id number] on: 02-May-2019 Fluzone Quadrivalent 0.5 ML Intramuscula r Suspension Prefilled Syringe Lot #: [id number] on: 17-Jul-2019 Family History Name Dates Details [...] is approximately 13% higher for peopleidentified as -Zambian. eGFR NON- 88 {ML/MIN/1.7} (Norm al) Range: [...] is approximately 13% higher for peopleidentified as -Zambian. eGFR NON- 77 {ML/MIN/1.7} (Norm al) Range: [...] CALCIUM 9.3 mg/dl (Normal) Range: 8.6-1 0.4 [id number]:21 [QL] BASIC METABOLIC PANEL W/EGFR Comme nts: REPORT COMMENT:FASTING:NO GLUCOSE 99 mg/dl (Normal) Range: 65-139 Comments: Non-fasting reference interval UREA NITROGEN (BUN) 4 mg/dl (Below low threshol d) Range: 7-25 CREATININE 0.75 mg/dl (Normal) Range: 0.50 -1.05 Comments: For patients >49 years of age, the reference limitfor Creatinine is approximately 13% higher for peopleidentified as -Zambian. eGFR NON- 89 {ML/MIN/1.7} (Norm al) Range: [...] documented On: 17-Jul-2019 10:30 Appointment; MELISSA MCKENZIE, JAVA SPRING DEVELOPER Encounter Diagnosis: Problem not documented On: 28-Jul-2019 10:30 Appointment; CINTHYA BLOOD, JAVA SPRING DEVELOPER Encounter Diagnosis: Problem not documented On: 09-Aug-2019 10:30 Appointment; MELISSA MCKENZIE, JAVA SPRING DEVELOPER Encounter Diagnosis: Problem not documented On: 18-Aug-2019 10:15 Appointment; ANGELIQUE JONES PLandry Encounter Diagnosis: Problem not documented On: 01-Sep-2019 10:15 Appointment; [facility], [place] Encounter Diagnosis: Problem not documented On: 03-Sep-2019 13:00 Appointment; JOHN ANDREWS M.D. Encounter Diagnosis: Problem not documented On: 03-Sep-2019 14:20 Appointment; FIORELLA BRITO P.A. Encounter Diagnosis: Problem not documented On: 05-Sep-2019 16:00 Appointment; JOHN ANDREWS M.D. Encounter Diagnosis: Problem not documented On: 10-Sep-2019 13:20 Appointment; JOHN ANDREWS M.D. Encounter Diagnosis: Problem not documented On: 12-Sep-2019 10:00 Appointment; BLAKE CARRLILO D.O. Encounter Diagnosis: Problem not documented On: [...]
--- OUTSIDE RECORDS SUMMARY | 2020-05-18 14:54 | XMS REPORT | Summary of Care ---
Author Author Rigo Moreno, SHAUN STANFORD Organization Unknown Address [facility] Phone Unavailable Care Team Providers Care Tie Presser Name Role Phone ALISHA Nguyen, FIORELLA Unavailable Unavailable Rigo Moreno, Yuki Unavailable Unavailable YEH D.O., ANDRI[place]-LLOYD Unavailable Unavailable TOM NITROGEN OPERATOR, JAMILA Unavailable Unavailable YEH DO [place], [place] Unavailable Unavailable KANNAN TODD [place], JERRY PATTERSON Unavailable Unavailable MIKAYLA TODD, JIMMY Diamond Unavailable Unavailable TOM TODD [facility] RNBC CPN, JAMILA Unavailable Unav archanaable [...] * Start : 31-Oct-2018 Active Vitamin A 33796 UNIT TABS TAKE 1 TABLET DAILY. * [...] DAILY. * Quantity: 30 Refills: 1 ALISHA P.A.FIORELLA * Start : 08-Mar-2020 Active cloNIDine HCl - 0.1 MG Oral Tablet 1 tab po tid if BP > 170/100 * Quantity: 60 Refills: 1 ALISHA P.A. FIORELLA * Start : 08-Mar-2020 Active Allergies [...] Intramuscula r Suspension Prefilled Syringe Lot #: [id number] on: 31-Oct-2018 Tdap (Adacel) Lot #: [id number] on: 02-May-2019 Fluzone Quadrivalent 0.5 ML Intramuscula r Suspension Prefilled Syringe Lot #: [id number] on: 17-Jul-2019 Family History Name Dates Details [...] is approximately 13% higher for peopleidentified as -Nauruan. eGFR NON-AFR. TUNISIAN 89 {ML/MIN/1.7} (Normal) Range: > OR = 60 eGFR 103 {ML/MIN/1.7} (Normal) Range: > OR = 60 BUN/CREATININE RATIO 5 {CALC} (Below low thresh old) Range: 6-22 SODIUM 130 mmol/L (Below low threshold ) Range: 135-146 POTASSIUM 4.3 mmol/L (Normal) Range: 3.5- 5.3 CHLORIDE 94 mmol/L (Below low threshold) Range: 98-110 CARBON DIOXIDE 28 mmol/L (Normal) Range: 20-32 CALCIUM 9.6 mg/dl (Normal) Range: 8.6-1 0.4 :51 [QL] BASIC METABOLIC PANEL W/EGFR Comme nts: REPORT COMMENT:FASTING:NO GLUCOSE 162 mg/dl (Above high threshold ) Range: 65-139 Comments: Non-fasting reference interval UREA NITROGEN (BUN) 4 mg/dl (Below low threshol d) Range: 7-25 CREATININE 0.80 mg/dl (Normal) Range: 0.50 -1.05 Comments: For patients >49 years of age, the reference limitfor Creatinine is approximately 13% higher for peopleidentified as -Nauruan. eGFR NON-AFR. TUNISIAN 82 {ML/MIN/1.7} (Normal) Range: > OR = 60 eGFR 96 {ML/MIN/1.7} (Normal) Range: > OR = 60 BUN/CREATININE RATIO 5 {CALC} (Below low thresh old) Range: 6-22 SODIUM 134 mmol/L (Below low threshold ) Range: 135-146 POTASSIUM 4.3 mmol/L (Normal) Range: 3.5- 5.3 CHLORIDE 101 mmol/L (Normal) Range: 98-1 10 CARBON DIOXIDE 27 mmol/L (Normal) Range: 20-32 CALCIUM 9.1 mg/dl (Normal) Range: 8.6-1 0.4 Plan of [...] Problem not documented On: 01-Sep-2019 10:15 [facility] Encounter Diagnosis: Problem not documented [...]
--- OUTSIDE RECORDS SUMMARY | 2020-05-18 14:54 | XMS REPORT | Summary of Care ---
Author Author Andriy Stubbs SHAUN HINOJOSAA Organization Unknown Address [facility] Phone Unavailable Care Team Providers Care Air Surveillance Operator Name Role Phone FIORELLA SPENCE Unavailable Unavailable YEH D.O., [place]RI[place]-LLOYD Unavailable Unavailable TOMJOSE CARLOS POPE, JAMILA Unavailable Unavailable YEH DO [place], [place] Unavailable Unavailable KANNAN TODD [place], JERRY PATTERSON Unavailable Unavailable MIKAYLA TODD, JIMMY Diamond Unavailable Unavailable TOM BROOKS [facility] RNBC CPN, JAMILA Unavailable Unav archanaable [...] * Start : 31-Oct-2018 Active Vitamin A 19934 UNIT TABS TAKE 1 TABLET DAILY. * [...] Intramuscula r Suspension Prefilled Syringe Lot #: [id number] on: 31-Oct-2018 Tdap (Adacel) Lot #: [id number] on: 02-May-2019 Fluzone Quadrivalent 0.5 ML Intramuscula r Suspension Prefilled Syringe Lot #: [id number] on: 17-Jul-2019 Family History Name Dates Details [...] is approximately 13% higher for peopleidentified as -Tongan. eGFR NON- 88 {ML/MIN/1.7} (Norm al) Range: [...] is approximately 13% higher for peopleidentified as -Tongan. eGFR NON- 77 {ML/MIN/1.7} (Norm al) Range: [...] is approximately 13% higher for peopleidentified as -Tongan. eGFR NON- 89 {ML/MIN/1.7} (Norm al) Range: [...] Problem not documented On: 01-Sep-2019 10:15 [facility]; [facility] [place] [place] Encounter Diagnosis: Problem not documented On: [...]
--- OUTSIDE RECORDS SUMMARY | 2020-05-18 14:54 | XMS REPORT | Summary of Care ---
Author Author SHAUN SPENCE Organization Unknown Address Unknown Phone Unavailable Care Team Providers Care Mock Up Builder Name Role Phone FIORELLA SPENCE Unavailable Unavailable [...] * Start : 31-Oct-2018 Active Vitamin A 50715 UNIT TABS TAKE 1 TABLET DAILY. * [...] Intramuscula r Suspension Prefilled Syringe Lot #: [id number] on: 31-Oct-2018 Tdap (Adacel) Lot #: [id number] on: 02-May-2019 Fluzone Quadrivalent 0.5 ML Intramuscula r Suspension Prefilled Syringe Lot #: [id number] on: 17-Jul-2019 Family History Name Dates Details [...] CALCIUM 9.3 mg/dl (Normal) Range: 8.6-1 0.4 [id number] [QL] BASIC METABOLIC PANEL W/EGFR Comme nts: [...] On: 29-Apr-2020 10:30 Interventions Provided Medication Changes* cloNIDine HCl - 0.1 MG Oral Tablet - Start * Olmesartan Medoxomil 20 MG Oral Tablet - Start Plan* d/c HCTZ 12.5mg, d/c propranolol 2omg po qd. * olmesartan 20mg pt to call back in 1 week with BP log. consider increasingolmesartan to 40mg . * To ER if severe PEREZ, vision changes, weakness, CP, SOB, MCDONALD. Instructions Name Dates Details Instructions not documented Encounters Appointment; BLAKE CARRILLO D.O. Encounter Diagnosis: Problem not documented On: 31-Oct-2018 10:30 Appointment; BLAKE CARRILLO D.O. Encounter Diagnosis: Problem not documented On: 29-Jan-2019 10:00 Appointment; JAMILA SANTOS APRN Encounter Diagnosis: Problem not documented On: 17-Apr-2019 15:00 Appointment; JAMILA SANTOS, TOSHIA Encounter Diagnosis: Problem not documented On: 02-May-2019 9:30 Appointment; BLAKE CARRILLO D.O. Encounter Diagnosis: Problem not documented On: 10-May-2019 14:30 Appointment; JOHN ANDREWS M.D. Encounter Diagnosis: Problem not documented On: 30-May-2019 11:20 Appointment; BLAKE CARRILLO D.O. Encounter Diagnosis: Problem not documented On: 17-Jul-2019 10:30 Appointment; MELISSA MCKENZIE, SPRING MAKER Encounter Diagnosis: Problem not documented On: 28-Jul-2019 10:30 Appointment; CINTHYA BLOOD, SPRING MAKER Encounter Diagnosis: Problem not documented On: 09-Aug-2019 10:30 Appointment; MELISSA MCKENZIE, SPRING MAKER Encounter Diagnosis: Problem not documented On: 18-Aug-2019 10:15 Appointment; ANGELIQUE JONES P.A. Encounter Diagnosis: Problem not documented On: 01-Sep-2019 10:15 [facility] [place] [place] Encounter Diagnosis: Problem not documented On: [...]
--- OUTSIDE RECORDS SUMMARY | 2020-05-18 14:54 | XMS REPORT | Summary of Care ---
Author Author SHAUN Jacome M.A. ABDOULAYE Organization Unknown Address Unknown Phone Unavailable Care Team Providers Care Coupon And Bond Collection Clerk Name Role Phone FIORELLA SPENCE Unavailable Unavailable YEH D.O., [place] Unavailable Unavailable TOMJOSE CARLOS MOTAN, JAMILA Unavailable Unavailable YEJose Miguel DO [place], [place] Unavailable Unavailable KANNAN TODD [place], JERRY PATTERSON Unavailable Unavailable MIKAYLA TODD, JIMMY Diamond Unavailable Unavailable TOM BROOKS [facility] RNBC CPN, JAMILA Unavailable Unav archanaable Fariba [...] * Start : 31-Oct-2018 Active Vitamin A 24305 UNIT TABS TAKE 1 TABLET DAILY. * [...] Intramuscula r Suspension Prefilled Syringe Lot #: [id number] on: 31-Oct-2018 Tdap (Adacel) Lot #: [id number] on: 02-May-2019 Fluzone Quadrivalent 0.5 ML Intramuscula r Suspension Prefilled Syringe Lot #: [id number] on: 17-Jul-2019 Family History Name Dates Details [...] is approximately 13% higher for peopleidentified as -Slovenian. eGFR NON-AFR. MICRONESIAN 89 {ML/MIN/1.7} (Normal) Range: > OR = [...] is approximately 13% higher for peopleidentified as -Slovenian. eGFR NON-AFR. MICRONESIAN 82 {ML/MIN/1.7} (Normal) Range: > OR = [...] On: 29-Apr-2020 10:30 Interventions Provided Medication Changes* Celecoxib 200 [...] Problem not documented On: 08-Nov-2019 10:30 Appointment; BLAEK CARRILLO D.O. Encounter Diagnosis: Problem not documented On: 27-Nov-2019 8:30 Appointment; JOSH SIMEON M.D. Encounter Diagnosis: Problem not documented On: 06-Dec-2019 10:30 Appointment; BLAKE CARRILLO D.O. Encounter Diagnosis: Problem not documented On: 28-Jan-2020 10:00 Appointment; FIORELLA BRITO P.A. Encounter Diagnosis: Problem not documented On: 08-Mar-2020 9:45
--- OUTSIDE RECORDS SUMMARY | 2020-05-18 14:54 | XMS REPORT | Summary of Care ---
Author Author GERARDO Guidry, SHAUN STANFORD Organization Unknown Address Unknown Phone Unavailable Care Team Providers Care Publications Distribution Clerk Name Role Phone FIORELLA SPENCE Unavailable Unavailable GERARDO Guidry, [place] Unavailable Unavailable TOM POPE, JAMILA Unavailable Unavailable GERARDO SANCHEZ [place], [place] Unavailable Unavailable KANNAN TODD [place], JERRY PATTERSON Unavailable Unavailable MIKAYLA TODD, JIMMY Diamond Unavailable Unavailable TOM BROOKS [facility] RNBC CPN, JAMILA Unavailable Unav archanaable Fariba [...] * Start : 31-Oct-2018 Active Vitamin A 08552 UNIT TABS TAKE 1 TABLET DAILY. * [...] TABLET DAILY. * Quantity: 30 Refills: 1 LAISHA P.A., FIORELLA * Start : 08-Mar-2020 Active [...] Details [QL] BASIC METABOLIC PANEL W/EGFR Date: 03-Apr-2020 History of Hysterectomy Completed History of Bladder surgery Completed History of Abdominoplasty Completed History of Mastopexy Completed History of Cholecystectomy Completed Immunization Name Dates Details Fluzone Quadrivalent 0.5 ML Intramuscula r Suspension Prefilled Syringe Lot #: [id number] on: 31-Oct-2018 Tdap (Adacel) Lot #: [id number] on: 02-May-2019 Fluzone Quadrivalent 0.5 ML Intramuscula r Suspension Prefilled Syringe Lot #: [id number] on: 17-Jul-2019 Family History Name Dates Details [...] is approximately 13% higher for peopleidentified as -Northern Irish. eGFR NON-AFR. BENINESE 89 {ML/MIN/1.7} (Normal) Range: > OR = [...] is approximately 13% higher for peopleidentified as -Northern Irish. eGFR NON-AFR. BENINESE 82 {ML/MIN/1.7} (Normal) Range: > OR = [...] BASIC METABOLIC PANEL W/EGFR; To Be Done: 03 Apr 2020 Instructions Name Dates Details Instructions not [...]
--- OUTSIDE RECORDS SUMMARY | 2020-05-18 14:54 | XMS REPORT | Summary of Care ---
Author Author GERARDO Guidry, SHAUN STANFORD Organization Unknown Address Unknown Phone Unavailable Care Team Providers Care Non Categorical Preschool Teacher Name Role Phone FIORELLA SPENCE Unavailable Unavailable GERARDO Guidry, ANDRI[place]-LLOYD Unavailable Unavailable TOM POPE, JAMILA Unavailable Unavailable GERARDO SANCHEZ [place], [place] Unavailable Unavailable KANNAN TODD [place], JERRY PATTERSON Unavailable Unavailable MIKAYLA TODD, JIMMY Diamond Unavailable Unavailable TOM BROOKS [facility] RNBC CPN, JAMILA Unavailable Unav archanaable Fariba [...] * Start : 31-Oct-2018 Active Vitamin A 17267 UNIT TABS TAKE 1 TABLET DAILY. * [...] * Quantity: 90 Refills: 0 M.A. Active Olmesartan Medoxomil 20 MG Oral Tablet [...] Intramuscula r Suspension Prefilled Syringe Lot #: [id number] on: 31-Oct-2018 Tdap (Adacel) Lot #: [id number] on: 02-May-2019 Fluzone Quadrivalent 0.5 ML Intramuscula r Suspension Prefilled Syringe Lot #: [id number] on: 17-Jul-2019 Family History Name Dates Details [...] is approximately 13% higher for peopleidentified as -[place]. eGFR NON-AFR. [place] CITIZ[place] 89 {ML/MIN/1.7} (Normal) Range: > OR = [...] is approximately 13% higher for peopleidentified as -[place]. eGFR NON-AFR. [place] CITIZEN 82 {ML/MIN/1.7} (Normal) Range: > OR = [...] 29-Apr-2020 10:30 Interventions Provided Discussion/Summary* Sodium is improved at 134 after discontinuing the paroxetine. Is Pt feeling well? Recheck again in 1 month. Instructions Name Dates Details Instructions not documented [...]
--- OUTSIDE RECORDS SUMMARY | 2020-05-18 14:54 | XMS REPORT | Summary of Care ---
Author Author SHAUN Jacome M.A. Organization Unknown Address Unknown Phone Unavailable Care Team Providers Care Tumbling And Rolling Supervisor Name Role Phone Jacquelyn Jacome M.A. Unavailable Unavailable ALISHA Rich.RENEE MondragonICIA Unavailable Unavailable YEH D.O., [place] Unavailable Unavailable TOM TEST MAN, JAMILA Unavailable Unavailable YEH DO [place], [place] Unavailable Unavailable KANNAN TODD [place], JERRY PATTERSON Unavailable Unavailable MIKAYLA TODD, JIMMY Diamond Unavailable Unavailable TOM [facility]D [facility] RNBC CPN, JAMILA Unavailable Unav ailable [...] * Start : 31-Oct-2018 Active Vitamin A 33845 UNIT TABS TAKE 1 TABLET DAILY. * [...] Intramuscula r Suspension Prefilled Syringe Lot #: [id number] on: 31-Oct-2018 Tdap (Adacel) Lot #: [id number] on: 02-May-2019 Fluzone Quadrivalent 0.5 ML Intramuscula r Suspension Prefilled Syringe Lot #: [id number] on: 17-Jul-2019 Family History Name Dates Details [...] 13% higher for peopleidentified as -Citizen Of [place]. eGFR NON- 89 {ML/MIN/1.7} (Norm al) Range: [...] documented On: 17-Jul-2019 10:30 Appointment; MELISSA MCKENZIE, TEST MAN Encounter Diagnosis: Problem not documented On: 28-Jul-2019 10:30 Appointment; CINTHYA BLOOD, TEST MAN Encounter Diagnosis: Problem not documented On: 09-Aug-2019 10:30 Appointment; MELISSA MCKENZIE, TEST MAN Encounter Diagnosis: Problem not documented On: 18-Aug-2019 10:15 Appointment; ANGELIQUE JONES P.A. Encounter Diagnosis: Problem not documented On: 01-Sep-2019 10:15 Appointment; [facility], [place] Encounter Diagnosis: Problem not [...]
--- OUTSIDE RECORDS SUMMARY | 2020-05-18 14:55 | XMS REPORT | Summary of Care ---
Author Author Fidel Stubbs, SHAUN HINOJOSAA Organization Unknown Address [facility] Phone Unavailable Care Team Providers Care Medical Records Clerk Name Role Phone Fidel Stubbs, Pat Unavailable Unavailable ALISHA Nguyen, FIORELLA Unavailable Unavailable FARIBA Caballero, JOHN Unavailable Unavailable YEH D.O., [place] Unavailable Unavailable TOM COSMETIC CHEMIST, JAMILA Unavailable Unavailable YEH DO [place], [place] Unavailable Unavailable KANNAN TODD [place], JERRY PATTERSON Unavailable Unavailable MIKAYLA TODD, JIMMY Diamond Unavailable Unavailable TOMJOSE CARLOS BROOKS [facility] RNBC CPN, JAMILA Unavailable Unav [...] Status: Active Headache (784.0, R51) Status: Active Mixed hyperlipidemia (272.2, E78.2) Status: Active TMJ (temporomandibular joint disorder) ( 524.60, M26.609) Status: Active Essential (primary) hypertension (401.9, I10) Status: Active Bruxism (306.8, F45.8) Status: Active Hypothyroidism (244.9, E03.9) Status: Active Hyponatremia (276.1, E87.1) Status: Active [...] * Quantity: 90 Refills: 0 YEH D.O., RAZIAN * Start : 31-Oct-2018 Active traZODone HCl - 100 MG Oral Tablet TAKE 1 TABLET DAILY * Refills: 0 * Start : 31-Oct-2018 Active Levothyroxine Sodium 75 MCG Oral Tablet TAKE 1 TABLET BY MOUTH ONCE DAILY * Quantity: 90 Refills: 1 YEH D.O., BLAKE * Start : 31-Oct-2018 Active Vitamin A 89707 UNIT TABS TAKE 1 TABLET DAILY. * [...] 12.5 MG Oral Tablet TAKE 1 TABLET BY MOUTH DAILY * Quantity: 90 Refills: 3 FARIBA Caballero JOHN * Start : 30-May-2019 Active Oxybutynin Chloride [...] MG Oral Tablet TAKE 1 TABLET DAILY for high blood pressure * Quantity: 90 Refills: 0 YEH D.O., BLAKE * Start : 08-Mar-2020 Active cloNIDine HCl [...] Intramuscula r Suspension Prefilled Syringe Lot #: [id number] on: 31-Oct-2018 Tdap (Adacel) Lot #: [id number] on: 02-May-2019 Fluzone Quadrivalent 0.5 ML Intramuscula r Suspension Prefilled Syringe Lot #: [id number] on: 17-Jul-2019 Family History Name Dates Details [...] (finding) Vital Signs Date Test Result Details :31 Systolic blood pressure 150 mm[Hg] Status: Comments : Location: LUE; Position: Sitting Diastolic blood pressure 89 mm[Hg] Status: Comment s: Location: LUE; Position: Sitting Body height 61 in Status: Weight 143.0625 lb Status: Body mass index (BMI) [Ratio] 27.03 kg/m2 Status: Body surface area Derived from formula 1.64 m2 S tatus: Body temperature 97.9 f Status: Comments: Me thod: Temporal Heart Rate 69 /min Status: Respiratory rate 12 /min Status: Physical Findings 0 Status: Comments: Al cohol Screen - How many times in the past yr have you had 5 (for M) or 4 (for F) or 4 (for all > 65yrs) or more drinks in a day? Physical Findings 1 Status: Comments: PH Q-9 Adult Depression Screening Results Date Description Value Details [id number] [QL] BASIC METABOLIC PANEL W/EGFR Comme nts: REPORT COMMENT:FASTING:NO GLUCOSE 74 mg/dl (Normal) Range: 65-139 Comments: Non-fasting reference interval UREA NITROGEN (BUN) 5 mg/dl (Below low threshol d) Range: 7-25 CREATININE 0.74 mg/dl (Normal) Range: 0.50 -1.05 Comments: For patients >49 years of age, the reference limitfor Creatinine is approximately 13% higher for peopleidentified as -Jamaican. eGFR NON-AFR. SAMMARINESE 91 {ML/MIN/1.7} (Normal) Range: > OR = 60 eGFR 105 {ML/MIN/1.7} (Normal) Range: > OR = 60 BUN/CREATININE RATIO 7 {CALC} (Normal) Range: 6 -22 SODIUM 130 mmol/L (Below low threshold ) Range: 135-146 POTASSIUM 3.7 mmol/L (Normal) Range: 3.5- 5.3 CHLORIDE 98 mmol/L (Normal) Range: 98-11 0 CARBON DIOXIDE 27 mmol/L (Normal) Range: 20-32 CALCIUM 9.3 mg/dl (Normal) Range: 8.6-1 0.4 Plan of Care Name Dates Details Planned Observations Planned Goals not documented Planned Encounters Appointment; BLAKE CARRILLO D.O. On: 02-Sep-2020 10:00 Interventions Provided Medication Changes* Olmesartan Medoxomil 20 MG Oral Tablet - Renew Instructions [...] documented On: 17-Jul-2019 10:30 Appointment; MELISSA MCKENZIE, COSMETIC CHEMIST Encounter Diagnosis: Problem not documented On: 28-Jul-2019 10:30 Appointment; CINTHYA BLOOD, COSMETIC CHEMIST Encounter Diagnosis: Problem not documented On: 09-Aug-2019 10:30 Appointment; MELISSA MCKENZIE, COSMETIC CHEMIST Encounter Diagnosis: Problem not documented On: 18-Aug-2019 [...] Diagnosis: Problem not documented On: 08-Mar-2020 9:45 Appointment; BLAKE CARRILLO D.O. Encounter Diagnosis: Problem not documented On: 28-Apr-2020 10:00 Appointment; BLAKE CARRILLO D.O. Encounter Diagnosis: Problem not documented On: 02-May-2020 13:30
--- OUTSIDE RECORDS SUMMARY | 2020-05-18 14:55 | XMS REPORT | Summary of Care ---
Author Author FARIBA Caballero, SHAUN STANFORD Organization Unknown Address Unknown Phone Unavailable Care Team Providers Care Psychologist Counseling Name Role Phone ALISHA Nguyen, FIORELLA Unavailable Unavailable FARIBA Caballero, JOHN Unavailable Unavailable YEH D.O., [place] Unavailable Unavailable TOM SUPERVISOR TUMBLERS, JAMILA Unavailable Unavailable YEH DO [place], [place] Unavailable Unavailable KANNAN TODD [place], JERRY PATTERSON Unavailable Unavailable MIKAYLA TODD, JIMMY Diamond Unavailable Unavailable TOM TODD [facility] RNBC CPN, JAMILA Unavailable Unav ailable [...] ONCE DAILY WITH FOOD. * Refills: 0 M.D. * Start : 31-Oct-2018 Active traMADol HCl - 50 MG Oral Tablet TAKE 1 TABLET EVERY 8 HOURS NEEDED. * Quantity: 90 Refills: 0 YEH D.O., [place] * Start : 31-Oct-2018 Active traZODone HCl - 100 MG Oral Tablet TAKE 1 TABLET DAILY * Refills: 0 M.D. * Start : 31-Oct-2018 Active Levothyroxine Sodium 75 MCG Oral Tablet TAKE 1 TABLET BY MOUTH ONCE DAILY * Quantity: 90 Refills: 1 YEH D.O.BLAKE * Start : 31-Oct-2018 Active Vitamin A 57127 UNIT TABS TAKE 1 TABLET DAILY. * Refills: 0 M.D. * Start : 31-Oct-2018 Active H-E-B inControl [...] TAKE 1 CAPSULE DAILY * Refills: 0 M.D. Active hydroCHLOROthiazide 12.5 MG Oral Tablet TAKE 1 TABLET BY MOUTH DAILY * Quantity: 90 Refills: 3 DHOBLE M.D., JOHN * Start : 30-May-2019 Active Oxybutynin [...] 1 TABLET AT BEDTIME. * Refills: 0 M.D. Active Amitriptyline HCl - 50 MG Oral Tablet TAKE 1 TABLET AT BEDTIME. * Quantity: 90 Refills: 0 M.D. Active Olmesartan Medoxomil 20 MG Oral Tablet TAKE 1 TABLET BY MOUTH DAILY * Quantity: 30 Refills: 0 ALISHA P.A., FIORELLA * Start : 08-Mar-2020 [...] Intramuscula r Suspension Prefilled Syringe Lot #: [id number] on: 31-Oct-2018 Tdap (Adacel) Lot #: [id number] on: 02-May-2019 Fluzone Quadrivalent 0.5 ML Intramuscula r Suspension Prefilled Syringe Lot #: [id number] on: 17-Jul-2019 Family History Name Dates Details [...] (finding) Vital Signs Date Test Result Details [id number] Systolic blood pressure 150 mm[Hg] Status: Comments [...] Depression Screening Results Date Description Value Details [id number] [QL] BASIC METABOLIC PANEL W/EGFR Comme nts: REPORT COMMENT:FASTING:NO GLUCOSE 74 mg/dl (Normal) Range: 65-139 Comments: Non-fasting reference interval UREA NITROGEN (BUN) 5 mg/dl (Below low threshol d) Range: 7-25 CREATININE 0.74 mg/dl (Normal) Range: 0.50 -1.05 Comments: For patients >49 years of age, the reference limitfor Creatinine is approximately 13% higher for peopleidentified as -Mosotho. eGFR NON-AFR. [place] 91 {ML/MIN/1.7} (Normal) Range: > OR = [...] On: 02-Sep-2020 10:00 Interventions Provided Medication Changes* hydroCHLOROthiazide 12.5 MG Oral Tablet - Renew Instructions Name Dates Details Instructions not documented Encounters Appointment; BLAKE CARRILLO D.O. Encounter Diagnosis: Problem not documented On: 31-Oct-2018 10:30 Appointment; BLAKE CARRILLO D.O. Encounter Diagnosis: Problem not documented On: 29-Jan-2019 10:00 Appointment; JAMILA SANTOS APRN Encounter Diagnosis: Problem not documented On: 17-Apr-2019 15:00 Appointment; JAMILA SANTOS, SUPERVISOR TUMBLERS Encounter Diagnosis: Problem not documented On: 02-May-2019 9:30 Appointment; BLAKE CARRILLO D.O. Encounter Diagnosis: Problem not documented On: 10-May-2019 14:30 Appointment; JOHN ANDREWS M.D. Encounter Diagnosis: Problem not documented On: 30-May-2019 11:20 Appointment; BLAKE CARRILLO D.O. Encounter Diagnosis: Problem not documented On: 17-Jul-2019 10:30 Appointment; MELISSA MCKENZIE, SUPERVISOR TUMBLERS Encounter Diagnosis: Problem not documented On: 28-Jul-2019 10:30 Appointment; CINTHYA BLOOD, SUPERVISOR TUMBLERS Encounter Diagnosis: Problem not documented On: 09-Aug-2019 10:30 Appointment; MELISSA MCKENZIE, SUPERVISOR TUMBLERS Encounter Diagnosis: Problem not documented On: 18-Aug-2019 10:15 Appointment; ANGELIQUE JONES P.A. Encounter Diagnosis: Problem not documented On: 01-Sep-2019 10:15 Appointment; CAILINEMERALDIWNOA ECHEVARRIA Encounter Diagnosis: Problem not documented On: [...]
--- OUTSIDE RECORDS SUMMARY | 2020-05-18 14:55 | XMS REPORT | Summary of Care ---
Author Author Arnoldo Moreno, SHAUN STANFORD Organization Unknown Address Unknown Phone Unavailable Care Team Providers Care Baker Pastry Name Role Phone FIORELLA SPENCE Unavailable Unavailable FARIBA Caballero, JOHN Unavailable Unavailable YEH D.O., [place]-LLOYD Unavailable Unavailable TOM HAIR CLIPPER POWER, JAMILA Unavailable Unavailable YEH DO [place], [place] Unavailable Unavailable KANNAN TODD [place], JERRY PATTERSON Unavailable Unavailable MIKAYLA TODD, JIMMY Diamond Unavailable Unavailable TOM TODD [facility] RNBC CPN, JAMILA Unavailable Unav ailable [...] DAILY * Quantity: 90 Refills: 1 YEH D.O.BLAEK * Start : 31-Oct-2018 Active Vitamin A 75836 UNIT TABS TAKE 1 TABLET DAILY. * [...] Intramuscula r Suspension Prefilled Syringe Lot #: [id number] on: 31-Oct-2018 Tdap (Adacel) Lot #: [id number] on: 02-May-2019 Fluzone Quadrivalent 0.5 ML Intramuscula r Suspension Prefilled Syringe Lot #: [id number] on: 17-Jul-2019 Family History Name Dates Details [...] (finding) Vital Signs Date Test Result Details [id number] Systolic blood pressure 150 mm[Hg] Status: Comments [...] Depression Screening Results Date Description Value Details [id number] [QL] BASIC METABOLIC PANEL W/EGFR Comme nts: REPORT COMMENT:FASTING:NO GLUCOSE 74 mg/dl (Normal) Range: 65-139 Comments: Non-fasting reference interval UREA NITROGEN (BUN) 5 mg/dl (Below low threshol d) Range: 7-25 CREATININE 0.74 mg/dl (Normal) Range: 0.50 -1.05 Comments: For patients >49 years of age, the reference limitfor Creatinine is approximately 13% higher for peopleidentified as -Slovenian. eGFR NON-AFR. [place] 91 {ML/MIN/1.7} (Normal) Range: > OR = [...] documented On: 17-Apr-2019 15:00 Appointment; JAMILA SANTOS, HAIR CLIPPER POWER Encounter Diagnosis: Problem not documented On: 02-May-2019 9:30 Appointment; BLAKE CARRILLO D.O. Encounter Diagnosis: Problem not documented On: 10-May-2019 14:30 Appointment; JOHN ANDREWS M.D. Encounter Diagnosis: Problem not documented On: 30-May-2019 11:20 Appointment; BLAKE CARRILLO D.O. Encounter Diagnosis: Problem not documented On: 17-Jul-2019 10:30 Appointment; MELISSA MCKENZIE, HAIR CLIPPER POWER Encounter Diagnosis: Problem not documented On: 28-Jul-2019 10:30 Appointment; CINTHYA BLOOD, HAIR CLIPPER POWER Encounter Diagnosis: Problem not documented On: 09-Aug-2019 10:30 Appointment; MELISSA MCKENZIE, HAIR CLIPPER POWER Encounter Diagnosis: Problem not documented On: 18-Aug-2019 10:15 Appointment; ANGELIQUE JONES P.A. Encounter Diagnosis: Problem not documented On: 01-Sep-2019 10:15 Appointment; CAILINEMERALDIWONA ECHEVARRIA Encounter Diagnosis: Problem not documented On: [...]
--- OUTSIDE RECORDS SUMMARY | 2020-05-18 14:55 | XMS REPORT | Summary of Care ---
Author Author Neville Stubbs, SHAUN ABDOULAYE Organization Unknown Address Unknown Phone Unavailable Care Team Providers Care Sheet Metal Worker Helper Name Role Phone FIORELLA SPENCE Unavailable Unavailable FARIBA Caballero, JOHN Unavailable Unavailable YEH D.O., [place] Unavailable Unavailable TOM SEALANT MIXER, JAMILA Unavailable Unavailable YEH DO [place], [place] Unavailable Unavailable KANNAN TODD [place], JERRY PATTERSON Unavailable Unavailable MIKAYLA TODD, JIMMY Diamond Unavailable Unavailable TOM TODD [facility] RNBC CPN, JAMILA Unavailable Unav [...] * Start : 31-Oct-2018 Active Vitamin A 87105 UNIT TABS TAKE 1 TABLET DAILY. * [...] DAILY * Quantity: 90 Refills: 3 FARIBA CaballeroJOHN * Start : 30-May-2019 Active Oxybutynin Chloride [...] Intramuscula r Suspension Prefilled Syringe Lot #: [id number] on: 31-Oct-2018 Tdap (Adacel) Lot #: [id number] on: 02-May-2019 Fluzone Quadrivalent 0.5 ML Intramuscula r Suspension Prefilled Syringe Lot #: [id number] on: 17-Jul-2019 Family History Name Dates Details [...] (finding) Vital Signs Date Test Result Details [id number] Systolic blood pressure 150 mm[Hg] Status: Comments [...] Depression Screening Results Date Description Value Details [id number] [QL] BASIC METABOLIC PANEL W/EGFR Comme nts: REPORT COMMENT:FASTING:NO GLUCOSE 74 mg/dl (Normal) Range: 65-139 Comments: Non-fasting reference interval UREA NITROGEN (BUN) 5 mg/dl (Below low threshol d) Range: 7-25 CREATININE 0.74 mg/dl (Normal) Range: 0.50 -1.05 Comments: For patients >49 years of age, the reference limitfor Creatinine is approximately 13% higher for peopleidentified as -Indonesian. eGFR NON-AFR. HA[place]IAN 91 {ML/MIN/1.7} (Normal) Range: > OR = [...] documented On: 17-Jul-2019 10:30 Appointment; MELISSA MCKENZIE, SEALANT MIXER Encounter Diagnosis: Problem not documented On: 28-Jul-2019 10:30 Appointment; BLOOD, CINTHYA, SEALANT MIXER Encounter Diagnosis: Problem not documented On: 09-Aug-2019 10:30 Appointment; MELISSA MCKENZIE, SEALANT MIXER Encounter Diagnosis: Problem not documented On: 18-Aug-2019 10:15 Appointment; ANGELIQUE JONES P.A. Encounter Diagnosis: Problem not documented On: 01-Sep-2019 10:15 Appointment; [facility], [place] Encounter Diagnosis: Problem not documented On: [...]
--- OUTSIDE RECORDS SUMMARY | 2020-05-18 14:55 | XMS REPORT | Summary of Care ---
Author Author SHAUN SPENCE Organization Unknown Address Unknown Phone Unavailable Care Team Providers Care Fabric Designer Name Role Phone ALISHA Nguyen, FIORELLA Unavailable Unavailable FARIBA Caballero, JOHN Unavailable Unavailable YEH D.O., [place]RI[place]-LLOYD Unavailable Unavailable TOM SURFACE MOUNT TECHNOLOGY OPERATOR, JAMILA Unavailable Unavailable YEJose Miguel DO [place], [place] Unavailable Unavailable KANNAN TODD [place], JERRY PATTERSON Unavailable Unavailable MIKAYLA TODD, JIMMY Diamond Unavailable Unavailable TOM TODD [facility] RNBC CPN, JAMILA Unavailable Unav [...] * Start : 31-Oct-2018 Active Vitamin A 44710 UNIT TABS TAKE 1 TABLET DAILY. * [...] Intramuscula r Suspension Prefilled Syringe Lot #: [id number] on: 31-Oct-2018 Tdap (Adacel) Lot #: [id number] on: 02-May-2019 Fluzone Quadrivalent 0.5 ML Intramuscula r Suspension Prefilled Syringe Lot #: [id number] on: 17-Jul-2019 Family History Name Dates Details [...] (finding) Vital Signs Date Test Result Details [id number] Systolic blood pressure 150 mm[Hg] Status: Comments : Location: LUE; Position: Sitting Diastolic blood pressure 89 mm[Hg] Status: Comment s: Location: LUE; Position: Sitting Body height 61 in Status: Weight 143.0625 lb Status: Body mass index (BMI) [Ratio] 27.03 kg/m2 Status: Body surface area Derived from formula 1.64 m2 S tatus: Body temperature 97.9 f Status: Comments: thod: Temporal Heart Rate 69 /min Status: [...] Depression Screening Results Date Description Value Details [id number] [QL] BASIC METABOLIC PANEL W/EGFR Comme nts: REPORT COMMENT:FASTING:NO GLUCOSE 74 mg/dl (Normal) Range: 65-139 Comments: Non-fasting reference interval UREA NITROGEN (BUN) 5 mg/dl (Below low threshol d) Range: 7-25 CREATININE 0.74 mg/dl (Normal) Range: 0.50 -1.05 Comments: For patients >49 years of age, the reference limitfor Creatinine is approximately 13% higher for peopleidentified as -Samoan. eGFR NON-AFR. CITIZEN OF [place] 91 {ML/MIN/1.7} (Normal) Range: > OR = [...] documented On: 17-Jul-2019 10:30 Appointment; MELISSA MCKENZIE, SURFACE MOUNT TECHNOLOGY OPERATOR Encounter Diagnosis: Problem not documented On: 28-Jul-2019 10:30 Appointment; BLOOD, CINTHYA, SURFACE MOUNT TECHNOLOGY OPERATOR Encounter Diagnosis: Problem not documented On: 09-Aug-2019 10:30 Appointment; MELISSA MCKENZIE, SURFACE MOUNT TECHNOLOGY OPERATOR Encounter Diagnosis: Problem not documented On: 18-Aug-2019 10:15 Appointment; ANGELIQUE JONES P.A. Encounter Diagnosis: Problem not documented On: 01-Sep-2019 10:15 Appointment; [facility], [place] Encounter Diagnosis: Problem not documented On: [...]
--- OUTSIDE RECORDS SUMMARY | 2020-05-18 14:55 | XMS REPORT | Summary of Care ---
Author Author Hilario TINAJERO, SHAUN STANFORD Organization Unknown Address Unknown Phone Unavailable Care Team Providers Care [place] Administrator Name Role Phone ALISHA P.A., FIORELLA Unavailable Unavailable YEH D.O., [place]-LL[place] Unavailable Unavailable TOMJOSE CARLOS POPE, JAMILA Unavailable Unavailable YEH DO [place], [place] Unavailable Unavailable KANNAN TODD [place], JERRY PATTERSON Unavailable Unavailable MIKAYLA TODD, JIMMY Diamond Unavailable Unavailable TOM BROOKS [facility] RNBC CPN, JAMILA Unavailable Unav ailable Fariba TODD, Jonh Unavailable Unavailable Unavailable Unavailable Functional Status Name Dates Details Functional status health issues are not documented Status: Name Dates Details Cognitive status health issues are not d ocumented Status: Problems Name Dates Details Hypokalemia (276.8, E87.6) Status: Active Acute bronchitis (466.0, J20.9) Status: Active Acute bacterial bronchitis (466.0, J20.8 ) Status: Active BMI 26.0-26.9,adult (V85.22, Z68.26) Status: Active Sympathotonic orthostatic hypotension (4 58.0, [...] Status: Active Bruxism (306.8, F45.8) Status: Active Hepatitis C antibody test positive [...] * Start : 31-Oct-2018 Active Vitamin A 68007 UNIT TABS TAKE 1 TABLET DAILY. * [...] Intramuscula r Suspension Prefilled Syringe Lot #: [id number] on: 31-Oct-2018 Tdap (Adacel) Lot #: [id number] on: 02-May-2019 Fluzone Quadrivalent 0.5 ML Intramuscula r Suspension Prefilled Syringe Lot #: [id number] on: 17-Jul-2019 Family History Name Dates Details [...] Status: Physical Findings 0 Status: Comments: Al clarissaol Screen - How many times in the past yr have you had 5 (for M) or 4 (for F) or 4 (for all > 65yrs) or more drinks in a day? Physical Findings 1 Status: Comments: PH Q-9 Adult Depression Screening Results Date Description Value Details [id number]-[id number] [QL] BASIC METABOLIC PANEL W/EGFR Comme nts: REPORT COMMENT:FASTING:NO GLUCOSE 74 mg/dl (Normal) Range: 65-139 Comments: Non-fasting reference interval UREA NITROGEN (BUN) 5 mg/dl (Below low threshol d) Range: 7-25 CREATININE 0.74 mg/dl (Normal) Range: 0.50 -1.05 Comments: For patients >49 years of age, the reference limitfor Creatinine is approximately 13% higher for peopleidentified as -[place]. eGFR NON-AFR. SENEGALESE 91 {ML/MIN/1.7} (Normal) Range: > OR = [...] On: 02-Sep-2020 10:00 Interventions Provided Medication Changes* diazePAM 5 MG Oral Tablet - Renew * Gabapentin 600 MG Oral Tablet - Renew Plan* Bruxism/TMJ - stable. Continue Diazepam. Continue GabapentinFollow-up with ENT when possible. Continue to wear mouth guard * Hyponatremia - stable. Repeat labs at next regular lab draw. * Menopausal Symptoms - stable. Continue Paxil [...] not documented On: 31-Oct-2018 10:30 Appointment; BLAKE CARRLILO D.O. Encounter Diagnosis: Problem [...]
--- NOTE | 2020-05-18 15:03 | Diagnostic Imaging Report ---
History: Dizziness Comparison studies: None Technique: Axial images were obtained from the skull base to the vertex. Coronal and sagittal reconstructions obtained from the axial data. Dose modulation, iterative reconstruction, and/or weight based adjustment of the mA/kV was utilized to reduce the radiation dose to as low as reasonably achievable. Intravenous contrast: None Findings: Scalp/skull: No abnormalities. No fractures, blastic or lytic lesions. Extra-axial spaces: No masses. No fluid collections. Brain sulci: Mildly prominent but appropriate for age. Ventricles: Mildly prominent temporal horns but otherwise normal in size and configuration. No hydrocephalus. Parenchyma: No abnormal densities. No masses, hemorrhage, acute or chronic cortical vascular insults. Sellar/suprasellar region: No abnormalities Craniocervical junction: Patent foramen magnum. No Chiari one malformation. Incidental findings: None. IMPRESSION: No intracranial abnormalities Signed by: Dr. Boy Meeks M.D. on 05/18/2020 2:59 PM
[2020-05-18 15:37] LABS: CLARITY,URINE HAZY (CLEAR); COLOR,URINE YELLOW (YELLOW); KETONES,URINE NEGATIVE (NEGATIVE); LEUKOCYTE ESTERASE ,URINE NEGATIVE (NEGATIVE); PROTEIN,URINE DIPSTICK NEGATIVE (NEGATIVE); URINE UROBILINOGEN 0.2 mg/dL (0.2 - 1)
[2020-05-18 15:38] LABS: BILIRUBIN,URINE NEGATIVE (NEGATIVE)
[2020-05-18 15:42] LABS: BACTERIA,URINE FEW /HPF; EPITHELIAL CELLS,URINE FEW /LPF; NITRITE,URINE NEGATIVE (NEGATIVE); RBC,URINE 0-5 /HPF (0-5); WBC,URINE (MAN) 0-5 /HPF (0-5)
--- NOTE | 2020-05-18 15:46 | Emergency Department Note ---
History of Present Illnes History of Present Illness Chief Complaint: Respiratory History of Present Illness This is a 54 year old female EXTREMELY TIRED. DENIES PAIN/FEVER/COUGH/SOB. STS SHE GETS A LITTLE LIGHTHEADED WHEN SHE WALKS. SYMPTOMS ONSET YESTERDAY, BUT WORSE TODAY. Historian: Patient Arrival Mode: Car Motion Picture Narrator Required: No Onset (how long ago): day(s) (2) Location: ALL OVER Quality: TIRED Radiation: Reports non-radiation Severity: moderate Onset quality: gradual Timing of current episode: constant Progression: unchanged Chronicity: new Context: Denies recent illness Relieving factors: none Exacerbating factors: none Associated symptoms: Reports weakness Treatments prior to arrival: none Past Medical/Family History Physician Review I have reviewed the patient's past medical and family history. Any updates have been documented here. Past Medical History Recent Fever: No Clinical Suspicion of Infectio: No New/Unexplained Change in Ment: No Past Medical History: Hypertension, Hypothyroidism, Hepatitis C, Liver Disease, Anemia, Anxiety, Depression, GERD Other Medical History: LIVER CIRROHSIS Past Surgical History: Appendectomy, Hysterectomy Other Surgery: TUMMY TUCK AND BREAST LIFT TUBAL LIGATION Social History Smoking Cessation: Never Smoker Counseling Performed: No Alcohol Use: None Any Illegal Drug Use: No TB Exposure/Symptoms: No Physically hurt or threatened: No Family History Family history of heart diseas: No Other Last Tetanus: OOD Any Pre-Existing Lines (PICC,: No Review of Systems Review of Systems Constitutional: Reports as per HPI, Reports weakness EENTM: Reports no symptoms Cardiovascular: Reports no symptoms Respiratory: Reports no symptoms Gastrointestinal: Reports no symptoms Genitourinary: Reports no symptoms Musculoskeletal: Reports no symptoms Integumentary: Reports no symptoms Neurological: Reports as per HPI, Reports weakness Psychological: Reports no symptoms Endocrine: Reports no symptoms Hematological/Lymphatic: Reports no symptoms Physical Exam Related Data Allergies: Coded Allergies: No Known Allergies (Unverified , 04/15/19) Triage Vital Signs Vital Signs Date Time Temp Pulse Resp B/P (MAP) Pulse Ox O2 Delivery O2 Flow Rate FiO2 05/18/20 13:40 98.1 86 20 141/90 99 Room Air Vital signs reviewed: Yes Physical Exam CONSTITUTIONAL Constitutional: Present well-developed, Present well-nourished, Present other (ANXIOUS) HENT HENT: Present normocephalic, Present atraumatic, Present oropharynx clear/moist, Present nose normal HENT L/R: Present left ext ear normal, Present right ext ear normal EYES Eyes: Reports PERRL, Reports conjunctivae normal NECK Neck: Present ROM normal PULMONARY Pulmonary: Present effort normal, Present breath sounds normal CARDIOVASCULAR Cardiovascular: Present regular rhythm, Present heart sounds normal, Present capillary refill normal, Present normal rate GASTROINTESTINAL Abdominal: Present soft, Present nontender, Present bowel sounds normal GENITOURINARY Genitourinary: Present exam deferred SKIN Skin: Present warm, Present dry MUSCULOSKELETAL Musculoskeletal: Present ROM normal NEUROLOGICAL Neurological: Present alert, Present oriented x 3, Present no gross motor or sensory deficits; Absent cranial nerve deficit, Absent sensory deficit, Absent abnormal DTRs, Absent abnormal coordination, Absent abnormal gait, Absent weakness PSYCHOLOGICAL Psychological: Present mood/affect normal, Present judgement normal Results Laboratory Result Diagram: 05/18/20 1404 05/18/20 1404 Laboratory Laboratory Tests Test 05/18/20 15:13 05/18/20 14:04 Urine Color Yellow (YELLOW) Urine Clarity Hazy (CLEAR) Urine pH 7 (5 - 7) Urine Specific [place] 1.010 (1.010-1.025) Urine Protein Negative (NEGATIVE) Urine Glucose (UA) Negative (NEGATIVE) Urine Ketones Negative (NEGATIVE) Urine Blood Trace (NEGATIVE) Urine Bilirubin Negative (NEGATIVE) Urine Urobilinogen 0.2 mg/dL (0.2 - 1) Urine Leukocyte Esterase Negative (NEGATIVE) White Blood Count 7.49 x10e3/uL (4.8-10.8) Red Blood Count 4.33 x10e6/uL (3.6-5.1) Hemoglobin 13.3 g/dL (12.0-16.0) Hematocrit 37.5 % (34.2-44.1) Mean Corpuscular Volume 86.6 fL (81-99) Mean Corpuscular Hemoglobin 30.7 pg (28-32) Mean Corpuscular Hemoglobin Concent 35.5 g/dL (31-35) Red Cell Distribution Width 12.0 % (11.7-14.4) Platelet Count 149 x10e3/uL (140-360) Neutrophils (%) (Auto) 58.6 % (38.7-80.0) Lymphocytes (%) (Auto) 27.4 % (18.0-39.1) Monocytes (%) (Auto) 7.6 % (4.4-11.3) Eosinophils (%) (Auto) 5.6 % (0.0-6.0) Basophils (%) (Auto) 0.4 % (0.0-1.0) Neutrophils # (Auto) 4.4 (2.1-6.9) Lymphocytes # (Auto) 2.1 (1.0-3.2) Monocytes # (Auto) 0.6 (0.2-0.8) Eosinophils # (Auto) 0.4 (0.0-0.4) Basophils # (Auto) 0.0 (0.0-0.1) Absolute Immature Granulocyte (auto 0.03 x10e3/uL (0-0.1) Prothrombin Time 13.4 seconds (11.9-14.5) Prothromb Time International Ratio 0.97 Activated Partial Thromboplast Time 35.1 seconds (23.8-35.5) Sodium Level 132 mmol/L (136-145) Potassium Level 3.3 mmol/L (3.5-5.1) Chloride Level 100 mmol/L (98-107) Carbon Dioxide Level 19 mmol/L (22-29) Anion Gap 16.3 mmol/L (8-16) Blood Urea Nitrogen < 5 mg/dL (7-26) Creatinine 0.82 mg/dL (0.57-1.11) Estimat Glomerular Filtration Rate > 60 ML/MIN (60-) BUN/Creatinine Ratio 6 (6-25) Glucose Level 88 mg/dL (74-118) Calcium Level 10.1 mg/dL (8.4-10.2) Magnesium Level 1.9 MG/DL (1.3-2.1) Total Bilirubin 0.4 mg/dL (0.2-1.2) Aspartate Amino Transf (AST/SGOT) 38 IU/L (5-34) Alanine Aminotransferase (ALT/SGPT) 27 IU/L (0-55) Alkaline Phosphatase 73 IU/L (40-150) Creatine Kinase 136 IU/L (29-168) Creatine Kinase MB 3.20 ng/mL (0-5.0) Troponin I 0.014 ng/mL (0-0.300) Total Protein 8.2 g/dL (6.5-8.1) Albumin 4.3 g/dL (3.5-5.0) Globulin 3.9 g/dL (2.3-3.5) Albumin/Globulin Ratio 1.1 (0.8-2.0) Thyroid Stimulating Hormone (TSH) 0.453 uIU/mL (0.350-4.940) Lab results reviewed: Yes Imaging Imaging results reviewed: Yes Impressions CT BRAIN WITHOUT CONTRAST IMPRESSION: No intracranial abnormalities Signed by: Dr. Boy Meeks M.D. on 05/18/2020 2:59 PM CXR IMPRESSION: No acute thoracic radiographic abnormality. Signed by: Octavio Jaeger MD on 05/18/2020 2:46 PM Procedures 12 Lead ECG Interpretation ECG Interpretation : ECG: ECG 1 Motion Picture Narrator: Interpreted by ED physician Date: May 18, 2020 Time: 13:45 Rhythm: sinus rhythm Rate: normal (86) QRS axis: normal ST segments normal: Yes T wave inversion: III, aVR, V1, V2, V3, V4 T waves flattening: II, aVF, V5, V6 Clinical Impression: abnormal ECG Assessment & Plan Medical Decision Making MDM FATIGUE, NO ENERGY, MILD LIGHTHEADEDNESS - CHECK CBC, CHEM, TSH, UA/CX, CXR, CT HEAD - R/O DEHYDRATION, UTI, ELECTROLYTE ABNL, HYPOTHYROID, CEREBRAL BLEED/MASS Reassessment Reassessment PT IMPROVED, SAYS "I FEEL MORE RELAXED". DC HOME, F/U PCP Assessment & Plan Final Impression: (1) Fatigue (2) Anxiety Depart Disposition: HOME, SELF-CARE Last Vital Signs Date Time Temp Pulse Resp B/P (MAP) Pulse Ox O2 Delivery O2 Flow Rate FiO2 05/18/20 15:09 98.5 74 18 117/75 100 Room Air Home Meds Active Scripts Levothyroxine Sodium (SYNTHROID) 75 Mcg Tab, 75 MCG PO DAILY@06 for 30 Days, TAB 2 Refills Prov:TRACEY MONREAL CAMERA REPAIRMAN 09/27/19 Reported Medications Olmesartan Medoxomil (BENICAR) 20 Mg Tablet, 20 MG PO DAILY, #30 TAB 05/18/20 Clonidine Hcl (CLONIDINE HCL) 0.1 Mg Tablet, 1 TAB PO PRN, #60 TAB 05/18/20 Diazepam (DIAZEPAM) 5 Mg Tablet, 5 MG PO HS, #30 TAB 05/18/20 Celecoxib* (CELEBREX*) 100 Mg Capsule, 200 MG PO BID, #30 CAP 05/18/20 Sennosides (SENNA LAXATIVE) 8.6 Mg Tablet, 1 TAB PO DAILY 05/18/20 [place]-3 Fatty Acids/Fish Oil (FISH OIL 1,000 MG CAPSULE) 1 Each Capsule, 1 TAB PO DAILY 05/18/20 Risperidone (RISPERIDONE) 1 Mg Tablet, 1 MG PO HS 09/22/19 Amitriptyline Hcl (AMITRIPTYLINE HCL) 25 Mg Tablet, 50 MG PO HS, #30 TAB 09/22/19 Oxybutynin Chloride (OXYBUTYNIN CHLORIDE ER) 5 Mg Tab.er.24, 5 MG PO DAILY 09/22/19 Vitamin A (VITAMIN A) 10,000 Unit Cap, PO DAILY 09/22/19 Trazodone Hcl (TRAZODONE HCL) 50 Mg Tablet, 100 MG PO HS, #30 TAB 09/22/19 Venlafaxine Hcl (VENLAFAXINE HCL ER) 75 Mg Tab.er.24, 150 MG PO DAILY 09/22/19 Tramadol Hcl* (ULTRAM 50MG*) 50 Mg Tab, 50 MG PO Q8H PRN for PAIN, TAB 09/22/19 Gabapentin (GABAPENTIN) 300 Mg Capsule, 600 MG PO TID 09/22/19 Discontinued Reported Medications Fluticasone Propionate (Fluticasone Propionate) 15.8 Ml [place].susp, 1 SPRAY NA DAILY 09/22/19 [Promethazine Vc] No Conflict Check, 5 ML PO Q4HR PRN for COUGH 09/22/19 Hydrochlorothiazide (HYDROCHLOROTHIAZIDE) 12.5 Mg Tablet, 12.5 MG PO DAILY 09/22/19 Propranolol Hcl (PROPRANOLOL HCL) 10 Mg Tablet, 20 MG PO DAILY, TAB 09/22/19 Discontinued Scripts Ondansetron Hcl* (ZOFRAN*) 4 Mg Tablet, 4 MG PO Q8HR PRN for NAUSEA AND VOMITING, #20 Prov:TRACEY MONREAL CAMERA REPAIRMAN 09/27/19 Acetaminophen With Codeine (TYLENOL WITH CODEINE #3 TABLET) 1 Each Tablet, 300 MG PO Q8H PRN for ABDOMINAL PAIN, #20 TAB Prov:TRACEY MONREAL CAMERA REPAIRMAN 09/27/19 Medications in the ED Pantoprazole Sodium 40 mg ONCE STAT IV Last administered on 05/18/20at 14:50; Admin Dose 40 MG; Start 05/18/20 at 13:55; Stop 05/18/20 at 13:59; Status DC Sodium Chloride 1,000 ml @ 0 mls/hr Q0M STAT IV Last administered on 05/18/20at 14:50; Admin Dose 999 MLS/HR; Start 05/18/20 at 13:55; Stop 05/18/20 at 13:57; Status DC ADELAIDA DURANT MD May 18, 2020 15:46
[2020-05-18] MEDS ORDERED: POTASSIUM CHLORIDE 20 MEQ TAB CR PO STA (15:52)
[2020-05-18 15:57] VITALS: BP 128/58
[2020-05-18] MEDS ORDERED: KETOROLAC TROMETHAMINE 30 MG/ML VIAL IV STA (15:57)
== END 2020-05-18 16:17 | disposition home or self-care (01) ==
LOC: ER 14:45
DX: R53.83 Other fatigue (principal); F41.9 Anxiety disorder, unspecified; I10 Essential (primary) hypertension; E03.9 Hypothyroidism, unspecified; K21.9 Gastro-esophageal reflux disease without esophagitis; K74.60 Unspecified cirrhosis of liver; B19.20 Unspecified viral hepatitis C without hepatic coma
CPT/HCPCS: 36415; 70450; 71045; 80053; 81001; 82550; 82553; 83735; 84443; 84484; 85025; 85610; 85730; 87086; 93005; 99284; C9113; J1885; J7030

== ENCOUNTER 2020-07-14 18:32 | Observation (INO) | payer MEDICARE ==
[~2020-07-14] VITALS: Ht 154.9 cm; Wt 62.6 kg
[~2020-07-14 18:32] MED LIST changes: +BENICAR20 MG PO; +CELEBREX100 MG PO; +CLONIDINE HCL0.1 MG PO; +DIAZEPAM5 MG PO; +FISH OIL 1,0001 EAC2 PO; +SENNA LAXATIVE8.6 MG PO
--- OUTSIDE RECORDS SUMMARY | 2020-07-14 19:10 | XMS REPORT | Clinical Summary ---
Author Author AARON [facility] Organization [facility] Address Unknown Phone Unavailable Care Team Providers Care Parachute Inspector Name Role Phone PCP Unavailable Allergies No Known Allergies Medications End Date Status Medication Sig Dispensed Refills Start Date Active venlafaxine (EFFEXOR-XR) Take 150 mg 0 150 MG 24 hr capsule by mouth daily. Active senna (SENOKOT) 8.6 mg Take 1 tablet 0 tablet by mouth daily. Active omega-3 fatty acids-fish Take 2 g by 0 oil 340-1,000 mg Cap per mouth 2 (two) capsule times daily. Active gabapentin (NEURONTIN) Take 600 mg 0 600 MG tablet by mouth 3 (three) times daily. Active VITAMIN A Take by 0 [id number] ORAL mouth. Active levothyroxine (SYNTHROID) Take 75 mcg 0 75 MCG tablet by mouth Every morning on an empty stomach. Active traMADoL (ULTRAM) 50 mg Take 50 mg by 0 tablet mouth every 8 (eight) hours as needed for Pain. Active traZODone (DESYREL) 100 Take 100 mg 0 MG tablet by mouth nightly. Active oxybutynin (DITROPAN-XL) Take 5 mg by 0 5 MG 24 hr tablet mouth daily. Active sodium chloride 1 gram Take 1 g by 0 tablet mouth 3 (three) times daily. Active risperiDONE (RISPERDAL) 1 Take 1 mg by 0 MG tablet mouth 2 (two) times daily. Active amitriptyline (ELAVIL) 50 Take 50 mg by 0 MG tablet mouth nightly. Active olmesartan (BENICAR) 20 Take 20 mg by 0 MG tablet mouth daily. Active diazePAM (VALIUM) 5 MG Take 5 mg by 0 tablet mouth every 6 (six) hours as needed for Anxiety. Active cloNIDine HCL (CATAPRES) Take 0.1 mg 0 0.1 MG tablet by mouth 2 (two) times daily. Active celecoxib (CELEBREX) 200 Take 200 mg 0 MG capsule by mouth every 12 (twelve) hours as needed for Pain. Active Problems Not on file Encounters Care Team Description Date Type Specialty Eber Phuc Guardado NILAY, DO Lesion of skin of scalp (Primary Dx) 06/21/2020 Emergency Emergency Medicine 06/21/2020 Travel after 07/14/2019 Social History Date Tobacco Use Types Packs/Day Years Used Current Every Day Smoker Cigarettes Smokeless Tobacco: Never Used Alcohol Use Drinks/Week oz/Week Comments Yes Alcohol Habits Answer Date Recorded How often do you have a drink containing alcohol? Never 06/21/2020 How many drinks containing alcohol do you have on No t asked a typical day when you are drinking? How often do you have six or more drinks on one Not asked occasion? Sex Assigned at Date Recorded Not on file Industry Job Start Date Occupation Not on file Not on file Not on file Travel End Travel History Travel Start No recent travel history available. Last Filed Vital Signs Time Taken Vital Sign Reading 06/21/2020 8:19 PM CDT Blood Pressure 156/89 06/21/2020 9:22 PM CDT Pulse 85 06/21/2020 8:19 PM CDT Temperature 37.1 C (98.8 F) 06/21/2020 9:22 PM CDT Respiratory Rate 16 06/21/2020 8:19 PM CDT Oxygen Saturation 99% - Inhaled Oxygen - Concentration 06/21/2020 8:19 PM CDT Weight 64.9 kg (143 lb) 06/21/2020 8:19 PM CDT Height 154.9 cm (5' 1") 06/21/2020 8:19 PM CDT Body Mass Index 27.02 Plan of Treatment Not on file Results Not on fileafter 07/14/2019 Insurance Payer Benefit Subscriber ID Type Phone Address Plan / Group AETNA - [employer] CARE AETNA PPO xxxxxxxxxxxx [place] [phone]
--- OUTSIDE RECORDS SUMMARY | 2020-07-14 19:10 | XMS REPORT | Clinical Summary ---
Author Author [facility] Organization [facility] ict Address Unknown Phone Unavailable Care Team Providers Care Spout Tender Name Role Phone PCP Unavailable Allergies No [...] (post-traumatic stress disorder) 09/17/2019 [facility] 07/17/2019 Refill Psychiatry after 07/14/2019 Immunizations Name Administration Dates Next Due Influenza [...] Comments Vital Sign 135/95 11/19/2019 10:55 AM DATA MANAGER Blood Pressure 67 11/19/2019 10:55 AM DATA MANAGER Pulse 36.8 C (98.2 F) 11/19/2019 10:55 AM DATA MANAGER Temperature 18 11/19/2019 10:55 AM DATA MANAGER Respiratory Rate 100% 11/19/2019 10:55 AM DATA MANAGER Oxygen Saturation - - Inhaled Oxygen Concentration 63.5 kg (140 lb) 11/19/2019 10:55 AM DATA MANAGER Weight 154.9 cm (5' 1") 11/19/2019 10:55 AM DATA MANAGER Height 26.45 11/19/2019 10:55 AM DATA MANAGER Body Mass Index Plan of Treatment Health Maintenance Due Date Last Done Comments Cervical Cancer Scrn (3 1984 Yrs) Breast Cancer Scrn 05/31/2012 05/31/2011, (Yearly) 01/20/2010, 11/22/2008 Colorectal Cancer Scrn 2013 04/08/2010, Annual (FIT/FOBT) Age 48 07/29/2009 to 73 IMM Influenza Seasonal 07/17/2020 10/19/2012, Jul to December (>/= 19 yrs) 09/19/2008 Results Not on fileafter 07/14/2019 Insurance Type Payer Benefit Subscriber ID Effective Phone Address Plan / Dates Group AETNA MEDICARE AETNA xxxxxxxxxxxx 2019-P [phone] [address] [facility] [place] [address] [place] [address]
--- OUTSIDE RECORDS SUMMARY | 2020-07-14 19:10 | XMS REPORT | Clinical Summary ---
Author Author [facility] Address Unknown Phone Unavailable Care Team Providers Care Nut Cracker Name Role Phone Leandro Castro MD PCP [...] Assigned at Date Recorded Not on file Last Filed Vital Signs Not on file Plan of Treatment Health Maintenance Due Date Last Done Comments CERVICAL CANCER SCREENING 1984 BREAST CANCER SCREENING 2013 COLONOSCOPY SCREENING 2013 SHINGLES VACCINES (#1) 2013 INFLUENZA VACCINE 05/17/2020 Results Not on fileafter 07/14/2019 Insurance Type Payer Benefit Subscriber ID Effective Phone Address Plan / Dates Group PPO AETNA AETNA PPO [id number] OPEN resent CHOICE Medicare MEDICARE MEDICARE [id number]- [place], PART A AND Present [place] B Indemnity AETNA AETNA [id number]- [employer] Present RE INDEMNITY Advance Directives For more information, please contact: [phone] Patient Signal Maintainer Explanation Type Date Recorded Advance Directives, Living Will and Medical Power of Water Resource Project Manager
--- OUTSIDE RECORDS SUMMARY | 2020-07-14 19:11 | XMS REPORT | Continuity of Care Document ---
Author Author [facility] t Organization [facility] Address [address] [place] [address] Phone Unavailable Care Team Providers Care Nurse Outreach Case Manager Name Role Phone Chao CARRILLO PCP BLAKE CARRILLO D.O. Attphys Unavailable Josh Velázquez DO Attphys Eric DURANT Attphys Unavailable FIORELLA BRITO, P.A. Attphys Unavailable Sondra Tucker MD Attphys Eric Trammell MD Attphys JOSH SIMEON M.D. Attphys Unavailable DIEGO WATSON Attphys Unavailable LAURENCE ANDREWS M.D. Attphys Unavailable [facility] Attphys Unavailable ANGELIQUE JONES, P.A. Attphys Unavailable MELISSA MCKENZIE APRN Attphys Unavailable LAW KEENAN NP Attphys Unavailable CINTHYA BLOOD APRN Attphys Unavailable Sondra Guzman MD Attphys JAMILA SANTOS APRN Attphys Unavailable AV OLIVEIRA Attphys Unavailable DIEGO WATSON Admphys Unavailable Payers Payer Name Policy Type Policy Number Effective Date Expiration Date Lobo valdivia AETNA - MGD CAREAETNA PPO OPEN [facility] NAPxxxxxxxxxxxxPPO xxxx xxxxxxxx [facility] Aetna Medicare Replacement [id number] 2019 00:00:0 0 [facility] AETNA MEDICAREAETNA GOVERNMENT [id number] [id number], [place] [address] xxxxxxxxxxxx 2019 00:00:00 [facility] Problems Condition Name Condition Details Condition Category Status Onset Date Resolution Date Last Treatment Date Treating Clinician Comments Source Sacroiliac joint dysfunction of left side Sacroiliac j oint dysfunction of left side Disease Active 2016-10-12 00:00:00 [facility] Trochanteric bursitis, left hip Trochanteric bursitis, left hip Dis ease Active 2016-10-12 00:00:00 José Rodarte Unspecified urinary incontinence Unspecified urinary incontinenc e Disease Active 2012-02-22 00:00:00 [facility] Tobacco abuse Tobacco abuse Disease Active 2012-02-22 00:00:00 [facility] Acute hepatitis C without mention of hepatic coma(070. 51) Acute hepatitis C without mention of hepatic coma(070.51) Disease Active 2011 00:00:[address] [facility] LBP (low back pain) LBP (low back pain) Disease Active 2010-02-25 00:00 :00 [facility] Amnestic disorder Amnestic disorder Disease Active 2009-07-14 00:00:00 [facility] Wrist pain Wrist pain Disease Active 2009-05-15 00:00:00 [facility] Major depressive disorder, single episod e, severe, without mention of psychotic behavior Major depressive disorder, single episod e, severe, without mention of psychotic behavior Disease Active 2009-03-13 00:00:00 [facility] Carpal tunnel syndrome Carpal tunnel syndrome Disease Active 2008-07-25 00:00:00 [facility] Unspecified hypothyroidism Unspecified hypothyroidism Disease Active 2008-07-25 00:00:00 [facility] Chronic pain due to trauma Chronic pain due to trauma Disease Active 2008-07-25 00:00:00 [facility] Post-traumatic stress disorder Post-traumatic stress disorder Disea se Active 2008-07-25 00:00:00 [facility] Fatigue Problem Active [facility] Anxiety Problem Active [facility] Patient requests second opinion Patient requests second opinion Pro blem Active [facility] Physicians History of post traumatic stress disorder History of p ost traumatic stress disorder Problem Resolved [facility] History of cirrhosis History of cirrhosis Problem Resolved [facility] History of thyroid disorder History of thyroid disorder Problem Resolved [facility] Screening for breast cancer Screening for breast cancer Problem Active [facility] Need for Tdap vaccination Need for Tdap vaccination Problem Active [facility] Need for hepatitis C screening test Need for hepatitis C screeni ng test Problem Active [facility] Hepatitis C antibody test positive Hepatitis C antibody test pos itive Problem Active [facility] Cervical muscle strain Cervical muscle strain Problem Active [facility] Bruising, spontaneous Bruising, spontaneous Problem Active [facility] Platelets decreased Platelets decreased Problem Active [facility] Acute bronchitis Acute bronchitis Problem Active [facility] BMI 26.0-26.9,adult BMI 26.0-26.9,adult Problem Active [facility] Acute bacterial bronchitis Acute bacterial bronchitis Problem Active [facility] Sympathotonic orthostatic hypotension Sympathotonic orthosta tic hypotension Problem Active [facility] Hypokalemia Hypokalemia Problem Active [facility] Acute upper respiratory infection Acute upper respiratory infect ion Problem Active [facility] Chronic constipation Chronic constipation Problem Active [facility] S/P cholecystectomy S/P cholecystectomy Problem Active [facility] Sensory urge incontinence Sensory urge incontinence Problem Active [facility] TMJ (temporomandibular joint disorder) TMJ (temporomandibula r joint disorder) Problem Active [facility] Headache Headache Problem Active [facility] Bruxism Bruxism Problem Active [facility] Essential (primary) hypertension Essential (primary) hypertensio n Problem Active [facility] Hypothyroidism Hypothyroidism Problem Active [facility] Mixed hyperlipidemia Mixed hyperlipidemia Problem Active [facility] Hyponatremia Hyponatremia Problem Active [facility] Screening for HIV without presence of risk factors Scr eening for HIV without presence of risk factors Problem Active [facility] Postural dizziness with presyncope Postural dizziness with presy ncope Problem Active [facility] Mass of skin of head Mass of skin of head Problem Active [facility] Current episode of major depressive disorder without p rior episode Current episode of major depressive disorder without prior episode Disease Active [facility] Allergies, Adverse Reactions, Alerts Allergy Name Allergy Type Status Severity Reaction(s) Onset Date Inacti ve Date Treating Clinician Comments Source Hydrocodone-Acetaminophen Propensity to adverse reactions to drug Act kervin 2016-10-01 00:00:00 Causes Hallucination José Rodarte Family History Family Member Diagnosis Comments Start Date Stop Date Source Grandmother Family history of depression [facility] Grandfather Family history of malignant neoplasm [facility] Grandfather Family history of Aneurysm [facility] Mother Family history of diabetes mellitus [facility] Mother Family history of hypertension [facility] Mother Family history of chronic obstructive pulmonary disease [facility] Mother Family history of asthma [facility] Mother Family history of cardiac pacemaker [facility] Father Family history of hypertension [facility] Father Family history of stroke [facility] Father Family history of chronic obstructive pulmonary disease [facility] Father FH: CABG (coronary artery bypass surgery) [facility] Father Family history of myocardial infarction [facility] Natural father No Known Problems Elaine Rodarte Natural mother No Known Problems Elaine Rodarte Maternal grandfather [facility] Maternal grandfather Heart [facility] Paternal aunt Cancer [facility] Social History Social Habit Start Date Stop Date Quantity Comments Source History of tobacco use Cigarette Smoker [facility] History SDOH Alcohol Std Drinks [facility] History SDOH Alcohol Binge [facility] Sex Assigned At [facility] History SDOH Alcohol Frequency 2020-06-21 00:00:00 2020-06-21 00:00:0 0 1 [facility] Cigarettes smoked current (pack per day) - Reported 00:00:00 2019-05-22 00:00:00 [facility] Cigarette pack-years 2019-05-22 00:00:00 2019-05-22 00:00:00 [facility] Alcohol intake 2019-05-22 00:00:00 2019-05-22 00:00:00 Current drinker of alcohol (finding) [facility] Alcohol Comment 2012-10-19 00:00:00 2012-10-19 00:00:00 socially -dranked New Years [facility] Tobacco Comment 2008-07-25 00:00:00 2008-07-25 00:00:[address] [facility] Smoking Status Start Date Stop Date Source Current every day smoker 2019-05-22 00:00:00 [facility] Medications Ordered Medication Name Filled Medication Name Start Date Stop Da te Current Medication? Ordering Clinician Indication Dosage Frequency Signature (SIG) Comments Components Source sodium chloride 1 gram tablet 2020-06-21 20:25:00 Yes 1g [id number] Take 1 g by mouth 3 (three) times daily. [facility] risperiDONE (RISPERDAL) 1 MG tablet 2020-06-21 20:25:00 Yes 1mg Q.5D Take 1 mg by mouth 2 (two) times daily. [facility] amitriptyline (ELAVIL) 50 MG tablet 2020-06-21 20:25:00 Yes 50mg QD Take 50 mg by mouth nightly. [facility] olmesartan (BENICAR) 20 MG tablet 2020-06-21 20:25:00 Yes 20mg QD Take 20 mg by mouth daily. [facility] diazePAM (VALIUM) 5 MG tablet 2020-06-21 20:25:00 Yes 5mg Take 5 mg by mouth every 6 (six) hours as needed for Anxiety. [facility] cloNIDine HCL (CATAPRES) 0.1 MG tablet 2020-06-21 20:25:00 Yes .1mg Q.5D Take 0.1 mg by mouth 2 (two) times daily. [facility] celecoxib (CELEBREX) 200 MG capsule 2020-06-21 20:25:00 Yes 200mg Take 200 mg by mouth every 12 (twelve) hours as needed for Pain. [facility] omega-3 fatty acids-fish oil 340-1,000 mg Cap per capsule 2020-06-21 20:24:59 Yes 2g Q.5D Take 2 g by mouth 2 (two) times daily. [facility] gabapentin (NEURONTIN) 600 MG tablet 2020-06-21 20:24:59 Yes 600mg [id number] Take 600 mg by mouth 3 (three) times daily. [facility] VITAMIN A [id number] ORAL 2020-06-21 20:24:59 Yes Take by mouth. [facility] levothyroxine (SYNTHROID) 75 MCG tablet 2020-06-21 20:24:59 Yes 75ug Take 75 mcg by mouth Every morning on an empty stomach. [facility] traMADoL (ULTRAM) 50 mg tablet 2020-06-21 20:24:59 Yes 50mg Take 50 mg by mouth every 8 (eight) hours as needed for Pain. [facility] traZODone (DESYREL) 100 MG tablet 2020-06-21 20:24:59 Yes 100mg QD Take 100 mg by mouth nightly. [facility] oxybutynin (DITROPAN-XL) 5 MG 24 hr tablet 2020-06-21 20:24:59 Yes 5mg QD Take 5 mg by mouth daily. [facility] venlafaxine (EFFEXOR-XR) 150 MG 24 hr capsule 2020-06-21 20:24:5 8 Yes 150mg QD Take 150 mg by mouth daily. [facility] senna (SENOKOT) 8.6 mg tablet 2020-06-21 20:24:58 Yes 1{tbl} QD Take 1 tablet by mouth daily. [facility] Sodium Chloride 1 GM Oral Tablet Sodium Chloride 1 GM Oral T ablet 2020-05-23 00:00:00 Yes BLAKE CARRILLO D.O. 1 QD TAKE 1 TABLET LIZ LY [facility] Olmesartan Medoxomil 20 MG Oral Tablet Olmesartan Medoxomil 20 MG Oral Tablet 2020-03-08 00:00:00 Yes BLAKE CARRILLO D.O. 1 Q D TAKE 1 TABLET DAILY for high blood pressure [facility] cloNIDine HCl - 0.1 MG Oral Tablet cloNIDine HCl - 0.1 MG Or al Tablet 2020-03-08 00:00:00 Yes FIORELLA Nguyen 1 tab po tid if BP > 170/100 [facility] risperiDONE (RISPERDAL) 1 mg tablet 2020-02-18 00:00:00 Yes Major depressive disorder, recurrent episode, mild 1mg Take 1 tablet by mouth at bedtime nightly. [facility] traZODone (DESYREL) 100 mg tablet 2020-02-18 00:00:00 Yes Major depressive disorder, recurrent episode, mild 100mg Take 1 tablet by mouth at bedtime nightly. [facility] venlafaxine (EFFEXOR XR) 150 mg extended release capsule 2020-02-18 00:00:00 Yes Major depressive disorder, recurrent episode, m ild 150mg QD Take 1 capsule by mouth daily. [facility] diazePAM 5 MG Oral Tablet diazePAM 5 MG Oral Tablet 2019-11-27 00:00: 00 Yes BLAKE CARRILLO D.O. TAKE ONE TABLET BY MOUTH EVERY NIGHT AT BEDTIME [facility] risperiDONE (RISPERDAL) 1 mg tablet 2019-11-19 00:00:0 0 2020-02-18 00:00:00 No Major depressive disorder, recurrent episode, mild 1mg Take 1 tablet by mouth at bedtime nightly. [facility] traZODone (DESYREL) 100 mg tablet 2019-11-19 00:00:00 2019 00:00:00 No Major depressive disorder, recurrent episode, mild 100mg Take 1 tablet by mouth at bedtime nightly. [facility] venlafaxine (EFFEXOR XR) 150 mg extended release capsule 2019-11-19 00:00:00 2020-02-18 00:00:00 No Major depressive disorder, r ecurrent episode, mild 150mg QD Take 1 capsule by mouth daily. [facility] traZODone (DESYREL) 100 mg tablet 2019-10-26 00:00:00 2019 00:00:00 No Major depressive disorder, recurrent episode, mild 100mg Take 1 tablet by mouth at bedtime nightly. [facility] Celecoxib 200 MG Oral Capsule Celecoxib 200 MG Oral Capsule 2018 00:00:00 Yes BLAKE CARRILLO D.O. Q0.5D TAKE 1 CAPS ULE BY MOUTH TWICE DAILY WITH FOOD [facility] Levothyroxine Sodium (Synthroid) 75 Mcg TAB Levothyrox ine Sodium (Synthroid) 75 Mcg TAB 2019-09-27 04:08:00 Yes 75 Daily@06 [facility] Acetaminophen With Codeine (Tylenol With Codeine #3 Ta blet) 1 Each TABLET Acetaminophen With Codeine (Tylenol With Codeine #3 Tablet) 1 Each TABLET 2019-09-27 04:08:00 2020-05-18 00:00:00 No 300 Every 8 Hours as needed for Abdominal Pain [facility] Ondansetron Hcl (Zofran*) 4 Mg TABLET Ondansetron Hcl (Zofra n*) 4 Mg TABLET 2019-09-27 04:08:00 2020-05-18 00:00:00 No 4 Every 8 Hours as needed for Nausea And Vomiting [facility] risperiDONE (RISPERDAL) 1 mg tablet 2019-09-17 00:00:0 0 2019-11-19 00:00:00 No Major depressive disorder, recurrent episode, mild 1mg Take 1 tablet by mouth at bedtime nightly. [facility] traZODone (DESYREL) 100 mg tablet 2019-09-17 00:00:00 2019 00:00:00 No Major depressive disorder, recurrent episode, mild 100mg Take 1 tablet by mouth at bedtime nightly. [facility] venlafaxine (EFFEXOR XR) 150 mg extended release capsule 2019-09-17 00:00:00 2019-11-19 00:00:00 No Major depressive disorder, r ecurrent episode, mild 150mg QD Take 1 capsule by mouth daily. [facility] traZODone (DESYREL) 100 mg tablet 2019-07-17 00:00:00 2018 00:00:00 No Major depressive disorder, recurrent episode, mild TAKE 1 TABLET BY MOUTH EVERY NIGHT AT BEDTIME NEEDED [facility] venlafaxine (EFFEXOR XR) 150 mg extended release capsule 2019-06-25 00:00:00 2019-09-17 00:00:00 No Major depressive disorder, r ecurrent episode, mild 150mg QD Take 1 capsule by mouth daily. [facility] risperiDONE (RISPERDAL) 1 mg tablet 2019-06-25 00:00:0 0 2019-09-17 00:00:00 No Major depressive disorder, recurrent episode, mild 1mg Take 1 tablet by mouth at bedtime nightly. [facility] traZODone (DESYREL) 100 mg tablet 2019-06-25 00:00:00 2018 00:00:00 No Major depressive disorder, recurrent episode, mild 100mg Take 1 tablet by mouth nightly at bedtime as needed for Sleep. [facility] Oxybutynin Chloride ER 5 MG Oral Tablet Extended Relea se 24 Hour Oxybutynin Chloride ER 5 MG Oral Tablet Extended Release 24 Hour 2019-06-22 00:00:00 Yes BLAKE CARRILLO D.OKayla TAKE 1 TABLET BY MOUTH EVERY DA Y [facility] hydroCHLOROthiazide 12.5 MG Oral Tablet hydroCHLOROthiazide 12.5 MG Oral Tablet 2019-05-30 00:00:00 Yes LAURENCE RockDKayla QD TAKE 1 TABLET BY MOUTH DAILY [facility] Shingrix 50 MCG/0.5ML Intramuscular Suspension Reconst ituted Shingrix 50 MCG/0.5ML Intramuscular Suspension Reconstituted 2019-05-02 00:00:00 Yes JAMILA SANTOS APRN ADMINISTER 0.5 M L INTRAMUSCULARLY ONCE NOW, THEN SECOND DOSE AT 2-6 MONTHS. [facility] H-E-B inControl BP Monitor H-E-B inControl BP Monitor 2019-04-17 00:0 0:00 Yes JAMILA SANTOS APRN MEASURE BLOOD PRESSURE DAILY D IRECTED. [facility] Gabapentin 600 MG Oral Tablet Gabapentin 600 MG Oral Tablet 2018 00:00:00 Yes BLAKE CARRILLO D.OKayla Q0.3333D TAKE 1 TABLET BY GORDON TH THREE TIMES DAILY [facility] Venlafaxine HCl ER 150 MG Oral Capsule Extended Releas e 24 Hour Venlafaxine HCl ER 150 MG Oral Capsule Extended Release 24 Hour 2018-10-31 00:00:00 Yes M.A. QD TAKE 1 CAPSULE ONCE DAILY WITH FOOD. [facility] traMADol HCl - 50 MG Oral Tablet traMADol HCl - 50 MG Oral T ablet 2018-10-31 00:00:00 Yes BLAKE CARRILLO D.OKayla Q8H T MIKEL 1 TABLET EVERY 8 HOURS NEEDED. [facility] Vitamin A 49464 UNIT TABS Vitamin A 84932 UNIT TABS 2018-10-31 00:00: 00 Yes M.A. QD TAKE 1 TABLET DAILY. [facility] traZODone HCl - 100 MG Oral Tablet traZODone HCl - 100 MG Or al Tablet 2018-10-31 00:00:00 Yes M.A. 1 QD TAKE 1 TABLET DAILY [facility] Levothyroxine Sodium 75 MCG Oral Tablet Levothyroxine Sodium 75 MCG Oral Tablet 2018-10-31 00:00:00 Yes BLAKE CARRILLO DKaylaOKayla 1 Q D TAKE 1 TABLET BY MOUTH ONCE DAILY [facility] paliperidone (INVEGA) 6 MG 24 hr [...] Yes TAKE 1 TABLET PO DAILY Ashish Rodarte gabapentin (NEURONTIN) 300 mg capsule 2016-08-27 00:00:00 [...] hours as needed (q 8 hours prn). [facility] ALBUTEROL 90 mcg/Actuation Aero 2012-10-19 08:37:52 Yes Administer by inhalation. [facility] oxybutynin (DITROPAN) 5 mg tablet 2012-09-20 00:00:00 Yes Unspecified urinary incontinence 5mg Take 1 tablet by mouth [address] [facility] levothyroxine (SYNTHROID) 50 mcg tablet 2012-06-06 00:00:00 Yes Neuropathic pain syndrome (non-herpetic) 50ug QD Take 1 tablet by mouth daily. [facility] nitrofurantoin (MACRODANTIN) 100 mg capsule 2012-02-22 00:00 :00 Yes UTI (urinary tract infection) Take by mouth . Take one tab by mouth three times a day for [address] [facility] ibuprofen (MOTRIN) 800 mg tablet 2011-05-17 00:00:00 Yes Back pain 800mg Take 1 Tab by mouth every 8 hours as needed for Pain. [facility] hydroquinone (LUSTRA) 4 % topical cream 2010-07-31 00:00:00 Yes Melasma Q.5D Apply to affected area 2 times daily. M ay cause dryness and irritation. Wear sunscreen SPF 30 or more daily. [facility] Amitriptyline Hcl Amitriptyline Hcl Yes 50 Bedt randolph [facility] Celecoxib (Celebrex*) 100 Mg CAPSULE Celecoxib (Celebrex*) 100 Mg C APSULE Yes 200 Twice A Day [facility] Clonidine Hcl Clonidine Hcl Yes 1 As Needed [facility] Diazepam Diazepam Yes 5 Bedtime [facility] Gabapentin Gabapentin Yes 600 Three Times A Day [facility] Olmesartan Medoxomil (Benicar) 20 Mg TABLET Olmesartan Medoxomil (Benicar) 20 Mg TABLET Yes 20 Daily [facility] [place]-3 Fatty Acids/Fish Oil (Fish Oil 1,000 Mg Capsul e) 1 Each CAPSULE [place]-3 Fatty Acids/Fish Oil (Fish Oil 1,000 Mg Capsule) 1 Each CAPSULE Yes 1 Daily [facility] Oxybutynin Chloride (Oxybutynin Chloride Er) 5 Mg TAB. ER.24 Oxybutynin Chloride (Oxybutynin Chloride Er) 5 Mg TAB.ER.24 Yes 5 Daily [facility] Risperidone Risperidone Yes 1 Bedtime [facility] Sennosides (Senna Laxative) 8.6 Mg TABLET Sennosides ( Senna Laxative) 8.6 Mg TABLET Yes 1 Daily [facility] Tramadol Hcl (Ultram 50MG*) 50 Mg TAB Tramadol Hcl (Ultram 50MG*) 5 0 Mg TAB Yes 50 Every 8 Hours as needed for Pain [facility] Trazodone Hcl Trazodone Hcl Yes 100 Bedtime [facility] Venlafaxine Hcl (Venlafaxine Hcl Er) 75 Mg TAB.ER.24 V enlafaxine Hcl (Venlafaxine Hcl Er) 75 Mg TAB.ER.24 Yes 150 D aily [facility] Vitamin A Vitamin A Yes Daily [facility] Fish Oil CAPS Fish Oil CAPS Yes M.A. 1 QD TAKE 1 CAPSU LE DAILY [facility] risperiDONE 1 MG Oral Tablet risperiDONE 1 MG Oral Tablet Y es M.A. 1 TAKE 1 TABLET AT BEDTIME. [facility] Amitriptyline HCl - 50 MG Oral Tablet Amitriptyline HCl - 50 MG Ora l Tablet Yes M.A. 1 TAKE 1 TABLET AT BEDTIME. [facility] Stool Softener TABS Stool Softener TABS Yes M.A. [facility] Fluticasone Propionate Fluticasone Propionate 2020-05-18 00:00:00 No 1 Daily [facility] Hydrochlorothiazide Hydrochlorothiazide 2020-05-18 00:00:00 No 12.5 Daily [facility] Promethazine Vc Promethazine Vc 2020-05-18 00:00:00 No 5 Every 4 Hours as needed for Cough [facility] Propranolol Hcl Propranolol Hcl 2020-05-18 00:00:00 No 20 Daily [facility] Levothyroxine Sodium Levothyroxine Sodium 2019-09-27 00:00:00 No 50 Daily [facility] Immunizations Ordered Immunization Name Filled Immunization Name Date Status Comments Source Shingrix 50 MCG/0.5ML Intramuscular Suspension Reconstituted 2020-01-29 00:00:00 Completed [facility] Fluzone Quadrivalent 0.5 ML Intramuscular Suspension Prefill ed Syringe 2019-07-17 11:26:00 Completed [facility] Tdap (Adacel) 2019-05-02 10:17:00 [facility] Fluzone Quadrivalent 0.5 ML Intramuscular Suspension Prefill ed Syringe 2018-10-31 11:03:00 Completed [facility] Tdap Tetanus, diphtheria, acellular pertussis Vaccine 2010-01-19 00:00:[address] [facility] Influenza Vaccine 2008-09-19 00:00:[address] [facility] Shingrix 50 MCG/0.5ML Intramuscular Suspension Reconstituted Unknown Completed [facility] Vital Signs Vital Name Observation Time Observation Value Comments Source Systolic blood pressure 2020-06-24 13:52:00 127 mm[Hg] Loca tion: LUE; Position: Sitting [facility] Diastolic blood pressure 2020-06-24 13:52:00 79 mm[Hg] Loc ation: LUE; Position: Sitting [facility] Body height 2020-06-24 13:52:00 61 [in_us] [facility] Weight 2020-06-24 13:52:00 139.375 [lb_av] [facility] Body mass index (BMI) [Ratio] 2020-06-24 13:52:00 26.33 kg/m2 [facility] Body temperature 2020-06-24 13:52:00 97.9 [degF] Method: Temporal [facility] Heart Rate 2020-06-24 13:52:00 67 /min [facility] Respiratory rate 2020-06-24 13:52:00 12 /min [facility] Heart rate 2020-06-21 21:22:00 85 /min [facility] Respiratory rate 2020-06-21 21:22:00 16 /min [facility] Systolic blood pressure 2020-06-21 20:19:00 156 mm[Hg] [facility] Diastolic blood pressure 2020-06-21 20:19:00 89 mm[Hg] [facility] Body temperature 2020-06-21 20:19:00 37.11 Evangelina [facility] Body height 2020-06-21 20:19:00 154.9 cm [facility] Body weight Measured 2020-06-21 20:19:00 64.864 kg [facility] BMI 2020-06-21 20:19:00 27.02 kg/m2 [facility] Oxygen saturation in Arterial blood by Pulse oximetry 06-21 20:19:00 99 /[facility] pressure 2020-05-23 10:08:00 124 mm[Hg] Loca tion: LUE; Position: Sitting [facility] Diastolic blood pressure 2020-05-23 10:08:00 71 mm[Hg] Loc ation: LUE; Position: Sitting [facility] Body height 2020-05-23 10:08:00 61 [in_us] [facility] Weight 2020-05-23 10:08:00 143.25 [lb_av] [facility] Body mass index (BMI) [Ratio] 2020-05-23 10:08:00 27.07 kg/m2 [facility] Body temperature 2020-05-23 10:08:00 98 [degF] Method: Temporal [facility] Heart Rate 2020-05-23 10:08:00 73 /min Location: L Brachial Artery; [facility] Respiratory rate 2020-05-23 10:08:00 16 /min [facility] Body Temperature 2020-05-18 15:57:00 98.5 [degF] [facility] Weight 2020-05-18 13:40:00 138 [lb_av] [facility] BMI (Body Mass Index) 2020-05-18 13:40:00 26.1 kg/m2 [facility] Systolic blood pressure 2020-05-02 13:31:00 150 mm[Hg] Loca tion: LUE; Position: Sitting [facility] Diastolic blood pressure 2020-05-02 13:31:00 89 mm[Hg] Loc ation: LUE; Position: Sitting [facility] Body height 2020-05-02 13:31:00 61 [in_us] [facility] Weight 2020-05-02 13:31:00 143.0625 [lb_av] [facility] Body mass index (BMI) [Ratio] 2020-05-02 13:31:00 27.03 kg/m2 [facility] Body temperature 2020-05-02 13:31:00 97.9 [degF] Method: [facility] Heart Rate 2020-05-02 13:31:00 69 /min [facility] Respiratory rate 2020-05-02 13:31:00 12 /min [facility] Systolic blood pressure 2020-03-08 10:57:00 190 mm[Hg] Loca tion: LUE; Position: Sitting [facility] Diastolic blood pressure 2020-03-08 10:57:00 104 mm[Hg] Loc ation: LUE; Position: Sitting [facility] Heart Rate 2020-03-08 10:57:00 64 /min [facility] Body height 2020-03-08 10:57:00 61 [in_us] [facility] Weight 2020-03-08 10:57:00 142.1875 [lb_av] [facility] Body mass index (BMI) [Ratio] 2020-03-08 10:57:00 26.87 kg/m2 [facility] Body temperature 2020-03-08 10:57:00 98.2 [degF] Method: [facility] Respiratory rate 2020-03-08 10:57:00 16 /min [facility] Systolic blood pressure 2020-01-28 09:57:00 115 mm[Hg] Loca tion: LUE; Position: Sitting [facility] Diastolic blood pressure 2020-01-28 09:57:00 79 mm[Hg] Loc ation: LUE; Position: Sitting [facility] Weight 2020-01-28 09:57:00 148 [lb_av] [facility] Body mass index (BMI) [Ratio] 2020-01-28 09:57:00 27.96 kg/m2 [facility] Body height 2020-01-28 09:57:00 61 [in_us] [facility] Body temperature 2020-01-28 09:57:00 97.9 [degF] Method: [facility] Respiratory rate 2020-01-28 09:57:00 16 /min [facility] Heart Rate 2020-01-28 09:57:00 68 /min [facility] Systolic blood pressure 2019-12-06 10:29:00 109 mm[Hg] Loca tion: LUE; Position: Sitting [facility] Diastolic blood pressure 2019-12-06 10:29:00 73 mm[Hg] Loc ation: LUE; Position: Sitting [facility] Body height 2019-12-06 10:29:00 61 [in_us] [facility] Weight 2019-12-06 10:29:00 144.125 [lb_av] Unive [facility] Body mass index (BMI) [Ratio] 2019-12-06 10:29:00 27.23 kg/m2 [facility] Body temperature 2019-12-06 10:29:00 97.9 [degF] Method: Oral [facility] Heart Rate 2019-12-06 10:29:00 59 /min Location: L Radial; Q uality: Normal [facility] Systolic blood pressure 2019-11-27 08:09:00 152 mm[Hg] Loca tion: LUE; Position: Sitting [facility] Diastolic blood pressure 2019-11-27 08:09:00 92 mm[Hg] Loc ation: LUE; Position: Sitting [facility] Weight 2019-11-27 08:09:00 144 [lb_av] [facility] Body mass index (BMI) [Ratio] 2019-11-27 08:09:00 27.21 kg/m2 [facility] Body height 2019-11-27 08:09:00 61 [in_us] [facility] Body temperature 2019-11-27 08:09:00 97.6 [degF] Method: Temporal [facility] Heart Rate 2019-11-27 08:09:00 62 /min [facility] Respiratory rate 2019-11-27 08:09:00 16 /min [facility] Systolic blood pressure 2019-11-19 10:55:00 135 mm[Hg] [facility] Diastolic blood pressure 2019-11-19 10:55:00 95 mm[Hg] [facility] Heart rate 2019-11-19 10:55:00 67 /min [facility] Body temperature 2019-11-19 10:55:00 36.78 Evangelina [facility] Respiratory rate 2019-11-19 10:55:00 18 /min [facility] Body height 2019-11-19 10:55:00 154.9 cm [facility] Body weight 2019-11-19 10:55:00 63.504 kg [facility] BMI 2019-11-19 10:55:00 26.45 kg/m2 [facility] Oxygen saturation in Arterial blood by Pulse oximetry 11-19 10:55:00 100 /min [facility] BP Systolic 2019-11-08 10:01:00 148 mm[Hg] Location: MICAELA Positi on: Sitting [facility] BP Diastolic 2019-11-08 10:01:00 88 mm[Hg] Location: JACKIE; Positi on: Sitting [facility] Weight 2019-11-08 10:01:00 140 [lb_av] [facility] Body Mass Index Calculated 2019-11-08 10:01:00 26.45 kg/m2 [facility] Height 2019-11-08 10:01:00 61 [in_us] [facility] Temperature 2019-11-08 10:01:00 97.4 [degF] Method: Temporal [facility] Respiration Rate 2019-11-08 10:01:00 16 /min [facility] Heart Rate 2019-11-08 10:01:00 61 /min [facility] BP Systolic 2019-10-12 08:41:00 141 mm[Hg] Location: MICAELA Positi on: Sitting [facility] BP Diastolic 2019-10-12 08:41:00 95 mm[Hg] Location: JACKIE; Positi on: Sitting [facility] Height 2019-10-12 08:41:00 61 [in_us] [facility] Weight 2019-10-12 08:41:00 133 [lb_av] [facility] Body Mass Index Calculated 2019-10-12 08:41:00 25.13 kg/m2 [facility] Temperature 2019-10-12 08:41:00 97 [degF] Method: Temporal [facility] Respiration Rate 2019-10-12 08:41:00 16 /min [facility] 2019-10-12 08:41:00 68 /min [facility] BP Systolic 2019-09-18 10:52:00 162 mm[Hg] Location: LUE; Positi on: Sitting [facility] BP Diastolic 2019-09-18 10:52:00 93 mm[Hg] Location: LUE; Positi on: Sitting [facility] Weight 2019-09-18 10:52:00 135 [lb_av] [facility] Body Mass Index Calculated 2019-09-18 10:52:00 25.51 kg/m2 [facility] Height 2019-09-18 10:52:00 61 [in_us] [facility] Temperature 2019-09-18 10:52:00 97.5 [degF] Method: Temporal [facility] Respiration Rate 2019-09-18 10:52:00 16 /min [facility] Heart Rate 2019-09-18 10:52:00 58 /min [facility] BP Systolic 2019-09-05 15:36:00 128 mm[Hg] Location: LUE; Positi on: Sitting [facility] BP Diastolic 2019-09-05 15:36:00 77 mm[Hg] Location: LUE; Positi on: Sitting [facility] Height 2019-09-05 15:36:00 61 [in_us] [facility] Weight 2019-09-05 15:36:00 139.5 [lb_av] [facility] Body Mass Index Calculated 2019-09-05 15:36:00 26.36 kg/m2 [facility] Temperature 2019-09-05 15:36:00 97.8 [degF] Method: Temporal [facility] Respiration Rate 2019-09-05 15:36:00 16 /min [facility] Heart Rate 2019-09-05 15:36:00 67 /min [facility] BP Systolic 2019-09-03 13:33:00 128 mm[Hg] Location: LUE; Positi on: Sitting [facility] BP Diastolic 2019-09-03 13:33:00 80 mm[Hg] Location: LUE; Positi on: Sitting [facility] Height 2019-09-03 13:33:00 61 [in_us] [facility] Weight 2019-09-03 13:33:00 138 [lb_av] [facility] Body Mass Index Calculated 2019-09-03 13:33:00 26.08 kg/m2 [facility] Respiration Rate 2019-09-03 13:33:00 16 /min [facility] Heart Rate 2019-09-03 13:33:00 76 /min [facility] BP Systolic 2019-09-01 10:07:00 135 mm[Hg] Location: JACKIE; Positi on: Sitting [facility] BP Diastolic 2019-09-01 10:07:00 87 mm[Hg] Location: JACKIE; Positi on: Sitting [facility] Height 2019-09-01 10:07:00 61 [in_us] [facility] Weight 2019-09-01 10:07:00 135 [lb_av] [facility] Body Mass Index Calculated 2019-09-01 10:07:00 25.51 kg/m2 [facility] Temperature 2019-09-01 10:07:00 98.2 [degF] Method: Temporal [facility] Respiration Rate 2019-09-01 10:07:00 16 /min [facility] Heart Rate 2019-09-01 10:07:00 66 /min [facility] BP Systolic 2019-08-18 10:34:00 132 mm[Hg] Location: JACKIE; Positi on: Sitting [facility] BP Diastolic 2019-08-18 10:34:00 86 mm[Hg] Location: JACKIE; Positi on: Sitting [facility] Height 2019-08-18 10:34:00 61 [in_us] [facility] Weight 2019-08-18 10:34:00 139 [lb_av] [facility] Body Mass Index Calculated 2019-08-18 10:34:00 26.26 kg/m2 [facility] Temperature 2019-08-18 10:34:00 98.7 [degF] Method: Oral [facility] Heart Rate 2019-08-18 10:34:00 65 /min Location: L Radial; [facility] BP Systolic 2019-08-09 10:47:00 116 mm[Hg] Location: LUE; Positi on: Standing [facility] BP Diastolic 2019-08-09 10:47:00 79 mm[Hg] Location: LUE; Positi on: Standing [facility] Height 2019-08-09 10:47:00 61 [in_us] [facility] Weight 2019-08-09 10:47:00 137.2 [lb_av] [facility] Body Mass Index Calculated 2019-08-09 10:47:00 25.92 kg/m2 [facility] Temperature 2019-08-09 10:47:00 97.5 [degF] Method: Temporal [facility] Respiration Rate 2019-08-09 10:47:00 16 /min [facility] Heart Rate 2019-08-09 10:47:00 69 /min [facility] BP Systolic 2019-07-28 09:47:00 113 mm[Hg] Location: LUE; Positi on: Sitting [facility] BP Diastolic 2019-07-28 09:47:00 77 mm[Hg] Location: LUE; Positi on: Sitting [facility] Height 2019-07-28 09:47:00 61 [in_us] [facility] Weight 2019-07-28 09:47:00 139.375 [lb_av] [facility] Body Mass Index Calculated 2019-07-28 09:47:00 26.33 kg/m2 [facility] Temperature 2019-07-28 09:47:00 96.5 [degF] Method: Temporal [facility] Heart Rate 2019-07-28 09:47:00 64 /min [facility] Respiration Rate 2019-07-28 09:47:00 16 /min [facility] BP Systolic 2019-05-30 10:22:00 138 mm[Hg] Location: LUE; Positi on: Sitting [facility] BP Diastolic 2019-05-30 10:22:00 88 mm[Hg] Location: LUE; Positi on: Sitting [facility] Heart Rate 2019-05-30 10:22:00 62 /min [facility] BP Systolic 2019-05-30 10:20:00 153 mm[Hg] Location: LUE; Positi on: Sitting [facility] BP Diastolic 2019-05-30 10:20:00 93 mm[Hg] Location: LUE; Positi on: Sitting [facility] Heart Rate 2019-05-30 10:20:00 61 /min [facility] Height 2019-05-30 10:20:00 61 [in_us] [facility] Weight 2019-05-30 10:20:00 133.25 [lb_av] [facility] Body Mass Index Calculated 2019-05-30 10:20:00 25.18 kg/m2 [facility] Respiration Rate 2019-05-30 10:20:00 16 /min [facility] BP Systolic 2019-05-10 14:28:00 120 mm[Hg] Location: LUE; Positi on: Sitting [facility] BP Diastolic 2019-05-10 14:28:00 81 mm[Hg] Location: LUE; Positi on: Sitting [facility] Weight 2019-05-10 14:28:00 132 [lb_av] [facility] Body Mass Index Calculated 2019-05-10 14:28:00 24.94 kg/m2 [facility] Height 2019-05-10 14:28:00 61 [in_us] [facility] Temperature 2019-05-10 14:28:00 97.3 [degF] Method: Temporal [facility] Respiration Rate 2019-05-10 14:28:00 16 /min [facility] Heart Rate 2019-05-10 14:28:00 62 /min [facility] BP Systolic 2019-05-02 09:44:00 126 mm[Hg] Location: LUE; Positi on: Sitting [facility] BP Diastolic 2019-05-02 09:44:00 85 mm[Hg] Location: LUE; Positi on: Sitting [facility] Weight 2019-05-02 09:44:00 132 [lb_av] [facility] Body Mass Index Calculated 2019-05-02 09:44:00 24.94 kg/m2 [facility] Height 2019-05-02 09:44:00 61 [in_us] [facility] Temperature 2019-05-02 09:44:00 96.8 [degF] Method: Temporal [facility] Respiration Rate 2019-05-02 09:44:00 16 /min Quality[facility] Heart Rate 2019-05-02 09:44:00 64 /min Location: L Radial; [facility] BP Systolic 2019-04-17 15:22:00 142 mm[Hg] Location: LUE; Positi on: Sitting [facility] BP Diastolic 2019-04-17 15:22:00 95 mm[Hg] Location: LUE; Positi on: Sitting [facility] BP Systolic 2019-04-17 15:20:00 154 mm[Hg] Location: LUE; Positi on: Sitting [facility] BP Diastolic 2019-04-17 15:20:00 97 mm[Hg] Location: LUE; Positi on: Sitting [facility] BP Systolic 2019-04-17 14:57:00 130 mm[Hg] Location: LUE; Positi on: Sitting [facility] BP Diastolic 2019-04-17 14:57:00 85 mm[Hg] Location: LUE; Positi on: Sitting [facility] BP Systolic 2019-04-17 14:38:00 152 mm[Hg] Location: LUE; Positi on: Sitting [facility] BP Diastolic 2019-04-17 14:38:00 89 mm[Hg] Location: LUE; Positi on: Sitting [facility] Height 2019-04-17 14:38:00 61 [in_us] [facility] Weight 2019-04-17 14:38:00 135.375 [lb_av] [facility] Body Mass Index Calculated 2019-04-17 14:38:00 25.58 kg/m2 [facility] Temperature 2019-04-17 14:38:00 97.7 [degF] [facility] Heart Rate 2019-04-17 14:38:00 69 /min [facility] Respiration Rate 2019-04-17 14:38:00 16 /min [facility] BP Systolic 2019-01-29 09:56:00 131 mm[Hg] Location: LUE; Positi on: Sitting [facility] BP Diastolic 2019-01-29 09:56:00 79 mm[Hg] Location: LUE; Positi on: Sitting [facility] Weight 2019-01-29 09:56:00 133 [lb_av] [facility] Body Mass Index Calculated 2019-01-29 09:56:00 25.13 kg/m2 [facility] Height 2019-01-29 09:56:00 61 [in_us] [facility] Temperature 2019-01-29 09:56:00 97.6 [degF] Method: Temporal [facility] Respiration Rate 2019-01-29 09:56:00 16 /min [facility] Heart Rate 2019-01-29 09:56:00 56 /min [facility] BP Systolic 2018-10-31 10:24:00 144 mm[Hg] Location: JACKIE; Positi on: Sitting [facility] BP Diastolic 2018-10-31 10:24:00 91 mm[Hg] Location: JACKIE; Positi on: Sitting [facility] Weight 2018-10-31 10:24:00 145 [lb_av] [facility] Height 2018-10-31 10:24:00 61 [in_us] [facility] Body Mass Index Calculated 2018-10-31 10:24:00 27.4 kg/m2 [facility] Temperature 2018-10-31 10:24:00 97.2 [degF] Method: Temporal [facility] Respiration Rate 2018-10-31 10:24:00 16 /min [facility] Heart Rate 2018-10-31 10:24:00 57 /min [facility] Procedures Procedure Date / Time Performed Performing Clinician Kaz emery MA Digital Mammo Screening Roman [id number] 2020-07-09 00:00:00 [facility] [QL] TSH, 3RD GENERATION W/REFLEX TO FT4 2020-07-01 00:00:00 [facility] [place] [id number] 2020-06-27 00:00:00 [facility] [id number] 2020-06-24 00:00[facility]00 [facility] [QL] BASIC METABOLIC PANEL W/EGFR 2020-06-03 00:00:00 [facility] [QL] BASIC METABOLIC PANEL W/EGFR 2020-05-28 00:00:00 [facility] [QL] BASIC METABOLIC PANEL W/EGFR 2020-05-23 00:00:00 [facility] [Q] HIV-1/2 Antigen and Antibodies, Fourth Generation, with Reflexes 2020-05-23 00:00:00 [facility] Computed tomography of brain without radiopaque contrast 2020-05 00:00:00 [facility] [QL] BASIC METABOLIC PANEL W/EGFR 2020-04-03 00:00:00 [facility] [QL] BASIC METABOLIC PANEL W/EGFR 2020-03-24 00:00:00 [facility] [QL] BASIC METABOLIC PANEL W/EGFR 2020-03-13 00:00:00 [facility] [QL] BASIC METABOLIC PANEL W/EGFR 2020-02-19 00:00:00 [facility] [QL] BASIC METABOLIC PANEL W/EGFR 2020-02-12 00:00:00 [facility] [QL] BASIC METABOLIC PANEL W/EGFR 2020-02-05 00:00:00 [facility] [QL] BASIC METABOLIC PANEL W/EGFR 2020-01-29 00:00:00 [facility] [Q] LIPID PANEL WITH REFLEX TO DIRECT LDL 2020-01-28 00:00:00 [facility] [QL] CBC (INCLUDES DIFF/PLT) 2020-01-28 00:00:00 [facility] [QL] CMP W/EGFR 2020-01-28 00:00:00 [facility] [QL] TSH, 3RD GENERATION W/REFLEX TO FT4 2020-01-28 00:00:00 [facility] [QLH] TSH, 3RD GENERATION W/REFLEX TO FT4 2019-10-12 00:00:00 [facility] RESECTION OF GALLBLADDER, PERCUTANEOUS ENDOSCOPIC APPROACH 2 00:00:00 [facility] Computed tomography of abdomen and pelvis with contrast 2018 00:00:00 ADELAIDA DURANT [facility] [QL] TSH, 3RD GENERATION W/REFLEX TO FT4 2019-09-07 00:00:00 [facility] [QLH] BASIC METABOLIC PANEL W/EGFR 2019-09-07 00:00:00 [facility] [QLH] CBC (INCLUDES DIFF/PLT) 2019-09-05 00:00:00 [facility] [QLH] CMP W/EGFR 2019-09-05 00:00:00 [facility] [QL] TSH, 3RD GENERATION W/REFLEX TO FT4 2019-09-05 00:00:00 [facility] [N] 2D Echo complete, with Doppler [id number] 2019-05-30 00:00:00 [facility] ECG-12 Lead 2019-04-17 00:00:00 [facility] [[facility]] CBC (INCLUDES DIFF/PLT) 2019-04-17 00:00:00 [facility] [[facility]] CMP W/EGFR 2019-04-17 00:00:00 [facility] [[facility]] HEMOGLOBIN A1c 2019-04-17 00:00:00 [facility] [[facility]] LIPID PANEL 2019-04-17 00:00:00 [facility] [[facility]] TSH, 3RD GENERATION W/REFLEX TO FT4 2019-04-17 00:00:00 [facility] [[facility]] URINALYSIS, COMPLETE W/REFLEX TO CULTURE 2019-04-17 00:00: 00 [facility] [[facility]] HEPATITIS C ANTIBODY 2019-04-17 [facility] [place] [facility] screen [facility] [id number] 2018-10-31 00:00:00 [facility] History of Hysterectomy [facility] History of Abdominoplasty [facility] History of Mastopexy [facility] History of Cholecystectomy [facility] Plan of Care Planned Activity Planned Date Details Comments Source Future Scheduled Test 2020-07-17 00:00:00 IMM Influenza Seas onal Jul to December (>/= 19 yrs) [code = IMM Influenza Seasonal Jul to December (>/= [address] yrs)] [facility] Future Scheduled Test 2020-06-17 00:00:00 [QL] BASIC METABOL IC PANEL W/EGFR [code = [QL] BASIC METABOLIC PANEL W/EGFR] [facility] Future Scheduled Test 2020-06-17 00:00:00 [QL] BASIC METABOL IC PANEL W/EGFR [code = [QL] BASIC METABOLIC PANEL W/EGFR] [facility] Future Scheduled Test 2020-05-17 00:00:00 INFLUENZA VACCINE [code = INFLUENZA VACCINE] [facility] Diagnostic Test Pending 2019-08-17 00:00:00 [N] 2D Echo comp lete, with Doppler 91399 [code = [N] 2D Echo complete, with Doppler 38339] [facility] Diagnostic Test Pending 2019-08-17 00:00:00 [N] 2D Echo comp lete, with Doppler 07884 [code = [N] 2D Echo complete, with Doppler 77443] [facility] Future Scheduled Test 2013 00:00:00 BREAST CANCER SCRE ENING [code = BREAST CANCER SCREENING] [facility] Scheduled Test 2013 00:00:00 COLONOSCOPY SCREEN ING [code = COLONOSCOPY SCREENING] [facility] Scheduled Test 2013 00:00:00 SHINGLES VACCINES (#1) [code = SHINGLES VACCINES (#1)] [facility] Scheduled Test 2013 00:00:00 Screening for todd gnant neoplasm of colon (procedure) [code = 776672988] [facility] Scheduled Test 2012-05-31 00:00:00 Breast Cancer Scrn (Yearly) [code = Breast Cancer Scrn (Yearly)] [facility] Scheduled Test 1984 00:00:00 Screening for todd gnant neoplasm of cervix (procedure) [code = 442462782] [facility] Scheduled Test 1984 00:00:00 Screening for todd gnant neoplasm of cervix (procedure) [code = 855977505] [facility] Appointment 2020-09-02 10:00:00 Chao LOZANO, [facility] Future Appointment 2020-07-21 14:20:00 Natalie DANG. JULIANA, [facility] Instructions Fatigue [facility] Instructions Panic Attack [facility] Encounters Start Date/Time End Date/Time Encounter Type Admission Type Attendi [facility] Care Department Encounter ID Source 2020-06-24 14:00:00 2020-06-24 14:00:00 Appointment; BLAKE CARRILLO D.O. YEH, SHAO-CHUN, D.O. [facility] [id number] [facility] 2020-05-23 10:30:00 2020-05-23 10:30:00 Appointment; BLAKE CARRILLO D.O. YEH, SHAO-CHUN, D.O. [facility] [id number] [facility] 2020-05-02 13:30:00 2020-05-02 13:30:00 Appointment; BLAKE CARRILLO D.O. YEH, SHAO-CHUN, D.O. [facility] [id number] [facility] 2020-04-28 10:00:00 2020-04-28 10:00:00 Appointment; BLAKE CARRILLO D.O. YEH, SHAO-CHUN, D.O. [facility] [id number] [facility] 2020-03-08 09:45:00 2020-03-08 09:45:00 Appointment; FIORELLA BRITO P.A. CRUZ, LETICIA, P.A. [facility], [address] [id number] [facility] 2020-02-18 09:08:52 2020-02-18 09:08:52 Outpatient [facility] [id number] [facility] 2020-01-28 10:00:00 2020-01-28 10:00:00 Appointment; BLAKE CARRILLO D.O. YEH, SHAO-CHUN, D.O. [facility] [id number] [facility] 2019-12-06 10:30:00 2019-12-06 10:30:00 Appointment; JOSH SIMEON M.D. BYRD, MICHAEL, M.D. [facility], [address] [id number] [facility] 2019-11-27 08:30:00 2019-11-27 08:30:00 Appointment; BLAKE CARRILLO D.O. YEH, SHAO-CHUN, D.O. [facility] [id number] [facility] 2019-11-19 10:55:45 2019-11-19 10:55:45 Outpatient [facility] [id number] [facility] 2019-11-08 10:30:00 2019-11-08 10:30:00 Appointment; YEH, ANDRIA-LLOYDChao Boss SHAO-CHUN, D.O. [facility] [id number] [facility] 2019-10-12 09:30:00 2019-10-12 09:30:00 Appointment; BLAKE CARRILLO D.O. YEH, SHAO-CHUN, D.O. [facility] [id number] [facility] 2019-09-25 16:28:00 2019-09-27 11:45:00 Discharged Inpatient 1 DIEGO WATSON [facility] [id number] [facility] 2019-09-18 10:45:00 2019-09-18 10:45:00 Appointment; BLAKE CARRILLO D.O. YEH, SHAO-CHUN, D.O. [facility] [id number] [facility] 2019-09-17 09:47:13 2019-09-17 09:47:13 Outpatient [facility] [id number] [facility] 2019-09-12 10:00:00 2019-09-12 10:00:00 Appointment; DICK ANDREWS M.D. DHOBLE, ABHIJEET, M.D. [facility] [id number] [facility] 2019-09-10 13:20:00 2019-09-10 13:20:00 Appointment; DICK ANDREWS M.D. DHOBLE, ABHIJEET, M.D. [facility] [id number] [facility] 2019-09-05 16:00:00 2019-09-05 16:00:00 Appointment; FIORELLA BRITO P.A. CRUZ, LETICIA, P.A. [facility], [address] [id number] [facility] 2019-09-03 14:20:00 2019-09-03 14:20:00 Appointment; DICK ANDREWS M.D. DHOBLE, ABHIJEET, M.D. [facility] [address] [id number] [facility] 2019-09-03 13:00:00 2019-09-03 13:00:00 Appointment; [place]-MS, E CHO [facility], ECHO [facility] [id number] [facility] 2019-09-01 10:15:00 2019-09-01 10:15:00 Appointment; ANGELIQUE JONES P.A. CAMPOS, BERTHA, P.A. [facility], [address] [id number] [facility] 2019-08-18 10:15:00 2019-08-18 10:15:00 Appointment; MELISSA MCKENZIE A PRN SAXE, KAILA, APRN [facility] [id number] [facility] 2019-08-18 10:15:00 2019-08-18 10:15:00 Appointment; LAW KEENAN N P BECK, SHERI, NP [facility] [id number] [facility] 2019-08-09 10:30:00 2019-08-09 10:30:00 Appointment; CINTHYA BLOOD AP RN TRAN, THUY, APRN [facility], [address] [id number] [facility] 2019-07-28 10:30:00 2019-07-28 10:30:00 Appointment; MELISSA MCKENZIE A PRN SAXE, KAILA, APRN [facility] [id number] [facility] 2019-07-17 10:30:00 2019-07-17 10:30:00 Appointment; BLAKE CARRILLO D.O. YEH, SHAO-CHUN, D.O. [facility] [id number] [facility] 2019-06-25 09:15:42 2019-06-25 09:15:42 Outpatient [facility] [id number] [facility] 2019-05-30 11:20:00 2019-05-30 11:20:00 Appointment; DICK ANDREWS M.D. DHOBLE, ABHIJEET, M.D. [facility] [id number] [facility] 2019-05-22 15:13:14 2019-05-22 15:13:14 Emergency [facility] [id number] [facility] 2019-05-10 14:30:00 2019-05-10 14:30:00 Appointment; BLAKE CARRILLO D.O. YEH, SHAO-CHUN, D.O. [facility] [id number] [facility] 2019-05-02 09:30:00 2019-05-02 09:30:00 Appointment; JAMILA SANTOS APRN DUGAS, NANCY, APRN [facility], [address] [id number] [facility] 2019-04-17 15:00:00 2019-04-17 15:00:00 Appointment; JAMILA SANTOS APRN DUGAS, NANCY, APRN [facility], [address] [id number] [facility] 2019-04-15 14:32:00 2019-04-15 16:00:00 Departed Emergency Room 1 CARLEEN GENIAEULALIO [facility] [id number] [facility] 2019-01-29 10:00:00 2019-01-29 10:00:00 Appointment; BLAKE CARRILLO D.O. YEH, SHAO-CHUN, D.O. UTP [facility] [id number] [facility] 2018-10-31 10:30:00 2018-10-31 10:30:00 Appointment; BLAKE CARRILLO D.O. YEH, SHAO-CHUN, D.O. UTP [facility] [id number] [facility] 2017-08-22 00:00:00 2017-08-22 00:00:00 Outpatient [facility] [id number] [facility] 2017-03-21 00:00:00 2017-03-21 00:00:00 Outpatient [facility] [id number] [facility] Results Test Description Test Time Test Comments Results Result Comments Source MA Digital Mammo Screening Roman [id number] 2020-07-10 12:44:00 BILATERAL DIGITAL SCREENING MAMMOGRAM WITH CAD: 07/10/2020CLINICAL: /Z12.39. Current study was evaluated with a Computer Aided Detection (CAD) system. COMPARISON:Comparison is made [facility] TECHNIQUE: Mammographic views were obtained using digital acquisition. Currentstudy was also evaluated with a Computer Aided Detection (CAD) system.FINDINGS:There are scattered fibroglandular densities in both breasts. There are benign calcifications in the left breast. There also are postoperative findings in both breasts. No significant masses, calcifications, or other findings are seen in eitherbreast. There has been no significant interval change.IMPRESSION: BENIGNRECOMMENDATION:There is no mammographic evidence of malignancy. A 1 yearscreening mammogram is recommended.(07/11/2021) This exam was interpreted [id number] at [facility] Dr. Candi Manzanares D.O. mm/penrad:07/10/2020 13:21:05 Juvenile Justice Specialist(s): RT Regis(R)(M), [facility] sent: BI-RADS 1/2 Mammogram BI-RADS: 2 Benign--Read by: Candi Manzanares DODictated Date/time: 07/10/20 13:21Electronically Signed by: Candi Manzanares DO 07/10/2013:21FINAL REPORT [facility] [QL] TSH, 3RD GENERATION W/REFLEX TO FT4 2020-06-30 07:25:00 Test Item TSH, 3RD GENERATION W/REFLEX TO FT4 (isa t code = TSH, 3RD GENERATION W/REFLEX TO FT4) 0.22 {MIU/L} 0.40-4.50 [facility][QL] T4, [id number] 07:25:00* Test Item Value Reference Range Interpretation Comments T4, FREE (test code = T4, FREE) 1.1 ng/dl 0.8-1.8 N [facility][QL] BASIC METABOLIC PANEL W/[id number] 07:24:00* Test Item Value Reference Range Interpretation Comments GLUCOSE; Above High Threshold (test code = 1547-9) 110 mg/dl 65- 99 Fasting reference interval For [...] is approximately 13% higher for peopleidentified as -Fijian. eGFR NON-AFR. [place] (test code = eGFR NON-AFR. [place]) 91 {ML/MIN/1.7} > OR = 60 N eGFR (test code = eGFR ) 10 5 {ML/MIN/1.7} > OR = 60 N BUN/CREATININE RATIO (test code = BUN/CREATININE RATIO) 8 {CALC} 6-22 N SODIUM (test code = SODIUM) 134 mmol/L 135-146 POTASSIUM (test code = POTASSIUM) 4.5 mmol/L 3.5-5.3 N CHLORIDE (test code = CHLORIDE) 103 mmol/L 98-110 N CARBON DIOXIDE (test code = CARBON DIOXIDE) 26 mmol/L 20-32 N CALCIUM (test code = CALCIUM) 9.3 mg/dl 8.6-10.4 N [facility][QL] BASIC METABOLIC PANEL W/[id number] 08:12:00* Test Item Value Reference Range Interpretation Comments GLUCOSE; Above High Threshold (test code = 1547-9) 102 mg/dl 65- 99 Fasting reference interval For someone without known diabetes, a glucose valuebetween 100 and 125 mg/dL is consistent withprediabetes and should be confirmed with afollow-up test. UREA NITROGEN (BUN) (test code = UREA NITROGEN (BUN)) 8 mg/dl 7-25 N CREATININE (test code = CREATININE) 0.86 mg/dl 0.50-1.05 N For patients >49 years of age, the reference limitfor Creatinine is approximately 13% higher for peopleidentified as -Fijian. eGFR NON-AFR. [place] (test code = eGFR NON-AFR. [place]) 76 {ML/MIN/1.7} > OR = 60 N eGFR (test code = eGFR ) 88 {ML/MIN/1.7} > OR = 60 N BUN/CREATININE RATIO (test code = BUN/CREATININE RATIO) NOT APPLICA BLE 6-22 SODIUM (test code = SODIUM) 133 mmol/L 135-146 POTASSIUM (test code = POTASSIUM) 5.4 mmol/L 3.5-5.3 CHLORIDE (test code = CHLORIDE) 101 mmol/L 98-110 N CARBON DIOXIDE (test code = CARBON DIOXIDE) 28 mmol/L 20-32 N CALCIUM (test code = CALCIUM) 9.5 mg/dl 8.6-10.4 N [facility][QL] BASIC METABOLIC PANEL W/[id number] 08:52:00* Test Item Value Reference Range Interpretation Comments GLUCOSE; Normal (test code = 1547-9) 108 mg/dl 65-139 N Non-fasting reference interval UREA NITROGEN (BUN) (test code = UREA NITROGEN (BUN)) 6 mg/dl 7-25 CREATININE (test code = CREATININE) 0.73 mg/dl 0.50-1.05 N For patients >49 years of age, the reference limitfor Creatinine is approximately 13% higher for peopleidentified as -Fijian. eGFR NON-AFR. [place] (test code = eGFR NON-AFR. [place]) 92 {ML/MIN/1.7} > OR = 60 N eGFR (test code = eGFR ) 10 7 {ML/MIN/1.7} > OR = 60 N BUN/CREATININE RATIO (test code = BUN/CREATININE RATIO) 8 {CALC} 6-22 N SODIUM (test code = SODIUM) 134 mmol/L 135-146 POTASSIUM (test code = POTASSIUM) 4.3 mmol/L 3.5-5.3 N CHLORIDE (test code = CHLORIDE) 102 mmol/L 98-110 N CARBON DIOXIDE (test code = CARBON DIOXIDE) 26 mmol/L 20-32 N CALCIUM (test code = CALCIUM) 9.2 mg/dl 8.6-10.4 N [facility][Q] HIV-1/2 Antigen and Antibodies, Fourth Generation, with [id number] 10:53:00* Test Item Value Reference Range Interpretation Comments HIV AG/AB, 4TH GEN; Normal (test code = 99722-0) NON-REACTIVE NON-R EACTIVE N HIV-1 antigen and HIV-1/HIV-2 antibodies were notdetected. There is no laboratory evidence of HIVinfection. PLEASE NOTE: This information has been disclosed toyou from records whose confidentiality may beprotected by state law. If your state requires suchprotection, then the state law prohibits you frommaking any further disclosure of the informationwithout the specific written consent of the personto whom it pertains, or as otherwise permitted by law.A general authorization for the release of medical orother information is NOT sufficient for this purpose. For additional information please refer t [employer]://education.HelpMeRent.com/faq/MGI498(This link is being provided for informational/educational purposes only.) The performance of this assay has not been clinicallyvalidated in patients less than 2 years old. [facility][QL] BASIC METABOLIC PANEL W/[id number] 10:53:00* Test Item Value Reference Range Interpretation Comments GLUCOSE; Normal (test code = 1547-9) 92 mg/dl 65-139 N Non-fasting reference interval UREA NITROGEN (BUN) (test code = UREA NITROGEN (BUN)) 5 mg/dl 7-25 CREATININE (test code = CREATININE) 0.80 mg/dl 0.50-1.05 N For patients >49 years of age, the reference limitfor Creatinine is approximately 13% higher for peopleidentified as -Fijian. eGFR NON-AFR. [place] (test code = eGFR NON-AFR. [place]) 82 {ML/MIN/1.7} > OR = 60 N eGFR (test code = eGFR ) 96 {ML/MIN/1.7} > OR = 60 N BUN/CREATININE RATIO (test code = BUN/CREATININE RATIO) 6 {CALC} 6-22 N SODIUM (test code = SODIUM) 129 mmol/L 135-146 POTASSIUM (test code = POTASSIUM) 4.2 mmol/L 3.5-5.3 N CHLORIDE (test code = CHLORIDE) 97 mmol/L 98-110 CARBON DIOXIDE (test code = CARBON DIOXIDE) 26 mmol/L 20-32 N CALCIUM (test code = CALCIUM) 9.9 mg/dl 8.6-10.4 N [facility] gwrwqtmfcxzie8929-36-49 15:13:00* Test Item Value Reference Range Interpretation Comments Urine Color (test code = 5778-6) YELLOW YELLOW [facility] nibqfxn8528-38-45 15:13:00* Test Item Value Reference Range Interpretation Comments Urine Clarity (test code = 81674-7) HAZY CLEAR [facility] Urine by Test strip 2020-05-18 15:13:00* Test Item Value Reference Range Interpretation Comments Urine Specific [place] (test code = 5811-5) 1.010 1.010-1.02 5 [facility] pH measurement by automated test rvamd7409-28-61 15:13:00* Test Item Value Reference Range Interpretation Comments Urine pH (test code = 62163-6) 7 5-7 [facility] leukocyte esterase detection by rtpplvlr2549-28-13 15:13:00* Test Item Value Reference Range Interpretation Comments Urine Leukocyte Esterase (test code = 5799-2) NEGATIVE NEGATIVE [facility] nitrite imuzvofsr5417-55-15 15:13:00* Test Item Value Reference Range Interpretation Comments Urine Nitrite (test code = 09472-5) NEGATIVE NEGATIVE [facility] protein measurement by test strip (mass/volume)2020-05-18 15:13:00* Test Item Value Reference Range Interpretation Comments Urine Protein (test code = 5804-0) NEGATIVE NEGATIVE [facility] glucose ytgirtbkh0639-51-99 15:13:00* Test Item Value Reference Range Interpretation Comments Urine Glucose (UA) (test code = 2349-9) NEGATIVE NEGATIVE [facility] ketones detection by automated test rozdp1014-22-81 15:13:00* Test Item Value Reference Range Interpretation Comments Urine Ketones (test code = 07904-9) NEGATIVE NEGATIVE [facility] urobilinogen measurement by test strip (mass/volume)2020-05-18 15:13:00* Test Item Value Reference Range Interpretation Comments Urine Urobilinogen (test code = 10113-7) 0.2 0.2-1 [facility] total bilirubin measurement (mass/volume)2020-05-18 15:13:00* Test Item Value Reference Range Interpretation Comments Urine Bilirubin (test code = 1978-6) NEGATIVE NEGATIVE [facility] erythrocytes omwyhioqz6567-89-92 15:13:00* Test Item Value Reference Range Interpretation Comments Urine Blood (test code = 08461-2) TRACE NEGATIVE [facility] CenterAutomated urine sediment leukocyte count by microscopy (number/high power field)2020-05-18 15:13:00* Test Item Value Reference Range Interpretation Comments Urine WBC (test code = 5821-4) 0-5 0-5 [facility] CenterErythrocytes detection in urine sediment by light vsiizbqteg3385-91-29 15:13:00* Test Item Value Reference Range Interpretation Comments Urine RBC (test code = 18333-9) 0-5 0-5 [facility] CenterBacteria detection in urine sediment by light mnatmbxusx1063-36-80 15:13:00* Test Item Value Reference Range Interpretation Comments Urine Bacteria (test code = 21403-0) FEW NONE [facility] CenterEpithelial cells detection in urine sediment by light wnwdilhtqx6955-91-61 15:13:00* Test Item Value Reference Range Interpretation Comments Urine Epithelial Cells (test code = 01580-7) FEW NONE [facility] CenterCT BRAIN LU6854-98-84 14:58:00 [facility] [address] [address] Patient Name: SHAUN MICHAEL MR #: [id number] : 1965 Age/Sex: 54/F Req #: [id number] Adm Physician: Ordered by: ADELAIDA DURANT MD Report #: [id number] Location: ER Room/Bed: Procedure: [id number] CT/CT BRAIN WO Exam Date: 05/18/20 Exam Time: 1443 REPORT STATUS: Signed History: Dizziness C omparison studies: None Technique: Axial images were obtained from th e skull base to the vertex. Coronal and sagittal reconstructions obtained fr om the axial data. Dose modulation, iterative reconstruction, and/or weight ba sed adjustment of the mA/kV was utilized to reduce the radiation dose to as l ow as reasonably achievable. Intravenous contrast: None Findings: Scalp/skull: No abnormalities. No fractures, blastic or lytic lesions. Extra-axial spaces: No masses. No fluid collections. Brain sulci: Mildly prominent but appropriate for age. Ventricles: Mildly prominent temporal horns but otherwise normal in size and configuration. No hydroceph alus. Parenchyma: No abnormal densities. No masses, hemorrhage, acute or chronic cortical vascular insults. Sellar/suprasellar region: No abnorm alities Craniocervical junction: Patent foramen magnum. No Chiari one malform ation. Incidental findings: None. IMPRESSION: No intracranial a bnormalities Signed by: Dr. Smiley Martinez M.D. on 05/18/2020 2:59 PM Dictated By: SMILEY MARTINEZ MD, MD 56 Transcribed By: RITA on 05/18/201458 COPY TO: ADELAIDA DURANT MD CHEST SINGLE (PORTABLE)2020-05-18 14:46:[address] [address] Patient Name: SHAUN MICHAEL MR #: [id number] : 1965 Age/Sex: 54/F Req #: [id number] Adm Physician: Ordered by: ADELAIDA DURANT MD Report #: [id number] Location: ER Room/Bed: Procedure: [id number] DX/CHEST SINGL E (PORTABLE) Exam Date: 05/18/20 Exam Time: 1443 REPORT STATUS: Signed EXAMINATION: CHEST SINGLE (PORTABLE) INDICATION: Fatigue, weakness and dizziness. COMPARISON: None FINDINGS: TUBES and LINES: None. LUNGS: Normal lung volumes. Lungs are clear. No consolidations. PLEURA: No pleural effusion or pneumothorax. HEART AND MEDIASTINUM: The cardiomed iastinal silhouette is unremarkable. BONES AND SOFT TISSUES: No acute osseous lesion. Soft tissues are unremarkable. UPPER ABDOMEN: No free ai r under the diaphragm. IMPRESSION: No acute thoracic radiographic abnormality. Signed by: Octavio Bennett MD on 05/18/2020 2:46 PM Dic tated By: OCTAVIO BENNETT MD 45 COPY TO: ADELAIDA DURANT MD Blood leukocytes automated count (number/volume)2020-05-18 14:04:00* Test Item Value Reference Range Interpretation Comments White Blood Count (test code = 6690-2) 7.49 4.8-10.8 [facility] erythrocytes automated count (number/volume)2020-05-18 14:04:00* Test Item Value Reference Range Interpretation Comments Red Blood Count (test code = 789-8) 4.33 3.6-5.1 [facility] Center[facility] hemoglobin measurement (moles/volume)2020-05-18 14:04:00* Test Item Value Reference Range Interpretation Comments Hemoglobin (test code = 49948-4) 13.3 12.0-16.0 [facility] CenterAutomated blood hematocrit (volume fraction)2020-05-18 14:04:00* Test Item Value Reference Range Interpretation Comments Hematocrit (test code = 4544-3) 37.5 34.2-44.1 [facility] CenterAutomated erythrocyte mean corpuscular blrpko3351-27-25 14:04:00* Test Item Value Reference Range Interpretation Comments Mean Corpuscular Volume (test code = 787-2) 86.6 81-99 [facility] CenterAutomated erythrocyte mean corpuscular hemoglobin (mass per erythrocyte)2020-05-18 14:04:00* Test Item Value Reference Range Interpretation Comments Mean Corpuscular Hemoglobin (test code = 785-6) 30.7 28-32 [facility] CenterAutomated erythrocyte mean corpuscular hemoglobin concentration measurement (mass/volume)2020-05-18 14:04:00* Test Item Value Reference Range Interpretation Comments Mean Corpuscular Hemoglobin Concent (test code = 786-4) 35.5 31-35 [facility] CenterRDW ZdnFi-Edl4791-97-02 14:04:00* Test Item Value Reference Range Interpretation Comments Red Cell Distribution Width (test code = 83589-8) 12.0 11.7 -14.4 [facility] CenterAutomated blood platelet count (count/volume)2020-05-18 14:04:00* Test Item Value Reference Range Interpretation Comments Platelet Count (test code = 777-3) 149 140-360 [facility] CenterAutomated blood segmented neutrophil count as percentage of total pprzizgusq7029-97-73 14:04:00* Test Item Value Reference Range Interpretation Comments Neutrophils (%) (Auto) (test code = 13513-8) 58.6 38.7-80.0 [facility] CenterAutomated blood lymphocyte count as percentage ot total ipocaipdrr6419-51-56 14:04:00* Test Item Value Reference Range Interpretation Comments Lymphocytes (%) (Auto) (test code = 736-9) 27.4 18.0-39.1 [facility] CenterAutomated blood monocyte count as percentage of total fggmtfdgjd6687-46-09 14:04:00* Test Item Value Reference Range Interpretation Comments Monocytes (%) (Auto) (test code = 5905-5) 7.6 4.4-11.3 [facility] CenterAutomated blood eosinophil count as percentage of total eflqtcswwl3383-34-13 14:04:00* Test Item Value Reference Range Interpretation Comments Eosinophils (%) (Auto) (test code = 713-8) 5.6 0.0-6.0 [facility] CenterAutomated blood basophil count as percentage of total oqljotcxoc0142-21-86 14:04:00* Test Item Value Reference Range Interpretation Comments Basophils (%) (Auto) (test code = 706-2) 0.4 0.0-1.0 [facility] CenterFluoroscopic procedure less than one hour jpnkbbwa3416-60-15 14:04:00* Test Item Value Reference Range Interpretation Comments IM GRANULOCYTES % (test code = IM GRANULOCYTES %) 0.4 0.0- 1.0 [facility] CenterAutomated blood neutrophil count 2020-05-18 14:04:00* Test Item Value Reference Range Interpretation Comments Neutrophils # (Auto) (test code = 751-8) 4.4 2.1-6.9 [facility] CenterBlood lymphocytes count (number/volume) 2020-05-18 14:04:00* Test Item Value Reference Range Interpretation Comments Lymphocytes # (Auto) (test code = 47570-3) 2.1 1.0-3.2 [facility] CenterB[facility] monocytes automated count (number/volume)2020-05-18 14:04:00* Test Item Value Reference Range Interpretation Comments Monocytes # (Auto) (test code = 742-7) 0.6 0.2-0.8 [facility] CenterAutomated blood eosinophil count 2020-05-18 14:04:00* Test Item Value Reference Range Interpretation Comments Eosinophils # (Auto) (test code = 711-2) 0.4 0.0-0.4 [facility] CenterAutomated blood basophil count (count/volume)2020-05-18 14:04:00* Test Item Value Reference Range Interpretation Comments Basophils # (Auto) (test code = 704-7) 0.0 0.0-0.1 [facility] CenterFluoroscopic procedure less than one hour awnulzso6897-41-04 14:04:00* Test Item Value Reference Range Interpretation Comments Absolute Immature Granulocyte (auto (isa t code = Absolute Immature Granulocyte (auto) 0.03 0-0.1 [facility] CenterProthrombin time (PT) in platelet poor plasma by coagulation upcrz9357-40-99 14:04:00* Test Item Value Reference Range Interpretation Comments Prothrombin Time (test code = 5902-2) 13.4 11.9-14.5 [facility] CenterINR in Platelet poor plasma by Coagulation euuix8457-10-24 14:04:00* Test Item Value Reference Range Interpretation Comments Prothromb Time International Ratio (test code = 6301-6) 0.97 Oral Anticoagulant Therapy INR Values:1. Low Intensity Therapy 1.5 - 2.02 . Moderate Intensity Therapy 2.0 - 3.03. High Intensity Therapy(1) 2.5 - 3. 54. High Intensity Therapy(2) 3.0 - 4.05. Panic Value INR > 5.0 [facility] CenterActivated partial thromboplastin time (aPTT) in platelet poor plasma by coagulation qqmln3427-23-07 14:04:00* Test Item Value Reference Range Interpretation Comments Activated Partial Thromboplast Time (test code = 98284-9) 35.1 23.8-35.5 [facility] Campuserum or plasma sodium measurement (moles/volume)2020-05-18 14:04:00* Test Item Value Reference Range Interpretation Comments Sodium Level (test code = 2951-2) 132 136-145 [facility] Campuserum or plasma potassium measurement (moles/volume)2020-05-18 14:04:00* Test Item Value Reference Range Interpretation Comments Potassium Level (test code = 2823-3) 3.3 3.5-5.1 [facility] Campuserum or plasma chloride measurement (moles/volume)2020-05-18 14:04:00* Test Item Value Reference Range Interpretation Comments Chloride Level (test code = 2075-0) 100 98-107 [facility] Campuserum or plasma carbon dioxide, total measurement (moles/volume)2020-05-18 14:04:00* Test Item Value Reference Range Interpretation Comments Carbon Dioxide Level (test code = 2028-9) 19 22-29 [facility] Campuserum or plasma anion [id number] 14:04:00* Test Item Value Reference Range Interpretation Comments Anion Gap (test code = 39381-0) 16.3 8-16 [facility] Campuserum or plasma urea nitrogen measurement (mass/volume)2020-05-18 14:04:00* Test Item Value Reference Range Interpretation Comments Blood Urea Nitrogen (test code = 3094-0) < 5 7-26 [facility] Campuserum or plasma creatinine measurement (mass/volume)2020-05-18 14:04:00* Test Item Value Reference Range Interpretation Comments Creatinine (test code = 2160-0) 0.82 0.57-1.11 [facility] Campuserum or plasma urea nitrogen/creatinine mass bcppi5567-64-40 14:04:00* Test Item Value Reference Range Interpretation Comments BUN/Creatinine Ratio (test code = 3097-3) 6 6-25 [facility] CenterEstimated glomerular filtration rate (GFR) soorvrtytxfwz8847-15-81 14:04:00* Test Item Value Reference Range Interpretation Comments Estimat Glomerular Filtration Rate (test code = 916241845) > 60 >60 Ranges were taken from the National Kidney Disease Education Program and the [facility] literature.Reference ranges:60 or greater: Yayfrb52-79 ( for 3 consecutive months): Chronic kidney disease 15 or less: Kidney failureMethodist [facility] Medical CenterGlucose kgkgunnoopd0521-08-52 14:04:00* Test Item Value Reference Range Interpretation Comments Glucose Level (test code = VHS9469) 88 74-118 [facility] Campuserum or plasma calcium measurement (mass/volume)2020-05-18 14:04:00* Test Item Value Reference Range Interpretation Comments Calcium Level (test code = 47376-6) 10.1 8.4-10.2 [facility] Campuserum or plasma magnesium measurement (mass/volume)2020-05-18 14:04:00* Test Item Value Reference Range Interpretation Comments Magnesium Level (test code = 83576-0) 1.9 1.3-2.1 [facility] Campuserum or plasma total bilirubin measurement (mass/volume)2020-05-18 14:04:00* Test Item Value Reference Range Interpretation Comments Total Bilirubin (test code = 1975-2) 0.4 0.2-1.2 [facility] CenterFluoroscopic procedure less than one hour pexuaued3123-53-88 14:04:00* Test Item Value Reference Range Interpretation Comments Aspartate Amino Transf (AST/SGOT) (test code = Aspartate Amino Transf (AST/SGOT)) 38 5-34 [facility] Campuserum or plasma alanine aminotransferase measurement (enzymatic activity/volume)2020-05-18 14:04:00* Test Item Value Reference Range Interpretation Comments Alanine Aminotransferase (ALT/SGPT) (test code = 1742-6) 27 0-55 [facility] Campuserum or plasma protein measurement (mass/volume)2020-05-18 14:04:00* Test Item Value Reference Range Interpretation Comments Total Protein (test code = 2885-2) 8.2 6.5-8.1 [facility] Campuserum or plasma albumin measurement (mass/volume)2020-05-18 14:04:00* Test Item Value Reference Range Interpretation Comments Albumin (test code = 1751-7) 4.3 3.5-5.0 [facility] CenterPlasma globulin measurement (mass/volume) 2020-05-18 14:04:00* Test Item Value Reference Range Interpretation Comments Globulin (test code = 46757-6) 3.9 2.3-3.5 [facility] Campuserum or plasma albumin/globulin mass qqnwb1452-80-52 14:04:00* Test Item Value Reference Range Interpretation Comments Albumin/Globulin Ratio (test code = 1759-0) 1.1 0.8-2.0 [facility] Campuserum or plasma alkaline phosphatase measurement (enzymatic activity/volume)2020-05-18 14:04:00* Test Item Value Reference Range Interpretation Comments Alkaline Phosphatase (test code = 6768-6) 73 40-150 [facility] Campuserum or plasma creatine kinase measurement (enzymatic activity/volume)2020-05-18 14:04:00* Test Item Value Reference Range Interpretation Comments Creatine Kinase (test code = 2157-6) 136 29-168 [facility] Campuserum or plasma creatine kinase MB measurement (mass/volume)2020-05-18 14:04:00* Test Item Value Reference Range Interpretation Comments Creatine Kinase MB (test code = 45915-6) 3.20 0-5.0 [facility] CenterTroponin I measurement by highly sensitive enzyme jjeduwqkwgt1816-77-06 14:04:00* Test Item Value Reference Range Interpretation Comments Troponin I (test code = 61856-1) 0.014 0-0.300 [facility] Campuserum or plasma thyrotropin measurement by detection limit <= 0.005 miu/l (units/volume)2020-05-18 14:04:00* Test Item Value Reference Range Interpretation Comments Thyroid Stimulating Hormone (TSH) (test code = 16474-0) 0.453 0.350-4.940 [facility][QL] BASIC METABOLIC PANEL W/EGFR 2020-04-22 14:34:00* Test Item Value Reference Range Interpretation Comments GLUCOSE; Normal (test code = 1547-9) 74 mg/dl 65-139 N Non-fasting reference interval UREA NITROGEN (BUN) (test code = UREA NITROGEN (BUN)) 5 mg/dl 7-25 CREATININE (test code = CREATININE) 0.74 mg/dl 0.50-1.05 N For patients >49 years of age, the reference limitfor Creatinine is approximately 13% higher for peopleidentified as -Fijian. eGFR NON-AFR. [place] (test code = eGFR NON-AFR. [place]) 91 {ML/MIN/1.7} > OR = 60 N [...] code = CALCIUM) 9.3 mg/dl 8.6-10.4 N [facility][QL] BASIC METABOLIC PANEL W/[id number] 08:51:00* Test Item Value Reference Range Interpretation Comments GLUCOSE; Above High Threshold (test code = 1547-9) 162 mg/dl 65- 139 Non- fasting reference interval UREA NITROGEN (BUN) (test code = UREA NITROGEN (BUN)) 4 mg/dl 7-25 CREATININE (test code = CREATININE) 0.80 mg/dl 0.50-1.05 N For patients >49 years of age, the reference limitfor Creatinine is approximately 13% higher for peopleidentified as -Fijian. eGFR NON-AFR. [place] (test code = eGFR NON-AFR. [place]) 82 {ML/MIN/1.7} > OR = 60 N [...] code = CALCIUM) 9.1 mg/dl 8.6-10.4 N [facility][] BASIC METABOLIC PANEL W/[id number] 11:21:00* Test Item Value Reference Range Interpretation Comments GLUCOSE; Normal (test code = 1547-9) 99 mg/dl 65-139 N Non-fasting reference interval UREA NITROGEN (BUN) (test code = UREA NITROGEN (BUN)) 4 mg/dl 7-25 CREATININE (test code = CREATININE) 0.75 mg/dl 0.50-1.05 N For patients >49 years of age, the reference limitfor Creatinine is approximately 13% higher for peopleidentified as -Fijian. eGFR NON- (test code = eGFR NON-KAYLYNN N [place]) 89 {ML/MIN/1.7} > OR = 60 N [...] CALCIUM) 9.6 mg/dl 8.6-10.4 N eGFR NON-AFR. [place] (test code = eGFR NON-AFR. [place]) 89 {ML/MIN/1.7} > OR = 60 N [facility][QL] BASIC METABOLIC PANEL W/[id number] 09:14:00* Test Item Value Reference Range Interpretation [...] is approximately 13% higher for peopleidentified as -Fijian. eGFR NON- (test code = eGFR NON-KAYLYNN N [place]) 77 {ML/MIN/1.7} > OR = 60 N [...] code = CALCIUM) 9.3 mg/dl 8.6-10.4 N [facility][QL] BASIC METABOLIC PANEL W/[id number] 08:36:00* Test Item Value Reference Range Interpretation Comments GLUCOSE; Normal (test code = 1547-9) 133 mg/dl 65-139 N Non-fasting reference interval UREA NITROGEN (BUN) (test code = UREA NITROGEN (BUN)) 5 mg/dl 7-25 CREATININE (test code = CREATININE) 0.76 mg/dl 0.50-1.05 N For patients >49 years of age, the reference limitfor Creatinine is approximately 13% higher for peopleidentified as -Fijian. eGFR NON- (test code = eGFR NON-KAYLYNN N [place]) 88 {ML/MIN/1.7} > OR = 60 N [...] code = CALCIUM) 9.5 mg/dl 8.6-10.4 N [facility][QL] BASIC METABOLIC PANEL W/[id number] 08:28:00* Test Item Value Reference Range Interpretation Comments GLUCOSE; Normal (test code = 1547-9) 99 mg/dl 65-99 N Fasting reference interval UREA NITROGEN (BUN) (test code = UREA NITROGEN (BUN)) 7 mg/dl 7-25 N CREATININE (test code = CREATININE) 1.00 mg/dl 0.50-1.05 N For patients >49 years of age, the reference limitfor Creatinine is approximately 13% higher for peopleidentified as -Fijian. eGFR NON- (test code = eGFR NON-KAYLYNN N [place]) 63 {ML/MIN/1.7} > OR = 60 N [...] code = CALCIUM) 9.4 mg/dl 8.6-10.4 N [facility][Q] LIPID PANEL WITH REFLEX TO DIRECT LDL 2020-01-28 10:23:00* Test Item Value Reference Range Interpretation Comments CHOLESTEROL, TOTAL; Normal (test code = 2093-3) 166 mg/dl <200 N HDL CHOLESTEROL; Normal (test code = 2085-9) 52 mg/dl > OR = 50 N TRIGLYCERIDES; Normal (test code = 2571-8) 125 mg/dl <150 N LDL-CHOLESTEROL; Normal (test code = 29627-9) 91 {MG/DL ANA} N Reference range: <100 Desirable range <100 mg/dL for primary prevention; <70 mg/dL for patients with CHD or diabetic patients with > or = 2 CHD risk factors. LDL-C is now calculated using the Noelle calculation, which is a validated novel method providing better accuracy than the Friedewald equation in the estimation of LDL-C. Venancio SS et al. NAZ. 2013;310(19): 6492-6609 (http ://[employer].Send the Trend/faq/JNI050) CHOL/HDLC RATIO (test code = CHOL/HDLC RATIO) 3.2 {CALC} <5.0 N NON HDL CHOLESTEROL (test code = NON HDL CHOLESTEROL) 114 {MG/DL C AL} <130 N For patients with diabetes plus 1 major ASCVD risk factor, treating to a non-HDL-C goal of <100 mg/dL (LDL-C of <70 mg/dL) is considered a therapeutic option. [facility][QL] CMP W/[id number] 10:23:00* Test Item Value Reference Range Interpretation Comments GLUCOSE; Normal (test code = 1547-9) 104 mg/dl 65-139 N Non-fasting reference interval UREA NITROGEN (BUN) (test code = UREA NITROGEN (BUN)) 10 mg/dl 7-25 N CREATININE (test code = CREATININE) 1.03 mg/dl 0.50-1.05 N For patients >49 years of age, the reference limitfor Creatinine is approximately 13% higher for peopleidentified as -Fijian. eGFR NON- (test code = eGFR NON-KAYLYNN N [place]) 61 {ML/MIN/1.7} > OR = 60 N [...] N BILIRUBIN, TOTAL; Normal (test code = 66971-2) 0.3 mg/dl 0.2-1.2 N ALKALINE PHSPHATASE (test code = ALKALINE PHSPHATASE) 64 u/l 37-153 N AST; Normal (test code = 1916-6) 22 u/l 10-35 N ALT; Normal (test code = 1742-6) 16 u/l 6-29 N [facility][] CBC (INCLUDES DIFF/PLT)2020-01-28 10:23:00* Test Item Value Reference Range Interpretation Comments WHITE BLOOD CELL COUNT (test code = WHITE BLOOD CELL COUNT) 7.1 {Thousand/u} 3.8-10.8 N RED BLOOD CELL COUNT (test code = RED BLOOD CELL COUNT) 4.18 {Million/uL} 3.80-5.10 N HEMAGLOBIN; Normal (test code = 26584-9) 12.8 g/dl 11.7-15.5 N HEMATOCRIT; Normal (test code = 4544-3) 37.9 % 35.0-45.0 N MCV; Normal (test code = 787-2) 90.7 fL 80.0-100.0 N MCHC; Normal (test code = 11084-6) 33.8 g/dl 32.0-36.0 N RDW; Normal (test code = 788-0) 13.1 % 11.0-15.0 N PLATELET COUNT; Normal (test code = 777-3) 166 {Thousand/u} 140-400 N MPV; Normal (test code = 41670-9) 9.6 fL 7.5-12.5 N ABSOLUTE NEUTROPHILS (test code = ABSOLUTE NEUTROPHILS) 4963 {cells/uL} 2210-5034 N ABSOLUTE LYMPHOCYTES (test code = ABSOLUTE [...] % N MONOCYTES; Normal (test code = 75692-1) 6.0 % N EOSINOPHILS; Normal (test code = 69325-0) 4.1 % N BASOPHILS; Normal (test code = 28230-5) 0.3 % N [facility][] TSH, 3RD GENERATION W/REFLEX TO [id number] 10:23:00* Test Item Value Reference Range Interpretation Comments TSH, 3RD GENERATION W/REFLEX TO FT4 (isa t code = TSH, 3RD GENERATION W/REFLEX TO FT4) 1.11 {MIU/L} 0.40-4.50 N [facility]] TSH, 3RD GENERATION W/REFLEX TO FT4 2019-12-08 09:12:00* Test Item Value Reference Range Interpretation Comments TSH, 3RD GENERATION W/REFLEX TO FT4 (isa t code = TSH, 3RD GENERATION W/REFLEX TO FT4) 0.85 {MIU/L} 0.40-4.50 N [facility]] BASIC METABOLIC PANEL W/[id number] 09:56:00* Test Item Value Reference Range Interpretation [...] is approximately 13% higher for peopleidentified as -Fijian. eGFR NON- (test code = eGFR NON-KAYLYNN N [place]) 75 {ML/MIN/1.7} > OR = 60 N [...] code = CALCIUM) 9.4 mg/dl 8.6-10.4 N [facility] Xtyhp4417-11-52 03:35:00* Test Item Value Reference Range Interpretation Comments Sodium Level (test code = 2951-2) 131 136-145 L [facility] CenterPotassium Hdrlx2645-73-52 03:35:00* Test Item Value Reference Range Interpretation Comments Potassium Level (test code = 2823-3) 3.8 3.5-5.1 [facility] CenterChloride Pnsxv3630-49-96 03:35:00* Test Item Value Reference Range Interpretation Comments Chloride Level (test code = 2075-0) 100 98-107 [facility] CenterCarbon Dioxide Nrkgz6087-18-06 03:35:00* Test Item Value Reference Range Interpretation Comments Carbon Dioxide Level (test code = 2028-9) 20 22-29 L [facility] CenterAnion [id number] 03:35:00* Test Item Value Reference Range Interpretation Comments Anion Gap (test code = 45100-4) 14.8 8-16 [facility] CenterBlood Urea Uncycgmt4646-40-28 03:35:00* Test Item Value Reference Range Interpretation Comments Blood Urea Nitrogen (test code = 3094-0) 6 7-26 L [facility] CenterCreatinine2019-12-12 03:35:00* Test Item Value Reference Range Interpretation Comments Creatinine (test code = 2160-0) 0.76 0.57-1.11 [facility] CenterBUN/Creatinine [id number] 03:35:00* Test Item Value Reference Range Interpretation Comments BUN/Creatinine Ratio (test code = 3097-3) 8 6-25 [facility] CenterEstimat Glomerular Filtration Rate 2019-09-27 03:35:00* Test Item Value Reference Range Interpretation Comments Estimat Glomerular Filtration Rate (test code = 491268455) > 60 >60 Ranges were taken from the National Kidney Disease Education Program and the [facility] Kid[facility] Foundation literature.Reference ranges:60 or greater: Ygvhja61-64 ( for 3 consecutive months): Chronic kidney disease 15 or less: Kidney failureMethodist Midlothian Medical CenterGlucose Tmprm7775-19-08 03:35:00* Test Item Value Reference Range Interpretation Comments Glucose Level (test code = OXR9552) 152 74-118 H [facility] CenterCalcium Brryp3339-84-31 03:35:00* Test Item Value Reference Range Interpretation Comments Calcium Level (test code = 98684-2) 9.0 8.4-10.2 [facility] CenterMagnesium Cruce2280-72-26 03:35:00* Test Item Value Reference Range Interpretation Comments Magnesium Level (test code = 61670-5) 1.9 1.3-2.1 [facility] CenterWhite Blood Zbwue8202-87-95 03:24:00* Test Item Value Reference Range Interpretation Comments White Blood Count (test code = 6690-2) 6.35 4.8-10.8 [facility] CenterRed Blood Qdxpp6642-60-71 03:24:00* Test Item Value Reference Range Interpretation Comments Red Blood Count (test code = 789-8) 4.15 3.6-5.1 [facility] CenterHemoglobin2019-12-12 03:24:00* Test Item Value Reference Range Interpretation Comments Hemoglobin (test code = 10646-0) 12.8 12.0-16.0 [facility] CenterHematocrit2019-12-12 03:24:00* Test Item Value Reference Range Interpretation Comments Hematocrit (test code = 4544-3) 37.0 34.2-44.1 [facility] CenterMean Corpuscular Rgqejw7572-09-64 03:24:00* Test Item Value Reference Range Interpretation Comments Mean Corpuscular Volume (test code = 787-2) 89.2 81-99 [facility] CenterMean Corpuscular Kxtpuoasvr8072-38-14 03:24:00* Test Item Value Reference Range Interpretation Comments Mean Corpuscular Hemoglobin (test code = 785-6) 30.8 28-32 [facility] CenterMean Corpuscular Hemoglobin Concent 2019-09-27 03:24:00* Test Item Value Reference Range Interpretation Comments Mean Corpuscular Hemoglobin Concent (test code = 786-4) 34.6 31-35 [facility] CenterRed Cell Distribution Ytvky5766-54-91 03:24:00* Test Item Value Reference Range Interpretation Comments Red Cell Distribution Width (test code = 01225-7) 12.9 11.7 -14.4 [facility] CenterPlatelet Dlabg0961-25-39 03:24:00* Test Item Value Reference Range Interpretation Comments Platelet Count (test code = 777-3) 120 140-360 L [facility] CenterNeutrophils (%) (Auto)2019-09-27 03:24:00 * Test Item Value Reference Range Interpretation Comments Neutrophils (%) (Auto) (test code = 31560-6) 85.0 38.7-80.0 H [facility] CenterLymphocytes (%) (Auto)2019-09-27 03:24:00 * Test Item Value Reference Range Interpretation Comments Lymphocytes (%) (Auto) (test code = 736-9) 11.2 18.0-39.1 L [facility] CenterMonocytes (%) (Auto)2019-09-27 03:24:00* Test Item Value Reference Range Interpretation Comments Monocytes (%) (Auto) (test code = 5905-5) 3.3 4.4-11.3 L [facility] CenterEosinophils (%) (Auto)2019-09-27 03:24:00 * Test Item Value Reference Range Interpretation Comments Eosinophils (%) (Auto) (test code = 713-8) 0.0 0.0-6.0 [facility] CenterBasophils (%) (Auto)2019-09-27 03:24:00* Test Item Value Reference Range Interpretation Comments Basophils (%) (Auto) (test code = 706-2) 0.0 0.0-1.0 [facility] CenterIM GRANULOCYTES %2019-09-27 03:24:00* Test Item Value Reference Range Interpretation Comments IM GRANULOCYTES % (test code = IM GRANULOCYTES %) 0.5 0.0- 1.0 [facility] CenterNeutrophils # (Auto)2019-09-27 03:24:00* Test Item Value Reference Range Interpretation Comments Neutrophils # (Auto) (test code = 751-8) 5.4 2.1-6.9 [facility] CenterLymphocytes # (Auto)2019-09-27 03:24:00* Test Item Value Reference Range Interpretation Comments Lymphocytes # (Auto) (test code = 53670-6) 0.7 1.0-3.2 L [facility] CenterMonocytes # (Auto)2019-09-27 03:24:00* Test Item Value Reference Range Interpretation Comments Monocytes # (Auto) (test code = 742-7) 0.2 0.2-0.8 [facility] CenterEosinophils # (Auto)2019-09-27 03:24:00* Test Item Value Reference Range Interpretation Comments Eosinophils # (Auto) (test code = 711-2) 0.0 0.0-0.4 [facility] CenterBasophils # (Auto)2019-09-27 03:24:00* Test Item Value Reference Range Interpretation Comments Basophils # (Auto) (test code = 704-7) 0.0 0.0-0.1 [facility] CenterAbsolute Immature Granulocyte (auto 2019-09-27 03:24:00* Test Item Value Reference Range Interpretation Comments Absolute Immature Granulocyte (auto (isa t code = Absolute Immature Granulocyte (auto) 0.03 0-0.1 [facility] CenterThyroid Stimulating Hormone (TSH) 2019-09-26 04:20:00* Test Item Value Reference Range Interpretation Comments Thyroid Stimulating Hormone (TSH) (test code = 55187-5) 5.583 0.350-4.940 H [facility] CenterHemoglobin A1c Ixxbbmm2768-25-21 03:56:00 * Test Item Value Reference Range Interpretation Comments Hemoglobin A1c Percent (test code = Hemoglobin A1c Percent) 5.4 4.0-7.0 [facility] CenterTriglycerides Puzuu3593-60-99 03:56:00* Test Item Value Reference Range Interpretation Comments Triglycerides Level (test code = 2571-8) 121 0-149 [facility] CenterCholesterol Xygpu2798-03-76 03:56:00* Test Item Value Reference Range Interpretation Comments Cholesterol Level (test code = 2093-3) 168 0-199 Less than 200 mg/dL Low Tlsa120 - 239 mg/dL Borderline Qvci093 m g/dl and greater High Risk [facility] CenterLDL Slfvheonksm4632-71-45 03:56:00* Test Item Value Reference Range Interpretation Comments LDL Cholesterol (test code = 2089-1) 99 60-130 [facility] CenterHDL Tboeztzvrma8864-19-62 03:56:00* Test Item Value Reference Range Interpretation Comments HDL Cholesterol (test code = 2085-9) 45 40-60 [facility] CenterCholesterol/HDL Eoooy7093-32-59 03:56:00 * Test Item Value Reference Range Interpretation Comments Cholesterol/HDL Ratio (test code = 9830-1) 3.7 3.0-3.6 H [facility] CenterFluoroscopic procedure less than one hour oenkxfme6857-81-14 02:10:00* Test Item Value Reference Range Interpretation Comments Hemoglobin A1c Percent (test code = Hemoglobin A1c Percent) 5.4 4.0-7.0 [facility] Campuserum or plasma triglyceride measurement (mass/volume)2019-09-26 02:10:00* Test Item Value Reference Range Interpretation Comments Triglycerides Level (test code = 2571-8) 121 0-149 [place] [facility] [facility] plasma cholesterol measurement (mass/volume)2019-09-26 02:10:00* Test Item Value Reference Range Interpretation Comments Cholesterol Level (test code = 2093-3) 168 0-199 Less than 200 mg/dL Low Dghg405 - 239 mg/dL Borderline Obnm679 m g/dl and greater High Risk [facility] or plasma cholesterol in LDL measurement (mass/volume) 2019-09-26 02:10:00* Test Item Value Reference Range Interpretation Comments LDL Cholesterol (test code = 2089-1) 99 60-130 [facility] or plasma cholesterol in HDL measurement (mass/volume)2019-09-26 02:10:00* Test Item Value Reference Range Interpretation Comments HDL Cholesterol (test code = 2085-9) 45 40-60 [facility] or plasma total cholesterol/cholesterol in HDL mass eixdd4964-66-83 02:10:00* Test Item Value Reference Range Interpretation Comments Cholesterol/HDL Ratio (test code = 9830-1) 3.7 3.0-3.6 [facility] or plasma hepatitis C virus RNA detection by probe and target amplification gwdatr5140-45-99 06:36:00* Test Item Value Reference Range Interpretation Comments Hepatitis C RNA Qualitative (PCR) (test code = 50501-0) Negative Negative Negative: HCV RNA Not DetectedPerformed at: [address] [id number] Director: Lisa Cerna MD, Phone: [phone] 44[facility] CenterPhosphorus Onodm1691-03-74 04:21:00* Test Item Value Reference Range Interpretation Comments Phosphorus Level (test code = CFO7204) 3.5 2.3-4.7 [facility] CenterPhosphorus bqtakgymvzf9640-05-55 02:10:00 * Test Item Value Reference Range Interpretation Comments Phosphorus Level (test code = QKF6147) 3.5 2.3-4.7 [facility] CenterHEPTOBILIARY W EVJCK3425-73-11 15:30:00 [facility] [address] [place] [address] Patient Name: SHAUN MICHAEL MR #: [id number] : [birth year] Age/Sex: 53/F Req #: [id number] Adm Physician: DIEGO WATSON MD Ordered by: BETSY GREEN MD Report #: [id number] Location: MED/SURG Room/Bed: [facility] Procedure: [id number] N M/HEPTOBILIARY W PHARM Exam Date: Exam [...] chronic cholecystitis/gallbladder dyskinesia. Sig lashawn by: Dr. Nazia Weiss M.D. on 09/24/2019 3:32 PM Dictated By: NAZIA DAVILA MD 31 Transcribed By : RITA on 09/24/191531 COPY TO: BETSY GREEN MD ABDOMEN- 1VIEW (KUB)2019-09-23 07:36:00 [facility] [address] [place] [address] Patient Name: SHAUN MICHAEL MR #: [id number] : 1965 Age/Sex: 53/F Req #: [id number] Adm Physician: DIEGO WATSON MD Ordered by: YULIA MCNALLY SPECIAL EVENTS COORDINATOR Report #: [id number] Location: MED/SURG Room/Bed: [facility] Procedure: [id number] DX/ABDOMEN-1VIEW (KUB) Exam Date: 09/23/19 Exam Time : 632 REPORT STATUS: Signed Abd omen/KUB INDICATION: SBO [id number] COMPARISON: CT abdom en/pelvis 09/22/2019. FINDINGS: [...] stool throughout the colon. Signed by: Dr. Kirsten Edwards MD on 09/23/2019 7:37 AM Dictated By: KIRSTEN EDWARDS MD Elect ronalba Signed By: KIRSTEN EDWARDS MD on 09/23/19736 Transcribed By: PETER SHARIF on 09/23/19736 COPY TO: YULIA MCNALLY NP CT ABDOMEN/PELVIS [id number] 19:23:00 [facility] [address] [address] Patient Name: SHAUN MICHAEL MR #: [id number] : 1965 Age/Sex: 53/F Req #: [id number] Adm Physician: Ordered by: ADELAIDA DURANT MD Report #: [id number] Location: ER Room/Bed: Procedure: [id number] CT/ CT ABDOMEN/PELVIS W Exam Date: 09/22/19 Exam Time: 1 810 REPORT STATUS: Signed EXAM: CT Abdomen and Pelvis WITH contrast INDICATION: abd pain [id number] COMPARISON: None. TECHNIQUE: Abdomen and pelvis were [...] It is below the limits set by [facility] Radiation Protocol Committee (RPC). FINDINGS: LINES and [...] or wal l thickening. Signed by: Dr. Kisha Pereira MD on 09/22/2019 7:34 PM Dictated By: KISHA PEREIRA MD 33 COPY TO: CHLOÉ DURANT MD Creatine Kinase [id number] 18:04:00* Test Item Value Reference Range Interpretation Comments Creatine Kinase MB (test code = 10739-9) 0.90 0-5.0 [facility] CenterTroponin [id number] 18:04:00* Test Item Value Reference Range Interpretation Comments Troponin I (test code = YJV3223) 0.006 0-0.300 [facility] CenterTotal Sguklyrel7869-52-20 17:47:00* Test Item Value Reference Range Interpretation Comments Total Bilirubin (test code = 1975-2) 0.5 0.2-1.2 [facility] CenterAspartate Amino Transf (AST/SGOT) 2019-09-22 17:47:00* Test Item Value Reference Range Interpretation Comments Aspartate Amino Transf (AST/SGOT) (test code = Aspartate Amino Transf (AST/SGOT)) 23 5-34 [facility] CenterAlanine Aminotransferase (ALT/SGPT) 2019-09-22 17:47:00* Test Item Value Reference Range Interpretation Comments Alanine Aminotransferase (ALT/SGPT) (test code = 1742-6) 23 0-55 [facility] CenterTotal Wpletwg4600-56-80 17:47:00* Test Item Value Reference Range Interpretation Comments Total Protein (test code = 2885-2) 7.9 6.5-8.1 [facility] CenterAlbumin2019-12-07 17:47:00* Test Item Value Reference Range Interpretation Comments Albumin (test code = 1751-7) 4.1 3.5-5.0 [facility] CenterGlobulin2019-12-07 17:47:00* Test Item Value Reference Range Interpretation Comments Globulin (test code = 07863-0) 3.8 2.3-3.5 H [facility] CenterAlbumin/Globulin Lbhqj9108-33-46 17:47:00 * Test Item Value Reference Range Interpretation Comments Albumin/Globulin Ratio (test code = 1759-0) 1.1 0.8-2.0 [facility] CenterAlkaline Cvqjtbtdnjm1172-32-08 17:47:00* Test Item Value Reference Range Interpretation Comments Alkaline Phosphatase (test code = 6768-6) 91 40-150 [facility] CenterCreatine Wdefhb9472-28-90 17:47:00* Test Item Value Reference Range Interpretation Comments Creatine Kinase (test code = 2157-6) 43 29-168 [facility] CenterAmylase Uufcg6411-53-69 17:47:00* Test Item Value Reference Range Interpretation Comments Amylase Level (test code = 1798-8) 64 25-125 [facility] CenterLipase2019-12-07 17:47:00* Test Item Value Reference Range Interpretation Comments Lipase (test code = 3040-3) 21 8-78 [facility] CenterProthrombin Vnkq4694-58-51 17:39:00* Test Item Value Reference Range Interpretation Comments Prothrombin Time (test code = 5902-2) 13.6 11.9-14.[address] [facility] CenterProthromb Time International Ratio 2019-09-22 17:39:00* Test Item Value Reference Range Interpretation Comments Prothromb Time International Ratio (test code = 6301-6) 0.99 Oral Anticoagulant Therapy INR Values:1. Low Intensity Therapy 1.5 - 2.02 . Moderate Intensity Therapy 2.0 - 3.03. High Intensity Therapy(1) 2.5 - 3. 54. High Intensity Therapy(2) 3.0 - 4.05. Panic Value INR > 5.0 [facility] CenterActivated Partial Thromboplast Time 2019-09-22 17:39:00* Test Item Value Reference Range Interpretation Comments Activated Partial Thromboplast Time (test code = 19858-6) 36.5 23.8-35.5 H [facility] CenterCHEST SINGLE (PORTABLE)2019-09-22 17:19:00 [facility] [address] [place] [address] Patient Name: SHAUN MICHAEL MR #: [id number] : 1965 Age/Sex: 53/F Req #: [id number] Adm Physician: Ordered by: ADELAIDA DURANT MD Report #: [id number] Location: ER Room/Bed: Procedure: [id number] DX/ CHEST SINGLE (PORTABLE) Exam Date: 09/22/19 [...] PM Dictated B y: MICK JEFFERY MD 1720 Blood scribed By: RITA on 09/22/19 1720 COPY TO: ADELAIDA DURANT MD Urine HHB7466-25-75 17:06:00* Test Item Value Reference Range Interpretation Comments Urine WBC (test code = 5821-4) 0-5 0-5 [facility] CenterUrine QMD4231-68-34 17:06:00* Test Item Value Reference Range Interpretation Comments Urine RBC (test code = 87487-2) 0-5 0-5 [facility] CenterUrine Hwrxltjr3220-45-89 17:06:00* Test Item Value Reference Range Interpretation Comments Urine Bacteria (test code = 24820-2) FEW NONE [facility] CenterUrine Epithelial Mzwyc6882-46-86 17:06:00 * Test Item Value Reference Range Interpretation Comments Urine Epithelial Cells (test code = 33037-6) FEW NONE [facility] CenterUrine Stihc7029-62-89 17:00:00* Test Item Value Reference Range Interpretation Comments Urine Color (test code = 5778-6) YELLOW YELLOW [facility] CenterUrine Rdjaurs7839-82-55 17:00:00* Test Item Value Reference Range Interpretation Comments Urine Clarity (test code = 09795-6) CLEAR CLEAR [facility] CenterUrine Specific Oyvzjyb2136-28-11 17:00:00 * Test Item Value Reference Range Interpretation Comments Urine Specific [place] (test code = 5811-5) 1.010 1.010-1.02 5 [facility] CenterUrine gT9214-18-81 17:00:00* Test Item Value Reference Range Interpretation Comments Urine pH (test code = 23598-8) 7 5-7 [facility] CenterUrine Leukocyte Rigijxgp1811-60-90 17:00:00* Test Item Value Reference Range Interpretation Comments Urine Leukocyte Esterase (test code = 5799-2) NEGATIVE NEGATIVE [facility] CenterUrine Ebymnij7964-96-10 17:00:00* Test Item Value Reference Range Interpretation Comments Urine Nitrite (test code = 33143-8) NEGATIVE NEGATIVE [facility] CenterUrine Xmhsvfq4543-36-32 17:00:00* Test Item Value Reference Range Interpretation Comments Urine Protein (test code = 5804-0) NEGATIVE NEGATIVE [facility] CenterUrine Glucose (UA)2019-09-22 17:00:00* Test Item Value Reference Range Interpretation Comments Urine Glucose (UA) (test code = 2349-9) NEGATIVE NEGATIVE [facility] CenterUrine Yfgxjrk9257-70-30 17:00:00* Test Item Value Reference Range Interpretation Comments Urine Ketones (test code = 13348-5) NEGATIVE NEGATIVE [facility] CenterUrine Drdyectbstpg9385-60-50 17:00:00* Test Item Value Reference Range Interpretation Comments Urine Urobilinogen (test code = 59341-7) 0.2 0.2-1 [facility] CenterUrine Jyebatzps7603-72-27 17:00:00* Test Item Value Reference Range Interpretation Comments Urine Bilirubin (test code = 1978-6) NEGATIVE NEGATIVE [facility] CenterUrine Ioygq9453-00-40 17:00:00* Test Item Value Reference Range Interpretation Comments Urine Blood (test code = 72789-9) NEGATIVE NEGATIVE [facility] or plasma amylase measurement (enzymatic activity/volume)2019-09-22 15:25:00* Test Item Value Reference Range Interpretation Comments Amylase Level (test code = 1798-8) 64 25-125 [facility] or plasma lipase measurement (enzymatic activity/volume)2019-09-22 15:25:00* Test Item Value Reference Range Interpretation Comments Lipase (test code = 3040-3) 21 8-78 [facility][QL] CMP W/MKZM0993-78-17 16:43:00* Test Item Value Reference Range Interpretation Comments GLUCOSE; Normal (test code = 1547-9) 112 mg/dl 65-139 N Non-fasting reference interval UREA NITROGEN (BUN) (test code = UREA NITROGEN (BUN)) 10 mg/dl 7-25 N CREATININE (test code = CREATININE) 0.81 mg/dl 0.50-1.05 N For patients >49 years of age, the reference limitfor Creatinine is approximately 13% higher for peopleidentified as -Fijian. eGFR NON- (test code = eGFR NON-[place]NN N [place]) 82 {ML/MIN/1.7} > OR = 60 N [...] N BILIRUBIN, TOTAL; Normal (test code = 83529-7) 0.2 mg/dl 0.2-1.2 N ALKALINE PHSPHATASE (test code = ALKALINE PHSPHATASE) 81 u/l 33-130 N AST; Normal (test code = 1916-6) 19 u/l 10-35 N ALT; Normal (test code = 1742-6) 16 u/l 6-29 N [facility]] CBC (INCLUDES DIFF/PLT)2019-09-05 16:43:00* Test Item Value Reference Range Interpretation Comments WHITE BLOOD CELL COUNT (test code = WHITE BLOOD CELL COUNT) 10.8 {Thousand/u} 3.8-10.8 N RED BLOOD CELL COUNT (test code = RED BLOOD CELL COUNT) 4.01 {Million/uL} 3.80-5.10 N HEMAGLOBIN; Normal (test code = 98117-4) 12.3 g/dl 11.7-15.5 N HEMATOCRIT; Normal (test code = 4544-3) 35.5 % 35.0-45.0 N MCV; Normal (test code = 787-2) 88.5 fL 80.0-100.0 N MCHC; Normal (test code = 23517-5) 34.6 g/dl 32.0-36.0 N RDW; Normal (test code = 788-0) 12.6 % 11.0-15.0 N PLATELET COUNT; Normal (test code = 777-3) 242 {Thousand/u} 140-400 N MPV; Normal (test code = 68428-5) 9.3 fL 7.5-12.5 N ABSOLUTE NEUTROPHILS (test code = ABSOLUTE NEUTROPHILS) 9104 {cells/uL} 9920-4927 ABSOLUTE LYMPHOCYTES (test code = ABSOLUTE LYMPHOCYTES) [...] % N MONOCYTES; Normal (test code = 66410-7) 4.3 % N EOSINOPHILS; Normal (test code = 29210-6) 0.1 % N BASOPHILS; Normal (test code = 21974-2) 0.2 % N [facility]] TSH, 3RD GENERATION W/REFLEX TO FT4 2019-09-05 16:43:00* Test Item Value Reference Range Interpretation Comments TSH, 3RD GENERATION W/REFLEX TO FT4 (isa t code = TSH, 3RD GENERATION W/REFLEX TO FT4) 0.29 {MIU/L} Reference Range > or = 20 Years 0.40-4.50 Ranges First trimester 0.26-2.66 Second trimester 0.55-2.73 Third trimester 0.43-2.91 [facility]] T4, [id number] 16:43:00* Test Item Value Reference Range Interpretation Comments T4, FREE (test code = T4, FREE) 1.3 ng/dl 0.8-1.8 N [facility]] PROTHROMBIN W/INR + PARTIAL THROMBOPLASTIN [id number] 11:24:00* Test Item Value Reference Range Interpretation Comments PARTIAL THROMBOPLASTIN TIME, ACTIVATED ( test code = PARTIAL THROMBOPLASTIN TIME, ACTIVATED) 31 {sec} 22-34 N This test has no t been validated for monitoringunfractionated heparin therapy. For testing thatis validated for this type of therapy, please referto the Heparin Anti-Xa assay (test code 86228). For additional information, please refer tohttp://education.Send the Trend/faq/MAC332(This link is being provided for informational/educational purposes only.) INR (test code = INR) 1.0 N Refere nce Range 0.9-1.1Moderate-intensity Warfarin Therapy 2.0-3.0Higher-intensity Warfarin Therapy 3.0-4.0 PT (test code = PT) 10.3 {sec} 9.0-11.5 N [facility]] CBC (INCLUDES DIFF/PLT)2019-08-09 11:24:00* Test Item Value Reference Range Interpretation Comments WHITE BLOOD CELL COUNT (test code = WHITE BLOOD CELL COUNT) 5.5 {Thousand/u} 3.8-10.8 N RED BLOOD CELL COUNT (test code = RED BLOOD CELL COUNT) 4.49 {Million/uL} 3.80-5.10 N HEMAGLOBIN; Normal (test code = 55030-5) 14.0 g/dl 11.7-15.5 N HEMATOCRIT; Normal (test code = 4544-3) 40.0 % 35.0-45.0 N MCV; Normal (test code = 787-2) 89.1 fL 80.0-100.0 N MCHC; Normal (test code = 45876-7) 35.0 g/dl 32.0-36.0 N RDW; Normal (test code = 788-0) 12.8 % 11.0-15.0 N PLATELET COUNT; Below Low Threshold (test code = 777-3) 128 {Thousand/u} 140-400 MPV; Normal (test code = 55768-0) 10.6 fL 7.5-12.5 N ABSOLUTE NEUTROPHILS (test code = ABSOLUTE NEUTROPHILS) 3157 {cells/uL} 1497-5437 N ABSOLUTE LYMPHOCYTES (test code = ABSOLUTE [...] % N MONOCYTES; Normal (test code = 31445-0) 7.3 % N EOSINOPHILS; Normal (test code = 87426-9) 5.7 % N BASOPHILS; Normal (test code = 77538-0) 0.4 % N COMMENT(S) (test code = COMMENT(S)) See Comment Review of peripheral smear confirmsautomated results. [facility]] LIPID [id number] 08:31:00* Test Item Value Reference Range Interpretation Comments CHOLESTEROL, TOTAL; Normal (test code = 2093-3) 180 mg/dl <200 N HDL CHOLESTEROL; Below Low Threshold (test code = 2085-9) 40 mg/dl >50 TRIGLYCERIDES; Above High Threshold (test code = 2571-8) 213 mg/dl <150 LDL-CHOLESTEROL; Above High Threshold (test code = 37990-4) 107 {MG/DL ANA} Reference range: <100 Desirable range <1 00 mg/dL for primary prevention; <70 mg/dL for patients with CHD or diabetic patients with > or = 2 CHD risk factors. LDL-C is now calculated using the Venancio-Erick calculation, which is a validated novel method providing better accuracy than the Friedewald equation in the estimation of LDL-C. Venancio SS et al. NAZ. 2013;310(19): 9508-0563 (http ://education.[employer].com/faq/BZQ185) CHOL/HDLC RATIO (test code = CHOL/HDLC RATIO) 4.5 {CALC} <5.0 N NON HDL CHOLESTEROL (test code = NON HDL CHOLESTEROL) 140 {MG/DL C AL} <130 For patients with diabetes plus 1 major ASCVD risk factor, treating to a non-HDL-C goal of <100 mg/dL (LDL-C of <70 mg/dL) is considered a therapeutic option. [facility]] CMP W/LHZT5286-10-05 08:31:00* Test Item Value Reference Range Interpretation Comments GLUCOSE; Normal (test code = 1547-9) 99 mg/dl 65-99 N Fasting reference interval UREA NITROGEN (BUN) (test code = UREA NITROGEN (BUN)) 6 mg/dl 7-25 CREATININE (test code = CREATININE) 0.72 mg/dl 0.50-1.05 N For patients >49 years of age, the reference limitfor Creatinine is approximately 13% higher for peopleidentified as -Fijian. eGFR NON- (test code = eGFR NON-[place]NN N [place]) 94 {ML/MIN/1.7} > OR = 60 N [...] N BILIRUBIN, TOTAL; Normal (test code = 48340-4) 0.4 mg/dl 0.2-1.2 N ALKALINE PHSPHATASE (test code = ALKALINE PHSPHATASE) 92 u/l 33-130 N AST; Normal (test code = 1916-6) 23 u/l 10-35 N ALT; Normal (test code = 1742-6) 14 u/l 6-29 N [facility]] URINALYSIS, COMPLETE W/REFLEX TO CULTURE 2019-04-18 08:31:00* [...] NEGATIVE N BILIRUBIN; Normal (test code = 75177-4) NEGATIVE NEGATIVE N KETONES; Normal (test code = 77498-8) NEGATIVE NEGATIVE N OCCULT BLOOD; Normal (test code = 97470-3) NEGATIVE NEGATIVE N PROTEIN; Normal (test code = 41183-7) NEGATIVE NEGATIVE N NITRITE (test code = NITRITE) NEGATIVE NEGATIVE N LEUKOCYTE ESTERASE (test code = LEUKOCYTE ESTERASE) NEGATIVE NE GATIVE N WBC; Normal (test code = 6690-2) NONE SEEN < OR = 5 N RBC; Normal (test code = 789-8) NONE SEEN < OR = 2 N SQUAMOUS EPITHELIAL CELLS (test code = 69811-8) 0-5 < OR = 5 BACTERIA; Normal (test code = 630-4) NONE SEEN NONE SEEN N HYALINE CAST; Normal (test code = 55945-5) NONE SEEN NONE SEEN N [facility][] REFLEXIVE URINE [id number] 08:31:00* Test Item Value Reference Range Interpretation Comments REFLEXIVE URINE CULTURE (test code = REFLEXIVE URINE C ULTURE) NO CULTURE INDICATED [facility]] CBC (INCLUDES DIFF/PLT)2019-04-18 08:31:00* Test Item Value Reference Range Interpretation Comments WHITE BLOOD CELL COUNT (test code = WHITE BLOOD CELL COUNT) 6.3 {Thousand/u} 3.8-10.8 N RED BLOOD CELL COUNT (test code = RED BLOOD CELL COUNT) 4.72 {Million/uL} 3.80-5.10 N HEMAGLOBIN; Normal (test code = 49825-3) 14.3 g/dl 11.7-15.5 N HEMATOCRIT; Normal (test code = 4544-3) 41.6 % 35.0-45.0 N MCV; Normal (test code = 787-2) 88.1 fL 80.0-100.0 N MCHC; Normal (test code = 36191-6) 34.4 g/dl 32.0-36.0 N RDW; Normal (test code = 788-0) 13.3 % 11.0-15.0 N PLATELET COUNT; Below Low Threshold (test code = 777-3) 126 {Thousand/u} 140-400 MPV; Normal (test code = 68879-5) 11.2 fL 7.5-12.5 N ABSOLUTE NEUTROPHILS (test code = ABSOLUTE NEUTROPHILS) 4498 {cells/uL} 4307-6378 N ABSOLUTE LYMPHOCYTES (test code = ABSOLUTE [...] % N MONOCYTES; Normal (test code = 14900-6) 5.5 % N EOSINOPHILS; Normal (test code = 43092-9) 3.8 % N BASOPHILS; Normal (test code = 78072-7) 0.3 % N [facility][] Platelet Ozyzxfzllr6843-91-49 08:31:00* Test Item Value Reference Range Interpretation Comments PLATELET ESTIMATION (test code = PLATELET ESTIMATION) DECREASED ADEQUATE A [facility]] HEPATITIS C IMEWFWRG4938-90-99 08:31:00* Test Item Value Reference Range Interpretation Comments HEPATITIS C ANTIBODY; Abnormal (test code = 67831-2) REACTIVE N ON-REACTIVE A SIGNAL TO CUT-OFF (test code = SIGNAL TO CUT-OFF) 33.20 <1.0 0 HCV antibody was reactive. The sample will be testedfor HCV RNA by a Nucleic Acid Amplification Test (NAAT)to determine if the patient has a current activeinfection. [facility]] TSH, 3RD GENERATION W/REFLEX TO FT4 2019-04-18 08:31:00* Test Item Value Reference Range Interpretation Comments TSH, 3RD GENERATION W/REFLEX TO FT4 (isa t code = TSH, 3RD GENERATION W/REFLEX TO FT4) 2.62 {MIU/L} N Reference Range > or = 20 Years 0.40-4.50 Ranges First trimester 0.26-2.66 Second trimester 0.55-2.73 Third trimester 0.43-2.91 [facility][] HCV RNA, QUANTITATIVE REAL TIME [id number] 08:31:00* Test Item Value Reference Range Interpretation Comments HCV RNA, QUANTITATIVE REAL TIME PCR (ias t code = HCV RNA, QUANTITATIVE REAL TIME PCR) <1.18 NOT DETECTED NOT DETECTED N This test was performed using Real-Time Polymerase ChainReaction. Reportable Range: 15 IU/mL to 100,000,000 IU/mL(1.18 Log IU/mL to 8.00 Log IU/mL). The analytical performance characteristics of thi jacquiey have been determined by [employer]. The modifications have not been cleared or approved bythe FDA. This assay has been validated pursuant to the CLIA regulations and is used for clinical purposes. For more information on this test, go to:http://education.[employer].com/faq/UWQ54m0(This link is being provided for informational/educational purposes only.) [facility]] HEMOGLOBIN [id number] 08:31:00* Test Item Value Reference Range Interpretation [...] diagnosis of diabetes in children. According to [place] Diabetes Association (ADA)guidelines, hemoglobin A1c <7.0% represents optimalcontrol in non- diabetic patients. Differentmetrics may apply to specific patient populations. Standards of Medical Care in Diabetes(ADA). [facility]iciansCT BRAIN OI4449-78-74 16:15:[address] [address] Patient Name: SHAUN MICHAEL MR #: [id number] : 1965 Age/Sex: 53/F Req #: [id number] Adm Physician: Ordered by: YULIA MCNALLY NP Report #: [id number] Location: Room/Bed: Procedure: [id number] CT/ CT BRAIN WO Exam Date: 04/15/19 [...] IMPRESSION: No abnor malities. Signed by: Dr. Smiley Martinez M.D. on 04/15/2019 4:16 PM Dictated By: SMILEY MARTINEZ MD, MD 15 Transcribed By: RITA on 04/15/191615 COPY TO: YULIA MCNALLY NP
[2020-07-14 19:13] LABS: BASOPHILS % 0.4 % (0.0-1.0); EOSINOPHILS # (AUTO) 0.3 (0.0-0.4); EOSINOPHILS % 5.8 % (0.0-6.0); HEMATOCRIT 39.5 % (34.2-44.1); HEMOGLOBIN 13.5 g/dL (12.0-16.0); LYMPHOCYTES # (AUTO) 1.6 (1.0-3.2); LYMPHOCYTES % 30.1 % (18.0-39.1); MEAN CORPUSCULAR HEMOGLOBIN 30.3 pg (28-32); MEAN CORPUSCULAR HGB CONC 34.2 g/dL (31-35); MEAN CORPUSCULAR VOLUME 88.6 fL (81-99); MONOCYTES # (AUTO) 0.4 (0.2-0.8); MONOCYTES % 7.1 % (4.4-11.3); NEUTROPHILS # (AUTO) 3.1 (2.1-6.9); NEUTROPHILS % 56.4 % (38.7-80.0); PLATELET COUNT 116 x10e3/uL (140-360); RED BLOOD COUNT 4.46 x10e6/uL (3.6-5.1); RED CELL DISTRIBUTION WIDTH 12.3 % (11.7-14.4)
--- NOTE | 2020-07-14 19:18 | Emergency Department Note ---
History of Present Illnes History of Present Illness Chief Complaint: Chest Pain History of Present Illness This is a 54 year old female in from home via EMS with reports of chest pain that started 11am today and persisted through to 1700. After her chest pain resolved she began with fatigue and a headache. Patient currently denies chest pain at this time but complains of nausea and headache right now. Patient is complaint with medications at home. PT [facility] HAS BEEN HAVING THIS SAME PAIN ALMOST EVERYDAY INTERMITTENTLY FOR THE PAST WEEK Onset (how long ago): day(s) (7) Location: [facility] Quality: PAIN/PRESSURE Radiation: Reports non-radiation Severity: moderate Onset quality: sudden Duration (how long): hour(s) (5) Timing of current episode: intermittent Progression: resolved Chronicity: recurrent Context: Denies recent illness, Denies recent surgery, Denies trauma/injury Relieving factors: none Exacerbating factors: none Associated symptoms: Reports weakness, Reports other (MILD HEADACHE) Treatments prior to arrival: none Past Medical/Family History Physician Review I have reviewed the patient's past medical and family history. Any updates have been documented here. Past Medical History Recent Fever: No Clinical Suspicion of Infectio: No New/Unexplained Change in Ment: No Past Medical History: Hypertension, Hypothyroidism, Hepatitis C, Liver Disease, Anemia, Anxiety, Depression, GERD Other Medical History: LIVER CIRROHSIS Past Surgical History: Appendectomy, Hysterectomy Other Surgery: TUMMY TUCK AND BREAST LIFT TUBAL LIGATION Social History Smoking Cessation: Current every day smoker Alcohol Use: Occasional Any Illegal Drug Use: No Family History Family history of heart diseas: Yes (FATHER HAD QUADRUPLE BYPASS IN HIS 50'S) Other Last Tetanus: OOD Review of Systems Review of Systems Constitutional: Reports no symptoms EENTM: Reports no symptoms Cardiovascular: Reports as per HPI Respiratory: Reports no symptoms Gastrointestinal: Reports no symptoms Genitourinary: Reports no symptoms Musculoskeletal: Reports no symptoms Integumentary: Reports no symptoms Neurological: Reports no symptoms Psychological: Reports no symptoms Endocrine: Reports no symptoms Hematological/Lymphatic: Reports no symptoms Physical Exam Related Data Allergies: Coded Allergies: No Known Allergies (Unverified , 04/15/19) Triage Vital Signs Vital Signs Date Time Temp Pulse Resp B/P (MAP) Pulse Ox O2 Delivery O2 Flow Rate FiO2 07/14/20 18:46 98.1 69 14 177/101 100 Room Air Vital signs reviewed: Yes Physical Exam CONSTITUTIONAL Constitutional: Present well-developed, Present well-nourished; Absent distressed HENT HENT: Present normocephalic, Present atraumatic, Present oropharynx clear/moist, Present nose normal HENT L/R: Present left ext ear normal, Present right ext ear normal EYES Eyes: Reports PERRL, Reports conjunctivae normal NECK Neck: Present ROM normal PULMONARY Pulmonary: Present effort normal, Present breath sounds normal CARDIOVASCULAR Cardiovascular: Present regular rhythm, Present heart sounds normal, Present capillary refill normal, Present normal rate GASTROINTESTINAL Abdominal: Present soft, Present nontender, Present bowel sounds normal GENITOURINARY Genitourinary: Present exam deferred SKIN Skin: Present warm, Present dry MUSCULOSKELETAL Musculoskeletal: Present ROM normal NEUROLOGICAL Neurological: Present alert, Present oriented x 3, Present no gross motor or sensory deficits PSYCHOLOGICAL Psychological: Present mood/affect normal, Present judgement normal Results Laboratory Laboratory Laboratory Tests Test 07/14/20 20:00 07/14/20 19:00 Urine Color Yellow (YELLOW) Urine Clarity Clear (CLEAR) Urine pH 7 (5 - 7) Urine Specific [place] 1.010 (1.010-1.025) Urine Protein Negative (NEGATIVE) Urine Glucose (UA) Negative (NEGATIVE) Urine Ketones Negative (NEGATIVE) Urine Blood Negative (NEGATIVE) Urine Nitrite Negative (NEGATIVE) Urine Bilirubin Negative (NEGATIVE) Urine Urobilinogen 0.2 mg/dL (0.2 - 1) Urine Leukocyte Esterase Negative (NEGATIVE) Urine RBC 0-5 /HPF (0-5) Urine WBC 0-5 /HPF (0-5) Urine Epithelial Cells Rare /LPF (NONE) Urine Bacteria Rare /HPF (NONE) White Blood Count 5.39 x10e3/uL (4.8-10.8) Red Blood Count 4.46 x10e6/uL (3.6-5.1) Hemoglobin 13.5 g/dL (12.0-16.0) Hematocrit 39.5 % (34.2-44.1) Mean Corpuscular Volume 88.6 fL (81-99) Mean Corpuscular Hemoglobin 30.3 pg (28-32) Mean Corpuscular Hemoglobin Concent 34.2 g/dL (31-35) Red Cell Distribution Width 12.3 % (11.7-14.4) Platelet Count 116 x10e3/uL (140-360) Neutrophils (%) (Auto) 56.4 % (38.7-80.0) Lymphocytes (%) (Auto) 30.1 % (18.0-39.1) Monocytes (%) (Auto) 7.1 % (4.4-11.3) Eosinophils (%) (Auto) 5.8 % (0.0-6.0) Basophils (%) (Auto) 0.4 % (0.0-1.0) Neutrophils # (Auto) 3.1 (2.1-6.9) Lymphocytes # (Auto) 1.6 (1.0-3.2) Monocytes # (Auto) 0.4 (0.2-0.8) Eosinophils # (Auto) 0.3 (0.0-0.4) Basophils # (Auto) 0.0 (0.0-0.1) Absolute Immature Granulocyte (auto 0.01 x10e3/uL (0-0.1) Prothrombin Time 13.6 seconds (11.9-14.5) Prothromb Time International Ratio 0.99 Activated Partial Thromboplast Time 34.0 seconds (23.8-35.5) Sodium Level 136 mmol/L (136-145) Potassium Level 3.7 mmol/L (3.5-5.1) Chloride Level 104 mmol/L (98-107) Carbon Dioxide Level 23 mmol/L (22-29) Anion Gap 12.7 mmol/L (8-16) Blood Urea Nitrogen 5 mg/dL (7-26) Creatinine 0.82 mg/dL (0.57-1.11) Estimat Glomerular Filtration Rate > 60 ML/MIN (60-) BUN/Creatinine Ratio 6 (6-25) Glucose Level 88 mg/dL (74-118) Calcium Level 9.6 mg/dL (8.4-10.2) Total Bilirubin 0.3 mg/dL (0.2-1.2) Aspartate Amino Transf (AST/SGOT) 31 IU/L (5-34) Alanine Aminotransferase (ALT/SGPT) 20 IU/L (0-55) Alkaline Phosphatase 82 IU/L (40-150) Creatine Kinase 125 IU/L (29-168) Creatine Kinase MB 1.50 ng/mL (0-5.0) Troponin I 0.018 ng/mL (0-0.300) Total Protein 8.0 g/dL (6.5-8.1) Albumin 4.6 g/dL (3.5-5.0) Globulin 3.4 g/dL (2.3-3.5) Albumin/Globulin Ratio 1.4 (0.8-2.0) Laboratory Tests Test 07/14/20 19:00 Lab results reviewed: Yes Imaging Imaging results reviewed: Yes Impressions Procedure: [id number] DX/CHEST SINGLE (PORTABLE) Exam Date: 07/14/20 Exam Time: 1909 REPORT STATUS: Signed EXAMINATION: CHEST SINGLE (PORTABLE) COMPARISON: Chest x-ray 05/18/2020 INDICATION: Chest pain ^CP ^[id number] ^1909 DISCUSSION: Frontal view of the chest obtained at 1920 hours. HEART AND MEDIASTINUM: The cardiomediastinal silhouette is unremarkable. LINES: None. LUNGS: The lungs are well inflated and clear. No pneumonia or pulmonary edema. PLEURA: Stable mild eventration of the right diaphragm. No pleural effusion or pneumothorax. BONES AND SOFT TISSUES: No focal osseous lesion. The soft tissues are normal. IMPRESSION: No acute cardiopulmonary disease. Signed by: Dr. Mani Mcdonnell MD on 07/14/2020 7:44 PM Dictated By: MANI MCDONNELL MD 43 Transcribed By: RITA on 07/14/201943 COPY TO: JOSH CABRERA MD~ Procedures 12 Lead ECG Interpretation ECG Interpretation : ECG: ECG 1 Plant Operations Worker: Interpreted by ED physician Date: Jul 14, 2020 Time: 19:06 Rhythm: sinus rhythm Rate: normal BPM: 63 QRS axis: normal ST segments normal: No (NONSPECIFIC CHANGES) T waves normal: No (NON SPECIFIC CHANGES) Clinical Impression: abnormal ECG Additional Comments LOW VOLTAGE QRS Assessment & Plan Medical Decision Making MDM PT WITH H/O HTN WHO SMOKES AND HAS STRONG FAMILY HISTORY OF HEART DISEASE PRESENTS WITH INTERMITTENT SUBSTERNAL CHEST PAIN FOR PAST 7 DAYS CBC, CMP, EKG, CARDIAC ENZYMES, CXR, ORDERED TO EVAL FOR MYOCARDIAL INFARCTION, ELECTROLYTE ABNORMALITY, INTRATHORACIC ABNORMALITY I SPOKE WITH DR ALLEN, CONSULT DR Gabrielle BERGMAN Assessment & Plan Final Impression: (1) Chest pain Depart Disposition: ADMITTED Last Vital Signs Date Time Temp Pulse Resp B/P (MAP) Pulse Ox O2 Delivery O2 Flow Rate FiO2 9/28/20 19:09 67 13 164/74 100 Room Air 07/14/20 18:46 98.1 Home Meds Active Scripts Levothyroxine Sodium (SYNTHROID) 75 Mcg Tab, 75 MCG PO DAILY@06 for 30 Days, TAB 2 Refills Prov:TRACEY MONREAL MARTA 09/27/19 Reported Medications Olmesartan Medoxomil (BENICAR) 20 Mg Tablet, 20 MG PO DAILY, #30 TAB 05/18/20 Clonidine Hcl (CLONIDINE HCL) 0.1 Mg Tablet, 1 TAB PO PRN, #60 TAB 05/18/20 Diazepam (DIAZEPAM) 5 Mg Tablet, 5 MG PO HS, #30 TAB 05/18/20 Celecoxib* (CELEBREX*) 100 Mg Capsule, 200 MG PO BID, #30 CAP 05/18/20 Sennosides (SENNA LAXATIVE) 8.6 Mg Tablet, 1 TAB PO DAILY 05/18/20 [place]-3 Fatty Acids/Fish Oil (FISH OIL 1,000 MG CAPSULE) 1 Each Capsule, 1 TAB PO DAILY 05/18/20 Risperidone (RISPERIDONE) 1 Mg Tablet, 1 MG PO HS 09/22/19 Amitriptyline Hcl (AMITRIPTYLINE HCL) 25 Mg Tablet, 50 MG PO HS, #30 TAB 09/22/19 Oxybutynin Chloride (OXYBUTYNIN CHLORIDE ER) 5 Mg Tab.er.24, 5 MG PO DAILY 09/22/19 Vitamin A (VITAMIN A) 10,000 Unit Cap, PO DAILY 09/22/19 Trazodone Hcl (TRAZODONE HCL) 50 Mg Tablet, 100 MG PO HS, #30 TAB 09/22/19 Venlafaxine Hcl (VENLAFAXINE HCL ER) 75 Mg Tab.er.24, 150 MG PO DAILY 09/22/19 Tramadol Hcl* (ULTRAM 50MG*) 50 Mg Tab, 50 MG PO Q8H PRN for PAIN, TAB 09/22/19 Gabapentin (GABAPENTIN) 300 Mg Capsule, 600 MG PO TID 09/22/19 JOSH CABRERA MD Jul 14, 2020 19:18
[2020-07-14 19:23] LABS: INR 0.99; PROTHROMBIN TIME 13.6 seconds (11.9-14.5)
[2020-07-14 19:33] LABS: ALANINE AMINOTRANSFERASE 20 IU/L (0-55); ALBUMIN 4.6 g/dL (3.5-5.0); ALBUMIN/GLOBULIN RATIO 1.4 (0.8-2.0); ALKALINE PHOSPHATASE 82 IU/L (40-150); ANION GAP 12.7 mmol/L (8-16); BLOOD UREA NITROGEN 5 mg/dL (7-26); BUN/CREATININE RATIO 6 (6-25); CALCIUM 9.6 mg/dL (8.4-10.2); CARBON DIOXIDE 23 mmol/L (22-29); CHLORIDE 104 mmol/L (98-107); CREATINE KINASE 125 IU/L (29-168); CREATININE, SERUM 0.82 mg/dL (0.57-1.11); EST GLOMERULAR FILTRATION RATE > 60 ML/MIN (60-); GLUCOSE 88 mg/dL (74-118); POTASSIUM 3.7 mmol/L (3.5-5.1); SODIUM 136 mmol/L (136-145)
--- NOTE | 2020-07-14 19:47 | Diagnostic Imaging Report ---
EXAMINATION: CHEST SINGLE (PORTABLE) COMPARISON: Chest x-ray 05/18/2020 INDICATION: Chest pain ^CP ^[id number] ^1910 DISCUSSION: Frontal view of the chest obtained at 1920 hours. HEART AND MEDIASTINUM: The cardiomediastinal silhouette is unremarkable. LINES: None. LUNGS: The lungs are well inflated and clear. No pneumonia or pulmonary edema. PLEURA: Stable mild eventration of the right diaphragm. No pleural effusion or pneumothorax. BONES AND SOFT TISSUES: No focal osseous lesion. The soft tissues are normal. IMPRESSION: No acute cardiopulmonary disease. Signed by: Dr. Kirsten Mcdonnell MD on 07/14/2020 7:44 PM
[2020-07-14] MEDS ORDERED: ONDANSETRON HCL INJ 2MG/ML 2ML 2 MG/ML VIAL IV STA (19:55)
[2020-07-14] MEDS ORDERED: ONDANSETRON HCL INJ 2MG/ML 2ML 2 MG/ML VIAL ONE (20:06)
[2020-07-14 20:27] LABS: BILIRUBIN,URINE NEGATIVE (NEGATIVE); CLARITY,URINE CLEAR (CLEAR); COLOR,URINE YELLOW (YELLOW); KETONES,URINE NEGATIVE (NEGATIVE); LEUKOCYTE ESTERASE ,URINE NEGATIVE (NEGATIVE); NITRITE,URINE NEGATIVE (NEGATIVE); PROTEIN,URINE DIPSTICK NEGATIVE (NEGATIVE); URINE UROBILINOGEN 0.2 mg/dL (0.2 - 1)
[2020-07-14 20:47] LABS: BACTERIA,URINE RARE /HPF; EPITHELIAL CELLS,URINE RARE /LPF; RBC,URINE 0-5 /HPF (0-5); WBC,URINE (MAN) 0-5 /HPF (0-5)
[2020-07-14] MEDS ORDERED: SODIUM CHLORIDE FLUSH 10 ML SYR INJ PRN (21:30)
[2020-07-14] MEDS ORDERED: ONDANSETRON HCL INJ 2MG/ML 2ML 2 MG/ML VIAL IV PRN (21:30)
[2020-07-14] MEDS ORDERED: ASPIRIN 81 MG CHEW TAB PO ONE (21:30)
[2020-07-14] MEDS ORDERED: NITROGLYCERIN 0.4 MG SUBL SL PRN (21:30)
--- OUTSIDE RECORDS SUMMARY | 2020-07-14 21:32 | XMS REPORT | Clinical Summary ---
Author Author [facility] ict Organization [facility] ict Address Unknown Phone Unavailable Care Team Providers Care Television Inspector Name Role Phone PCP Unavailable Allergies [...] (post-traumatic stress disorder) [facility] 07/17/2019 Refill Psychiatry after 07/14/2019 [...] Comments Vital Sign 135/95 11/19/2019 10:55 AM COAT IRONER HAND Blood Pressure 67 11/19/2019 10:55 AM COAT IRONER HAND Pulse 36.8 C (98.2 F) 11/19/2019 10:55 AM COAT IRONER HAND Temperature 18 11/19/2019 10:55 AM COAT IRONER HAND Respiratory Rate 100% 11/19/2019 10:55 AM COAT IRONER HAND Oxygen Saturation - - Inhaled Oxygen Concentration 63.5 kg (140 lb) 11/19/2019 10:55 AM COAT IRONER HAND Weight 154.9 cm (5' 1") 11/19/2019 10:55 AM COAT IRONER HAND Height 26.45 11/19/2019 10:55 AM COAT IRONER HAND Body Mass Index Plan of Treatment Health [...] Dates Group AETNA MEDICARE AETNA xxxxxxxxxxxx 2019-P [phone] [address] [facility] [place] [address] [place] [address]
--- OUTSIDE RECORDS SUMMARY | 2020-07-14 21:32 | XMS REPORT | Clinical Summary ---
Author Author [facility] Address Unknown Phone Unavailable Care Team Providers Care Leasing Assistant Name Role Phone Leandro Castro MD PCP [...] resent CHOICE Medicare MEDICARE MEDICARE [id number]- [place], [place] A AND Present [place] B Indemnity AETNA AETNA [id number]- [employer] Present RE INDEMNITY Advance Directives For more information, please contact: [phone] Patient Talent Sourcer Explanation Type Date Recorded Advance Directives, Living Will and Medical Power of Cath Lab Technologist
--- OUTSIDE RECORDS SUMMARY | 2020-07-14 21:32 | XMS REPORT | Clinical Summary ---
Author Author [facility] Organization [facility] Address Unknown Phone Unavailable Care Team Providers Care Strategic Debriefing Officer Name Role Phone PCP Unavailable Allergies No [...] daily. Active VITAMIN A Take by 0 [id number] ORAL mouth. Active levothyroxine (SYNTHROID) Take 75 [...] AETNA PPO xxxxxxxxxxxx [place] [phone]
--- OUTSIDE RECORDS SUMMARY | 2020-07-14 21:34 | XMS REPORT | Continuity of Care Document ---
Author Author [facility] t Organization [facility] Address [address] [place] [address] Phone Unavailable Care Team Providers Care Warehouse Incentive Selector Name Role Phone Chao CARRILLO PCP Michelet CABRERA Attphys Unavailable BLAKE CARRILLO D.O. Attphys Unavailable Josh Velázquez DO Attphys Eric DURANT Attphys Unavailable FIORELLA BRITO, P.A. Attphys Unavailable Sondra Tucker MD Attphys Eric Trammell MD Attphys JOSH SIMEON M.D. Attphys Unavailable DIEGO WATSON Attphys Unavailable LAURENCE ANDREWS M.D. Attphys Unavailable [facility] Attphys Unavailable ANGELIQUE JONES, P.A. Attphys Unavailable MELISSA MCKENZIE APRN Attphys Unavailable LAW KEENAN, MARTA Attphys Unavailable CINTHYA BLOOD, CLOTH WIRE WEAVER Attphys Unavailable Sondra Guzman MD Attphys JAMILA SANTOS APRN Attphys Unavailable AV OLIVEIRA Attphys Unavailable DIEGO WATSON Admphys Unavailable Payers Payer Name Policy Type Policy Number Effective Date Expiration Date Lobo valdivia AETNA - MGD CAREAETNA PPO OPEN [facility] NAPxxxxxxxxxxxxPPO [id number] xxxxxxxx [facility] Aetna Medicare Replacement [id number] 2019 00:00:0 0 [facility] AETNA MEDICAREAETNA GOVERNMENT [id number] [address] [address] xxxxxxxxxxxx 2019 00:00:00 Arden Gillespie clif Problems Condition Name Condition Details Condition Category Status Onset Date Resolution Date Last Treatment Date Treating Clinician Comments Source Sacroiliac joint dysfunction of left side Sacroiliac j oint dysfunction of left side Disease Active 2016-10-12 00:00:00 Ruy lopez Faith Trochanteric bursitis, left hip Trochanteric bursitis, left hip Dis ease Active 2016-10-12 00:00:00 José Rodarte Unspecified urinary incontinence Unspecified urinary incontinenc e Disease Active 2012-02-22 00:00:00 [facility] Tobacco abuse Tobacco abuse Disease Active 2012-02-22 00:00:00 [facility] Acute hepatitis C without mention of hepatic coma(070. 51) Acute hepatitis C without mention of hepatic coma(070.51) Disease Active 2011 00:00:0 0 [facility] LBP (low back pain) LBP (low back pain) Disease Active 2010-02-25 00:00 :00 [facility] Amnestic disorder Amnestic disorder Disease Active 2009-07-14 00:00:00 [facility] Wrist pain Wrist pain Disease Active 2009-05-15 00:00:00 [facility] Major depressive disorder, single episod e, severe, without mention of psychotic behavior Major depressive disorder, single episod e, severe, without mention of psychotic behavior Disease Active 2009-03-13 00:00:00 [facility] Carpal tunnel syndrome Carpal tunnel syndrome Disease Active 2008-07-25 00:00:00 [facility] Unspecified hypothyroidism Unspecified hypothyroidism Disease Active 2008-07-25 00:00:00 [facility] Chronic pain due to trauma Chronic pain due to trauma Disease Active 2008-07-25 00:00:00 [facility] Post-traumatic stress disorder Post-traumatic stress disorder Disea se Active 2008-07-25 00:00:00 Arden Gillespie ealth Fatigue Problem Active [facility] Anxiety Problem Active [facility] Patient requests second opinion Patient requests second opinion Pro blem Active [facility] History of post traumatic stress disorder History of p ost traumatic stress disorder Problem Resolved [facility] History of cirrhosis History of cirrhosis Problem Resolved [facility] History of thyroid disorder History of thyroid disorder Problem Resolved [facility] Screening for breast cancer Screening for breast cancer Problem Active [facility] Need for Tdap vaccination Need for Tdap vaccination Problem Active [facility] Need for hepatitis C screening test Need for hepatitis C screeni ng test Problem Active [facility] Hepatitis C antibody test positive Hepatitis C antibody test pos itive Problem Active [facility] Cervical muscle strain Cervical muscle strain Problem Active [facility] Bruising, spontaneous Bruising, spontaneous Problem Active [facility] Platelets decreased Platelets decreased Problem Active [facility] Acute bronchitis Acute bronchitis Problem Active [facility] BMI 26.0-26.9,adult BMI 26.0-26.9,adult Problem Active [facility] Acute bacterial bronchitis Acute bacterial bronchitis Problem Active [facility] Sympathotonic orthostatic hypotension Sympathotonic orthosta tic hypotension Problem Active [facility] Hypokalemia Hypokalemia Problem Active [facility] Acute upper respiratory infection Acute upper respiratory infect ion Problem Active [facility] Chronic constipation Chronic constipation Problem Active [facility] S/P cholecystectomy S/P cholecystectomy Problem Active [facility] Sensory urge incontinence Sensory urge incontinence Problem Active [facility] TMJ (temporomandibular joint disorder) TMJ (temporomandibula r joint disorder) Problem Active [facility] Headache Headache Problem Active [facility] Bruxism Bruxism Problem Active [facility] Essential (primary) hypertension Essential (primary) hypertensio n Problem Active [facility] Hypothyroidism Hypothyroidism Problem Active [facility] Mixed hyperlipidemia Mixed hyperlipidemia Problem Active [facility] Hyponatremia Hyponatremia Problem Active [facility] Screening for HIV without presence of risk factors Scr eening for HIV without presence of risk factors Problem Active [facility] Postural dizziness with presyncope Postural dizziness with presy ncope Problem Active [facility] Mass of skin of head Mass of skin of head Problem Active [facility] Current episode of major depressive disorder without p rior episode Current episode of major depressive disorder without prior episode Disease Active [facility] Allergies, Adverse Reactions, Alerts Allergy Name Allergy Type Status Severity Reaction(s) Onset Date Inacti ve Date Treating Clinician Comments Source Hydrocodone-Acetaminophen Propensity to adverse reactions to drug Act kervin 2016-10-01 00:00:00 Causes Hallucination José Rodarte Family History Family Member Diagnosis Comments Start Date Stop Date Source Grandmother Family history of depression [facility] Grandfather Family history of malignant neoplasm [facility] Grandfather Family history of Aneurysm [facility] Mother Family history of diabetes mellitus [facility] Mother Family history of hypertension [facility] Mother Family history of chronic obstructive pulmonary disease [facility] Mother Family history of asthma [facility] Mother Family history of cardiac pacemaker [facility] Father Family history of hypertension [facility] Father Family history of stroke [facility] Father Family history of chronic obstructive pulmonary disease [facility] Father FH: CABG (coronary artery bypass surgery) [facility] Father Family history of myocardial infarction [facility] Natural father No Known Problems Elaine Rodarte Natural mother No Known Problems Elaine Rodarte Maternal grandfather [facility] Maternal grandfather [facility] Paternal aunt Cancer [facility] Social History Social Habit Start Date Stop Date Quantity Comments Source History of tobacco use Cigarette Smoker [facility] History SDOH Alcohol Std Drinks [facility] History SDOH Alcohol Binge [facility] Sex Assigned At [facility] History SDOH Alcohol Frequency 2020-06-21 00:00:00 2020-06-21 00:00:0 0 1 [facility] Cigarettes smoked current (pack per day) - Reported 00:00:00 2019-05-22 00:00:00 [facility] Cigarette pack-years 2019-05-22 00:00:00 2019-05-22 00:00:00 [facility] Alcohol intake 2019-05-22 00:00:00 2019-05-22 00:00:00 Current drinker of alcohol (finding) [facility] Alcohol Comment 2012-10-19 00:00:00 2012-10-19 00:00:00 socially -dranked New Years [facility] Tobacco Comment 2008-07-25 00:00:00 2008-07-25 00:00:00 5 cigarettes a day [facility] Smoking Status Start Date Stop Date Source Current every day smoker 2019-05-22 00:00:00 [facility] Medications Ordered Medication Name Filled Medication Name Start Date Stop Da te Current Medication? Ordering Clinician Indication Dosage Frequency Signature (SIG) Comments Components Source sodium chloride 1 gram tablet 2020-06-21 20:25:00 Yes 1g [id number] Take 1 g by mouth 3 (three) times daily. [facility] risperiDONE (RISPERDAL) 1 MG tablet 2020-06-21 20:25:00 Yes 1mg Q.5D Take 1 mg by mouth 2 (two) times daily. [facility] amitriptyline (ELAVIL) 50 MG tablet 2020-06-21 20:25:00 Yes 50mg QD Take 50 mg by mouth nightly. [facility] olmesartan (BENICAR) 20 MG tablet 2020-06-21 20:25:00 Yes 20mg QD Take 20 mg by mouth daily. [facility] diazePAM (VALIUM) 5 MG tablet 2020-06-21 20:25:00 Yes 5mg Take 5 mg by mouth every 6 (six) hours as needed for Anxiety. [facility] cloNIDine HCL (CATAPRES) 0.1 MG tablet 2020-06-21 20:25:00 Yes .1mg Q.5D Take 0.1 mg by mouth 2 (two) times daily. [facility] celecoxib (CELEBREX) 200 MG capsule 2020-06-21 20:25:00 Yes 200mg Take 200 mg by mouth every 12 (twelve) hours as needed for Pain. [facility] omega-3 fatty acids-fish oil 340-1,000 mg Cap per capsule 2020-06-21 20:24:59 Yes 2g Q.5D Take 2 g by mouth 2 (two) times daily. [facility] gabapentin (NEURONTIN) 600 MG tablet 2020-06-21 20:24:59 Yes 600mg Q.[id number] Take 600 mg by mouth 3 (three) times daily. [facility] VITAMIN A UIPRPSNWV-D-RFPLEVCO ORAL 2020-06-21 20:24:59 Yes Take by mouth. [facility] levothyroxine (SYNTHROID) 75 MCG tablet 2020-06-21 20:24:59 Yes 75ug Take 75 mcg by mouth Every morning on an empty stomach. [facility] traMADoL (ULTRAM) 50 mg tablet 2020-06-21 20:24:59 Yes 50mg Take 50 mg by mouth every 8 (eight) hours as needed for Pain. [facility] traZODone (DESYREL) 100 MG tablet 2020-06-21 20:24:59 Yes 100mg QD Take 100 mg by mouth nightly. [facility] oxybutynin (DITROPAN-XL) 5 MG 24 hr tablet 2020-06-21 20:24:59 Yes 5mg QD Take 5 mg by mouth daily. [facility] venlafaxine (EFFEXOR-XR) 150 MG 24 hr capsule 2020-06-21 20:24:5 8 Yes 150mg QD Take 150 mg by mouth daily. [facility] senna (SENOKOT) 8.6 mg tablet 2020-06-21 20:24:58 Yes 1{tbl} QD Take 1 tablet by mouth daily. [facility] Sodium Chloride 1 GM Oral Tablet Sodium Chloride 1 GM Oral T ablet 2020-05-23 00:00:00 Yes BLAKE CARRILLO D.O. 1 QD TAKE 1 TABLET LIZ LY [facility] Olmesartan Medoxomil 20 MG Oral Tablet Olmesartan Medoxomil 20 MG Oral Tablet 2020-03-08 00:00:00 Yes BLAKE CARRILLO D.O. 1 Q D TAKE 1 TABLET DAILY for high blood pressure [facility] cloNIDine HCl - 0.1 MG Oral Tablet cloNIDine HCl - 0.1 MG Or al Tablet 2020-03-08 00:00:00 Yes FIORELLA Rich.Alanna 1 tab po tid if BP > 170/100 [facility] risperiDONE (RISPERDAL) 1 mg tablet 2020-02-18 00:00:00 Yes Major depressive disorder, recurrent episode, mild 1mg Take 1 tablet by mouth at bedtime nightly. [facility] traZODone (DESYREL) 100 mg tablet 2020-02-18 00:00:00 Yes Major depressive disorder, recurrent episode, mild 100mg Take 1 tablet by mouth at bedtime nightly. [facility] venlafaxine (EFFEXOR XR) 150 mg extended release capsule 2020-02-18 00:00:00 Yes Major depressive disorder, recurrent episode, m ild 150mg QD Take 1 capsule by mouth daily. [facility] diazePAM 5 MG Oral Tablet diazePAM 5 MG Oral Tablet 2019-11-27 00:00: 00 Yes BLAKE CARRILOL D.O. TAKE ONE TABLET BY MOUTH EVERY NIGHT AT BEDTIME [facility] risperiDONE (RISPERDAL) 1 mg tablet 2019-11-19 00:00:0 0 2020-02-18 00:00:00 No Major depressive disorder, recurrent episode, mild 1mg Take 1 tablet by mouth at bedtime nightly. [facility] traZODone (DESYREL) 100 mg tablet 2019-11-19 00:00:00 2019 00:00:00 No Major depressive disorder, recurrent episode, mild 100mg Take 1 tablet by mouth at bedtime nightly. [facility] venlafaxine (EFFEXOR XR) 150 mg extended release capsule 2019-11-19 00:00:00 2020-02-18 00:00:00 No Major depressive disorder, r ecurrent episode, mild 150mg QD Take 1 capsule by mouth daily. [facility] traZODone (DESYREL) 100 mg tablet 2019-10-26 00:00:00 2019 00:00:00 No Major depressive disorder, recurrent episode, mild 100mg Take 1 tablet by mouth at bedtime nightly. [facility] Celecoxib 200 MG Oral Capsule Celecoxib 200 MG Oral Capsule 2018 00:00:00 Yes BLAKE CARRILLO D.O. Q0.5D TAKE 1 CAPS ULE BY MOUTH TWICE DAILY WITH FOOD [facility] Levothyroxine Sodium (Synthroid) 75 Mcg TAB Levothyrox ine Sodium (Synthroid) 75 Mcg TAB 2019-09-27 04:08:00 Yes 75 Daily@06 [facility] Acetaminophen With Codeine (Tylenol With Codeine #3 Ta blet) 1 Each TABLET Acetaminophen With Codeine (Tylenol With Codeine #3 Tablet) 1 Each TABLET 2019-09-27 04:08:00 2020-05-18 00:00:00 No 300 Every 8 Hours as needed for Abdominal Pain [facility] Ondansetron Hcl (Zofran*) 4 Mg TABLET Ondansetron Hcl (Zofra n*) 4 Mg TABLET 2019-09-27 04:08:00 2020-05-18 00:00:00 No 4 Every 8 Hours as needed for Nausea And Vomiting [facility] risperiDONE (RISPERDAL) 1 mg tablet 2019-09-17 00:00:0 0 2019-11-19 00:00:00 No Major depressive disorder, recurrent episode, mild 1mg Take 1 tablet by mouth at bedtime nightly. [facility] traZODone (DESYREL) 100 mg tablet 2019-09-17 00:00:00 2019 00:00:00 No Major depressive disorder, recurrent episode, mild 100mg Take 1 tablet by mouth at bedtime nightly. [facility] venlafaxine (EFFEXOR XR) 150 mg extended release capsule 2019-09-17 00:00:00 2019-11-19 00:00:00 No Major depressive disorder, r ecurrent episode, mild 150mg QD Take 1 capsule by mouth daily. [facility] traZODone (DESYREL) 100 mg tablet 2019-07-17 00:00:00 2018 00:00:00 No Major depressive disorder, recurrent episode, mild TAKE 1 TABLET BY MOUTH EVERY NIGHT AT BEDTIME NEEDED [facility] venlafaxine (EFFEXOR XR) 150 mg extended release capsule 2019-06-25 00:00:00 2019-09-17 00:00:00 No Major depressive disorder, r ecurrent episode, mild 150mg QD Take 1 capsule by mouth daily. [facility] risperiDONE (RISPERDAL) 1 mg tablet 2019-06-25 00:00:0 0 2019-09-17 00:00:00 No Major depressive disorder, recurrent episode, mild 1mg Take 1 tablet by mouth at bedtime nightly. [facility] traZODone (DESYREL) 100 mg tablet 2019-06-25 00:00:00 2018 00:00:00 No Major depressive disorder, recurrent episode, mild 100mg Take 1 tablet by mouth nightly at bedtime as needed for Sleep. [facility] Oxybutynin Chloride ER 5 MG Oral Tablet Extended Relea se 24 Hour Oxybutynin Chloride ER 5 MG Oral Tablet Extended Release 24 Hour 2019-06-22 00:00:00 Yes BLAKE Anthony.OKayla TAKE 1 TABLET BY MOUTH EVERY DA Y [facility] hydroCHLOROthiazide 12.5 MG Oral Tablet hydroCHLOROthiazide 12.5 MG Oral Tablet 2019-05-30 00:00:00 Yes LAURENCE ANDREWS M.DKayla QD TAKE 1 TABLET BY MOUTH DAILY [facility] Shingrix 50 MCG/0.5ML Intramuscular Suspension Reconst ituted Shingrix 50 MCG/0.5ML Intramuscular Suspension Reconstituted 2019-05-02 00:00:00 Yes JAMILA SANTOS APRN ADMINISTER 0.5 M L INTRAMUSCULARLY ONCE NOW, THEN SECOND DOSE AT 2-6 MONTHS. [facility] H-E-B inControl BP Monitor H-E-B inControl BP Monitor 2019-04-17 00:0 0:00 Yes JAMILA SANTOS APRN MEASURE BLOOD PRESSURE DAILY D IRECTED. [facility] Gabapentin 600 MG Oral Tablet Gabapentin 600 MG Oral Tablet 2018 00:00:00 Yes BLAKE CARRILLO D.O. Q0.3333D TAKE 1 TABLET BY GORDON TH THREE TIMES DAILY [facility] Venlafaxine HCl ER 150 MG Oral Capsule Extended Releas e 24 Hour Venlafaxine HCl ER 150 MG Oral Capsule Extended Release 24 Hour 2018-10-31 00:00:00 Yes M.A. QD TAKE 1 CAPSULE ONCE DAILY WITH FOOD. [facility] traMADol HCl - 50 MG Oral Tablet traMADol HCl - 50 MG Oral T ablet 2018-10-31 00:00:00 Yes BLAKE Anthony.OKayla Q8H T MIKEL 1 TABLET EVERY 8 HOURS NEEDED. [facility] Vitamin A 98964 UNIT TABS Vitamin A 16459 UNIT TABS 2018-10-31 00:00: 00 Yes M.A. QD TAKE 1 TABLET DAILY. [facility] traZODone HCl - 100 MG Oral Tablet traZODone HCl - 100 MG Or al Tablet 2018-10-31 00:00:00 Yes M.A. 1 QD TAKE 1 TABLET DAILY [facility] Levothyroxine Sodium 75 MCG Oral Tablet Levothyroxine Sodium 75 MCG Oral Tablet 2018-10-31 00:00:00 Yes BLAKE CARRILLO D.O. 1 Q D TAKE 1 TABLET BY MOUTH ONCE DAILY [facility] paliperidone (INVEGA) 6 MG 24 hr [...] tablet 2016-07-31 00:00:00 Yes TK UTD José prakasht traMADol (ULTRAM) 50 mg tablet 2012-11-24 00:00:00 Yes Joint pain 50mg Take 1 tablet by mouth every 8 hours as needed (q 8 hours prn). [facility] ALBUTEROL 90 mcg/Actuation Aero 2012-10-19 08:37:52 Yes Administer by inhalation. [facility] oxybutynin (DITROPAN) 5 mg tablet 2012-09-20 00:00:00 Yes Unspecified urinary incontinence 5mg Take 1 tablet by mouth 3 times daily. [facility] levothyroxine (SYNTHROID) 50 mcg tablet 2012-06-06 00:00:00 Yes Neuropathic pain syndrome (non-herpetic) 50ug QD Take 1 tablet by mouth daily. [facility] nitrofurantoin (MACRODANTIN) 100 mg capsule 2012-02-22 00:00 :00 Yes UTI (urinary tract infection) Take by mouth . Take one tab by mouth three times a day for 5 days [facility] ibuprofen (MOTRIN) 800 mg tablet 2011-05-17 00:00:00 Yes Back pain 800mg Take 1 Tab by mouth every 8 hours as needed for Pain. [facility] hydroquinone (LUSTRA) 4 % topical cream 2010-07-31 00:00:00 Yes Melasma Q.5D Apply to affected area 2 times daily. M ay cause dryness and irritation. Wear sunscreen SPF 30 or more daily. [facility] Amitriptyline Hcl Amitriptyline Hcl Yes 50 Bedt randolhp [facility] Celecoxib (Celebrex*) 100 Mg CAPSULE Celecoxib (Celebrex*) 100 Mg C APSULE Yes 200 Twice A Day [facility] Clonidine Hcl Clonidine Hcl Yes 1 As Needed [facility] Diazepam Diazepam Yes 5 Bedtime [facility] Gabapentin Gabapentin Yes 600 Three Times A Day [facility] Olmesartan Medoxomil (Benicar) 20 Mg TABLET Olmesartan Medoxomil (Benicar) 20 Mg TABLET Yes 20 Daily [facility] [place]-3 Fatty Acids/Fish Oil (Fish Oil 1,000 Mg Capsul e) 1 Each CAPSULE [place]-3 Fatty Acids/Fish Oil (Fish Oil 1,000 Mg Capsule) 1 Each CAPSULE Yes 1 Daily [facility] Oxybutynin Chloride (Oxybutynin Chloride Er) 5 Mg TAB. ER.24 Oxybutynin Chloride (Oxybutynin Chloride Er) 5 Mg TAB.ER.24 Yes 5 Daily [facility] Risperidone Risperidone Yes 1 Bedtime [facility] Sennosides (Senna Laxative) 8.6 Mg TABLET Sennosides ( Senna Laxative) 8.6 Mg TABLET Yes 1 Daily [facility] Tramadol Hcl (Ultram 50MG*) 50 Mg TAB Tramadol Hcl (Ultram 50MG*) 5 0 Mg TAB Yes 50 Every 8 Hours as needed for Pain [facility] Trazodone Hcl Trazodone Hcl Yes 100 Bedtime [facility] Venlafaxine Hcl (Venlafaxine Hcl Er) 75 Mg TAB.ER.24 V enlafaxine Hcl (Venlafaxine Hcl Er) 75 Mg TAB.ER.24 Yes 150 D aily [facility] Vitamin A Vitamin A Yes Daily [facility] Fish Oil CAPS Fish Oil CAPS Yes M.A. 1 QD TAKE 1 CAPSU LE DAILY [facility] risperiDONE 1 MG Oral Tablet risperiDONE 1 MG Oral Tablet Y es M.A. 1 TAKE 1 TABLET AT BEDTIME. [facility] Amitriptyline HCl - 50 MG Oral Tablet Amitriptyline HCl - 50 MG Ora l Tablet Yes M.A. 1 TAKE 1 TABLET AT BEDTIME. [facility] Stool Softener TABS Stool Softener TABS Yes M.A. [facility] Fluticasone Propionate Fluticasone Propionate 2020-05-18 00:00:00 No 1 Daily [facility] Hydrochlorothiazide Hydrochlorothiazide 2020-05-18 00:00:00 No 12.5 Daily [facility] Promethazine Vc Promethazine Vc 2020-05-18 00:00:00 No 5 Every 4 Hours as needed for Cough [facility] Propranolol Hcl Propranolol Hcl 2020-05-18 00:00:00 No 20 Daily [facility] Levothyroxine Sodium Levothyroxine Sodium 2019-09-27 00:00:00 No 50 Daily [facility] Immunizations Ordered Immunization Name Filled Immunization Name Date Status Comments Source Shingrix 50 MCG/0.5ML Intramuscular Suspension Reconstituted 2020-01-29 00:00:00 Completed [facility] Fluzone Quadrivalent 0.5 ML Intramuscular Suspension Prefill ed Syringe 2019-07-17 11:26:00 Completed [facility] Tdap (Adacel) 2019-05-02 10:17:00 [facility] Fluzone Quadrivalent 0.5 ML Intramuscular Suspension Prefill ed Syringe 2018-10-31 11:03:00 Completed [facility] Tdap Tetanus, diphtheria, acellular pertussis Vaccine 2010-01-19 00:00:00 Completed [facility] Influenza Vaccine 2008-09-19 00:00:00 Completed [facility] Shingrix 50 MCG/0.5ML Intramuscular Suspension Reconstituted Unknown Completed [facility] Vital Signs Vital Name Observation Time Observation Value Comments Source Systolic blood pressure 2020-06-24 13:52:00 127 mm[Hg] Loca tion: LUE; Position: Sitting [facility] Diastolic blood pressure 2020-06-24 13:52:00 79 mm[Hg] Loc ation: LUE; Position: Sitting [facility] Body height 2020-06-24 13:52:00 61 [in_us] [facility] Weight 2020-06-24 13:52:00 139.375 [lb_av] [facility] Body mass index (BMI) [Ratio] 2020-06-24 13:52:00 26.33 kg/m2 [facility] Body temperature 2020-06-24 13:52:00 97.9 [degF] Method: Temporal [facility] Heart Rate 2020-06-24 13:52:00 67 /min [facility] Respiratory rate 2020-06-24 13:52:00 12 /min [facility] Heart rate 2020-06-21 21:22:00 85 /min [facility] Respiratory rate 2020-06-21 21:22:00 16 /min [facility] Systolic blood pressure 2020-06-21 20:19:00 156 mm[Hg] [facility] Diastolic blood pressure 2020-06-21 20:19:00 89 mm[Hg] [facility] Body temperature 2020-06-21 20:19:00 37.11 [facility] Body height 2020-06-21 20:19:00 154.9 cm [facility] Body weight Measured 2020-06-21 20:19:00 64.864 kg [facility] BMI 2020-06-21 20:19:00 27.02 kg/m2 [facility] Oxygen saturation in Arterial blood by Pulse oximetry 06-21 20:19:00 99 [facility] 2020-05-23 10:08:00 124 mm[Hg] Loca tion: LUE; Position: Sitting [facility] Diastolic blood pressure 2020-05-23 10:08:00 71 mm[Hg] Loc ation: LUE; Position: Sitting [facility] Body height 2020-05-23 10:08:00 61 [in_us] [facility] Weight 2020-05-23 10:08:00 143.25 [lb_av] [facility] Body mass index (BMI) [Ratio] 2020-05-23 10:08:00 27.07 kg/m2 [facility] Body temperature 2020-05-23 10:08:00 98 [degF] Method: Temporal [facility] Heart Rate 2020-05-23 10:08:00 73 /min Location: L Brachial Artery; [facility] Respiratory rate 2020-05-23 10:08:00 16 /min [facility] Body Temperature 2020-05-18 15:57:00 98.5 [degF] [facility] Weight 2020-05-18 13:40:00 138 [lb_av] [facility] BMI (Body Mass Index) 2020-05-18 13:40:00 26.1 kg/m2 [facility] Systolic blood pressure 2020-05-02 13:31:00 150 mm[Hg] Loca tion: LUE; Position: Sitting [facility] Diastolic blood pressure 2020-05-02 13:31:00 89 mm[Hg] Loc ation: LUE; Position: Sitting [facility] Body height 2020-05-02 13:31:00 61 [in_us] [facility] Weight 2020-05-02 13:31:00 143.0625 [lb_av] [facility] Body mass index (BMI) [Ratio] 2020-05-02 13:31:00 27.03 kg/m2 [facility] Body temperature 2020-05-02 13:31:00 97.9 [degF] Method: Temporal [facility] Heart Rate 2020-05-02 13:31:00 69 /min [facility] Respiratory rate 2020-05-02 13:31:00 12 /min [facility] Systolic blood pressure 2020-03-08 10:57:00 190 mm[Hg] Loca tion: LUE; Position: Sitting [facility] Diastolic blood pressure 2020-03-08 10:57:00 104 mm[Hg] Loc ation: LUE; Position: Sitting [facility] Heart Rate 2020-03-08 10:57:00 64 /min [facility] Body height 2020-03-08 10:57:00 61 [in_us] [facility] Weight 2020-03-08 10:57:00 142.1875 [lb_av] [facility] Body mass index (BMI) [Ratio] 2020-03-08 10:57:00 26.87 kg/m2 [facility] Body temperature 2020-03-08 10:57:00 98.2 [degF] Method: Temporal [facility] Respiratory rate 2020-03-08 10:57:00 16 /min [facility] Systolic blood pressure 2020-01-28 09:57:00 115 mm[Hg] Loca tion: LUE; Position: Sitting [facility] Diastolic blood pressure 2020-01-28 09:57:00 79 mm[Hg] Loc ation: LUE; Position: Sitting [facility] Weight 2020-01-28 09:57:00 148 [lb_av] [facility] Body mass index (BMI) [Ratio] 2020-01-28 09:57:00 27.96 kg/m2 [facility] Body height 2020-01-28 09:57:00 61 [in_us] [facility] Body temperature 2020-01-28 09:57:00 97.9 [degF] Method: Temporal [facility] Respiratory rate 2020-01-28 09:57:00 16 /min [facility] Heart Rate 2020-01-28 09:57:00 68 /min [facility] Systolic blood pressure 2019-12-06 10:29:00 109 mm[Hg] Loca tion: LUE; Position: Sitting [facility] Diastolic blood pressure 2019-12-06 10:29:00 73 mm[Hg] Loc ation: LUE; Position: Sitting [facility] Body height 2019-12-06 10:29:00 61 [in_us] [facility] Weight 2019-12-06 10:29:00 144.125 [lb_av] [facility] Body mass index (BMI) [Ratio] 2019-12-06 10:29:00 27.23 kg/m2 [facility] Body temperature 2019-12-06 10:29:00 97.9 [degF] Method: Oral [facility] Heart Rate 2019-12-06 10:29:00 59 /min Location: L Radial; Q uality: Normal [facility] Systolic blood pressure 2019-11-27 08:09:00 152 mm[Hg] Loca tion: LUE; Position: Sitting [facility] Diastolic blood pressure 2019-11-27 08:09:00 92 mm[Hg] Loc ation: LUE; Position: Sitting [facility] Weight 2019-11-27 08:09:00 144 [lb_av] [facility] Body mass index (BMI) [Ratio] 2019-11-27 08:09:00 27.21 kg/m2 [facility] Body height 2019-11-27 08:09:00 61 [in_us] [facility] Body temperature 2019-11-27 08:09:00 97.6 [degF] Method: Temporal [facility] Heart Rate 2019-11-27 08:09:00 62 /min [facility] Respiratory rate 2019-11-27 08:09:00 16 /min [facility] Systolic blood pressure 2019-11-19 10:55:00 135 mm[Hg] [facility] Diastolic blood pressure 2019-11-19 10:55:00 95 mm[Hg] [facility] Heart rate 2019-11-19 10:55:00 67 /min [facility] Body temperature 2019-11-19 10:55:00 36.78 [facility] Respiratory rate 2019-11-19 10:55:00 18 /min [facility] Body height 2019-11-19 10:55:00 154.9 cm [facility] Body weight 2019-11-19 10:55:00 63.504 kg [facility] BMI 2019-11-19 10:55:00 26.45 kg/m2 [facility] Oxygen saturation in Arterial blood by Pulse oximetry 11-19 10:55:00 100 /min [facility] BP Systolic 2019-11-08 10:01:00 148 mm[Hg] Location: JACKIE; Positi on: Sitting [facility] BP Diastolic 2019-11-08 10:01:00 88 mm[Hg] Location: JACKIE; Positi on: Sitting [facility] Weight 2019-11-08 10:01:00 140 [lb_av] [facility] Body Mass Index Calculated 2019-11-08 10:01:00 26.45 kg/m2 [facility] Height 2019-11-08 10:01:00 61 [in_us] [facility] Temperature 2019-11-08 10:01:00 97.4 [degF] Method: Temporal [facility] Respiration Rate 2019-11-08 10:01:00 16 /min [facility] Heart Rate 2019-11-08 10:01:00 61 /min [facility] BP Systolic 2019-10-12 08:41:00 141 mm[Hg] Location: MICAELA Positi on: Sitting [facility] BP Diastolic 2019-10-12 08:41:00 95 mm[Hg] Location: JACKIE; Positi on: Sitting [facility] Height 2019-10-12 08:41:00 61 [in_us] [facility] Weight 2019-10-12 08:41:00 133 [lb_av] [facility] Body Mass Index Calculated 2019-10-12 08:41:00 25.13 kg/m2 [facility] Temperature 2019-10-12 08:41:00 97 [degF] Method: Temporal [facility] Respiration Rate 2019-10-12 08:41:00 16 /min [facility] Heart Rate 2019-10-12 08:41:00 68 /min [facility] BP Systolic 2019-09-18 10:52:00 162 mm[Hg] Location: LUE; Positi on: Sitting [facility] BP Diastolic 2019-09-18 10:52:00 93 mm[Hg] Location: LUE; Positi on: Sitting [facility] Weight 2019-09-18 10:52:00 135 [lb_av] [facility] Body Mass Index Calculated 2019-09-18 10:52:00 25.51 kg/m2 [facility] Height 2019-09-18 10:52:00 61 [in_us] [facility] Temperature 2019-09-18 10:52:00 97.5 [degF] Method: Temporal [facility] Respiration Rate 2019-09-18 10:52:00 16 /min [facility] Heart Rate 2019-09-18 10:52:00 58 /min [facility] BP Systolic 2019-09-05 15:36:00 128 mm[Hg] Location: LUE; Positi on: Sitting [facility] BP Diastolic 2019-09-05 15:36:00 77 mm[Hg] Location: LUE; Positi on: Sitting [facility] Height 2019-09-05 15:36:00 61 [in_us] [facility] Weight 2019-09-05 15:36:00 139.5 [lb_av] [facility] Body Mass Index Calculated 2019-09-05 15:36:00 26.36 kg/m2 [facility] Temperature 2019-09-05 15:36:00 97.8 [degF] Method: Temporal [facility] Respiration Rate 2019-09-05 15:36:00 16 /min [facility] Heart Rate 2019-09-05 15:36:00 67 /min [facility] BP Systolic 2019-09-03 13:33:00 128 mm[Hg] Location: LUE; Positi on: Sitting [facility] BP Diastolic 2019-09-03 13:33:00 80 mm[Hg] Location: LUE; Positi on: Sitting [facility] Height 2019-09-03 13:33:00 61 [in_us] [facility] Weight 2019-09-03 13:33:00 138 [lb_av] [facility] Body Mass Index Calculated 2019-09-03 13:33:00 26.08 kg/m2 [facility] Respiration Rate 2019-09-03 13:33:00 16 /min [facility] Rate 2019-09-03 13:33:00 76 /min [facility] BP Systolic 2019-09-01 10:07:00 135 mm[Hg] Location: LUE; Positi on: Sitting [facility] BP Diastolic 2019-09-01 10:07:00 87 mm[Hg] Location: LUE; Positi on: Sitting [facility] Height 2019-09-01 10:07:00 61 [in_us] [facility] Weight 2019-09-01 10:07:00 135 [lb_av] [facility] Body Mass Index Calculated 2019-09-01 10:07:00 25.51 kg/m2 [facility] Temperature 2019-09-01 10:07:00 98.2 [degF] Method: Temporal [facility] Respiration Rate 2019-09-01 10:07:00 16 /min [facility] Heart Rate 2019-09-01 10:07:00 66 /min [facility] BP Systolic 2019-08-18 10:34:00 132 mm[Hg] Location: ANURADHAE; Positi on: Sitting [facility] BP Diastolic 2019-08-18 10:34:00 86 mm[Hg] Location: LUE; Positi on: Sitting [facility] Height 2019-08-18 10:34:00 61 [in_us] [facility] Weight 2019-08-18 10:34:00 139 [lb_av] [facility] Body Mass Index Calculated 2019-08-18 10:34:00 26.26 kg/m2 [facility] Temperature 2019-08-18 10:34:00 98.7 [degF] Method: Oral [facility] Heart Rate 2019-08-18 10:34:00 65 /min Location: L Radial; [facility] BP Systolic 2019-08-09 10:47:00 116 mm[Hg] Location: ANURADHAE; Positi on: Standing [facility] BP Diastolic 2019-08-09 10:47:00 79 mm[Hg] Location: JACKIE; Positi on: Standing [facility] Height 2019-08-09 10:47:00 61 [in_us] [facility] Weight 2019-08-09 10:47:00 137.2 [lb_av] [facility] Body Mass Index Calculated 2019-08-09 10:47:00 25.92 kg/m2 [facility] Temperature 2019-08-09 10:47:00 97.5 [degF] Method: Temporal [facility] Respiration Rate 2019-08-09 10:47:00 16 /min [facility] Heart Rate 2019-08-09 10:47:00 69 /min [facility] BP Systolic 2019-07-28 09:47:00 113 mm[Hg] Location: JACKIE; Positi on: Sitting [facility] BP Diastolic 2019-07-28 09:47:00 77 mm[Hg] Location: JACKIE; Positi on: Sitting [facility] Height 2019-07-28 09:47:00 61 [in_us] [facility] Weight 2019-07-28 09:47:00 139.375 [lb_av] [facility] Body Mass Index Calculated 2019-07-28 09:47:00 26.33 kg/m2 [facility] Temperature 2019-07-28 09:47:00 96.5 [degF] Method: Temporal [facility] Heart Rate 2019-07-28 09:47:00 64 /min [facility] Respiration Rate 2019-07-28 09:47:00 16 /min [facility] BP Systolic 2019-05-30 10:22:00 138 mm[Hg] Location: ANURADHAE; Positi on: Sitting [facility] BP Diastolic 2019-05-30 10:22:00 88 mm[Hg] Location: ANURADHAE; Positi on: Sitting [facility] Heart Rate 2019-05-30 10:22:00 62 /min [facility] BP Systolic 2019-05-30 10:20:00 153 mm[Hg] Location: LUE; Positi on: Sitting [facility] BP Diastolic 2019-05-30 10:20:00 93 mm[Hg] Location: LUE; Positi on: Sitting [facility] Heart Rate 2019-05-30 10:20:00 61 /min [facility] Height 2019-05-30 10:20:00 61 [in_us] [facility] Weight 2019-05-30 10:20:00 133.25 [lb_av] [facility] Body Mass Index Calculated 2019-05-30 10:20:00 25.18 kg/m2 [facility] Respiration Rate 2019-05-30 10:20:00 16 /min [facility] BP Systolic 2019-05-10 14:28:00 120 mm[Hg] Location: ANURADHAE; Positi on: Sitting [facility] BP Diastolic 2019-05-10 14:28:00 81 mm[Hg] Location: LUE; Positi on: Sitting [facility] Weight 2019-05-10 14:28:00 132 [lb_av] [facility] Body Mass Index Calculated 2019-05-10 14:28:00 24.94 kg/m2 [facility] Height 2019-05-10 14:28:00 61 [in_us] [facility] Temperature 2019-05-10 14:28:00 97.3 [degF] Method: Temporal [facility] Respiration Rate 2019-05-10 14:28:00 16 /min [facility] Heart Rate 2019-05-10 14:28:00 62 /min [facility] BP Systolic 2019-05-02 09:44:00 126 mm[Hg] Location: LUE; Positi on: Sitting [facility] BP Diastolic 2019-05-02 09:44:00 85 mm[Hg] Location: LUE; Positi on: Sitting [facility] Weight 2019-05-02 09:44:00 132 [lb_av] [facility] Body Mass Index Calculated 2019-05-02 09:44:00 24.94 kg/m2 [facility] Height 2019-05-02 09:44:00 61 [in_us] [facility] Temperature 2019-05-02 09:44:00 96.8 [degF] Method: Temporal [facility] Respiration Rate 2019-05-02 09:44:00 16 /min [facility] Heart Rate 2019-05-02 09:44:00 64 /min Location: L Radial; [facility] BP Systolic 2019-04-17 15:22:00 142 mm[Hg] Location: LUE; Positi on: Sitting [facility] BP Diastolic 2019-04-17 15:22:00 95 mm[Hg] Location: LUE; Positi on: Sitting [facility] BP Systolic 2019-04-17 15:20:00 154 mm[Hg] Location: LUE; Positi on: Sitting [facility] BP Diastolic 2019-04-17 15:20:00 97 mm[Hg] Location: LUE; Positi on: Sitting [facility] BP Systolic 2019-04-17 14:57:00 130 mm[Hg] Location: LUE; Positi on: Sitting [facility] BP Diastolic 2019-04-17 14:57:00 85 mm[Hg] Location: LUE; Positi on: Sitting [facility] BP Systolic 2019-04-17 14:38:00 152 mm[Hg] Location: LUE; Positi on: Sitting [facility] BP Diastolic 2019-04-17 14:38:00 89 mm[Hg] Location: LUE; Positi on: Sitting [facility] Height 2019-04-17 14:38:00 61 [in_us] [facility] Weight 2019-04-17 14:38:00 135.375 [lb_av] [facility] Body Mass Index Calculated 2019-04-17 14:38:00 25.58 kg/m2 [facility] Temperature 2019-04-17 14:38:00 97.7 [degF] [facility] Heart Rate 2019-04-17 14:38:00 69 /min [facility] Respiration Rate 2019-04-17 14:38:00 16 /min [facility] BP Systolic 2019-01-29 09:56:00 131 mm[Hg] Location: LUE; Positi on: Sitting [facility] BP Diastolic 2019-01-29 09:56:00 79 mm[Hg] Location: LUE; Positi on: Sitting [facility] Weight 2019-01-29 09:56:00 133 [lb_av] [facility] Body Mass Index Calculated 2019-01-29 09:56:00 25.13 kg/m2 [facility] Height 2019-01-29 09:56:00 61 [in_us] [facility] Temperature 2019-01-29 09:56:00 97.6 [degF] Method: Temporal [facility] Respiration Rate 2019-01-29 09:56:00 16 /min [facility] Heart Rate 2019-01-29 09:56:00 56 /min [facility] BP Systolic 2018-10-31 10:24:00 144 mm[Hg] Location: MICAELA Positi on: Sitting [facility] BP Diastolic 2018-10-31 10:24:00 91 mm[Hg] Location: MICAELA Positi on: Sitting [facility] Weight 2018-10-31 10:24:00 145 [lb_av] [facility] Height 2018-10-31 10:24:00 61 [in_us] [facility] Body Mass Index Calculated 2018-10-31 10:24:00 27.4 kg/m2 [facility] Temperature 2018-10-31 10:24:00 97.2 [degF] Method: Temporal [facility] Respiration Rate 2018-10-31 10:24:00 16 /min [facility] Heart Rate 2018-10-31 10:24:00 57 /min [facility] Procedures Procedure Date / Time Performed Performing Clinician Kaz emery MA Digital Mammo Screening Roman [id number] 2020-07-09 00:00:00 [facility] [QL] TSH, 3RD GENERATION W/REFLEX TO FT4 2020-07-01 00:00:00 [facility] [place] [id number] 2020-06-27 00:00:[facility] [id number] 2020-06-24 00:00[facility] [QL] BASIC METABOLIC PANEL W/EGFR 2020-06-03 00:00:00 [facility] [QL] BASIC METABOLIC PANEL W/EGFR 2020-05-28 00:00:00 [facility] [QL] BASIC METABOLIC PANEL W/EGFR 2020-05-23 00:00:00 [facility] [Q] HIV-1/2 Antigen and Antibodies, Fourth Generation, with Reflexes 2020-05-23 00:[facility] without radiopaque contrast 2020-05 00:00:00 [facility] [QL] BASIC METABOLIC PANEL W/EGFR 2020-04-03 00:00:00 [facility] [QL] BASIC METABOLIC PANEL W/EGFR 2020-03-24 00:00:00 [facility] [QL] BASIC METABOLIC PANEL W/EGFR 2020-03-13 00:00:00 [facility] [QL] BASIC METABOLIC PANEL W/EGFR 2020-02-19 00:00:00 [facility] [QL] BASIC METABOLIC PANEL W/EGFR 2020-02-12 00:00:00 [facility] [QL] BASIC METABOLIC PANEL W/EGFR 2020-02-05 00:00:00 [facility] [QL] BASIC METABOLIC PANEL W/EGFR 2020-01-29 00:00:00 [facility] [Q] LIPID PANEL WITH REFLEX TO DIRECT LDL 2020-01-28 00:00:00 [facility] [QL] CBC (INCLUDES DIFF/PLT) 2020-01-28 00:00:00 [facility] [QL] CMP W/EGFR 2020-01-28 00:00:00 [facility] [QL] TSH, 3RD GENERATION W/REFLEX TO FT4 2020-01-28 00:00:00 [facility] [QLH] TSH, 3RD GENERATION W/REFLEX TO FT4 2019-10-12 00:00:00 [facility] RESECTION OF GALLBLADDER, PERCUTANEOUS ENDOSCOPIC APPROACH 2 00:00:00 [facility] Computed tomography of abdomen and pelvis with contrast 2018 00:00:00 ADELAIDA DURANT [facility] [QL] TSH, 3RD GENERATION W/REFLEX TO FT4 2019-09-07 00:00:00 [facility] [QLH] BASIC METABOLIC PANEL W/EGFR 2019-09-07 00:00:00 [facility] [QL] CBC (INCLUDES DIFF/PLT) 2019-09-05 00:00:00 [facility] [QLH] CMP W/EGFR 2019-09-05 00:00:00 [facility] [QL] TSH, 3RD GENERATION W/REFLEX TO FT4 2019-09-05 00:00:00 [facility] [N] 2D Echo complete, with Doppler [id number] 2019-05-30 00:00:00 [facility] ECG-12 Lead 2019-04-17 00:00:00 [facility] [[facility]] CBC (INCLUDES DIFF/PLT) 2019-04-17 00:00:00 [facility] [[facility]] CMP W/EGFR 2019-04-17 00:00:00 [facility] [[facility]] HEMOGLOBIN A1c 2019-04-17 00:00:00 [facility] [[facility]] LIPID PANEL 2019-04-17 00:00:00 [facility] [QL] TSH, 3RD GENERATION W/REFLEX TO FT4 2019-04-17 00:00:00 [facility] [[facility]] URINALYSIS, COMPLETE W/REFLEX TO CULTURE 2019-04-17 00:00: 00 [facility] [[facility]] HEPATITIS C ANTIBODY 2019-04-17 [facility]00[facility] [place] [facility] screen bilateral [id number] 2018-10-31 00:00:00 [facility] History of Hysterectomy [facility] History of Abdominoplasty [facility] History of Mastopexy [facility] History of Cholecystectomy [facility] Plan of Care Planned Activity Planned Date Details Comments Source Future Scheduled Test 2020-07-17 00:00:00 IMM Influenza Seas onal Jul to December (>/= 19 yrs) [code = IMM Influenza Seasonal Jul to December (>/= 19 yrs)] [facility] Future Scheduled Test 2020-06-17 00:00:00 [QL] BASIC METABOL IC PANEL W/EGFR [code = [QL] BASIC METABOLIC PANEL W/EGFR] [facility] Future Scheduled Test 2020-06-17 00:00:00 [QL] BASIC METABOL IC PANEL W/EGFR [code = [QL] BASIC METABOLIC PANEL W/EGFR] [facility] Future Scheduled Test 2020-05-17 00:00:00 INFLUENZA VACCINE [code = INFLUENZA VACCINE] [facility] Diagnostic Test Pending 2019-08-17 00:00:00 [N] 2D Echo comp lete, with Doppler 15620 [code = [N] 2D Echo complete, with Doppler 78326] [facility] Diagnostic Test Pending 2019-08-17 00:00:00 [N] 2D Echo comp lete, with Doppler 48377 [code = [N] 2D Echo complete, with Doppler 28827] [facility] Future Scheduled Test 2013 00:00:00 BREAST CANCER SCRE ENING [code = BREAST CANCER SCREENING] [facility] Scheduled Test 2013 00:00:00 COLONOSCOPY SCREEN ING [code = COLONOSCOPY SCREENING] [facility] Scheduled Test 2013 00:00:00 SHINGLES VACCINES (#1) [code = SHINGLES VACCINES (#1)] [facility] Scheduled Test 2013 00:00:00 Screening for todd gnant neoplasm of colon (procedure) [code = 976371763] [facility] Scheduled Test 2012-05-31 00:00:00 Breast Cancer Scrn (Yearly) [code = Breast Cancer Scrn (Yearly)] [facility] Scheduled Test 1984 00:00:00 Screening for todd gnant neoplasm of cervix (procedure) [code = 889469094] [facility] Scheduled Test 1984 00:00:00 Screening for todd gnant neoplasm of cervix (procedure) [code = 349045039] [facility] Appointment 2020-09-02 10:00:00 Chao LOZANO, [facility] Future Appointment 2020-07-21 14:20:00 Federico DANG, [facility] Instructions Fatigue [facility] Instructions Panic Attack [facility] Encounters Start Date/Time End Date/Time Encounter Type Admission Type Attendi [facility] Care Department Encounter ID Source 2020-06-24 14:00:00 2020-06-24 14:00:00 Appointment; BLAKE CARRILLO D.O. YEH, SHAO-CHUN, D.O. [facility] [id number] [facility] 2020-05-23 10:30:00 2020-05-23 10:30:00 Appointment; BLAKE CARRILLO D.O. YEH, SHAO-CHUN, D.O. [facility] [id number] [facility] 2020-05-02 13:30:00 2020-05-02 13:30:00 Appointment; BLAKE CARRILLO D.O. YEH, SHAO-CHUN, D.O. [facility] [id number] [facility] 2020-04-28 10:00:00 2020-04-28 10:00:00 Appointment; BLAKE CARRILLO D.O. YEH, SHAO-CHUN, D.O. [facility] [id number] [facility] 2020-03-08 09:45:00 2020-03-08 09:45:00 Appointment; FIORELLA BRITO P.A. CRUZ, LETICIA, P.A. [facility], [address] [id number] [facility] 2020-02-18 09:08:52 2020-02-18 09:08:52 Outpatient [facility] [id number] [facility] 2020-01-28 10:00:00 2020-01-28 10:00:00 Appointment; BLAKE CARRILLO D.O. YEH, SHAO-CHUN, D.O. [facility] [id number] [facility] 2019-12-06 10:30:00 2019-12-06 10:30:00 Appointment; JOSH SIMEON M.D. BYRD, MICHAEL, M.D. [facility], [address] [id number] [facility] 2019-11-27 08:30:00 2019-11-27 08:30:00 Appointment; BLAKE CARRILLO D.O. YEH, SHAO-CHUN, D.O. [facility] [id number] [facility] 2019-11-19 10:55:45 2019-11-19 10:55:45 Outpatient [facility] [id number] [facility] 2019-11-08 10:30:00 2019-11-08 10:30:00 Appointment; BLAKE CARRILLO D.O. YEH, SHAO-CHUN, D.O. [facility] [id number] [facility] 2019-10-12 09:30:00 2019-10-12 09:30:00 Appointment; BLAKE CARRILLO D.O. YEH, SHAO-CHUN, D.O. UTP [facility] [id number] [facility] 2019-09-25 16:28:00 2019-09-27 11:45:00 Discharged Inpatient 1 DIEGO WATSON [facility] [id number] [facility] 2019-09-18 10:45:00 2019-09-18 10:45:00 Appointment; BLAKE CARRILLO D.O. YEH, SHAO-CHUN, D.O. UTP [facility] [id number] [facility] 2019-09-17 09:47:13 2019-09-17 09:47:13 Outpatient [facility] [id number] [facility] 2019-09-12 10:00:00 2019-09-12 10:00:00 Appointment; DICK ANDREWS M.D. DHOBLE, ABHIJEET, M.D. [facility] [id number] [facility] 2019-09-10 13:20:00 2019-09-10 13:20:00 Appointment; DICK ANDREWS M.D. DHOBLE, ABHIJEET, M.D. [facility] [id number] [facility] 2019-09-05 16:00:00 2019-09-05 16:00:00 Appointment; FIORELLA BRITO P.A. CRUZ, LETICIA, P.A. [facility], [address] [id number] [facility] 2019-09-03 14:20:00 2019-09-03 14:20:00 Appointment; DICK ANDREWS M.D. DHOBLE, ABHIJEET, M.D. [facility] [address] [id number] [facility] 2019-09-03 13:00:00 2019-09-03 13:00:00 Appointment; BAYSHORE-MS, E CHO BAYORE-MS, ECHO [facility] [id number] [facility] 2019-09-01 10:15:00 2019-09-01 10:15:00 Appointment; ANGELIQUE JONES P.A. CAMPOS, BERTHA, P.A. [facility], [address] [id number] [facility] 2019-08-18 10:15:00 2019-08-18 10:15:00 Appointment; MELISSA MCKENZIE A PRN SAXE, KAILA, APRN [facility] [id number] [facility] 2019-08-18 10:15:00 2019-08-18 10:15:00 Appointment; LAW KEENAN N P BECK, SHERI, NP [facility] [id number] [facility] 2019-08-09 10:30:00 2019-08-09 10:30:00 Appointment; CINTHYA BLOOD AP RN TRAN, THUY, APRN [facility], [address] [id number] [facility] 2019-07-28 10:30:00 2019-07-28 10:30:00 Appointment; MELISSA MCKENZIE A PRN SAXE, KAILA, APRN [facility] [id number] [facility] 2019-07-17 10:30:00 2019-07-17 10:30:00 Appointment; BLAKE CARRILLO D.O. YEH, SHAO-CHUN, D.O. [facility] [id number] [facility] 2019-06-25 09:15:42 2019-06-25 09:15:42 Outpatient [facility] [id number] [facility] 2019-05-30 11:20:00 2019-05-30 11:20:00 Appointment; DICK ANDREWS M.D. DHOBLE, ABHIJEET, M.D. [facility] [id number] [facility] 2019-05-22 15:13:14 2019-05-22 15:13:14 Emergency [facility] [id number] [facility] 2019-05-10 14:30:00 2019-05-10 14:30:00 Appointment; BLAKE CARRILLO D.O. YEH, SHAO-CHUN, D.O. [facility] [id number] [facility] 2019-05-02 09:30:00 2019-05-02 09:30:00 Appointment; JAMILA SANTOS APRN DUGAS, NANCY, APRN [facility], [address] [id number] [facility] 2019-04-17 15:00:00 2019-04-17 15:00:00 Appointment; JAMILA SANTOS APRN DUGAS, NANCY, APRN [facility], [address] [id number] [facility] 2019-04-15 14:32:00 2019-04-15 16:00:00 Departed Emergency Room 1 ADELAIDA DURANT [facility] [id number] [facility] 2019-01-29 10:00:00 2019-01-29 10:00:00 Appointment; BLAKE CARRILLO D.O. YEH, SHAO-CHUN, D.O. UTP [facility] [id number] [facility] 2018-10-31 10:30:00 2018-10-31 10:30:00 Appointment; BLAKE CARRILLO D.O. YEH, SHAO-CHUN, D.O. UTP [facility] [id number] [facility] 2017-08-22 00:00:00 2017-08-22 00:00:00 Outpatient TEE, WALLACEANETA [facility] [id number] [facility] 2017-03-21 00:00:00 2017-03-21 00:00:00 Outpatient [facility] [id number] [facility] Results Test Description Test Time Test Comments Results Result Comments Source CHEST SINGLE (PORTABLE) 2020-07-14 19:43:00 [facility] [address] [place] [address] Patient Name: SHAUN MICHAEL MR #: [id number] : 1965 Age/Sex: 54/F Req #: [id number] Adm Physician: Ordered by: JOSH CABRERA MD Report #: [id number] Location: ER Room/Bed: Procedure: [id number] DX/CHEST SINGLE (PORTABLE) Exam Date: 07/14/20 Exam Time: 1909 REPORT STATUS: Signed EXAMINATION: CHEST SINGLE (PORTABLE) COMPARISON: Chest x-ray 05/18/2020 INDICATION: Chest pain CP [id number] DISCUSSION: Frontal view of the chest obtained at 1920 hours. HEART AND MEDIASTINUM: The cardiomediastinal silhouette is unremarkable. LINES: None. LUNGS: The lungs are well inflated and clear. No pneumonia or pulmonary edema. PLEURA: Stable mild eventration of the right diaphragm. No pleural effusion or pneumothorax. BONES AND SOFT TISSUES: No focal osseous lesion. The soft tissues are normal. IMPRESSION: No acute cardiopulmonary disease. Signed by: Dr. Kirsten Edwards MD on 07/14/2020 7:44 PM Dictated By: KIRSTEN EDWARDS MD 43 Transcribed By: RITA on 07/14/201943 COPY TO: JOSH CABRERA MD [place] Digital Mammo Screening [facility] [id number] 2020-07-10 12:44:00 BILATERAL DIGITAL SCREENING MAMMOGRAM WITH CAD: 07/10/2020CLINICAL: /Z12.39. Current study was evaluated with a Computer Aided Detection (CAD) system. COMPARISON:Comparison is made to exam dated: 02/28/2015 mammogram - [facility]. TECHNIQUE: Mammographic views were obtained using digital [...] mammogram is recommended.(07/11/2021) This exam was interpreted [id number] at [facility]. Dr. Candi Manzanares D.O. mm/penrad:07/10/2020 13:21:05 Youth Care Professional(s): Jamila Bolden, RT(R)(M), [facility] sent: BI-RADS 1/2 Mammogram BI-RADS: 2 Benign--Read by: Candi Manzanares DODictated Date/time: 07/10/20 13:21Electronically Signed by: Candi Manzanares DO 07/10/2013:21FINAL REPORT [facility] [QL] TSH, 3RD GENERATION W/REFLEX TO FT4 2020-06-30 07:25:00 Test Item TSH, 3RD GENERATION W/REFLEX TO FT4 (isa t code = TSH, 3RD GENERATION W/REFLEX TO FT4) 0.22 {MIU/L} 0.40-4.50 [facility][QL] T4, [id number] 07:25:00* Test Item Value Reference Range Interpretation Comments T4, FREE (test code = T4, FREE) 1.1 ng/dl 0.8-1.8 N [facility][QL] BASIC METABOLIC PANEL W/[id number] 07:24:00* Test Item Value Reference Range Interpretation [...] is approximately 13% higher for peopleidentified as -[place]ym[place]. eGFR NON-AFR. [place] (test code = eGFR NON-AFR. [place]) 91 {ML/MIN/1.7} > OR = 60 N [...] code = CALCIUM) 9.3 mg/dl 8.6-10.4 N [facility][QL] BASIC METABOLIC PANEL W/[id number] 08:12:00* Test Item Value Reference Range Interpretation [...] is approximately 13% higher for peopleidentified as -[place]ym[place]. eGFR NON-AFR. [place] (test code = eGFR NON-AFR. [place]) 76 {ML/MIN/1.7} > OR = 60 N [...] = CALCIUM) 9.5 mg/dl 8.6-10.4 N [facility][QL] BASIC METABOLIC PANEL W/[id number] 08:52:00* Test Item Value Reference Range Interpretation Comments GLUCOSE; Normal (test code = 1547-9) 108 mg/dl 65-139 N Non-fasting reference interval UREA NITROGEN (BUN) (test code = UREA NITROGEN (BUN)) 6 mg/dl 7-25 CREATININE (test code = CREATININE) 0.73 mg/dl 0.50-1.05 N For patients >49 years of age, the reference limitfor Creatinine is approximately 13% higher for peopleidentified as -[place]ymra[place]. eGFR NON-AFR. [place] (test code = eGFR NON-AFR. [place]) 92 {ML/MIN/1.7} > OR = 60 N [...] code = CALCIUM) 9.2 mg/dl 8.6-10.4 N [facility][Q] HIV-1/2 Antigen and Antibodies, Fourth Generation, with Wfsscoqb0851-03-99 10:53:00* Test Item Value Reference Range Interpretation Comments HIV AG/AB, 4TH GEN; Normal (test code = 19217-9) NON-REACTIVE NON-R EACTIVE N HIV-1 antigen and [...] purpose. For additional information please refer t [email or web address](This link is being provided for informational/educational purposes only.) The performance of this assay has not been clinicallyvalidated in patients less than 2 years old. [facility][QL] BASIC METABOLIC PANEL W/[id number] 10:53:00* Test Item Value Reference Range Interpretation Comments GLUCOSE; Normal (test code = 1547-9) 92 mg/dl 65-139 N Non-fasting reference interval UREA NITROGEN (BUN) (test code = UREA NITROGEN (BUN)) 5 mg/dl 7-25 CREATININE (test code = CREATININE) 0.80 mg/dl 0.50-1.05 N For patients >49 years of age, the reference limitfor Creatinine is approximately 13% higher for peopleidentified as -[place]ym[place]. eGFR NON-AFR. [place] (test code = eGFR NON-AFR. [place]) 82 {ML/MIN/1.7} > OR = 60 N [...] code = CALCIUM) 9.9 mg/dl 8.6-10.4 N [facility] color dloomyegmtpvs6200-20-69 15:13:00* Test Item Value Reference Range Interpretation Comments Urine Color (test code = 5778-6) YELLOW YELLOW [facility] dtweufd0332-79-12 15:13:00* Test Item Value Reference Range Interpretation Comments Urine Clarity (test code = 06083-0) [facility] by Test strip 2020-05-18 15:13:00* Test Item Value Reference Range Interpretation Comments Urine Specific [place] (test code = 5811-5) 1.010 1.010-1.02 5 [facility] pH measurement by automated test fryot7429-15-80 15:13:00* Test Item Value Reference Range Interpretation Comments Urine pH (test code = 56238-0) 7 5-7 [facility] leukocyte esterase detection by zdhoadpk9555-06-28 15:13:00* Test Item Value Reference Range Interpretation Comments Urine Leukocyte Esterase (test code = 5799-2) NEGATIVE NEGATIVE [facility] nitrite atuylmpaw3663-72-07 15:13:00* Test Item Value Reference Range Interpretation Comments Urine Nitrite (test code = 10381-5) NEGATIVE NEGATIVE [facility] protein measurement by test strip (mass/volume)2020-05-18 15:13:00* Test Item Value Reference Range Interpretation Comments Urine Protein (test code = 5804-0) NEGATIVE NEGATIVE [facility] glucose gpncfhwcs0094-89-20 15:13:00* Test Item Value Reference Range Interpretation Comments Urine Glucose (UA) (test code = 2349-9) NEGATIVE NEGATIVE [facility] ketones detection by automated test pyrlo7831-03-25 15:13:00* Test Item Value Reference Range Interpretation Comments Urine Ketones (test code = 66883-6) NEGATIVE NEGATIVE [facility] urobilinogen measurement by test strip (mass/volume)2020-05-18 15:13:00* Test Item Value Reference Range Interpretation Comments Urine Urobilinogen (test code = 97663-8) 0.2 0.2-1 [facility] total bilirubin measurement (mass/volume)2020-05-18 15:13:00* Test Item Value Reference Range Interpretation Comments Urine Bilirubin (test code = 1978-6) NEGATIVE NEGATIVE [facility] erythrocytes qwcrkmrea9980-50-23 15:13:00* Test Item Value Reference Range Interpretation Comments Urine Blood (test code = 04623-6) TRACE NEGATIVE [facility]Autom[facility] urine sediment leukocyte count by microscopy (number/high power field)2020-05-18 15:13:00* Test Item Value Reference Range Interpretation Comments Urine WBC (test code = 5821-4) 0-5 0-5 [facility] HospitalErythrocytes detection in urine sediment by light nhavebwtux9779-89-93 15:13:00* Test Item Value Reference Range Interpretation Comments Urine RBC (test code = 07752-8) 0-5 0-5 [facility] HospitalBacteria detection in urine sediment by light dlqfyrcbqd9085-26-78 15:13:00* Test Item Value Reference Range Interpretation Comments Urine Bacteria (test code = 07082-4) FEW NONE [facility] HospitalEpithelial cells detection in urine sediment by light vxmxebmiit0158-37-98 15:13:00* Test Item Value Reference Range Interpretation Comments Urine Epithelial Cells (test code = 88352-3) FEW NONE [facility] Hospital[facility] B[facility] TS5078-61-74 14:58:00 [facility] [address] [address] Patient Name: SHAUN MICHAEL MR #: [id number] : 1965 Age/Sex: 54/F Req #: [id number] Adm Physician: Ordered by: ADELAIDA DURANT MD Report #: [id number] Location: ER Room/Bed: Procedure: [id number] CT/CT BRAIN WO Exam Date: 05/18/20 Exam [...] ADELAIDA DURANT MD CHEST SINGLE (PORTABLE)2020-05-18 14:46:[address] [address] Patient Name: SHAUN MICHAEL MR #: [id number] : 1965 Age/Sex: 54/F Req #: [id number] Adm Physician: Ordered by: ADELAIDA DURANT MD Report #: [id number] Location: ER Room/Bed: Procedure: [id number] DX/CHEST SINGL E (PORTABLE) Exam Date: 05/18/20 [...] Count (test code = 6690-2) 7.49 4.8-10.8 [facility] erythrocytes automated count (number/volume)2020-05-18 14:04:00* Test Item Value Reference Range Interpretation Comments Red Blood Count (test code = 789-8) 4.33 3.6-5.1 [facility] hemoglobin measurement (moles/volume)2020-05-18 14:04:00* Test Item Value Reference Range Interpretation Comments Hemoglobin (test code = 52130-9) 13.3 12.0-16.0 [facility] HospitalAutomated blood hematocrit (volume fraction)2020-05-18 14:04:00* Test Item Value Reference Range Interpretation Comments Hematocrit (test code = 4544-3) 37.5 34.2-44.1 [facility] HospitalAutomated erythrocyte mean corpuscular riwban0396-82-51 14:04:00* Test Item Value Reference Range Interpretation Comments Mean Corpuscular Volume (test code = 787-2) 86.6 81-99 [facility] HospitalAutomated erythrocyte mean corpuscular hemoglobin (mass per erythrocyte)2020-05-18 14:04:00* Test Item Value Reference Range Interpretation Comments Mean Corpuscular Hemoglobin (test code = 785-6) 30.7 28-32 [facility] HospitalAutomated erythrocyte mean corpuscular hemoglobin concentration measurement (mass/volume)2020-05-18 14:04:00* Test Item Value Reference Range Interpretation Comments Mean Corpuscular Hemoglobin Concent (test code = 786-4) 35.5 31-35 [facility] HospitalRDW FhqVr-Oeg1518-94-02 14:04:00* Test Item Value Reference Range Interpretation Comments Red Cell Distribution Width (test code = 81939-6) 12.0 11.7 -14.4 [facility] HospitalAutomated blood platelet count (count/volume)2020-05-18 14:04:00* Test Item Value Reference Range Interpretation Comments Platelet Count (test code = 777-3) 149 140-360 [facility] HospitalAutomated blood segmented neutrophil count as percentage of total rijqfqxrxt2562-17-03 14:04:00* Test Item Value Reference Range Interpretation Comments Neutrophils (%) (Auto) (test code = 15795-1) 58.6 38.7-80.0 [facility] HospitalAutomated blood lymphocyte count as percentage ot total kqqyqodbdc7167-84-60 14:04:00* Test Item Value Reference Range Interpretation Comments Lymphocytes (%) (Auto) (test code = 736-9) 27.4 18.0-39.1 [facility] HospitalAutomated blood monocyte count as percentage of total njxwfchvop0142-50-02 14:04:00* Test Item Value Reference Range Interpretation Comments Monocytes (%) (Auto) (test code = 5905-5) 7.6 4.4-11.3 [facility] HospitalAutomated blood eosinophil count as percentage of total kdnpaduapc3076-77-17 14:04:00* Test Item Value Reference Range Interpretation Comments Eosinophils (%) (Auto) (test code = 713-8) 5.6 0.0-6.0 [facility] HospitalAutomated blood basophil count as percentage of total isfjuorfqv8592-10-60 14:04:00* Test Item Value Reference Range Interpretation Comments Basophils (%) (Auto) (test code = 706-2) 0.4 0.0-1.0 [facility] HospitalFluoroscopic procedure less than one hour cjyyboxk5211-99-46 14:04:00* Test Item Value Reference Range Interpretation Comments IM GRANULOCYTES % (test code = IM GRANULOCYTES %) 0.4 0.0- 1.0 [facility] HospitalAutomated blood neutrophil count 2020-05-18 14:04:00* Test Item Value Reference Range Interpretation Comments Neutrophils # (Auto) (test code = 751-8) 4.4 2.1-6.9 [facility] Hospital[facility] lymphocytes count (number/volume) 2020-05-18 14:04:00* Test Item Value Reference Range Interpretation Comments Lymphocytes # (Auto) (test code = 28504-6) 2.1 1.0-3.2 [facility] HospitalBlood monocytes automated count (number/volume)2020-05-18 14:04:00* Test Item Value Reference Range Interpretation Comments Monocytes # (Auto) (test code = 742-7) 0.6 0.2-0.8 [facility] HospitalAutomated blood eosinophil count 2020-05-18 14:04:00* Test Item Value Reference Range Interpretation Comments Eosinophils # (Auto) (test code = 711-2) 0.4 0.0-0.4 [facility] HospitalAutomated blood basophil count (count/volume)2020-05-18 14:04:00* Test Item Value Reference Range Interpretation Comments Basophils # (Auto) (test code = 704-7) 0.0 0.0-0.1 [facility] HospitalFluoroscopic procedure less than one hour kpnmowbp2874-60-36 14:04:00* Test Item Value Reference Range Interpretation Comments Absolute Immature Granulocyte (auto (isa t code = Absolute Immature Granulocyte (auto) 0.03 0-0.1 [facility] HospitalProthrombin time (PT) in platelet poor plasma by coagulation ekmud2954-68-08 14:04:00* Test Item Value Reference Range Interpretation Comments Prothrombin Time (test code = 5902-2) 13.4 11.9-14.5 [facility] HospitalINR in Platelet poor plasma by Coagulation qhfjw7638-59-28 14:04:00* Test Item Value Reference Range Interpretation Comments Prothromb Time International Ratio (test code = 6301-6) 0.97 Oral Anticoagulant Therapy INR Values:1. Low Intensity Therapy 1.5 - 2.02 . Moderate Intensity Therapy 2.0 - 3.03. High Intensity Therapy(1) 2.5 - 3. 54. High Intensity Therapy(2) 3.0 - 4.05. Panic Value INR > 5.0 [facility] HospitalActivated partial thromboplastin time (aPTT) in platelet poor plasma by coagulation yypvk6543-26-76 14:04:00* Test Item Value Reference Range Interpretation Comments Activated Partial Thromboplast Time (test code = 32145-0) 35.1 23.8-35.5 [facility] plasma sodium measurement (moles/volume)2020-05-18 14:04:00* Test Item Value Reference Range Interpretation Comments Sodium Level (test code = 2951-2) 132 136-145 [facility] plasma potassium measurement (moles/volume)2020-05-18 14:04:00* Test Item Value Reference Range Interpretation Comments Potassium Level (test code = 2823-3) 3.3 3.5-5.1 [facility] or plasma chloride measurement (moles/volume)2020-05-18 14:04:00* Test Item Value Reference Range Interpretation Comments Chloride Level (test code = 2075-0) 100 98-107 [facility] or plasma carbon dioxide, total measurement (moles/volume)2020-05-18 14:04:00* Test Item Value Reference Range Interpretation Comments Carbon Dioxide Level (test code = 2028-9) 19 22-29 [facility] or plasma anion qur6454-51-83 14:04:00* Test Item Value Reference Range Interpretation Comments Anion Gap (test code = 01535-9) 16.3 8-16 [facility] plasma urea nitrogen measurement (mass/volume)2020-05-18 14:04:00* Test Item Value Reference Range Interpretation Comments Blood Urea Nitrogen (test code = 3094-0) < 5 7-26 [facility]ere[facility] or plasma creatinine measurement (mass/volume)2020-05-18 14:04:00* Test Item Value Reference Range Interpretation Comments Creatinine (test code = 2160-0) 0.82 0.57-1.11 [facility] or plasma urea nitrogen/creatinine mass bdsct1540-91-50 14:04:00* Test Item Value Reference Range Interpretation Comments BUN/Creatinine Ratio (test code = 3097-3) 6 6-25 [facility] HospitalEstimated glomerular filtration rate (GFR) lzsmqilqjdexm7115-59-19 14:04:00* Test Item Value Reference Range Interpretation Comments Estimat Glomerular Filtration Rate (test code = 123235507) > 60 >60 Ranges were taken from the National Kidney Disease Education Program and the [facility] literature.Reference ranges:60 or greater: Maunmf60-18 ( for 3 consecutive months): Chronic kidney disease 15 or less: Kidney failureCHRISTUS Saint Michael HospitalGlucose kkuxtbbqmrd7122-35-85 14:04:00* Test Item Value Reference Range Interpretation Comments Glucose Level (test code = UCY7189) 88 74-118 [facility] calcium measurement (mass/volume)2020-05-18 14:04:00* Test Item Value Reference Range Interpretation Comments Calcium Level (test code = 82630-9) 10.1 8.4-10.2 [facility] plasma magnesium measurement (mass/volume)2020-05-18 14:04:00* Test Item Value Reference Range Interpretation Comments Magnesium Level (test code = 59737-0) 1.9 1.3-2.1 [facility] plasma total bilirubin measurement (mass/volume)2020-05-18 14:04:00* Test Item Value Reference Range Interpretation Comments Total Bilirubin (test code = 1975-2) 0.4 0.2-1.2 [facility] HospitalFluoroscopic procedure less than one hour cywtgkdu9941-37-13 14:04:00* Test Item Value Reference Range Interpretation Comments Aspartate Amino Transf (AST/SGOT) (test code = Aspartate Amino Transf (AST/SGOT)) 38 5-34 [facility]ere[facility] or plasma alanine aminotransferase measurement (enzymatic activity/volume)2020-05-18 14:04:00* Test Item Value Reference Range Interpretation Comments Alanine Aminotransferase (ALT/SGPT) (test code = 1742-6) 27 0-55 [facility]ere[facility] or plasma protein measurement (mass/volume)2020-05-18 14:04:00* Test Item Value Reference Range Interpretation Comments Total Protein (test code = 2885-2) 8.2 6.5-8.1 [facility]ere[facility] or plasma albumin measurement (mass/volume)2020-05-18 14:04:00* Test Item Value Reference Range Interpretation Comments Albumin (test code = 1751-7) 4.3 3.5-5.0 [facility] HospitalPlasma globulin measurement (mass/volume) 2020-05-18 14:04:00* Test Item Value Reference Range Interpretation Comments Globulin (test code = 13860-2) 3.9 2.3-3.5 [facility]ere[facility] or plasma albumin/globulin mass jbtyl0194-24-96 14:04:00* Test Item Value Reference Range Interpretation Comments Albumin/Globulin Ratio (test code = 1759-0) 1.1 0.8-2.0 [facility]ere[facility] or plasma alkaline phosphatase measurement (enzymatic activity/volume)2020-05-18 14:04:00* Test Item Value Reference Range Interpretation Comments Alkaline Phosphatase (test code = 6768-6) 73 40-150 [facility]ere[facility] or plasma creatine kinase measurement (enzymatic activity/volume)2020-05-18 14:04:00* Test Item Value Reference Range Interpretation Comments Creatine Kinase (test code = 2157-6) 136 29-168 [facility]ererum or plasma creatine kinase MB measurement (mass/volume)2020-05-18 14:04:00* Test Item Value Reference Range Interpretation Comments Creatine Kinase MB (test code = 99351-7) 3.20 0-5.0 [facility] HospitalTroponin I measurement by highly sensitive enzyme aajcgxsgkyu3205-39-37 14:04:00* Test Item Value Reference Range Interpretation Comments Troponin I (test code = 36087-4) 0.014 0-0.300 [facility]ererum or plasma thyrotropin measurement by detection limit <= 0.005 miu/l (units/volume)2020-05-18 14:04:00* Test Item Value Reference Range Interpretation Comments Thyroid Stimulating Hormone (TSH) (test code = 49748-0) 0.453 0.350-4.940 [facility][QL] BASIC METABOLIC PANEL W/EGFR 2020-04-22 14:34:00* Test [...] is approximately 13% higher for peopleidentified as -Cymraes. eGFR NON-AFR. [place] (test code = eGFR NON-AFR. [place]) 91 {ML/MIN/1.7} > OR = 60 N [...] code = CALCIUM) 9.3 mg/dl 8.6-10.4 N [facility][QL] BASIC METABOLIC PANEL W/OGAW2505-81-08 08:51:00* Test Item Value Reference Range Interpretation Comments GLUCOSE; Above High Threshold (test code = 1547-9) 162 mg/dl 65- 139 Non- fasting reference interval UREA NITROGEN (BUN) (test code = UREA NITROGEN (BUN)) 4 mg/dl 7-25 CREATININE (test code = CREATININE) 0.80 mg/dl 0.50-1.05 N For patients >49 years of age, the reference limitfor Creatinine is approximately 13% higher for peopleidentified as -Cymraes. eGFR NON-AFR. [place] (test code = eGFR NON-AFR. [place]) 82 {ML/MIN/1.7} > OR = 60 N [...] code = CALCIUM) 9.1 mg/dl 8.6-10.4 N [facility][QL] BASIC METABOLIC PANEL W/WOLX8713-20-79 11:21:00* Test Item Value Reference Range Interpretation Comments GLUCOSE; Normal (test code = 1547-9) 99 mg/dl 65-139 N Non-fasting reference interval UREA NITROGEN (BUN) (test code = UREA NITROGEN (BUN)) 4 mg/dl 7-25 CREATININE (test code = CREATININE) 0.75 mg/dl 0.50-1.05 N For patients >49 years of age, the reference limitfor Creatinine is approximately 13% higher for peopleidentified as -Cymraes. eGFR NON- (test code = eGFR NON-KAYLYNN N [place]) 89 {ML/MIN/1.7} > OR = 60 N [...] CALCIUM) 9.6 mg/dl 8.6-10.4 N eGFR NON-AFR. [place] (test code = eGFR NON-AFR. [place]) 89 {ML/MIN/1.7} > OR = 60 N [facility][QL] BASIC METABOLIC PANEL W/WIGB1563-98-34 09:14:00* Test Item Value Reference Range Interpretation [...] is approximately 13% higher for peopleidentified as -Cymraes. eGFR NON- (test code = eGFR NON-KAYLYNN N [place]) 77 {ML/MIN/1.7} > OR = 60 N [...] = CALCIUM) 9.3 mg/dl 8.6-10.4 N [facility][QL] BASIC METABOLIC PANEL W/CZTI6404-63-05 08:36:00* Test Item Value Reference Range Interpretation Comments GLUCOSE; Normal (test code = 1547-9) 133 mg/dl 65-139 N Non-fasting reference interval UREA NITROGEN (BUN) (test code = UREA NITROGEN (BUN)) 5 mg/dl 7-25 CREATININE (test code = CREATININE) 0.76 mg/dl 0.50-1.05 N For patients >49 years of age, the reference limitfor Creatinine is approximately 13% higher for peopleidentified as -Cymraes. eGFR NON- (test code = eGFR NON-KAYLYNN N [place]) 88 {ML/MIN/1.7} > OR = 60 N [...] code = CALCIUM) 9.5 mg/dl 8.6-10.4 N [facility][QL] BASIC METABOLIC PANEL W/FSIX6308-66-70 08:28:00* Test Item Value Reference Range Interpretation Comments GLUCOSE; Normal (test code = 1547-9) 99 mg/dl 65-99 N Fasting reference interval UREA NITROGEN (BUN) (test code = UREA NITROGEN (BUN)) 7 mg/dl 7-25 N CREATININE (test code = CREATININE) 1.00 mg/dl 0.50-1.05 N For patients >49 years of age, the reference limitfor Creatinine is approximately 13% higher for peopleidentified as -Cymraes. eGFR NON- (test code = eGFR NON-KAYLYNN N [place]) 63 {ML/MIN/1.7} > OR = 60 N [...] code = CALCIUM) 9.4 mg/dl 8.6-10.4 N [facility][Q] LIPID PANEL WITH REFLEX TO DIRECT LDL 2020-01-28 10:23:00* Test Item Value Reference Range Interpretation Comments CHOLESTEROL, TOTAL; Normal (test code = 2093-3) 166 mg/dl <200 N HDL CHOLESTEROL; Normal (test code = 2085-9) 52 mg/dl > OR = 50 N TRIGLYCERIDES; Normal (test code = 2571-8) 125 mg/dl <150 N LDL-CHOLESTEROL; Normal (test code = 32082-8) 91 {MG/DL ANA} N Reference range: <100 Desirable range <100 mg/dL for primary prevention; <70 mg/dL for patients with CHD or diabetic patients with > or = 2 CHD risk factors. LDL-C is now calculated using the Noelle calculation, which is a validated novel method providing better accuracy than the Friedewald equation in the estimation of LDL-C. Venancio MCCARTHY et al. NAZ. 2013;310(19): 3596-5731 (http ://education.[employer]/faq/TAY180) CHOL/HDLC RATIO (test code = CHOL/HDLC RATIO) 3.2 {CALC} <5.0 N NON HDL CHOLESTEROL (test code = NON HDL CHOLESTEROL) 114 {MG/DL C AL} <130 N For patients with diabetes plus 1 major ASCVD risk factor, treating to a non-HDL-C goal of <100 mg/dL (LDL-C of <70 mg/dL) is considered a therapeutic option. [facility][QL] CMP W/[id number] 10:23:00* Test Item Value Reference Range Interpretation Comments GLUCOSE; Normal (test code = 1547-9) 104 mg/dl 65-139 N Non-fasting reference interval UREA NITROGEN (BUN) (test code = UREA NITROGEN (BUN)) 10 mg/dl 7-25 N CREATININE (test code = CREATININE) 1.03 mg/dl 0.50-1.05 N For patients >49 years of age, the reference limitfor Creatinine is approximately 13% higher for peopleidentified as -Cymraes. eGFR NON- (test code = eGFR NON-KAYLYNN N [place]) 61 {ML/MIN/1.7} > OR = 60 N [...] N BILIRUBIN, TOTAL; Normal (test code = 21574-6) 0.3 mg/dl 0.2-1.2 N ALKALINE PHSPHATASE (test code = ALKALINE PHSPHATASE) 64 u/l 37-153 N AST; Normal (test code = 1916-6) 22 u/l 10-35 N ALT; Normal (test code = 1742-6) 16 u/l 6-29 N [facility][] CBC (INCLUDES DIFF/PLT)2020-01-28 10:23:00* Test Item Value Reference Range Interpretation Comments WHITE BLOOD CELL COUNT (test code = WHITE BLOOD CELL COUNT) 7.1 {Thousand/u} 3.8-10.8 N RED BLOOD CELL COUNT (test code = RED BLOOD CELL COUNT) 4.18 {Million/uL} 3.80-5.10 N HEMAGLOBIN; Normal (test code = 82766-2) 12.8 g/dl 11.7-15.5 N HEMATOCRIT; Normal (test code = 4544-3) 37.9 % 35.0-45.0 N MCV; Normal (test code = 787-2) 90.7 fL 80.0-100.0 N MCHC; Normal (test code = 01543-3) 33.8 g/dl 32.0-36.0 N RDW; Normal (test code = 788-0) 13.1 % 11.0-15.0 N PLATELET COUNT; Normal (test code = 777-3) 166 {Thousand/u} 140-400 N MPV; Normal (test code = 12847-1) 9.6 fL 7.5-12.5 N ABSOLUTE NEUTROPHILS (test code = ABSOLUTE NEUTROPHILS) 4963 {cells/uL} 2679-4913 N ABSOLUTE LYMPHOCYTES (test code = ABSOLUTE [...] % N MONOCYTES; Normal (test code = 75207-3) 6.0 % N EOSINOPHILS; Normal (test code = 26392-5) 4.1 % N BASOPHILS; Normal (test code = 53147-3) 0.3 % N [facility][] TSH, 3RD GENERATION W/REFLEX TO [id number] 10:23:00* Test Item Value Reference Range Interpretation Comments TSH, 3RD GENERATION W/REFLEX TO FT4 (isa t code = TSH, 3RD GENERATION W/REFLEX TO FT4) 1.11 {MIU/L} 0.40-4.50 N [facility]] TSH, 3RD GENERATION W/REFLEX TO FT4 2019-12-08 09:12:00* Test Item Value Reference Range Interpretation Comments TSH, 3RD GENERATION W/REFLEX TO FT4 (isa t code = TSH, 3RD GENERATION W/REFLEX TO FT4) 0.85 {MIU/L} 0.40-4.50 N [facility]] BASIC METABOLIC PANEL W/[id number] 09:56:00* Test Item Value Reference Range Interpretation [...] is approximately 13% higher for peopleidentified as -Cymraes. eGFR NON- (test code = eGFR NON-KAYLYNN N [place]) 75 {ML/MIN/1.7} > OR = 60 N eGFR (test code = eGFR ) 87 {ML/MIN/1.7} > OR = 60 N BUN/CREATININE RATIO (test code = BUN/CREATININE RATIO) NOT APPLICA BLE 04-07 SODIUM (test code = SODIUM) 133 mmol/L 135-146 POTASSIUM (test code = POTASSIUM) 4.1 mmol/L 3.5-5.3 N CHLORIDE (test code = CHLORIDE) 96 mmol/L 98-110 CARBON DIOXIDE (test code = CARBON DIOXIDE) 27 mmol/L 20-32 N CALCIUM (test code = CALCIUM) 9.4 mg/dl 8.6-10.4 [facility] Bhdml5697-45-93 03:35:00* Test Item Value Reference Range Interpretation Comments Sodium Level (test code = 2951-2) 131 136-145 L [facility] HospitalPotassium Wlqci8758-88-26 03:35:00* Test Item Value Reference Range Interpretation Comments Potassium Level (test code = 2823-3) 3.8 3.5-5.1 [facility] HospitalChloride Ebngp0408-98-89 03:35:00* Test Item Value Reference Range Interpretation Comments Chloride Level (test code = 2075-0) 100 98-107 [facility] HospitalCarbon Dioxide Vbsey7649-63-55 03:35:00* Test Item Value Reference Range Interpretation Comments Carbon Dioxide Level (test code = 2028-9) 20 22-29 L [facility] HospitalAnion Apq8955-02-05 03:35:00* Test Item Value Reference Range Interpretation Comments Anion Gap (test code = 48531-6) 14.8 8-16 [facility] HospitalBlood Urea Gnmveeso9434-56-38 03:35:00* Test Item Value Reference Range Interpretation Comments Blood Urea Nitrogen (test code = 3094-0) 6 7-26 L [facility] HospitalCreatinine2019-12-12 03:35:00* Test Item Value Reference Range Interpretation Comments Creatinine (test code = 2160-0) 0.76 0.57-1.11 [facility] HospitalBUN/Creatinine Roxjc1546-92-76 03:35:00* Test Item Value Reference Range Interpretation Comments BUN/Creatinine Ratio (test code = 3097-3) 8 6-25 [facility] HospitalEstimat Glomerular Filtration Rate 2019-09-27 03:35:00* Test Item Value Reference Range Interpretation Comments Estimat Glomerular Filtration Rate (test code = 897501186) > 60 >60 Ranges were taken from the National Kidney Disease Education Program and the [facility] literature.Reference ranges:60 or greater: Qlfpvm36-04 ( for 3 consecutive months): Chronic kidney disease 15 or less: Kidney failureCHRISTUS Saint Michael HospitalGlucose Xrxdr6697-45-15 03:35:00* Test Item Value Reference Range Interpretation Comments Glucose Level (test code = YTS6226) 152 74-118 H [facility] HospitalCalcium Jbsan8068-89-20 03:35:00* Test Item Value Reference Range Interpretation Comments Calcium Level (test code = 97985-7) 9.0 8.4-10.2 [facility] HospitalMagnesium Skdfh5350-76-32 03:35:00* Test Item Value Reference Range Interpretation Comments Magnesium Level (test code = 89809-9) 1.9 1.3-2.1 [facility] HospitalWhite Blood Efinn9764-37-21 03:24:00* Test Item Value Reference Range Interpretation Comments White Blood Count (test code = 6690-2) 6.35 4.8-10.8 [facility] HospitalRed Blood Rfzvb2528-34-10 03:24:00* Test Item Value Reference Range Interpretation Comments Red Blood Count (test code = 789-8) 4.15 3.6-5.1 [facility] HospitalHemoglobin2019-12-12 03:24:00* Test Item Value Reference Range Interpretation Comments Hemoglobin (test code = 17904-1) 12.8 12.0-16.0 [facility] HospitalHematocrit2019-12-12 03:24:00* Test Item Value Reference Range Interpretation Comments Hematocrit (test code = 4544-3) 37.0 34.2-44.1 [facility] HospitalMean Corpuscular Keihox9509-79-57 03:24:00* Test Item Value Reference Range Interpretation Comments Mean Corpuscular Volume (test code = 787-2) 89.2 81-99 [facility] HospitalMean Corpuscular Ojatggzwub6742-47-31 03:24:00* Test Item Value Reference Range Interpretation Comments Mean Corpuscular Hemoglobin (test code = 785-6) 30.8 28-32 [facility] HospitalMean Corpuscular Hemoglobin Concent 2019-09-27 03:24:00* Test Item Value Reference Range Interpretation Comments Mean Corpuscular Hemoglobin Concent (test code = 786-4) 34.6 31-35 [facility] HospitalRed Cell Distribution Azaav3565-86-44 03:24:00* Test Item Value Reference Range Interpretation Comments Red Cell Distribution Width (test code = 41461-0) 12.9 11.7 -14.4 [facility] HospitalPlatelet Mvlel8319-75-00 03:24:00* Test Item Value Reference Range Interpretation Comments Platelet Count (test code = 777-3) 120 140-360 L [facility] HospitalNeutrophils (%) (Auto)2019-09-27 03:24:00 * Test Item Value Reference Range Interpretation Comments Neutrophils (%) (Auto) (test code = 85786-2) 85.0 38.7-80.0 H [facility] HospitalLymphocytes (%) (Auto)2019-09-27 03:24:00 * Test Item Value Reference Range Interpretation Comments Lymphocytes (%) (Auto) (test code = 736-9) 11.2 18.0-39.1 L [facility] HospitalMonocytes (%) (Auto)2019-09-27 03:24:00* Test Item Value Reference Range Interpretation Comments Monocytes (%) (Auto) (test code = 5905-5) 3.3 4.4-11.3 L [facility] HospitalEosinophils (%) (Auto)2019-09-27 03:24:00 * Test Item Value Reference Range Interpretation Comments Eosinophils (%) (Auto) (test code = 713-8) 0.0 0.0-6.0 [facility] HospitalBasophils (%) (Auto)2019-09-27 03:24:00* Test Item Value Reference Range Interpretation Comments Basophils (%) (Auto) (test code = 706-2) 0.0 0.0-1.0 [facility] HospitalIM GRANULOCYTES %2019-09-27 03:24:00* Test Item Value Reference Range Interpretation Comments IM GRANULOCYTES % (test code = IM GRANULOCYTES %) 0.5 0.0- 1.0 [facility] HospitalNeutrophils # (Auto)2019-09-27 03:24:00* Test Item Value Reference Range Interpretation Comments Neutrophils # (Auto) (test code = 751-8) 5.4 2.1-6.9 [facility] HospitalLymphocytes # (Auto)2019-09-27 03:24:00* Test Item Value Reference Range Interpretation Comments Lymphocytes # (Auto) (test code = 91220-3) 0.7 1.0-3.2 L [facility] HospitalMonocytes # (Auto)2019-09-27 03:24:00* Test Item Value Reference Range Interpretation Comments Monocytes # (Auto) (test code = 742-7) 0.2 0.2-0.8 [facility] HospitalEosinophils # (Auto)2019-09-27 03:24:00* Test Item Value Reference Range Interpretation Comments Eosinophils # (Auto) (test code = 711-2) 0.0 0.0-0.4 [facility] HospitalBasophils # (Auto)2019-09-27 03:24:00* Test Item Value Reference Range Interpretation Comments Basophils # (Auto) (test code = 704-7) 0.0 0.0-0.1 [facility] HospitalAbsolute Immature Granulocyte (auto 2019-09-27 03:24:00* Test Item Value Reference Range Interpretation Comments Absolute Immature Granulocyte (auto (isa t code = Absolute Immature Granulocyte (auto) 0.03 0-0.1 [facility] HospitalThyroid Stimulating Hormone (TSH) 2019-09-26 04:20:00* Test Item Value Reference Range Interpretation Comments Thyroid Stimulating Hormone (TSH) (test code = 85803-9) 5.583 0.350-4.940 H [facility] HospitalHemoglobin A1c Wgkchqz5169-47-23 03:56:00 * Test Item Value Reference Range Interpretation Comments Hemoglobin A1c Percent (test code = Hemoglobin A1c Percent) 5.4 4.0-7.0 [facility] HospitalTriglycerides Xqzhy6698-83-55 03:56:00* Test Item Value Reference Range Interpretation Comments Triglycerides Level (test code = 2571-8) 121 0-149 [facility] HospitalCholesterol Aowwf1551-23-10 03:56:00* Test Item Value Reference Range Interpretation Comments Cholesterol Level (test code = 2093-3) 168 0-199 Less than 200 mg/dL Low Reap089 - 239 mg/dL Borderline Ecec910 m g/dl and greater High Risk [facility] HospitalLDL Olrcvwqdaeq6047-17-30 03:56:00* Test Item Value Reference Range Interpretation Comments LDL Cholesterol (test code = 2089-1) 99 60-130 [facility] HospitalHDL Mexvngnsyoq8125-76-65 03:56:00* Test Item Value Reference Range Interpretation Comments HDL Cholesterol (test code = 2085-9) 45 40-60 [facility] HospitalCholesterol/HDL Istwt6543-06-84 03:56:00 * Test Item Value Reference Range Interpretation Comments Cholesterol/HDL Ratio (test code = 9830-1) 3.7 3.0-3.6 H [facility] HospitalFluoroscopic procedure less than one hour inbppaem8275-77-86 02:10:00* Test Item Value Reference Range Interpretation Comments Hemoglobin A1c Percent (test code = Hemoglobin A1c Percent) 5.4 4.0-7.0 [facility]ere[facility] or plasma triglyceride measurement (mass/volume)2019-09-26 02:10:00* Test Item Value Reference Range Interpretation Comments Triglycerides Level (test code = 2571-8) 121 0-149 [facility]ererum or plasma cholesterol measurement (mass/volume)2019-09-26 02:10:00* Test Item Value Reference Range Interpretation Comments Cholesterol Level (test code = 2093-3) 168 0-199 Less than 200 mg/dL Low Leqy049 - 239 mg/dL Borderline Zola973 m g/dl and greater High Risk [facility]ererum or plasma cholesterol in LDL measurement (mass/volume) 2019-09-26 02:10:00* Test Item Value Reference Range Interpretation Comments LDL Cholesterol (test code = 2089-1) 99 60-130 [facility]ererum or plasma cholesterol in HDL measurement (mass/volume)2019-09-26 02:10:00* Test Item Value Reference Range Interpretation Comments HDL Cholesterol (test code = 2085-9) 45 40-60 [facility]ererum or plasma total cholesterol/cholesterol in HDL mass yybfa1935-18-79 02:10:00* Test Item Value Reference Range Interpretation Comments Cholesterol/HDL Ratio (test code = 9830-1) 3.7 3.0-3.6 [facility] Centererum or plasma hepatitis C virus RNA detection by probe and target amplification zfipvk2021-56-69 06:36:00* Test Item Value Reference Range Interpretation Comments Hepatitis C RNA Qualitative (PCR) (test code = 13089-9) Negative Negative Negative: HCV RNA Not DetectedPerformed at: [facility] [id number] Director: Lisa Cerna MD, Phone: [phone] 44[facility] HospitalPhosphorus Ahzue6458-13-54 04:21:00* Test Item Value Reference Range Interpretation Comments Phosphorus Level (test code = TPD1488) 3.5 2.3-4.7 [facility] HospitalPhosphorus gkvpdcjcvcq7253-69-41 02:10:00 * Test Item Value Reference Range Interpretation Comments Phosphorus Level (test code = LAF6503) 3.5 2.3-4.7 [facility] HospitalHEPTOBILIARY W OVXKL9319-67-92 15:30:00 [place] [address] Patient Name: SHAUN MICHAEL MR #: [id number] : [birth year] Age/Sex: 53/F Req #: [id number] Adm Physician: DIEGO WATSON MD Ordered by: BETSY GREEN MD Report #: [id number] Location: MED/SURG Room[facility]Bed: [facility] Procedure: [id number] N M/HEPTOBILIARY W PHARM Exam Date: Exam [...] 09/24/191531 COPY TO: BETSY GREEN MD [facility]- [facility])2019-09-23 07:36:00 [place] [address] Patient Name: SHAUN MICHAEL MR #: [id number] : 1965 Age/Sex: 53/F Req #: [id number] Adm Physician: DIEGO WATSON MD Ordered by: YULIA MCNALLY NP Report #: [id number] Location: MED/SURG Room/Bed: Critical access hospital Procedure: [id number] DX/ABDOMEN-1VIEW (KUB) Exam Date: 09/23/19 Exam Time : 632 REPORT STATUS: Signed Abd omen/KUB INDICATION: SBO [id number] COMPARISON: CT abdom en/pelvis 09/22/2019. FINDINGS: [...] on 09/23/2019 7:37 AM Dictated By: KIRSTEN kaplan Signed By: KIRSTEN EDWARDS MD on 09/23/19736 Transcribed By: PETER SHARIF on 09/23/19736 COPY TO: YULIA MCNALLY NP CT ABDOMEN/PELVIS [id number] 19:23:00 [place] [address] Patient Name: SHAUN MICHAEL MR #: [id number] : 1965 Age/Sex: 53[id number] Req #: [id number] Adm Physician: Ordered by: ADELAIDA DURANT MD Report #: [id number] Location: ER Room/Bed: Procedure: [id number] CT/ CT ABDOMEN/PELVIS W Exam Date: 09/22/19 Exam Time: 1 810 REPORT STATUS: Signed EXAM: CT Abdomen and Pelvis WITH contrast INDICATION: abd pain [id number] COMPARISON: None. TECHNIQUE: Abdomen and [...] It is below the limits set by [facility] Radiation Protocol Committee (RPC). FINDINGS: LINES and [...] KISHA PEREIRA MD 33 COPY TO: CHLOÉ DURNAT MD Creatine Kinase BS4341-84-93 18:04:00* Test Item Value Reference Range Interpretation Comments Creatine Kinase MB (test code = 19995-0) 0.90 0-5.0 [facility] HospitalTroponin O8657-36-96 18:04:00* Test Item Value Reference Range Interpretation Comments Troponin I (test code = RMC6879) 0.006 0-0.300 [facility] HospitalT[facility] Twcnkavsu9954-50-05 17:47:00* Test Item Value Reference Range Interpretation Comments Total Bilirubin (test code = 1975-2) 0.5 0.2-1.2 [facility] HospitalAspartate Amino Transf (AST/SGOT) 2019-09-22 17:47:00* Test Item Value Reference Range Interpretation Comments Aspartate Amino Transf (AST/SGOT) (test code = Aspartate Amino Transf (AST/SGOT)) 23 5-34 [facility] HospitalAlanine Aminotransferase (ALT/SGPT) 2019-09-22 17:47:00* Test Item Value Reference Range Interpretation Comments Alanine Aminotransferase (ALT/SGPT) (test code = 1742-6) 23 0-55 [facility] HospitalTotal Fswilna4636-42-15 17:47:00* Test Item Value Reference Range Interpretation Comments Total Protein (test code = 2885-2) 7.9 6.5-8.1 [facility] HospitalAlbumin2019-12-07 17:47:00* Test Item Value Reference Range Interpretation Comments Albumin (test code = 1751-7) 4.1 3.5-5.0 [facility] HospitalGlobulin[facility] 17:47:00* Test Item Value Reference Range Interpretation Comments Globulin (test code = 14336-7) 3.8 2.3-3.5 H [facility]Albumin/Globulin [id number] 17:47:00 * Test Item Value Reference Range Interpretation Comments Albumin/Globulin Ratio (test code = 1759-0) 1.1 0.8-2.0 [facility] HospitalAlkaline Oeqfxpfycji6731-06-06 17:47:00* Test Item Value Reference Range Interpretation Comments Alkaline Phosphatase (test code = 6768-6) 91 40-150 [facility] HospitalCreatine [id number] 17:47:00* Test Item Value Reference Range Interpretation Comments Creatine Kinase (test code = 2157-6) 43 29-168 [facility] HospitalAmylase [id number] 17:47:00* Test Item Value Reference Range Interpretation Comments Amylase Level (test code = 1798-8) 64 25-125 [facility] HospitalLipase2019-12-07 17:47:00* Test Item Value Reference Range Interpretation Comments Lipase (test code = 3040-3) 21 8-78 [facility] HospitalProthrombin [id number] 17:39:00* Test Item Value Reference Range Interpretation Comments Prothrombin Time (test code = 5902-2) 13.6 11.9-14.5 [facility] HospitalProthromb Time International Ratio 2019-09-22 17:39:00* Test Item Value Reference Range Interpretation Comments Prothromb Time International Ratio (test code = 6301-6) 0.99 Oral Anticoagulant Therapy INR Values:1. Low Intensity Therapy 1.5 - 2.02 . Moderate Intensity Therapy 2.0 - 3.03. High Intensity Therapy(1) 2.5 - 3. 54. High Intensity Therapy(2) 3.0 - 4.05. Panic Value INR > 5.0 [facility] HospitalActivated Partial Thromboplast Time 2019-09-22 17:39:00* Test Item Value Reference Range Interpretation Comments Activated Partial Thromboplast Time (test code = 77809-7) 36.5 23.8-35.5 H [facility] HospitalCHEST SINGLE (PORTABLE)2019-09-22 17:19:00 [facility] [address] [address] Patient Name: SHAUN MICHAEL MR #: [id number] : 1965 Age/Sex: 53/F Req #: [id number] Adm Physician: Ordered by: ADELAIDA DURANT MD Report #: [id number] Location: ER Room/Bed: Procedure: [id number] DX/ CHEST SINGLE (PORTABLE) Exam Date: 09/22/19 [...] 1720 COPY TO: ADELAIDA DURANT MD Urine [id number] 17:06:00* Test Item Value Reference Range Interpretation Comments Urine WBC (test code = 5821-4) 0-5 0-5 [facility] [id number] 17:06:00* Test Item Value Reference Range Interpretation Comments Urine RBC (test code = 87341-5) 0-5 0-5 [facility] HospitalU[facility] [id number] 17:06:00* Test Item Value Reference Range Interpretation Comments Urine Bacteria (test code = 54285-9) FEW NONE [facility] Epithelial [id number] 17:06:00 * Test Item Value Reference Range Interpretation Comments Urine Epithelial Cells (test code = 22628-1) FEW NONE [facility] HospitalU[facility] [id number] 17:00:00* Test Item Value Reference Range Interpretation Comments Urine Color (test code = 5778-6) YELLOW YELLOW [facility] Liptyoq3758-90-84 17:00:00* Test Item Value Reference Range Interpretation Comments Urine Clarity (test code = 59224-6) CLEAR CLEAR [facility] Hospital[facility] Specific Gcnuguw5308-15-58 17:00:00 * Test Item Value Reference Range Interpretation Comments Urine Specific [place] (test code = 5811-5) 1.010 1.010-1.02 5 [facility] HospitalU[facility] [id number] 17:00:00* Test Item Value Reference Range Interpretation Comments Urine pH (test code = 99852-8) 7 5-7 [facility] Leukocyte Dqjvzzwn6305-91-75 17:00:00* Test Item Value Reference Range Interpretation Comments Urine Leukocyte Esterase (test code = 5799-2) NEGATIVE NEGATIVE [facility] [id number] 17:00:00* Test Item Value Reference Range Interpretation Comments Urine Nitrite (test code = 84478-9) NEGATIVE NEGATIVE [facility] Nqitjvu7827-37-16 17:00:00* Test Item Value Reference Range Interpretation Comments Urine Protein (test code = 5804-0) NEGATIVE NEGATIVE [facility] HospitalU[facility] Glucose (UA)2019-09-22 17:00:00* Test Item Value Reference Range Interpretation Comments Urine Glucose (UA) (test code = 2349-9) NEGATIVE NEGATIVE [facility] HospitalU[facility] Joekpyt3576-04-62 17:00:00* Test Item Value Reference Range Interpretation Comments Urine Ketones (test code = 06978-7) NEGATIVE NEGATIVE [facility] Anmrbaxatado9396-22-08 17:00:00* Test Item Value Reference Range Interpretation Comments Urine Urobilinogen (test code = 65552-3) 0.2 0.2-1 [facility] Odlhibybz2873-01-54 17:00:00* Test Item Value Reference Range Interpretation Comments Urine Bilirubin (test code = 1978-6) NEGATIVE NEGATIVE [facility] Bygal3984-74-75 17:00:00* Test Item Value Reference Range Interpretation Comments Urine Blood (test code = 96313-8) NEGATIVE NEGATIVE [facility] amylase measurement (enzymatic activity/volume)2019-09-22 15:25:00* Test Item Value Reference Range Interpretation Comments Amylase Level (test code = 1798-8) 64 25-125 [facility] or plasma lipase measurement (enzymatic activity/volume)2019-09-22 15:25:00* Test Item Value Reference Range Interpretation Comments Lipase (test code = 3040-3) 21 8-78 [facility]] CMP W/[id number] 16:43:00* Test Item Value Reference Range Interpretation Comments GLUCOSE; Normal (test code = 1547-9) 112 mg/dl 65-139 N Non-fasting reference interval UREA NITROGEN (BUN) (test code = UREA NITROGEN (BUN)) 10 mg/dl 7-25 N CREATININE (test code = CREATININE) 0.81 mg/dl 0.50-1.05 N For patients >49 years of age, the reference limitfor Creatinine is approximately 13% higher for peopleidentified as -[place]ymra[place]. eGFR NON- (test code = eGFR NON-[place]NN N [place]) 82 {ML/MIN/1.7} > OR = 60 N [...] N BILIRUBIN, TOTAL; Normal (test code = 24833-0) 0.2 mg/dl 0.2-1.2 N ALKALINE PHSPHATASE (test code = ALKALINE PHSPHATASE) 81 u/l 33-130 N AST; Normal (test code = 1916-6) 19 u/l 10-35 N ALT; Normal (test code = 1742-6) 16 u/l 6-29 N [facility]] CBC (INCLUDES DIFF/PLT)2019-09-05 16:43:00* Test Item Value Reference Range Interpretation Comments WHITE BLOOD CELL COUNT (test code = WHITE BLOOD CELL COUNT) 10.8 {Thousand/u} 3.8-10.8 N RED BLOOD CELL COUNT (test code = RED BLOOD CELL COUNT) 4.01 {Million/uL} 3.80-5.10 N HEMAGLOBIN; Normal (test code = 88008-7) 12.3 g/dl 11.7-15.5 N HEMATOCRIT; Normal (test code = 4544-3) 35.5 % 35.0-45.0 N MCV; Normal (test code = 787-2) 88.5 fL 80.0-100.0 N MCHC; Normal (test code = 91974-3) 34.6 g/dl 32.0-36.0 N RDW; Normal (test code = 788-0) 12.6 % 11.0-15.0 N PLATELET COUNT; Normal (test code = 777-3) 242 {Thousand/u} 140-400 N MPV; Normal (test code = 90634-3) 9.3 fL 7.5-12.5 N ABSOLUTE NEUTROPHILS (test code = ABSOLUTE NEUTROPHILS) 9104 {cells/uL} 7627-3953 ABSOLUTE LYMPHOCYTES (test code = ABSOLUTE LYMPHOCYTES) [...] % N MONOCYTES; Normal (test code = 93559-8) 4.3 % N EOSINOPHILS; Normal (test code = 61842-5) 0.1 % N BASOPHILS; Normal (test code = 42231-1) 0.2 % N [facility]] TSH, 3RD GENERATION W/REFLEX TO FT4 2019-09-05 16:43:00* Test Item Value Reference Range Interpretation Comments TSH, 3RD GENERATION W/REFLEX TO FT4 (isa t code = TSH, 3RD GENERATION W/REFLEX TO FT4) 0.29 {MIU/L} Reference Range > or = 20 Years 0.40-4.50 Ranges First trimester 0.26-2.66 Second trimester 0.55-2.73 Third trimester 0.43-2.91 [facility]] T4, [id number] 16:43:00* Test Item Value Reference Range Interpretation Comments T4, FREE (test code = T4, FREE) 1.3 ng/dl 0.8-1.8 N [facility]] PROTHROMBIN W/INR + PARTIAL THROMBOPLASTIN [id number] 11:24:00* Test Item Value Reference Range Interpretation Comments PARTIAL THROMBOPLASTIN TIME, ACTIVATED ( test code = PARTIAL THROMBOPLASTIN TIME, ACTIVATED) 31 {sec} 22-34 N This test has no t been validated for monitoringunfractionated heparin therapy. For testing thatis validated for this type of therapy, please referto the Heparin Anti-Xa assay (test code 93239). For additional information, please refer tohttp://education.[employer]/faq/YQQ252(This link is being provided for informational/educational purposes only.) INR (test code = INR) 1.0 N Refere nce Range 0.9-1.1Moderate-intensity Warfarin Therapy 2.0-3.0Higher-intensity Warfarin Therapy 3.0-4.0 PT (test code = PT) 10.3 {sec} 9.0-11.5 N [facility]] CBC (INCLUDES DIFF/PLT)2019-08-09 11:24:00* Test Item Value Reference Range Interpretation Comments WHITE BLOOD CELL COUNT (test code = WHITE BLOOD CELL COUNT) 5.5 {Thousand/u} 3.8-10.8 N RED BLOOD CELL COUNT (test code = RED BLOOD CELL COUNT) 4.49 {Million/uL} 3.80-5.10 N HEMAGLOBIN; Normal (test code = 31868-2) 14.0 g/dl 11.7-15.5 N HEMATOCRIT; Normal (test code = 4544-3) 40.0 % 35.0-45.0 N MCV; Normal (test code = 787-2) 89.1 fL 80.0-100.0 N MCHC; Normal (test code = 94493-1) 35.0 g/dl 32.0-36.0 N RDW; Normal (test code = 788-0) 12.8 % 11.0-15.0 N PLATELET COUNT; Below Low Threshold (test code = 777-3) 128 {Thousand/u} 140-400 MPV; Normal (test code = 64272-8) 10.6 fL 7.5-12.5 N ABSOLUTE NEUTROPHILS (test code = ABSOLUTE NEUTROPHILS) 3157 {cells/uL} 7003-1290 N ABSOLUTE LYMPHOCYTES (test code = ABSOLUTE [...] % N MONOCYTES; Normal (test code = 13616-9) 7.3 % N EOSINOPHILS; Normal (test code = 05270-7) 5.7 % N BASOPHILS; Normal (test code = 88157-3) 0.4 % N COMMENT(S) (test code = COMMENT(S)) See Comment Review of peripheral smear confirmsautomated results. [facility]] LIPID [id number] 08:31:00* Test Item Value Reference Range Interpretation Comments CHOLESTEROL, TOTAL; Normal (test code = 2093-3) 180 mg/dl <200 N HDL CHOLESTEROL; Below Low Threshold (test code = 2085-9) 40 mg/dl >50 TRIGLYCERIDES; Above High Threshold (test code = 2571-8) 213 mg/dl <150 LDL-CHOLESTEROL; Above High Threshold (test code = 19884-1) 107 {MG/DL ANA} Reference range: <100 Desirable range <1 00 mg/dL for primary prevention; <70 mg/dL for patients with CHD or diabetic patients with > or = 2 CHD risk factors. LDL-C is now calculated using the Venancio-Suarez calculation, which is a validated novel method providing better accuracy than the Friedewald equation in the estimation of LDL-C. Venancio SS et al. NAZ. 2013;310(19): 9902-3719 (http ://education.[employer]/faq/HTM116) CHOL/HDLC RATIO (test code = CHOL/HDLC RATIO) 4.5 {CALC} <5.0 N NON HDL CHOLESTEROL (test code = NON HDL CHOLESTEROL) 140 {MG/DL C AL} <130 For patients with diabetes plus 1 major ASCVD risk factor, treating to a non-HDL-C goal of <100 mg/dL (LDL-C of <70 mg/dL) is considered a therapeutic option. [facility]] CMP W/[id number] 08:31:00* Test Item Value Reference Range Interpretation Comments GLUCOSE; Normal (test code = 1547-9) 99 mg/dl 65-99 N Fasting reference interval UREA NITROGEN (BUN) (test code = UREA NITROGEN (BUN)) 6 mg/dl 7-25 CREATININE (test code = CREATININE) 0.72 mg/dl 0.50-1.05 N For patients >49 years of age, the reference limitfor Creatinine is approximately 13% higher for peopleidentified as -Cymraes. eGFR NON- (test code = eGFR NON-[place]NN N [place]) 94 {ML/MIN/1.7} > OR = 60 N [...] N BILIRUBIN, TOTAL; Normal (test code = 43381-2) 0.4 mg/dl 0.2-1.2 N ALKALINE PHSPHATASE (test code = ALKALINE PHSPHATASE) 92 u/l 33-130 N AST; Normal (test code = 1916-6) 23 u/l 10-35 N ALT; Normal (test code = 1742-6) 14 u/l 6-29 N [facility]] URINALYSIS, COMPLETE W/REFLEX TO CULTURE 2019-04-18 08:31:00* [...] NEGATIVE N BILIRUBIN; Normal (test code = 34600-6) NEGATIVE NEGATIVE N KETONES; Normal (test code = 15471-0) NEGATIVE NEGATIVE N OCCULT BLOOD; Normal (test code = 54841-5) NEGATIVE NEGATIVE N PROTEIN; Normal (test code = 11591-8) NEGATIVE NEGATIVE N NITRITE (test code = NITRITE) NEGATIVE NEGATIVE N LEUKOCYTE ESTERASE (test code = LEUKOCYTE ESTERASE) NEGATIVE NE GATIVE N WBC; Normal (test code = 6690-2) NONE SEEN < OR = 5 N RBC; Normal (test code = 789-8) NONE SEEN < OR = 2 N SQUAMOUS EPITHELIAL CELLS (test code = 66033-2) 0-5 < OR = 5 BACTERIA; Normal (test code = 630-4) NONE SEEN NONE SEEN N HYALINE CAST; Normal (test code = 58394-2) NONE SEEN NONE SEEN N [facility][Q] REFLEXIVE URINE [id number] 08:31:00* Test Item Value Reference Range Interpretation Comments REFLEXIVE URINE CULTURE (test code = REFLEXIVE URINE C ULTURE) NO CULTURE INDICATED [facility]] CBC (INCLUDES DIFF/PLT)2019-04-18 08:31:00* Test Item Value Reference Range Interpretation Comments WHITE BLOOD CELL COUNT (test code = WHITE BLOOD CELL COUNT) 6.3 {Thousand/u} 3.8-10.8 N RED BLOOD CELL COUNT (test code = RED BLOOD CELL COUNT) 4.72 {Million/uL} 3.80-5.10 N HEMAGLOBIN; Normal (test code = 26625-4) 14.3 g/dl 11.7-15.5 N HEMATOCRIT; Normal (test code = 4544-3) 41.6 % 35.0-45.0 N MCV; Normal (test code = 787-2) 88.1 fL 80.0-100.0 N MCHC; Normal (test code = 18754-8) 34.4 g/dl 32.0-36.0 N RDW; Normal (test code = 788-0) 13.3 % 11.0-15.0 N PLATELET COUNT; Below Low Threshold (test code = 777-3) 126 {Thousand/u} 140-400 MPV; Normal (test code = 11019-2) 11.2 fL 7.5-12.5 N ABSOLUTE NEUTROPHILS (test code = ABSOLUTE NEUTROPHILS) 4498 {cells/uL} 8510-2744 N ABSOLUTE LYMPHOCYTES (test code = ABSOLUTE [...] % N MONOCYTES; Normal (test code = 32725-8) 5.5 % N EOSINOPHILS; Normal (test code = 32178-2) 3.8 % N BASOPHILS; Normal (test code = 61003-9) 0.3 % N [facility][] Platelet [id number] 08:31:00* Test Item Value Reference Range Interpretation Comments PLATELET ESTIMATION (test code = PLATELET ESTIMATION) DECREASED ADEQUATE A [facility]] HEPATITIS C [id number] 08:31:00* Test Item Value Reference Range Interpretation Comments HEPATITIS C ANTIBODY; Abnormal (test code = 31157-8) REACTIVE N ON-REACTIVE A SIGNAL TO CUT-OFF (test code = SIGNAL TO CUT-OFF) 33.20 <1.0 0 HCV antibody was reactive. The sample will be testedfor HCV RNA by a Nucleic Acid Amplification Test (NAAT)to determine if the patient has a current activeinfection. [facility]] TSH, 3RD GENERATION W/REFLEX TO FT4 2019-04-18 08:31:00* Test Item Value Reference Range Interpretation Comments TSH, 3RD GENERATION W/REFLEX TO FT4 (isa t code = TSH, 3RD GENERATION W/REFLEX TO FT4) 2.62 {MIU/L} N Reference Range > or = 20 Years 0.40-4.50 Ranges First trimester 0.26-2.66 Second trimester 0.55-2.73 Third trimester 0.43-2.91 [facility][QL] HCV RNA, QUANTITATIVE REAL TIME [id number] 08:31:00* Test Item Value Reference Range Interpretation Comments HCV RNA, QUANTITATIVE REAL TIME PCR (isa t code = HCV RNA, QUANTITATIVE REAL TIME PCR) <1.18 NOT DETECTED NOT DETECTED N This test was performed using Real-Time Polymerase ChainReaction. Reportable Range: 15 IU/mL to 100,000,000 IU/mL(1.18 Log IU/mL to 8.00 Log IU/mL). The analytical performance characteristics of thi jacquiey have been determined by [employer]. The modifications have not been cleared or approved bythe FDA. This assay has been validated pursuant to the CLIA regulations and is used for clinical purposes. For more information on this test, go to:http://education.[employer]/faq/JYK89m5(This link is being provided for informational/educational purposes only.) [facility]] HEMOGLOBIN [id number] 08:31:00* Test Item Value Reference Range Interpretation [...] diagnosis of diabetes in children. According to [place] Diabetes Association (ADA)guidelines, hemoglobin A1c <7.0% represents optimalcontrol in non- diabetic patients. Differentmetrics may apply to specific patient populations. Standards of Medical Care in Diabetes(ADA). [facility] [id number] 16:15:00 [address] [address] Patient Name: SHAUN MICHAEL MR #: [id number] : 1965 Age/Sex: 53/F Req #: [id number] Adm Physician: Ordered by: YULIA MCNALLY NP Report #: [id number] Location: Room/Bed: Procedure: [id number] CT/ CT BRAIN WO Exam Date: 04/15/19 [...] PM Dictated By: SMILEY MARTINEZ MD, MD [id number] Transcribed By: RITA on 04/15/19 1611 COPY TO: YULIA MCNALLY NP
[2020-07-14] MEDS: FAMOTIDINE 20 MG TAB PO SCH (21:59)
[2020-07-14 22:16] VITALS: BP 123/76
[2020-07-14] MEDS: ACETAMINOPHEN 325 MG TAB PO PRN (22:52)
--- NOTE | 2020-07-14 22:55 | NUR ---
Received pt from ER via wheelchair. Pt alert, awake, and oriented x 3. Home medications verified with patient and charted appropriately. Tylenol given for headache. Room free of clutter and call light within reach. No other needs verbalized at this time.
[2020-07-14] MEDS ORDERED: SODIUM CHLORIDE1 GM PO (22:59)
[2020-07-14 23:00] VITALS: BP 123/76
[2020-07-15] VITALS (7 sets, daily range): BP systolic 109–131; BP diastolic 60–81
[2020-07-15] MEDS ORDERED: DOCUSATE SODIUM 100 MG CAP PO PRN
[2020-07-15] MEDS ORDERED: DIAZEPAM 5 MG TAB PO PRN (00:15)
[2020-07-15] MEDS: LEVOTHYROXINE SODIUM 75 MCG TAB PO SCH (05:34)
[2020-07-15 05:59] LABS: BASOPHILS % 0.2 % (0.0-1.0); EOSINOPHILS # (AUTO) 0.4 (0.0-0.4); HEMATOCRIT 39.4 % (34.2-44.1); HEMOGLOBIN 13.4 g/dL (12.0-16.0); LYMPHOCYTES # (AUTO) 1.5 (1.0-3.2); LYMPHOCYTES % 33.7 % (18.0-39.1); MEAN CORPUSCULAR HEMOGLOBIN 30.4 pg (28-32); MEAN CORPUSCULAR VOLUME 89.3 fL (81-99); MONOCYTES # (AUTO) 0.4 (0.2-0.8); MONOCYTES % 9.6 % (4.4-11.3); NEUTROPHILS # (AUTO) 2.1 (2.1-6.9); NEUTROPHILS % 48.3 % (38.7-80.0); PLATELET COUNT 98 x10e3/uL (140-360); RED BLOOD COUNT 4.41 x10e6/uL (3.6-5.1); RED CELL DISTRIBUTION WIDTH 12.3 % (11.7-14.4)
[2020-07-15 06:14] LABS: BLOOD UREA NITROGEN < 5 mg/dL (7-26); CALCIUM 9.1 mg/dL (8.4-10.2); CARBON DIOXIDE 24 mmol/L (22-29); CHLORIDE 107 mmol/L (98-107); CREATININE, SERUM 0.86 mg/dL (0.57-1.11); EST GLOMERULAR FILTRATION RATE > 60 ML/MIN (60-); GLUCOSE 89 mg/dL (74-118); SODIUM 139 mmol/L (136-145)
[2020-07-15 06:27] LABS: CREATINE KINASE MB 1.3 ng/mL (0-5.0)
[2020-07-15 06:28] LABS: BUN/CREATININE RATIO 6 (6-25)
[2020-07-15 06:44] LABS: CHOL/HDL RATIO 4.3 (3.0-3.6)
[2020-07-15] MEDS: ASPIRIN 81 MG ENTERIC COATED PO SCH (08:30)
[2020-07-15] MEDS: VENLAFAXINE HCL 75 MG CAPCR PO SCH (08:32)
[2020-07-15] MEDS: FAMOTIDINE 20 MG TAB PO SCH ×2 (08:32→20:53)
[2020-07-15] MEDS: OXYBUTYNIN CHLORIDE XL 5 MG TAB PO SCH (08:32)
[2020-07-15] MEDS: OLMESARTAN 20 MG TAB PO SCH (08:32)
[2020-07-15] MEDS: GABAPENTIN 300 MG CAP PO SCH ×3 (08:32→20:53)
[2020-07-15] MEDS: ACETAMINOPHEN 325 MG TAB PO PRN (08:50)
[2020-07-15] MEDS ORDERED: REGADENOSON 0.4 MG/5 ML SYR IV ONE (11:06)
--- NOTE | 2020-07-15 11:12 | NUR ---
consent for stress test, done
--- NOTE | 2020-07-15 14:21 | Consultation ---
DATE OF CONSULTATION: Cardiology Consult HISTORY OF PRESENT ILLNESS: Ambreen Michael is a 54-year-old female with past medical history of hypertension, hypothyroidism, hepatitis C, liver cirrhosis, GERD, and anxiety, admitted complaining of experiencing intermittent chest pain that she describes as (stiff/strange feeling pain), intensity 9/10 that usually lasts for 4 to 5 hours, onset [facility]. Associated symptoms, feeling tired/exhausted. Also mild shortness of breath, but denies any nausea or vomiting. Denies any palpitation. Onset of intermittent chest pain about 2 months now and she said she has been having it almost every other day. Exacerbating factors, normal activity, finds relief with resting. The patient also reports that 15 years ago, she had a left heart catheterization because she was complaining of same chest pain and her heart was (fluttering) and that she was told that she had a past heart attack by her associate professor. About 5 years ago, she had a normal stress test. However, this past few months, she started having this intermittent chest pain and yesterday, she felt like the chest pain/symptoms have worsened. PAST MEDICAL HISTORY: As mentioned above. PAST SURGICAL HISTORY: Hysterectomy, tubal ligation, ovarian cyst removal, appendectomy, gallbladder removal or cholecystectomy. She also had a bladder lift and a tummy tuck. SOCIAL HISTORY: She is an active flj-zoif-ifmc per day cigarette smoker since she was 14 years old. Denies ETOH use and no illicit drug use. FAMILY HISTORY: Positive with heart disease. Father had CABG and CVA, COPD and CHF. Mother has diabetic diabetes mellitus, has a pacemaker. ALLERGIES: NO KNOWN ALLERGIES. HOME MEDICATIONS: She is taking levothyroxine or Synthroid 75 mcg p.o. daily, olmesartan medoxomil or Benicar 20 mg p.o. daily, clonidine 0.1 mg t.i.d. p.r.n., amitriptyline 50 mg p.o. at bedtime, Celebrex 200 mg p.o. daily, diazepam 5 mg p.o. at bedtime, gabapentin 600 mg p.o. t.i.d., oxybutynin 5 mg p.o. daily, risperidone 1 mg p.o. at bedtime, tramadol 50 mg every 8 hours p.r.n., venlafaxine 150 mg p.o. daily, vitamin A, omega-3 fatty acids/fish oil, and senna laxative. REVIEW OF SYSTEMS: A detailed 12-point review of system was performed and was negative except as noted in HPI above. PHYSICAL EXAMINATION: CURRENT VITAL SIGNS: 98.0 temperature, pulse is 67, blood pressure is 109/71, respiration of 18, and SpO2 of 100% on room air. GENERAL: The patient is well developed and well nourished. No acute respiratory distress. SKIN: Normal in appearance, texture, and temperature. Warm and dry. HEENT: The patient's cranium is normocephalic and atraumatic. Pupils are equally round and reactive to light and accommodation. Sclerae are nonicteric. Ears are normal. Mucosa is moist. Throat is clear. NECK: Supple. Full range of motion. No cervical lymphadenopathy. No thyromegaly. Carotid artery upstroke is normal bilaterally without bruits. No JVD or hepatojugular reflux. RESPIRATORY: Normal respiratory effort. LUNGS: Clear to auscultation bilaterally. No wheezing, rhonchi, rales, or rubs. CARDIOVASCULAR: S1 and S2 is audible. Regular rate and rhythm. No significant murmurs heard. GI: Soft, nontender, and nondistended. Bowel sounds are present. EXTREMITIES: No cyanosis. No clubbing. No edema. NEUROVASCULAR: Motor is intact. Pulses are palpable, 2+ throughout. NEUROLOGIC: Motor and sensory examination of the upper and lower extremities are normal. Reflexes are normal and symmetrical bilaterally. LABORATORY DATA: Reviewed in the chart. Initial troponin level is negative. EKG reviewed in the chart, showed normal sinus rhythm. Echocardiogram is pending. ASSESSMENT AND PLAN: 1. Atypical chest pain. The patient does have risk factors for coronary artery disease, although her chest pain is atypical and could be related to gastrointestinal problem. 2. Hypertension. 3. Gastroesophageal reflux disease. 4. History of hepatitis C and liver cirrhosis. 5. History of hypothyroidism. 6. Chronic tobacco use. RECOMMENDATIONS: 1. Monitor on telemetry and obtain an echocardiogram, await the results. 2. Start on aspirin, beta-or[place], and high-intensity statin. Check A1c. 3. The patient would benefit from further risk stratification with stress test. We will arrange for Lexiscan stress testing. We will continue to monitor and follow. Thank you for your consultation. Dictated by Daniela Barbosa, BREAKER UP MD SARAH Mcmahon/ROSALIA /[id number]
--- NOTE | 2020-07-15 16:35 | History and Physical ---
CHIEF COMPLAINT: Chest pain. HISTORY OF PRESENT ILLNESS: A 54-year-old female, history of multiple psychiatric disorders, anxiety, depression, hypothyroidism, hypertension, presents to the ED with complaints of chest pain that began for the last several days, substernally with no radiation. Reports that the pain was pressure-like. Denies any nausea, vomiting, or any associated complaints. Occasionally complains of some headache, but currently all resolved. Currently during my evaluation denies any chest pain. The patient is seen and evaluated at bedside on the medical floor. She is currently doing well with no other issues at this time. REVIEW OF SYSTEMS: Pertinent positive: Chest pain. The rest of 14-point review of systems are reviewed with the patient and are negative. ALLERGIES: NO KNOWN DRUG ALLERGIES. HOME MEDICATIONS: Celebrex, clonidine, Senna, sodium chloride tabs, tramadol, trazodone, vitamin A, fish oil, amitriptyline, diazepam, gabapentin, levothyroxine, olmesartan, oxybutynin, risperidone, venlafaxine. PAST MEDICAL HISTORY: Depression, urinary incontinence, hypertension, hypothyroidism, depression, anxiety, chronic pain issues. PAST SURGICAL HISTORY: Reports none. FAMILY HISTORY: Hypertension, diabetes. SOCIAL HISTORY: No drugs or alcohol. Does not smoke. Good social support. PHYSICAL EXAMINATION: VITAL SIGNS: Temperature is 97.8, pulse respiratory rate 16, blood pressure 123/81, pulse ox 100% on room air. GENERAL: In no acute distress. Alert and oriented x3. Cooperative on examination. PULMONARY: Clear to auscultation bilaterally. No wheezing, no rales, no rhonchi, no crackles appreciated. CARDIOVASCULAR: Positive S1 and S2. No murmurs, rubs, or gallops appreciated. ABDOMEN: Soft, nondistended, nontender to palpation. Bowel sounds present. MUSCULOSKELETAL: Strength 5/5 throughout. No evidence of muscle deficits on examination. SKIN: Intact. Warm to touch. Good cap refill. PSYCHIATRIC: Normal affect and mood. EXTREMITIES: No edema. Good range of motion throughout. LABORATORY FINDINGS: Show white count 4.3, hemoglobin 13, hematocrit 39, platelets of 98. Coagulation; PT is 13, INR 0.99, PTT 34. Chemistry; sodium 139, potassium 4, chloride 107, bicarb 24, anion gap of 12, BUN is 5, creatinine of 0.86, glucose 89, calcium is 9.1. LFTs within normal range. Troponins are negative. Albumin 4.6. LDL is 107. Urinalysis is negative. Serology; coronavirus nondetected. MICROBIOLOGY: None. IMAGING STUDIES: Chest x-ray no acute cardiopulmonary disease. IMPRESSION: 1. Chest pain, rule out acute coronary syndrome. 2. History of anxiety/depression. 3. Hypertension. 4. Thrombocytopenia? PLAN: At this time, a cardiac stress test has been ordered by Cardiology. EKG shows no acute findings. Cardiac enzymes were found to be negative. Follow Cardiology recommendations. Continue with cardioprotective medications, aspirin, statin. Resume same antihypertensive medications. Get repeat labs in the morning. Resume same home medications except there are some medications I held. She does have thrombocytopenia, which I am not sure of the etiology of that. We will continue to monitor that very closely. I will put her on SCDs instead of Lovenox due to low platelets. Continue with heart healthy diet. A 2D echo has been ordered as well. Follow Cardiology recommendations. MD ELISABETH Ghotra/MODMichelet /[id number]
[2020-07-15 16:42] LABS: CREATINE KINASE MB 1.4 ng/mL (0-5.0)
--- NOTE | 2020-07-15 16:56 | Operative Report ---
DATE OF PROCEDURE: 07/15/2020 SURGEON: Michael Ardon MD PROCEDURE: Lexiscan nuclear stress test. INDICATION: Chest pain. TECHNIQUE: The patient was given 11 mCi of Myoview. Resting images were obtained in the horizontal long axis, vertical long axis, and short axis. The patient was then hooked up to the EKG machine. Lexiscan was infused over 15 seconds. During Lexiscan infusion, the patient had no chest pain and no EKG changes. Immediately after Lexiscan infusion, the patient was given 33 mCi of Myoview. Stress images were obtained in the horizontal long axis, and vertical long axis, and short axis. RESULTS: 1. The resting EKG demonstrated normal sinus rhythm with a normal record. 2. There were no EKG changes and no symptoms during Lexiscan infusion. 3. There was normal perfusion to all segments of the myocardium in both stress and rest. 4. There was normal left ventricular size and function with an ejection fraction of 71%. CONCLUSION: Normal Lexiscan nuclear stress test with no evidence of ischemia. Michael Ardon MD [facility]/MODL /[id number] cc: Yahaira Baltazar MD
--- NOTE | 2020-07-15 19:16 | NUR ---
report given to oncoming nurse, resp evn and unlabored at this time no distress noted, walking rounds complete.
[2020-07-15] MEDS ORDERED: RISPERIDONE 1 MG TAB PO SCH (21:00)
[2020-07-15] MEDS ORDERED: AMITRIPTYLINE HCL 25 MG TAB PO SCH (21:00)
[2020-07-16] VITALS: BP 119/82
[2020-07-16 04:05] VITALS: BP 124/96
[2020-07-16] MEDS: LEVOTHYROXINE SODIUM 75 MCG TAB PO SCH (05:28)
[2020-07-16 06:05] LABS: BASOPHILS % 0.3 % (0.0-1.0); EOSINOPHILS # (AUTO) 0.5 (0.0-0.4); EOSINOPHILS % 7.7 % (0.0-6.0); HEMATOCRIT 41.2 % (34.2-44.1); HEMOGLOBIN 13.7 g/dL (12.0-16.0); LYMPHOCYTES # (AUTO) 2.1 (1.0-3.2); LYMPHOCYTES % 33.4 % (18.0-39.1); MEAN CORPUSCULAR HEMOGLOBIN 30.2 pg (28-32); MEAN CORPUSCULAR HGB CONC 33.3 g/dL (31-35); MEAN CORPUSCULAR VOLUME 90.7 fL (81-99); MONOCYTES # (AUTO) 0.5 (0.2-0.8); MONOCYTES % 8.1 % (4.4-11.3); NEUTROPHILS # (AUTO) 3.2 (2.1-6.9); NEUTROPHILS % 50.2 % (38.7-80.0); PLATELET COUNT 103 x10e3/uL (140-360); RED BLOOD COUNT 4.54 x10e6/uL (3.6-5.1); RED CELL DISTRIBUTION WIDTH 12.2 % (11.7-14.4)
[2020-07-16 06:16] LABS: ANION GAP 15.5 mmol/L (8-16); BLOOD UREA NITROGEN 8 mg/dL (7-26); BUN/CREATININE RATIO 9 (6-25); CALCIUM 9.4 mg/dL (8.4-10.2); CARBON DIOXIDE 25 mmol/L (22-29); CHLORIDE 104 mmol/L (98-107); CREATININE, SERUM 0.94 mg/dL (0.57-1.11); EST GLOMERULAR FILTRATION RATE > 60 ML/MIN (60-); GLUCOSE 93 mg/dL (74-118); POTASSIUM 4.5 mmol/L (3.5-5.1); SODIUM 140 mmol/L (136-145)
--- NOTE | 2020-07-16 07:00 | NUR ---
BEDSIDE SHIFT REPORT RECEIVED FROM PM NURSE. PT IN STABLE CONDITION.
[2020-07-16 07:53] VITALS: BP 108/76
[2020-07-16 08:02] VITALS: BP 108/76
[2020-07-16] MEDS: GABAPENTIN 300 MG CAP PO SCH ×2 (08:49→15:00)
[2020-07-16] MEDS: VENLAFAXINE HCL 75 MG CAPCR PO SCH (08:49)
[2020-07-16] MEDS: FAMOTIDINE 20 MG TAB PO SCH (08:50)
[2020-07-16] MEDS: ASPIRIN 81 MG ENTERIC COATED PO SCH (08:50)
[2020-07-16] MEDS: OXYBUTYNIN CHLORIDE XL 5 MG TAB PO SCH (08:50)
[2020-07-16] MEDS: OLMESARTAN 20 MG TAB PO SCH (08:50)
[2020-07-16 11:44] VITALS: BP 119/76
[2020-07-16 15:45] VITALS: BP 147/89
--- NOTE | 2020-07-17 10:25 | Discharge Summary ---
FINAL DISCHARGE DIAGNOSES: 1. Chest pain, ruled out, likely atypical in nature from musculoskeletal etiology. 2. History of anxiety and depression. 3. Hypertension. 4. Chronic thrombocytopenia. CONSULTANTS: Cardiology. VITAL SIGNS: Temperature is 98.1, pulse 60, respiratory rate is 18, blood pressure 147/89, pulse ox 100% on room air. LABORATORY FINDINGS: Show white count 6.4, hemoglobin 13.7, hematocrit is 41, and platelets of 103. Coagulation; PT 13, INR 0.99, PTT 34. Chemistry; sodium 140, potassium 4.5, chloride 104, bicarb 25, anion gap of 15, BUN is 8, creatinine is 0.94, glucose is 93, calcium is 9.4. LFTs within normal range. CK 125, troponin 0.018. Albumin 4.6, LDL 107. Troponins were negative. Urinalysis negative. SEROLOGY: Coronavirus nondetected. MICROBIOLOGY: None. IMAGING STUDIES: Chest x-ray, no acute cardiopulmonary disease. Cardiac stress testing normal. 2D echo shows an EF of 55% to 60%. HOSPITAL COURSE: A 54-year-old female, who came into the ED with complaints of chest pain, needing further evaluation and management. Cardiac enzymes were found to be negative. EKG shows no acute findings. Cardiac stress testing was performed by Cardiology, Dr. Ardon, which concluded a normal Lexiscan nuclear stress test with no evidence of ischemia. A 2D echo shows an EF of 55% to 60%. The patient was cleared for discharge by Cardiology. The patient's chest pain all resolved prior to being discharged to home. In fact, she had normal chest pain when she got admitted. The patient was back to normal baseline with no complaints. She will continue with same home medications with no changes. On the day of discharge, I did send her home with oral Lipitor for elevated LDL and baby aspirin on a daily basis. The patient has been cleared for discharge by all consultants. On the day of discharge, vital signs were stable, labs reviewed and stable. The patient is seen and evaluated and examined thoroughly on the day of discharge with no other complaints. The patient verbalized understanding and agrees to plan of care to follow up accordingly as an outpatient with the primary care physician in 1 week and editorial manager in 2 weeks' time. MEDICATIONS: See med reconciliation form. DISPOSITION: Home. CONDITION: Stable. DIET: Heart healthy. In the event of any worsening symptoms, the patient was advised to come back to the ED for further evaluation. Discharge summary took greater than 35 minutes. MD ELISABETH Ghotra/ROSALIA /[id number]
== END 2020-07-16 16:42 | disposition home or self-care (01) ==
LOC: ER 19:08 → ERHOLD 21:29 → MED/SURG3 22:42
PROVIDERS: ADMIT Internal Medicine; ATTEND Internal Medicine
DX: R07.89 Other chest pain (principal); I10 Essential (primary) hypertension; E03.9 Hypothyroidism, unspecified; K21.9 Gastro-esophageal reflux disease without esophagitis; K74.60 Unspecified cirrhosis of liver; Z86.19 Personal history of other infectious and parasitic diseases; F41.9 Anxiety disorder, unspecified; Z72.0 Tobacco use; D69.6 Thrombocytopenia, unspecified; Z11.59 Encounter for screening for other viral diseases
CPT/HCPCS: 36415 ×3; 71045; 78452; 80048 ×2; 80053; 80061; 81001; 82550 ×2; 82553 ×2; 84484 ×2; 85025 ×3; 85610; 85730; 93005; 93017; 93306; 99284; A9502; G0378 ×3; J2405; J2785; U0002

== ENCOUNTER 2021-01-26 12:20 | Emergency (ER) | payer OTHER, MEDICARE ==
[~2021-01-26] VITALS: Ht 154.9 cm; Wt 62.6 kg
[~2021-01-26 12:20] MED LIST changes: +SODIUM CHLORIDE1 GM PO
[2021-01-26 15:21] VITALS: BP 122/75
== END 2021-01-26 15:25 | disposition home or self-care (01) ==
LOC: ER 14:57
DX: S92.352A Displaced fracture of fifth metatarsal bone, left foot, initial encounter for closed fracture (principal); W01.0XXA Fall on same level from slipping, tripping and stumbling without subsequent striking against object, initial encounter; Y93.01 Activity, walking, marching and hiking; Y92.008 Other place in unspecified non-institutional (private) residence as the place of occurrence of the external cause; I10 Essential (primary) hypertension; E03.9 Hypothyroidism, unspecified; B19.20 Unspecified viral hepatitis C without hepatic coma; F41.9 Anxiety disorder, unspecified; K21.9 Gastro-esophageal reflux disease without esophagitis
CPT/HCPCS: 71045; 99283

== ENCOUNTER 2021-05-14 15:42 | Observation (INO) | payer MEDICARE ==
[~2021-05-14] VITALS: Ht 154.9 cm; Wt 62.6 kg
[2021-05-14 16:36] LABS: BASOPHILS % 0.3 % (0.0-1.0); EOSINOPHILS # (AUTO) 0.1 (0.0-0.4); EOSINOPHILS % 2.2 % (0.0-6.0); HEMATOCRIT 34.2 % (34.2-44.1); HEMOGLOBIN 11.3 g/dL (12.0-16.0); LYMPHOCYTES # (AUTO) 1.7 (1.0-3.2); MEAN CORPUSCULAR HEMOGLOBIN 28.9 pg (28-32); MEAN CORPUSCULAR VOLUME 87.5 fL (81-99); MONOCYTES # (AUTO) 0.4 (0.2-0.8); MONOCYTES % 6.4 % (4.4-11.3); NEUTROPHILS % 63.8 % (38.7-80.0); PLATELET COUNT 115 x10e3/uL (140-360); RED BLOOD COUNT 3.91 x10e6/uL (3.6-5.1); RED CELL DISTRIBUTION WIDTH 13.2 % (11.7-14.4)
[2021-05-14 16:37] LABS: CLARITY,URINE CLEAR (CLEAR); COLOR,URINE YELLOW (YELLOW); KETONES,URINE NEGATIVE (NEGATIVE); LEUKOCYTE ESTERASE ,URINE NEGATIVE (NEGATIVE); NITRITE,URINE NEGATIVE (NEGATIVE); PROTEIN,URINE DIPSTICK NEGATIVE (NEGATIVE); URINE UROBILINOGEN 0.2 mg/dL (0.2 - 1)
[2021-05-14 16:49] LABS: EPITHELIAL CELLS,URINE MODERATE /LPF; RBC,URINE 0-5 /HPF (0-5)
[2021-05-14 16:52] LABS: ALANINE AMINOTRANSFERASE 14 IU/L (0-55); ALBUMIN/GLOBULIN RATIO 1.1 (0.8-2.0); ALKALINE PHOSPHATASE 75 IU/L (40-150); ANION GAP 13.5 mmol/L (8-16); BLOOD UREA NITROGEN < 5 mg/dL (7-26); CALCIUM 8.5 mg/dL (8.4-10.2); CARBON DIOXIDE 22 mmol/L (22-29); CHLORIDE 98 mmol/L (98-107); CREATINE KINASE 83 IU/L (29-168); CREATININE, SERUM 0.76 mg/dL (0.57-1.11); EST GLOMERULAR FILTRATION RATE 78 ML/MIN (60-); GLUCOSE 110 mg/dL (74-118); POTASSIUM 3.5 mmol/L (3.5-5.1); SODIUM 130 mmol/L (136-145)
[2021-05-14 16:53] LABS: AMYLASE 75 U/L (25-125); BUN/CREATININE RATIO 7 (6-25); LIPASE 68 U/L (8-78)
[2021-05-14] MEDS ORDERED: ACETAMINOPHEN 325 MG TAB PO ONE (18:00)
[2021-05-14] MEDS ORDERED: SODIUM CHLORIDE FLUSH 10 ML SYR INJ PRN (18:15)
[2021-05-14] MEDS ORDERED: ONDANSETRON HCL INJ 2MG/ML 2ML 2 MG/ML VIAL IV PRN (18:15)
[2021-05-14] MEDS ORDERED: ACETAMINOPHEN 325 MG TAB ONE (18:16)
[2021-05-14] MEDS: FAMOTIDINE 20 MG/2 ML VIAL IV SCH (19:22)
[2021-05-14] MEDS: MORPHINE SULFATE INJ 2 MG/ML SYR IV PRN ×2 (19:28→23:13)
[2021-05-14 22:09] VITALS: BP 137/96
[2021-05-14 22:30] VITALS: BP 137/96
[2021-05-14 22:48] VITALS: BP 137/96
[2021-05-14] MEDS ORDERED: BREZTRI AEROS10.7 GM INH (23:40)
[2021-05-14] MEDS ORDERED: BREZTRI (23:40)
[2021-05-14] MEDS ORDERED: DULCOLAX10 MG PR (23:40)
[2021-05-14] MEDS ORDERED: NEXIUM40 MG PO (23:40)
[2021-05-14] MEDS ORDERED: ATORVASTATIN CA10 MG PO (23:40)
[2021-05-15] VITALS (8 sets, daily range): BP systolic 119–146; BP diastolic 71–87
[2021-05-15] MEDS ORDERED: DIPHENHYDRAMINE HCL 25 MG CAP PO PRN (01:15)
[2021-05-15] MEDS ORDERED: ONDANSETRON HCL INJ 2MG/ML 2ML 2 MG/ML VIAL IV PRN (01:15)
[2021-05-15] MEDS ORDERED: MELATONIN 5 MG TABLET PO PRN (01:15)
[2021-05-15] MEDS ORDERED: HYDRALAZINE HCL 20 MG/ML VIAL IV PRN (01:15)
[2021-05-15] MEDS ORDERED: POTASSIUM CHLORIDE 20 MEQ TAB CR PO PRN (01:15)
[2021-05-15] MEDS ORDERED: DEXTROSE 50% SYRINGE 50 ML IV PRN (01:15)
[2021-05-15] MEDS ORDERED: ACETAMINOPHEN 325 MG TAB PO PRN (01:15)
[2021-05-15] MEDS ORDERED: HYDROCODONE/APAP 5MG-325MG TAB PO PRN (01:15)
[2021-05-15] MEDS ORDERED: ALBUTEROL/IPRATROPIUM 3 ML NEB NEB PRN (01:15)
[2021-05-15] MEDS ORDERED: LIDOCAINE 4% PATCH TP PRN (01:15)
[2021-05-15] MEDS ORDERED: MORPHINE SULFATE INJ 2 MG/ML SYR IV PRN (01:15)
[2021-05-15] MEDS ORDERED: BENZONATATE 100 MG CAP PO PRN (01:15)
[2021-05-15] MEDS ORDERED: DOCUSATE SODIUM 100 MG CAP PO PRN (01:15)
[2021-05-15 02:47] LABS: CREATINE KINASE MB 1.2 ng/mL (0-5.0)
[2021-05-15] MEDS: FAMOTIDINE 20 MG/2 ML VIAL IV SCH ×2 (05:31→21:28)
[2021-05-15 05:38] LABS: BASOPHILS % 0.6 % (0.0-1.0); EOSINOPHILS # (AUTO) 0.2 (0.0-0.4); EOSINOPHILS % 4.3 % (0.0-6.0); HEMATOCRIT 36.6 % (34.2-44.1); HEMOGLOBIN 12.1 g/dL (12.0-16.0); LYMPHOCYTES # (AUTO) 1.7 (1.0-3.2); LYMPHOCYTES % 32.2 % (18.0-39.1); MEAN CORPUSCULAR HEMOGLOBIN 29.2 pg (28-32); MEAN CORPUSCULAR HGB CONC 33.1 g/dL (31-35); MEAN CORPUSCULAR VOLUME 88.4 fL (81-99); MONOCYTES # (AUTO) 0.4 (0.2-0.8); MONOCYTES % 7.2 % (4.4-11.3); NEUTROPHILS # (AUTO) 2.8 (2.1-6.9); NEUTROPHILS % 55.5 % (38.7-80.0); PLATELET COUNT 106 x10e3/uL (140-360); RED BLOOD COUNT 4.14 x10e6/uL (3.6-5.1)
[2021-05-15 06:00] LABS: ALBUMIN 3.8 g/dL (3.5-5.0); ANION GAP 14.2 mmol/L (8-16); CALCIUM 8.9 mg/dL (8.4-10.2); CREATININE, SERUM 0.84 mg/dL (0.57-1.11); POTASSIUM 4.2 mmol/L (3.5-5.1)
[2021-05-15] MEDS: LEVOTHYROXINE SODIUM 75 MCG TAB PO SCH (06:00)
[2021-05-15] MEDS ORDERED: PANTOPRAZOLE SOD 40 MG TABEC PO SCH ×2 (07:30→09:00)
[2021-05-15] MEDS: OLMESARTAN 20 MG TAB PO SCH (09:00)
[2021-05-15] MEDS: OXYBUTYNIN CHLORIDE XL 5 MG TAB PO SCH (09:00)
[2021-05-15] MEDS: ASPIRIN 81 MG ENTERIC COATED PO SCH (09:00)
[2021-05-15] MEDS: SODIUM CHLORIDE 1 GM TAB PO SCH (09:00)
[2021-05-15] MEDS: VENLAFAXINE HCL 75 MG CAPCR PO SCH (09:00)
[2021-05-15] MEDS: GABAPENTIN 300 MG CAP PO SCH ×4 (09:00→21:28)
[2021-05-15 10:20] LABS: CREATINE KINASE MB 1.2 ng/mL (0-5.0)
[2021-05-15] MEDS: SODIUM CHLORIDE 0.9% 1000ML 1,000 ML IV SCH ×2 (11:47→21:52)
[2021-05-15] MEDS ORDERED: ENOXAPARIN SOD INJ 40 MG/0.4 ML SYR SC SCH (17:00)
[2021-05-15] MEDS ORDERED: ATORVASTATIN 10 MG TAB PO SCH (21:00)
[2021-05-15] MEDS ORDERED: RISPERIDONE 1 MG TAB PO SCH (21:00)
[2021-05-15] MEDS ORDERED: TRAZODONE HCL 50 MG TAB PO SCH (21:00)
[2021-05-15] MEDS ORDERED: AMITRIPTYLINE HCL 25 MG TAB PO SCH (21:00)
[2021-05-16 02:10] VITALS: BP 101/75
[2021-05-16 05:03] LABS: BASOPHILS % 0.5 % (0.0-1.0); EOSINOPHILS # (AUTO) 0.2 (0.0-0.4); EOSINOPHILS % 3.8 % (0.0-6.0); HEMATOCRIT 36.6 % (34.2-44.1); LYMPHOCYTES # (AUTO) 1.5 (1.0-3.2); LYMPHOCYTES % 35.5 % (18.0-39.1); MEAN CORPUSCULAR HEMOGLOBIN 29.1 pg (28-32); MEAN CORPUSCULAR HGB CONC 32.8 g/dL (31-35); MEAN CORPUSCULAR VOLUME 88.6 fL (81-99); MONOCYTES # (AUTO) 0.3 (0.2-0.8); MONOCYTES % 7.9 % (4.4-11.3); NEUTROPHILS # (AUTO) 2.2 (2.1-6.9); NEUTROPHILS % 52.1 % (38.7-80.0); PLATELET COUNT 103 x10e3/uL (140-360); RED BLOOD COUNT 4.13 x10e6/uL (3.6-5.1); RED CELL DISTRIBUTION WIDTH 13.3 % (11.7-14.4)
[2021-05-16 05:05] VITALS: BP 110/77
[2021-05-16] MEDS: LEVOTHYROXINE SODIUM 75 MCG TAB PO SCH (05:18)
[2021-05-16 05:25] LABS: ALBUMIN 3.6 g/dL (3.5-5.0); ANION GAP 11.9 mmol/L (8-16); CALCIUM 8.6 mg/dL (8.4-10.2); CHOL/HDL RATIO 3.6 (3.0-3.6); CREATININE, SERUM 0.81 mg/dL (0.57-1.11); MAGNESIUM 2.1 MG/DL (1.3-2.1); PHOSPHORUS 3.5 MG/DL (2.3-4.7); POTASSIUM 3.9 mmol/L (3.5-5.1)
[2021-05-16 05:48] LABS: THYROID STIMULATING HORMONE 1.577 uIU/mL (0.350-4.940)
[2021-05-16 08:16] VITALS: BP 123/81
[2021-05-16] MEDS: FAMOTIDINE 20 MG/2 ML VIAL IV SCH (08:42)
[2021-05-16] MEDS: ASPIRIN 81 MG ENTERIC COATED PO SCH (08:42)
[2021-05-16] MEDS: SODIUM CHLORIDE 1 GM TAB PO SCH (08:43)
[2021-05-16] MEDS: OLMESARTAN 20 MG TAB PO SCH (08:43)
[2021-05-16] MEDS: GABAPENTIN 300 MG CAP PO SCH ×2 (08:43→14:57)
[2021-05-16] MEDS: OXYBUTYNIN CHLORIDE XL 5 MG TAB PO SCH (08:43)
[2021-05-16] MEDS: VENLAFAXINE HCL 75 MG CAPCR PO SCH (08:51)
[2021-05-16 09:00] VITALS: BP 123/81
[2021-05-16 11:53] VITALS: BP 165/80
[2021-05-16 16:38] VITALS: BP 134/85
== END 2021-05-16 17:49 | disposition home or self-care (01) ==
LOC: ER 16:20 → INTOOBSV 18:18 → ERHOLD 18:18 → MED/SURG 22:51
PROVIDERS: ADMIT Internal Medicine; ATTEND Internal Medicine
DX: R07.89 Other chest pain (principal); K21.9 Gastro-esophageal reflux disease without esophagitis; R53.83 Other fatigue; K74.60 Unspecified cirrhosis of liver; B19.20 Unspecified viral hepatitis C without hepatic coma; I10 Essential (primary) hypertension; E03.9 Hypothyroidism, unspecified; D64.9 Anemia, unspecified; F41.9 Anxiety disorder, unspecified; Z20.822 Contact with and (suspected) exposure to COVID-19
CPT/HCPCS: 36415 ×3; 71045; 80053 ×3; 80061 ×2; 81001; 82150; 82550 ×2; 82553 ×2; 83036; 83690; 83735; 84100; 84443; 84484 ×2; 85025 ×3; 87521; 93005; 93306; 93970; 99284; C9113 ×2; G0378 ×3; J1650; J2270 ×2; J2405; J7030; U0002

== ENCOUNTER 2022-03-10 08:41 | Emergency (ER) | payer MEDICARE, OTHER ==
[~2022-03-10] VITALS: Ht 307.3 cm; Wt 62.6 kg
[~2022-03-10 08:41] MED LIST changes: +ATORVASTATIN CA10 MG PO; +BREZTRI; +BREZTRI AEROS10.7 GM INH; +DULCOLAX10 MG PR; +NEXIUM40 MG PO
[2022-03-10] MEDS ORDERED: SODIUM CHLORIDE 0.9% 1000ML 1,000 ML IV STA (09:02)
[2022-03-10] MEDS ORDERED: ONDANSETRON HCL INJ 2MG/ML 2ML 2 MG/ML VIAL IV STA (09:02)
[2022-03-10 09:38] LABS: BASOPHILS % 0.3 % (0.0-1.0); EOSINOPHILS # (AUTO) 0.4 (0.0-0.4); EOSINOPHILS % 6.7 % (0.0-6.0); HEMATOCRIT 38.4 % (34.2-44.1); HEMOGLOBIN 12.8 g/dL (12.0-16.0); LYMPHOCYTES # (AUTO) 1.6 (1.0-3.2); LYMPHOCYTES % 25.9 % (18.0-39.1); MEAN CORPUSCULAR HEMOGLOBIN 29.6 pg (28-32); MEAN CORPUSCULAR HGB CONC 33.3 g/dL (31-35); MEAN CORPUSCULAR VOLUME 88.7 fL (81-99); MONOCYTES # (AUTO) 0.4 (0.2-0.8); MONOCYTES % 6.2 % (4.4-11.3); NEUTROPHILS # (AUTO) 3.6 (2.1-6.9); NEUTROPHILS % 60.6 % (38.7-80.0); PLATELET COUNT 124 x10e3/uL (140-360); RED BLOOD COUNT 4.33 x10e6/uL (3.6-5.1); RED CELL DISTRIBUTION WIDTH 13.2 % (11.7-14.4)
[2022-03-10 10:00] LABS: INR 1.05; PROTHROMBIN TIME 14.6 seconds (11.9-14.5)
[2022-03-10] MEDS ORDERED: CLONIDINE HCL 0.1 MG TAB PO ONE (10:00)
[2022-03-10 10:01] LABS: PARTIAL THROMBOPLASTIN TIME 34.3 seconds (23.8-35.5)
[2022-03-10 10:07] LABS: ALANINE AMINOTRANSFERASE 20 IU/L (0-55); ALBUMIN 3.8 g/dL (3.5-5.0); ALBUMIN/GLOBULIN RATIO 0.9 (0.8-2.0); ALKALINE PHOSPHATASE 84 IU/L (40-150); ANION GAP 14.9 mmol/L (8-16); BLOOD UREA NITROGEN < 5 mg/dL (7-26); CALCIUM 8.5 mg/dL (8.4-10.2); CARBON DIOXIDE 20 mmol/L (22-29); CHLORIDE 106 mmol/L (98-107); CREATINE KINASE 94 IU/L (29-168); CREATININE, SERUM 0.86 mg/dL (0.57-1.11); EST GLOMERULAR FILTRATION RATE 68 ML/MIN (60-); GLUCOSE 175 mg/dL (74-118); MAGNESIUM 1.9 MG/DL (1.3-2.1); SODIUM 138 mmol/L (136-145)
[2022-03-10 10:13] LABS: BUN/CREATININE RATIO 6 (6-25)
[2022-03-10 10:14] LABS: POTASSIUM 2.9 mmol/L (3.5-5.1)
[2022-03-10] MEDS ORDERED: POTASSIUM CHLORIDE 20 MEQ TAB CR PO STA (10:23)
[2022-03-10 10:29] LABS: THYROID STIMULATING HORMONE 7.181 uIU/mL (0.350-4.940)
[2022-03-10 10:38] LABS: AMPHETAMINES SCREEN,URINE NEGATIVE (NEGATIVE); PHENCYCLIDINE SCREEN,URINE NEGATIVE (NEGATIVE)
[2022-03-10 10:39] LABS: BENZODIAZEPINES SCREEN,URINE POSITIVE (NEGATIVE)
[2022-03-10 10:41] LABS: CLARITY,URINE CLEAR (CLEAR); COLOR,URINE YELLOW (YELLOW); LEUKOCYTE ESTERASE ,URINE NEGATIVE (NEGATIVE)
[2022-03-10 10:42] LABS: KETONES,URINE NEGATIVE (NEGATIVE); NITRITE,URINE NEGATIVE (NEGATIVE); PROTEIN,URINE DIPSTICK NEGATIVE (NEGATIVE); URINE UROBILINOGEN 0.2 mg/dL (0.2 - 1)
[2022-03-10 11:01] LABS: BACTERIA,URINE FEW /HPF; WBC,URINE (MAN) 0-5 /HPF (0-5)
[2022-03-10 11:02] LABS: EPITHELIAL CELLS,URINE MODERATE /LPF; YEAST,URINE MODERATE
== END 2022-03-10 11:57 | disposition home or self-care (01) ==
LOC: ER 09:00
DX: R11.2 Nausea with vomiting, unspecified (principal); E87.6 Hypokalemia; F32.A Depression, unspecified; I10 Essential (primary) hypertension; K76.9 Liver disease, unspecified; J44.9 Chronic obstructive pulmonary disease, unspecified; E03.9 Hypothyroidism, unspecified; D64.9 Anemia, unspecified; K21.9 Gastro-esophageal reflux disease without esophagitis; F41.9 Anxiety disorder, unspecified
CPT/HCPCS: 36415; 71045; 80053; 80307; 81001; 82550; 82553; 83735; 84443; 84484; 85025; 85610; 85730; 87086; 93005; 99284; C9113; J2405; J7030

== ENCOUNTER 2022-08-31 12:18 | Emergency (ER) | payer MEDICARE ==
[~2022-08-31] VITALS: Ht 307.3 cm; Wt 62.6 kg
[2022-08-31] MEDS ORDERED: ALBUTEROL2.5 MG/3 M PO (14:20)
[2022-08-31] MEDS ORDERED: AEROECLIPSE II1 EACH PO (14:20)
[2022-08-31] MEDS ORDERED: DICYCLOMINE HCL20 MG PO (14:20)
[2022-08-31] MEDS ORDERED: PREDNISONE50 MG PO (14:20)
[2022-08-31] MEDS ORDERED: AZITHROMYCIN250 MG PO (14:21)
== END 2022-08-31 14:30 | disposition home or self-care (01) ==
LOC: ER 12:23
DX: J44.1 Chronic obstructive pulmonary disease with (acute) exacerbation (principal); F17.200 Nicotine dependence, unspecified, uncomplicated; I10 Essential (primary) hypertension
CPT/HCPCS: 71045; 99282

== ENCOUNTER → 2024-09-24 | Outpatient (REF) | payer MEDICARE ==
[~2024-09-24] MED LIST changes: +AEROECLIPSE II1 EACH PO; +ALBUTEROL2.5 MG/3 M PO; +AZITHROMYCIN250 MG PO; +DICYCLOMINE HCL20 MG PO; +PREDNISONE50 MG PO
== END ==
LOC: MAMMO 09:08
PROVIDERS: ATTEND Family Medicine Geriatric Medicine
DX: Z12.31 Encounter for screening mammogram for malignant neoplasm of breast (principal)
CPT/HCPCS: 77067